=== PATIENT | male | born 1950 | race Caucasian/White ===

== ENCOUNTER → 2016-07-09 | Outpatient (CLI) | payer BC ==
[2016-07-09 13:31] LABS: ESTIMATED AVERAGE GLUCOSE 137 mg/dl; HA1C FLAG Normal (Normal)
== END | disposition home or self-care (01) ==
LOC: C.LABMFLN 13:50
PROVIDERS: ATTEND Family Medicine
DX: E11.9 Type 2 diabetes mellitus without complications (principal)

== ENCOUNTER → 2016-12-29 | Outpatient (CLI) | payer OTHER ==
[2016-12-29 13:31] LABS: ESTIMATED AVERAGE GLUCOSE 137 mg/dl; HA1C FLAG Normal (Normal)
== END | disposition home or self-care (01) ==
LOC: C.LABMFLN 10:55
PROVIDERS: ATTEND Family Medicine
DX: E11.9 Type 2 diabetes mellitus without complications (principal)

== ENCOUNTER → 2017-07-06 | Outpatient (CLI) | payer OTHER ==
[2017-07-06 12:39] LABS: BASO % 0.6 %; BASO ABS # 0.04 K/uL (0-0.2); EOS % 1.9 %; EOS ABS # 0.12 K/uL (0-0.5); HEMATOCRIT 44.6 % (42-52); HEMOGLOBIN 15.1 g/dL (14.0-18.0); IG# 0.01 K/uL (0.00-0.02); LYMPH % 19.9 %; LYMPH ABS # 1.27 K/uL (1.2-3.4); MEAN CELL VOLUME 86.6 fL (80-100); MEAN CORPUSCULAR HEMOGLOBIN 29.3 pg (25-34); MEAN CORPUSCULAR HGB CONC 33.9 g/dl (32-36); MEAN PLATELET VOLUME 10.9 fL (7.4-10.4); MONO % 11.6 %; MONO ABS # 0.74 K/uL (0.11-0.59); NEUT % 65.8 %; NEUT ABS # 4.19 K/uL (1.4-6.5); PLATELET COUNT 240 K/uL (130-400); RED CELL DISTRIBUTION WIDTH CV 14.3 % (11.5-14.5); RED CELL DISTRIBUTION WIDTH SD 45.1 fL (36.4-46.3); WHITE BLOOD COUNT 6.37 K/uL (4.8-10.8)
[2017-07-06 13:02] LABS: ALBUMIN 3.8 gm/dl (3.4-5.0); ALT/SGPT 23 U/L (12-78); BLOOD UREA NITROGEN 18 mg/dl (7-18); CALCIUM 8.7 mg/dl (8.5-10.1); CARBON DIOXIDE 20 mmol/L (21-32); CHOLESTEROL 137 mg/dl (0-200); GLUCOSE 119 mg/dl (70-99); SODIUM 138 mmol/L (136-145)
[2017-07-06 13:10] LABS: ALKALINE PHOSPHATASE 62 U/L (45-117); AST/SGOT 16 U/L (15-37); LDL CHOLESTEROL CALCULATED 79 mg/dl; TOTAL PROTEIN 7.1 gm/dl (6.4-8.2)
[2017-07-06 13:25] LABS: HEMOGLOBIN A1C 6.5 % (4.5-5.6)
[2017-07-06 17:20] LABS: CREATININE RANDOM URINE 97.5 mg/dl
== END | disposition home or self-care (01) ==
LOC: C.LABMFLN 10:29
PROVIDERS: ATTEND Family Medicine
DX: E11.9 Type 2 diabetes mellitus without complications (principal); E78.00 Pure hypercholesterolemia, unspecified; I10 Essential (primary) hypertension; Z12.5 Encounter for screening for malignant neoplasm of prostate

== ENCOUNTER → 2017-07-13 | Outpatient (CLI) | payer OTHER | END | disposition home or self-care (01) | LOC: C.LABMFLN 09:12 | PROVIDERS: ATTEND Family Medicine | DX: R80.9 Proteinuria, unspecified (principal) ==

== ENCOUNTER → 2017-11-07 | Outpatient (CLI) | payer OTHER | END | disposition home or self-care (01) | LOC: C.PATHSPEC 17:05 | PROVIDERS: ATTEND Urology | DX: N20.0 Calculus of kidney (principal); R31.9 Hematuria, unspecified ==

== ENCOUNTER → 2017-11-14 | Outpatient (CLI) | payer OTHER ==
[~2017-11-14] MED LIST: ATOR-24 PO; GLC500 PO; LISI40TA PO; MULT-506 PO; OPTIRAY 320 IV PRN; PATIENT'S ALLERGY INFO NEEDS ENTERED SCH
--- NOTE | 2017-11-14 11:55 | DIAGNOSTIC IMAGING REPORT ---
CT UROGRAM CLINICAL HISTORY: Nephrolithiasis. Hematuria. COMPARISON STUDY: No priors. TECHNIQUE: Before and following the IV administration of 119 cc of Optiray 320, CT urogram of the abdomen and pelvis is performed from the lung bases to the proximal femora. Images are reviewed in the axial, sagittal, and coronal planes. IV contrast was administered without complication. A dose lowering technique was utilized adhering to the principles of ALARA. CT DOSE: 1529.00 mGycm FINDINGS: Lung bases: The heart is normal in size and without pericardial effusion. The lung bases are clear. Liver: The contrast-enhanced liver is normal in size, contour, and attenuation. There is no intrahepatic biliary ductal dilatation. The hepatic veins and portal veins are patent. Scattered subcentimeter hepatic hypodensities likely represent cysts but are too small for definitive characterization. There is a 12 mm enhancing focus in the hepatic dome seen on image #19. Gallbladder: Unremarkable. Spleen: Normal in size and attenuation. There is a calcified splenic granuloma. Pancreas: Unremarkable. Adrenal glands: Unremarkable. Kidneys and ureters: There is slightly asymmetric cortical atrophy of the right kidney as compared to the left. There is severe right hydroureteronephrosis, secondary to 2 large obstructing calculi in the distal right ureter. These measure 2.1 cm and 1.1 cm as seen on axial images #306 and #291. The more distal calculus is located approximately 2.5 cm above the vesicoureteral junction. No additional calculi are identified in the right kidney. There are 10 mm and 4 mm nonobstructing calculi in the left lower pole. There is no left-sided hydronephrosis. The kidneys enhance symmetrically. There is delayed excretion from the right kidney, with no opacification of the right ureter. There is no enhancing renal cortical mass lesion identified. There is no evidence of urothelial lesion within the renal pelvis bilaterally or along the course of either ureter. Urothelial thickening is noted in the distal right ureter. The remainder of the right ureter is normal as imaged. Note the right renal collecting system and ureter were not opacified by excreted contrast. Abdominal vasculature: The abdominal aorta is normal in course and caliber noting moderate atherosclerotic calcification. Bowel: There is moderate colonic diverticulosis without CT evidence of acute diverticulitis. No bowel obstruction is seen. The appendix is well-visualized and normal. Peritoneum: There is no intraperitoneal free air or abdominal ascites. Lymphadenopathy: None. Pelvic viscera: There is a 4.5 x 3.2 cm lobulated intraluminal mass lesion identified arising from the posterior right wall of the bladder. This appears to demonstrate postcontrast enhancement and is highly concerning for neoplasm. This is located in the region of the right trigone. There is median lobe hypertrophy of the prostate gland. Mild circumferential bladder wall thickening and trabeculation suggests chronic outlet obstruction. Skeletal structures: Mild lumbosacral spondylosis is observed. There are bilateral pars defects at L5 with minimal anterolisthesis at L5-S1. No lytic or blastic lesions are seen. IMPRESSION: 1. There are 2 large obstructing calculi in the distal right ureter. This causes severe right hydroureteronephrosis. 2. There is a 4.5 cm lobulated intraluminal mass lesion identified arising from the posterior right wall of the bladder. This appears to demonstrate postcontrast enhancement and should be considered urothelial neoplasm until proven otherwise. Follow-up with cystoscopy is recommended. 3. The kidneys enhance symmetrically. There is delayed excretion from the right kidney. 4. Nonobstructing calculi are noted in the left kidney. 5. Nonspecific urothelial thickening is noted in the distal right ureter, likely related to presence of large distal ureteral calculi. Note that the right renal pelvis and right ureter were not well opacified by excreted contrast. 6. No enhancing renal cortical mass is seen. 7. Moderate colonic diverticulosis without CT evidence of acute diverticulitis. 8. There is no evidence of metastatic disease in the abdomen or pelvis. 9. There is a 12 mm hypervascular focus in the hepatic dome. This is incompletely characterized and may represent a flash filling hemangioma. If further assessment is desired an MRI of the liver would be appropriate. 10. Additional findings as above. Electronically signed by: Jah Sebastian M.D. 11/14/2017 11:54 AM Dictated Date/Time: 11/14/2017 11:14 AM
== END | disposition home or self-care (01) ==
LOC: C.CTS 10:13
PROVIDERS: ATTEND Urology
DX: N20.0 Calculus of kidney (principal); R31.9 Hematuria, unspecified; N20.1 Calculus of ureter; R19.09 Other intra-abdominal and pelvic swelling, mass and lump; K76.9 Liver disease, unspecified

== ENCOUNTER → 2017-11-16 | Outpatient (CLI) | payer OTHER ==
[~2017-11-16] MED LIST changes: -OPTIRAY 320 IV PRN; -PATIENT'S ALLERGY INFO NEEDS ENTERED SCH
[2017-11-16 12:59] LABS: BLOOD UREA NITROGEN 20 mg/dl (7-18); CREATININE 1.02 mg/dl (0.60-1.40)
== END | disposition home or self-care (01) ==
LOC: C.LABMFLN 09:48
PROVIDERS: ATTEND Urology
DX: R31.9 Hematuria, unspecified (principal)

== ENCOUNTER → 2017-11-21 | Outpatient (CLI) | payer OTHER ==
[~2017-11-21] MED LIST changes: +OXYC-57 PO; +PHEN-876 PO
== END | disposition home or self-care (01) ==
LOC: C.LABMFLN 11:09
PROVIDERS: ATTEND Internal Medicine Nephrology
DX: R80.9 Proteinuria, unspecified (principal)

== ENCOUNTER → 2017-11-28 | Day surgery (SDC) | payer OTHER ==
[2017-11-21 14:29] VITALS: BMI 26.0
[2017-11-22 08:18] VITALS: BMI 25.0
--- NOTE | 2017-11-22 08:26 | PAT Medication Instructions ---
Service Date Nov 22, 2017. Current Home Medication List Atorvastatin (Lipitor), 40 MG PO QPM Lisinopril (Zestril), 40 MG PO QPM Metformin HCl (Metformin HCl), 1 TAB PO QPM Multivitamin (Multivitamin), 1 TAB PO QPM Medication Instructions For Your Scheduled Surgery - Take the following medications as scheduled the night before surgery: Multivitamin (Multivitamin), 1 TAB PO QPM Metformin HCl (Metformin HCl), 1 TAB PO QPM Atorvastatin (Lipitor), 40 MG PO QPM Lisinopril (Zestril), 40 MG PO QPM If you have any questions please call us at [phone] or [phone] or [phone]
--- NOTE | 2017-11-22 08:57 | DIAGNOSTIC IMAGING REPORT ---
TWO VIEW CHEST CLINICAL HISTORY: Preoperative examination.. FINDINGS: PA and lateral chest radiographs are correlated with abdominal CT dated 11/14/2017. The cardiomediastinal silhouette is unremarkable. There is diffuse subpleural reticulation with interstitial thickening and mild nodularity suggesting chronic interstitial lung disease. No airspace consolidation or pleural effusion is identified. There is no pneumothorax. The skeletal structures are osteopenic. The bony thorax appears intact. IMPRESSION: Findings suggest interstitial lung disease. No airspace consolidation or pleural effusion is identified. Electronically signed by: Jah Sebastian M.D. 11/22/2017 8:55 AM Dictated Date/Time: 11/22/2017 8:51 AM
[2017-11-22 10:17] LABS: CALCIUM 9.2 mg/dl (8.5-10.1); CREATININE 1.14 mg/dl (0.60-1.40); POTASSIUM 3.7 mmol/L (3.5-5.1)
[2017-11-22 12:18] LABS: BASO % 0.5 %; BASO ABS # 0.04 K/uL (0-0.2); EOS % 1.5 %; EOS ABS # 0.13 K/uL (0-0.5); HEMATOCRIT 48.1 % (42-52); HEMOGLOBIN 15.7 g/dL (14.0-18.0); IG# 0.02 K/uL (0.00-0.02); LYMPH % 22.2 %; LYMPH ABS # 1.88 K/uL (1.2-3.4); MEAN CELL VOLUME 89.1 fL (80-100); MEAN CORPUSCULAR HEMOGLOBIN 29.1 pg (25-34); MEAN CORPUSCULAR HGB CONC 32.6 g/dl (32-36); MEAN PLATELET VOLUME 12.1 fL (7.4-10.4); MONO % 10.8 %; MONO ABS # 0.91 K/uL (0.11-0.59); NEUT % 64.8 %; NEUT ABS # 5.48 K/uL (1.4-6.5); PLATELET COUNT 253 K/uL (130-400); RED CELL DISTRIBUTION WIDTH CV 14.4 % (11.5-14.5); RED CELL DISTRIBUTION WIDTH SD 46.4 fL (36.4-46.3); WHITE BLOOD COUNT 8.46 K/uL (4.8-10.8)
[2017-11-22 12:39] LABS: HEMOGLOBIN A1C 6.5 % (4.5-5.6)
[2017-11-28] VITALS (7 sets, daily range): BP systolic 125–149; BP diastolic 70–93; PULSE 87–95; TEMP 36.5–36.8; O2SAT 94–98; Ht 165.1 cm; Wt 70.0 kg
[~2017-11-28] VITALS: Ht 165.1 cm; Wt 70.0 kg
[~2017-11-28] MED LIST changes: +ATROPINE SULFATE 0.1 MG/ML 5ML SYR IV PRN; +CIPROFLOXACIN / D5W 400 MG IV SCH; +Cysto-Conray II 17.2% 250ML BOTTLE ONE; +DEXAMETHASONE SOD INJ 4 MG/ML VIAL ONE; +EpHEDrine SULFATE 50MG/5ML SYR ONE; +EpHEDrine SULFATE INJ 50 MG/ML AMP IV PRN; +FENTANYL CITRATE INJ 50 MCG/1 ML 2 ML VIAL IV PRN; +FENTANYL CITRATE INJ 50 MCG/1 ML 2 ML VIAL ONE; +HYDROmorphone INJ 1 MG/ML SYR IV PRN; +LACTATED RINGER'S 1000ML 1,000 ML IV SCH; +LIDOCAINE HCL 2% 2 ML VIAL (20MG/ML) ONE; +METHYLENE BLUE 0.5% 10 ML VIAL ONE; +MIDAZOLAM HCL 1 MG/ML 2ML VIAL ONE; +NEOSTIGMINE METHYLSULFATE 5 MG/5 ML SYR ONE; +ONDANSETRON INJ 2 MG/ML 2 ML VIAL IV PRN; +ONDANSETRON INJ 2 MG/ML 2 ML VIAL ONE; +OXYCODONE/ACETAMINOPHEN 5-325 TAB PO PRN; +PHENYLEPHRINE HCL INJ 10 MG/ML VIAL ONE; +PROPOFOL IV EMULSION 10 MG/ML 20 ML VIAL ONE; +ROCURONIUM BROMIDE 10 MG/ML 5 ML VIAL ONE
--- NOTE | 2017-11-28 06:58 | History & Physical Bridge Note ---
H&P Re-Evaluation Bridge Note: I have examined the patient, reviewed the History & Physical and in the interval since the performance of the History & Physical I have noted the following changes of clinical significance: No changes noted
--- NOTE | 2017-11-28 10:47 | DIAGNOSTIC IMAGING REPORT ---
RETROGRADE INCLUDES KUB CLINICAL HISTORY: Right-sided ureteral calculi. Right-sided hydronephrosis. COMPARISON STUDY: CT scan dated 11/14/2017 FINDINGS: 57 seconds of fluoroscopic time was utilized. 2 intraoperative fluoroscopic spot images are provided for interpretation. There is moderate right-sided hydronephrosis and hydroureter. Lucencies involving the right renal collecting system may relate to overlying bowel gas. The final image demonstrates placement of a right-sided nephroureteral stent. Only the proximal pigtail is visualized. IMPRESSION: Right-sided hydronephrosis and hydroureter. A right-sided nephroureteral stent was placed. Electronically signed by: Tyler Orellana M.D. 11/28/2017 10:45 AM Dictated Date/Time: 11/28/2017 10:43 AM
--- NOTE | 2017-11-28 10:50 | Discharge Instructions ---
Discharge Instructions Date of Service Nov 28, 2017. Visit Reason for Visit: Bladder Tumor, Right Ureteral Stone Discharge Discharge Diagnosis / Problem: Bladder tumor Discharge Goals Goal(s): Therapeutic intervention Activity Recommendations Activity Limitations: per Instructions/Follow-up section Lifting Limitations: gradually increase as tolerated Exercise/Sports Limitations: until after follow-up appointment May Resume Sexual Activity: after one week Shower/Bathe: no limitations Driving or Machine Use: resume 1 day after discharge Anesthesia . Post Anesthesia Instructions: If you have had General Anesthesia or IV Sedation: * Do not drive today. * Resume driving when surgeon permits. * Do not make important decisions or sign legal documents today. * Call surgeon for: 1. Temperature elevations greater than 101 degrees F. 2. Uncontrollable pain. 3. Excessive bleeding. 4. Persistent nausea and vomiting. 5. Medication intolerance (nausea, vomiting or rash). * For nausea and vomiting use only clear liquids such as: tea, soda, bouillon until nausea subsides, then gradually increase diet as tolerated. * If you have any concerns or questions, call your surgeon's office. If physician is unavailable and it is an emergency, call 911 or go to the nearest emergency room. . Diet Recommendations Recommended Home Diet: resume previous diet Procedures Procedures Performed: Cystoscopy, Urethral Dilation, Right Stent Insertion, Transurethral Resection of Bladder Tumor Pending Studies Studies pending at discharge: no Medical Emergencies . Who to Call and When: Medical Emergencies: If at any time you feel your situation is an emergency, please call 911 immediately. . Non-Emergent Contact Non-Emergency issues call your: Urologist Call Non-Emergent contact if: temperature is above 101.5, your pain is not controlled . . "Provider Documentation" section prepared by Tai Toledo. . [place] Drug Monitoring Program Search Results: patient reviewed within database
--- NOTE | 2017-11-28 11:14 | [facility] Operative Report ---
Operative Report Operative Date Nov 28, 2017. Pre-Operative Diagnosis Bladder tumor, Nephrolithiasis Post-Operative Diagnosis Bladder tumor, Nephrolithiasis Procedure(s) Performed Cystoscopy, Urethral Dilation, Right Stent Insertion, Transurethral Resection of Bladder Tumor Surgeon Dr. Toledo Guest Advisor Surgeon(s) none Estimated Blood Loss 2 cc Findings Cystoscopic exam revealed normal anterior urethra there is papillary tumor in the prostatic fossa and at the bladder neck there was an extremely large tumor covering the floor of the bladder on the right side this obliterated the right ureteral orifice. Right retrograde showed 2 large stones in the right ureter with hydroureteronephrosis Specimens Frozen #1 Bladder tumor - any muscle? #2 Bladder tumor Permanent A: bladder tumor Drains 6 [place] by 26 cm right ureteral stent Anesthesia Type General Complication(s) none Disposition yes Recovery Room / PACU Indications Patient's a 66-year-old white male who on evaluation for hematuria was found to have 2 large distal right ureteral stones as well as a very large bladder tumor he is initially being brought in for cystoscopy TURBT possible ureteroscopy laser lithotripsy and stent right side Description of Procedure After the induction of an adequate general anesthetic and appropriate timeout patient's lower abdomen genitalia prepped with Hibiclens draped in a sterile fashion meatus was dilated with Kalani sounds to 28 [place]. Using a 22 [place] cystoscope routine cystoscopic exam was performed the above-noted findings with 30 and 70 lenses the tumor itself was very large. Next using a 24 [place] resection scope and bipolar loop the tumor was resected in its entirety the resection actually took several hours. The tumor did obliterate the right ureteral orifice. There were also tumors in the prostatic fossa and at the bladder neck which were resected after resecting all visible tumor any bleeding points were electrocoagulated. Patient was given methylene blue but no dye ever came from either ureteral orifice. Through probing with a wire I was able to find the right ureteral orifice right retrograde was performed with the above-noted findings I was able to pass a 6 [place] by 26 cm stent over guidewire to position the renal pelvis confirmed by fluoroscopy the guidewire was removed there is a good curl at the bladder level at this point we decided not to attempt ureteroscopy as the tumor had completely obliterated that ureteral orifice will give it time to heal all needle sponge and instrument counts are correct at the end of the case. Patient tolerated the procedure well and was taken recovery room in stable condition I attest to the content of the Intraoperative Record and any orders documented therein. Any exceptions are noted below.
--- NOTE | 2017-11-28 11:17 | Anesthesiology Progress Note ---
Anesthesia Post Op Note Date & Time Nov 28, 2017 at 11:17 Vital Signs Pain Intensity: 0 Vital Signs Past 12 Hours Date Time Temp Pulse Resp B/P (MAP) Pulse Ox O2 Delivery O2 Flow Rate FiO2 11/28/17 11:02 98 24 98 11/28/17 11:02 97 24 11/28/17 11:01 94 22 128/76 98 11/28/17 11:01 96 22 11/28/17 10:57 126/65 11/28/17 10:56 104 23 98 11/28/17 10:56 99 23 11/28/17 10:51 121 25 145/89 97 11/28/17 10:51 117 25 11/28/17 10:48 139/84 11/28/17 10:46 36.1 122 16 139/84 (92) 98 Oxymask 10 11/28/17 05:39 36.8 87 18 149/79 (102) 98 Room Air Notes Mental Status: alert / awake / arousable, participated in evaluation Pt Amnestic to Procedure: Yes Nausea / Vomiting: adequately controlled Pain: adequately controlled Airway Patency, RR, SpO2: stable & adequate BP & HR: stable & adequate Hydration State: stable & adequate Anesthetic Complications: no major complications apparent
== END | disposition home or self-care (01) ==
LOC: C.ACU 05:00
PROVIDERS: ATTEND Urology
DX: C67.9 Malignant neoplasm of bladder, unspecified (principal); N20.0 Calculus of kidney; I10 Essential (primary) hypertension; E11.9 Type 2 diabetes mellitus without complications; N40.0 Benign prostatic hyperplasia without lower urinary tract symptoms; E78.00 Pure hypercholesterolemia, unspecified; E55.9 Vitamin D deficiency, unspecified

== ENCOUNTER 2018-10-26 10:22 | Inpatient (IN) ==
--- NOTE | 2018-10-23 09:09 | Anesthesiology Consultation ---
Date of Service October 23, 2018 Assessment & Plan (1) Encounter for pre-operative examination: - Paroxysmal atrial tachycardia: dx in recovery room after left lung EBUS with biopsies 10/13/18 at [facility]. Cardio consult 10/13/18 at [facility] felt possible 2/2 stress of procedure and high catecholamines. Responded well to beta blockade. Recommended outpatient 24 hour holter/ECHO to further evaluate (done 10/2018). ECHO done 10/17/18 unremarkable. Surgeon is coordinating with cardio to ensure okay to proceed with surgery as scheduled. Cardio preop evaluation done 10/25/18. - Cardio: 10/25/18: "Based on his levels of physical activity without limiting cardiopulmonary symptoms and normal LV systolic function, and despite frequent atrial ectopy and PAT -- patient is an acceptable surgical risk to proceed with surgery as scheduled.. We will expect that the patient will have frequent atrial ectopy and runs of atrial tachycardia perioperatively -- so would recommend IV Lopressor as needed during the perioperative period. The presence of these atrial arrhythmias is not prohibitive of this surgery." Chart Review Chart Review: Acceptable Risk for Surgery and Patient NOT seen in Pre Admission Testing History Surgery Operation Date: 10/26/18 11:50 Proposed Procedures p Robotic Left Robotic Video Assisted Thoracoscopy with Left Lower Lobectomy and Mediastinal Lymphadenectomy - Brock Zhao MD, FACS Height/Weight Height: 5 ft 5 in Weight: 71.214 kg Allergies Allergy/AdvReac Type Severity Reaction Status Date / Time aspirin AdvReac Mild HALLUCINATIONS Verified 10/23/18 08:11 A CHILD Medications Home Medications Medication Instructions Recorded Confirmed Last Taken atorvastatin 40 mg PO HS #0 tab 11/21/17 10/23/18 10/12/18 22:00 lisinopril 40 mg PO HS #0 tab 11/21/17 10/23/18 10/12/18 22:00 metformin 500 mg PO HS #0 11/21/17 10/23/18 10/12/18 22:00 multivitamin 1 tab PO HS #0 tab 11/21/17 10/23/18 10/12/18 22:00 Symbicort 2 puff INHALATION BID PRN 10/10/18 10/23/18 10/12/18 22:00 albuterol sulfate 1 puff INHALATION Q6H PRN 10/10/18 10/23/18 10/12/18 18:00 metoprolol succinate [Toprol XL] 50 mg PO HS 10/23/18 10/23/18 Unknown Past Medical History Medical History PAT (paroxysmal atrial tachycardia) 10/2018 Bladder cancer s/p TURBT Diabetes mellitus, type 2 NIDDM Hyperlipidemia Hypertension Mass of left lung Nephrolithiasis Pneumonia 09/2018; workup for this led to findings of lung mass (reason for upcoming procedure) Past Family History Family History Sister Family history of diabetes mellitus Grandmother Family history of diabetes mellitus Past Surgical History Surgical History H/O transurethral destruction of bladder lesion Hand trauma s/p surgical repair History of cystoscopy + stent History of inguinal hernia repair s/p repair (as child) History of tonsillectomy and adenoidectomy S/P colonoscopy Social History Smoking Status: Never smoker tobacco type: cigarettes Smoking cigarettes per day: 3-4 CIGS DAILY X 3 YEARS Do You Dip or Chew Tobacco: No Hx Alcohol Use: Yes Alcohol type: beer alcohol intake frequency: holidays/special occasions only Hx Substance Use: No substance use type: does not use Testing Laboratory Results 10/23/18 WBC 6.46 H/H 14.1/43.8 PLATELETS 277 SODIUM 141 POTASSIUM 4.3 CHLORIDE 107 CO2 26 BUN 13 CREATININE 0.97 GLUCOSE 106 Electrocardiogram Date: 10/13/18 SR with frequent and consistent PAC's at 104bpm. Chest X-Ray Date: 10/13/18 There are mixed interstitial and alveolar opacities bilaterally. There is no pneumothorax status post biopsy. The heart is borderline enlarged. No evidence of pneumothorax status post biopsy Echocardiogram Date: 10/17/18 EF 55-60%. No visualized RWMA. Mild LAD. Mild AR. Other Testing Chest CT: 09/25/18: Area of masslike consolidation involving the superior segment of the left lower lobe. There is a possible central mass demonstrating mild narrowing of the left lower lobe bronchus proximally as well as mild mass effect on the left main pulmonary artery. Mild mediastinal lymphadenopathy. Interstitial lung disease Holter Report: 10/19/18: Technically limited quality. Rhythm is sinus rhythm. Average HR 77bpm. Min HR 42bpm. Max HR 90bpm. No significant pauses or AVB noted. Wide complex bears seen, consider ventricular origin for some beats but most are probably aberrant. Frequent sustained and nonsustained episodes of a. tachycardia (suspect atrial tachycardia rather than reentrant SVT). A. arrhyth william comprised 48% of recorded bears. No apparent ventricular arrhythmia noted, but some aberrant beats and possibly ventricular. No diary submitted.
[~2018-10-26 10:22] MED LIST changes: -ATOR-24 PO; -ATROPINE SULFATE 0.1 MG/ML 5ML SYR IV PRN; -CIPROFLOXACIN / D5W 400 MG IV SCH; -Cysto-Conray II 17.2% 250ML BOTTLE ONE; -DEXAMETHASONE SOD INJ 4 MG/ML VIAL ONE; -EpHEDrine SULFATE 50MG/5ML SYR ONE; -EpHEDrine SULFATE INJ 50 MG/ML AMP IV PRN; -FENTANYL CITRATE INJ 50 MCG/1 ML 2 ML VIAL IV PRN; -FENTANYL CITRATE INJ 50 MCG/1 ML 2 ML VIAL ONE; -GLC500 PO; -HYDROmorphone INJ 1 MG/ML SYR IV PRN; -LACTATED RINGER'S 1000ML 1,000 ML IV SCH; -LIDOCAINE HCL 2% 2 ML VIAL (20MG/ML) ONE; -LISI40TA PO; +LR 15ML/HR IV SCH; -METHYLENE BLUE 0.5% 10 ML VIAL ONE; -MIDAZOLAM HCL 1 MG/ML 2ML VIAL ONE; -MULT-506 PO; -NEOSTIGMINE METHYLSULFATE 5 MG/5 ML SYR ONE; -ONDANSETRON INJ 2 MG/ML 2 ML VIAL IV PRN; -ONDANSETRON INJ 2 MG/ML 2 ML VIAL ONE; -OXYC-57 PO; -OXYCODONE/ACETAMINOPHEN 5-325 TAB PO PRN; -PHEN-876 PO; -PHENYLEPHRINE HCL INJ 10 MG/ML VIAL ONE; -PROPOFOL IV EMULSION 10 MG/ML 20 ML VIAL ONE; -ROCURONIUM BROMIDE 10 MG/ML 5 ML VIAL ONE
[2018-10-26] MEDS ORDERED: BUPIVACAINE LIPOSOME 1.3% 266 MG/20 ML VIAL ONE (11:53)
[2018-10-26] MEDS ORDERED: SODIUM CHLORIDE 0.9% PF 50 ML VIAL ONE (11:53)
[2018-10-26] MEDS ORDERED: BUPIVACAINE 0.5 % 5 MG/1 ML MPF 30ML VIAL ONE (11:54)
--- NOTE | 2018-10-26 12:04 | History & Physical Bridge Note ---
Date of Service October 26, 2018 History & Physical Bridge Note I have examined the patient, reviewed the History & Physical and in the interval since the performance of the History & Physical I have noted the following changes of clinical significance: no changes noted
[2018-10-26] MEDS ORDERED: fentaNYL citrate 100 MCG/2 ML VIAL ONE (12:06)
[2018-10-26] MEDS ORDERED: ROCURONIUM BROMIDE 10 MG/ML 5 ML VIAL ONE ×4 (12:06→14:56)
[2018-10-26] MEDS ORDERED: MIDAZOLAM HCL 1 MG/ML 2ML VIAL ONE ×2 (12:06→14:12)
--- NOTE | 2018-10-26 12:13 | History & Physical Bridge Note ---
Date of Service October 26, 2018 History & Physical Bridge Note I have examined the patient, reviewed the History & Physical and in the interval since the performance of the History & Physical I have noted the following changes of clinical significance: no changes noted. This patient has a left lower lobe mass and will undergo a left lower lobectomy.
[2018-10-26] MEDS ORDERED: CEFAZOLIN 250 MG/ML 1 GM VIAL ONE ×2 (13:03→14:57)
[2018-10-26] MEDS ORDERED: CEFAZOLIN 2000MG 2,000 MG/15 ML SYR IV ONE (13:15)
[2018-10-26] MEDS ORDERED: ATROPINE SULFATE 0.1 MG/ML 10ML SYR IV PRN (13:20)
[2018-10-26] MEDS ORDERED: ePHEDrine sulfate 50 MG/ML AMP IV PRN (13:20)
[2018-10-26] MEDS ORDERED: ONDANSETRON INJ 2 MG/ML 2 ML VIAL IV PRN (13:21)
[2018-10-26] MEDS ORDERED: HYDROmorphone INJ 2 MG/ML SYR/VIAL IV PRN (13:21)
[2018-10-26] MEDS ORDERED: AMIODARONE HCL INJ 50 MG/ML 3 ML VIAL IV ONE ×2 (13:50→13:59)
--- NOTE | 2018-10-26 14:20 | Post Operative Brief Note ---
Immediate Post Op Note v1 Date of Surgery October 26, 2018 Pre & Post Diagnosis Operation Date: 10/26/18 11:50 Pre-Op Diagnosis: Right left hypermetabolic lower lobe mass Post-Op Diagnosis: Right left hypermetabolic lower lobe mass Apparent V-Tach Procedure Operation Date: 10/26/18 11:50 Actual Procedures p Robotic Left Robotic Video Assisted Thoracoscopy, Aborted (Left) - Brock Zhao MD, FACS Surgeon Brock Zhao MD, FACS Project Asst Carmen GUZMAN Estimated Blood Loss 0 Findings Consistent with Post-Op Diagnosis Drains Chest Tube (24fr) and Gonzalez Catheter (16 occ[place] placed by Keyur GUZMAN without any difficulty, clear yellow urine. Gonzalez to be discontinued at end of surgery)
[2018-10-26] MEDS ORDERED: ALBUTEROL HFA 8 GM INHALER INH PRN (14:25)
[2018-10-26] MEDS ORDERED: BUDESONIDE/FORMOTEROL FUMARATE 160/4.5 60 PUFFS/INHALER INH PRN (14:25)
--- NOTE | 2018-10-26 14:25 | Critical Care Consultation ---
Date of Consultation October 26, 2018 Assessment & Plan (1) Ventricular tachycardia: Reason Critically Ill: Ventricular tachycardia with hemodynamic instability PLAN: Neuro: Analgesia -Oral pain medication ordered Resp: Left lung mass -Unable to complete surgical resection -Wean to extubate CV: Ventricular tachycardia Supraventricular tachycardia -On amiodarone at this time -Trend troponins limited echo -Cardiology consult Fluids/Renal: History of proteinuria -Discontinue Gonzalez when awake ID: Perioperative antibiotics -Discontinue shortly GI/Nutrition: Clears when extubated -Advance diet when tolerated Heme: DVT prophylaxis: Lovenox Endocrine: ICU hyperglycemia protocol [id number] diabetes mellitus -Continue home meds Vascular access: Peripheral IVs, right radial arterial line Code Status: Full code I have personally spent 35 minutes of critical care time in the direct management of this patient. This is a life/limb threatening event. This includes time spent evaluating patient, direct bedside care, chart review, placing orders, interpretation of diagnostic studies, discussion with consultants, patient, and/or family members regarding treatment decisions, as well as other required patient management activities. This time is exclusive of all separately billable procedures, and teaching time and separate from and in addition to any other critical care service time. Present on Admission?: No (2) Proteinuria: Present on Admission?: Yes (3) Bladder cancer: Present on Admission?: Yes (4) Type 2 diabetes mellitus: Present on Admission?: Yes (5) Mass of left lung: Present on Admission?: Yes History of Present Illness Attending Physician: Brock Zhao MD, FACS Patient is a 67-year-old male who was in the operating room for a wedge resection, the patient had been induced by general anesthesia and was undergoing single lung ventilation when he started to have episodes of nonsustained ventricular tachycardia and possible SVT per anesthesia report. Eventually he had a prolonged episode of ventricular tachycardia without a blood pressure which was recorded via A-line. The surgical procedure was stopped patient was returned to the supine position amiodarone was started and he was transferred to the ICU for further evaluation and management. He recently underwent evaluation by cardiology. Allergies Allergy/AdvReac Type Severity Reaction Status Date / Time aspirin AdvReac Mild HALLUCINATIONS Verified 10/26/18 10:48 A CHILD Home Medications Home Medications Medication Instructions Recorded Confirmed Type atorvastatin 40 mg PO HS #0 tab 11/21/17 10/26/18 History lisinopril 40 mg PO HS #0 tab 11/21/17 10/26/18 History metformin 500 mg PO HS #0 11/21/17 10/26/18 History multivitamin 1 tab PO HS #0 tab 11/21/17 10/26/18 History Symbicort 2 puff INHALATION BID PRN 10/10/18 10/26/18 History albuterol sulfate 1 puff INHALATION Q6H PRN 10/10/18 10/26/18 History metoprolol succinate [Toprol XL] 50 mg PO HS 10/23/18 10/26/18 History Patient History Medical History PAT (paroxysmal atrial tachycardia) 10/2018 Bladder cancer s/p TURBT Diabetes mellitus, type 2 NIDDM Hyperlipidemia Hypertension Mass of left lung Nephrolithiasis Pneumonia 09/2018; workup for this led to findings of lung mass (reason for upcoming pr ocedure) Surgical History H/O transurethral destruction of bladder lesion Hand trauma s/p surgical repair History of cystoscopy + stent History of inguinal hernia repair s/p repair (as child) History of tonsillectomy and adenoidectomy S/P colonoscopy Family History Sister Family history of diabetes mellitus Grandmother Family history of diabetes mellitus Social History Preferred Language: [place] Communication Ability: Effective Visual Impairment: No Limitations Lens Blocker Required: No Beliefs That Will Affect Care: None Current Living Situation: Spouse Other Information That Helps Us Care for You: No Feels Safe at Home: Yes Safety Concerns: Feels Safe At This Time Smoking Status: Never smoker Tobacco Type: cigarettes Cigarettes Per Day: 3-4 CIGS DAILY X 3 YEARS Do You Dip or Chew Tobacco: No Second Hand Exposure: No Tobacco Cessation Education Requested by Patient: No Hx Alcohol Use: Yes Alcohol type: beer Hx Substance Use: No Review of Systems Review of Systems: Unobtainable due to endotracheal tube Physical Exam Physical Exam: General: Well-nourished male who appears stated age I have reviewed the recorded vital signs Neurological: Seen in the operating room 3 TP, moving all 4 extremities prior to repeat dose of rocuronium Psychological: Unable to obtain secondary to sedation and endotracheal tube Eyes: Pupils are equal, round and reactive to light, anicteric sclera. Symmetrical lids. HENT: Oropharynx obscured by endotracheal tube, mucous membranes are moist. Neck: Supple. Symmetric. trachea midline. No thyromegaly. Cardiovascular: Normal peripheral perfusion. Distal pulses and capillary refill intact. No JVD. Bedside monitor demonstrates normal sinus rhythm Respiratory: Chest tubes present in left chest Gastrointestinal: Soft. Non-distended. Lymphatic: No cervical lymphadenopathy. Musculoskeletal: No deformity. No clubbing nor cyanosis. Right radial arterial line Results & Data Vital Signs (Past 12 Hours) Vital Signs Temp Pulse Resp BP Pulse Ox 10/26/18 10:54 36.5 C 67 18 145/88 H 96 Laboratory Results 10/26/18 10/26/18 Range/Units 12:20 11:12 POC Glucose 100 H (70-99) Blood Type A Positive Antibody Screen NEGATIVE Crossmatch See Detail PG Care Time/CCT Total # of Minutes Spent Total Time Spent with Patient: Total time spent is greater than 50% in coordination of care (as documented) at patient's floor/unit and/or counseling patient: Critical Care Time: Yes Total Critical Care Time: 35
[2018-10-26] MEDS ORDERED: AMIODARONE / D5W 360 MG/200 ML BAG IV SCH ×2 (14:30→20:32)
[2018-10-26] MEDS ORDERED: AMIODARONE IV BOLUS / DRIP IV STA (14:30)
[2018-10-26] MEDS ORDERED: fentaNYL citrate 100 MCG/2 ML VIAL IV PRN (14:38)
[2018-10-26] MEDS ORDERED: ACETAMINOPHEN 325 MG TAB PO PRN (14:38)
[2018-10-26] MEDS ORDERED: ACETAMINOPHEN 1,000 MG/100 ML VIAL IV PRN (14:38)
[2018-10-26] MEDS ORDERED: MIDAZOLAM HCL 1 MG/ML 2ML VIAL IV PRN (14:38)
[2018-10-26 14:43] LABS: Basophils # (auto) 0.04 K/uL (0-0.2); Basophils % (auto) 0.6 %; Eosinophils # (auto) 0.17 K/uL (0-0.5); Eosinophils % (auto) 2.4 %; Hematocrit (blood only) 40.1 % (42-52); Hemoglobin 13.1 g/dL (14.0-18.0); Immature Granulocytes # (auto) 0.02 K/uL (0.00-0.02); Immature Granulocytes % (auto) 0.3 %; Lymphocytes # (auto) 1.71 K/uL (1.2-3.4); Lymphocytes % (auto) 24.2 %; Mean Corpuscular Volume 83.7 fL (80-100); Mean Platelet Volume 10.7 fL (7.4-10.4); Monocytes # (auto) 0.52 K/uL (0.11-0.59); Monocytes % (auto) 7.3 %; Neutrophils # (auto) 4.62 K/uL (1.4-6.5); Neutrophils % (auto) 65.2 %; Platelet Count 238 K/uL (130-400); Red Blood Count 4.79 M/uL (4.7-6.1); White Blood Count 7.08 K/uL (4.8-10.8)
--- NOTE | 2018-10-26 14:48 | XRay Report ---
XR chest 1V portable CLINICAL HISTORY: 67 years-old Male presenting with LVATS. TECHNIQUE: Portable upright AP view of the chest was obtained. COMPARISON: 10/13/2018. FINDINGS: Endotracheal tube terminates in the lower thoracic trachea approximately 2 cm from the bladimir. Large bore left pleural drain position at the left upper lung. Atherosclerosis of the aortic arch. Cardiac silhouette top normal in size. Interval decrease in bilateral perihilar and left basilar opacity as w ell as decreased diffuse bilateral reticulation. No large effusion or pneumothorax. Degenerative mendez ges of the thoracic spine. Upper abdomen normal. IMPRESSION: 1. Appropriately positioned endotracheal tube. 2. Left pleural drain in place. No pneumothorax. 3. Decreased perihilar and left basilar infiltrates. Electronically signed by: Kali Arce M.D. 10/26/2018 2:47 PM
[2018-10-26 14:49] LABS: iSTAT Arterial Blood Gas HCO3 21 meg/L (19-24); iSTAT Arterial Blood Gas pCO2 33 mmHg (35-46); iSTAT Arterial Blood Gas pH 7.41 (7.35-7.45); iSTAT Carbon Dioxide 22 mEq/l (24-31); iSTAT Site Art Line
[2018-10-26 14:51] LABS: Mean Corpuscular Hgb Conc 32.7 g/dL (32-36)
[2018-10-26] MEDS ORDERED: PROPOFOL IV EMULSION 10 MG/ML 20 ML VIAL IV ONE (14:56)
[2018-10-26] MEDS ORDERED: PHENYLEPHRINE HCL 10 MG/ML VIAL ONE (14:57)
--- NOTE | 2018-10-26 14:58 | Anesthesiology Progress Note ---
Date of Service October 26, 2018 The patient was brought into the o.r. and the monitors placed. A left radial arterial catheter was inserted in ASU II without difficulty. He was pre- oxygenated and induced with propofol 200 mg, rocuronium 50 MG and 40mg of lidocaine. He was a difficult intubation with a double lumen ETT but we were successful with a number 37 tube. From the time we were in the pre-op area through the induction period we noticed intermittent episodes of short runs of SVT which spontaneously resolved after a few seconds. We were told to expect t hat more or less by the cardiology note which felt we were OK to proceed with surgery, that he was an acceptable risk. The immediate perioperative period went smoothly except for those brief episodes which did not drop the blood pressure. I left the room to do a nerve block and afterward I came back to see how it was going. When I entered the room I was told it was not going well. I looked up at the monitor and saw a short run of V-Tac. In a short time he had several others leading up to a long run that lasted the length of the monitor screen. I saw his systolic blood pressure drop to 41, my nephrology social worker felt that it dropped out. We informed the surgeon that we had to stop and we gave the patient amiodarone 150 mg slow iv push, then started a drip at 0.5 mg a minute. The V-Tac stopped before we had a chance to give the amiodarone. Please also refer to Doris Alaniz's note. We were prepared to start CPR but his pressure returned by the time he was undocked which was very speedy. He was without pressure for less than a minute. Dr. Logan arrived and wqs given report. He advised we increase the rate of amiodarone to 1 mg per minute.which we did. We extubated the double lumen tube and placed a #7.5 single lumen tube with the glide scope and then transported him to the ICU. His ectopy calmed down after a short while and there was no more V-Tac or atrial tachycardia while I was there. Anesthesia Post Procedure Vital Signs Vital Signs: Temp Pulse Resp BP Pulse Ox 10/26/18 10:54 36.5 C 67 18 145/88 H 96
[2018-10-26 15:17] LABS: Creatinine Clr Calc Pharmacy 73.5 ml/min
[2018-10-26 15:29] LABS: BUN Creatinine Ratio 16.8 (10-20); Calcium 8.3 mg/dl (8.5-10.1); Est GFR (African American) 104.7; Est GFR (Non-African American) 90.4; Magnesium 2.2 mg/dl (1.8-2.4); Phosphorus 4.1 mg/dl (2.5-4.9)
[2018-10-26 15:38] LABS: Partial Thromboplastin Time 26.4 Seconds (21.0-31.0); Prothrombin Time 10.7 Seconds (9.0-12.0)
[2018-10-26] MEDS ORDERED: PERFLUTREN LIPID MICROSPHERE (DEFINITY) IV ONE (15:42)
[2018-10-26] MEDS: NORMOSOL-R 1,000 ML IV SCH (16:44)
[2018-10-26] MEDS ORDERED: dilTIAZem HCl 125 MG in DEXTROSE 5% 100 ML IV SCH (18:00)
[2018-10-26] MEDS ORDERED: dilTIAZem HCl 5 MG/ML 5 ML VIAL IV STA (18:03)
--- NOTE | 2018-10-26 18:04 | Cardiology Consultation ---
Date of Consultation October 26, 2018 Assessment & Plan (1) Wide-complex tachycardia: She had a wide-complex tachycardia during surgery, I do not have strips to review and it is possible it was ventricular tachycardia but he really does not have a reason to have ventricular tachycardia. We have not however done an ischemic evaluation. So far his echo shows no wall motion abnormalities and his troponin is negative so I think his stress test is the most reasonable option and I will arrange that for tomorrow morning. We might be able to do a treadmill but I am going to schedule it as a dobutamine echo stress test. I think the most likely thing is that this was SVT with aberrancy, he has demonstrated that on telemetry and on his Holter monitor. (2) PAT (paroxysmal atrial tachycardia): He has a lot of atrial arrhythmias, these were seen on his Holter monitor were reviewed 48% atrial premature beats and here in the hospital. They seem to be quite resistant to medical therapy, on amiodarone he is still having them although they might be a little bit less symptoms. Some of these are very fast. I am going to try to control them with IV amiodarone and IV diltiazem tonight, if we can get them under control on this regimen we may be able to use that through surgery. If not I am going to try beta-blockade. This may be a form of MAT which is notoriously resistant to medical therapy. History of Present Illness Reason for Consultation: T Attending Physician: Brock Zhao MD, FACS History of Present Illness This is a 67-year-old gentleman with a history of diabetes and recently diagnosed lung cancer. He does not have a history of heart disease including palpitations, however on electrocardiography preoperatively on October 13, 2018 was noted to have PAT. Postoperatively in the recovery room he continued to have frequent episodes, during surgery he was having frequent episodes and received intravenous metoprolol. At the time of my evaluation the recovery room he was awake and alert and denies having any palpitations either currently or recently. He denies exertional difficulty, he does not have lightheadedness or dizziness and has never had syncope by his recollection although his tells me that he did pass out several months ago although she relates that to the diagnosis of pneumonia at the time. Other than having some pulmonary difficulty this year he has not had difficulty with exertion and denies exertional chest discomfort. We did perform echocardiography October 17, 2018 where he had normal left ventricular size and function and no significant valvular abnormality. He also had a 24-hour Holter monitor performed on October 19, 2018 where he had sinus rhythm with frequent premature atrial beats, couplets and nonsustained runs of atrial tachycardia. His atrial arrhythmia comprised 48% of his heartbeats. He had no symptoms. Some of his premature atrial beats were aberrantly conducted. During surgery he had atrial arrhythmias and then had a run of wide-complex tachycardia with no pressure, unfortunately do not have strips, I believe the episodes were relatively brief but long enough to drop his pressure with an A- line. He was started intravenous amiodarone, the procedure was aborted soon after its start and he was transferred to the ICU. At the time of my evaluation in the intensive care unit after his aborted surgical procedure today he was feeling well, he had no complaints, he was continued to have atrial ectopy which was asymptomatic. So far repeat echocardiogram is unremarkable and his first troponin is negative. Allergies Allergy/AdvReac Type Severity Reaction Status Date / Time aspirin AdvReac Mild HALLUCINATIONS Verified 10/26/18 10:48 A CHILD Home Medications Home Medications Medication Instructions Recorded Confirmed Type atorvastatin 40 mg PO HS #0 tab 11/21/17 10/26/18 History lisinopril 40 mg PO HS #0 tab 11/21/17 10/26/18 History metformin 500 mg PO HS #0 11/21/17 10/26/18 History multivitamin 1 tab PO HS #0 tab 11/21/17 10/26/18 History Symbicort 2 puff INHALATION BID PRN 10/10/18 10/26/18 History albuterol sulfate 1 puff INHALATION Q6H PRN 10/10/18 10/26/18 History metoprolol succinate [Toprol XL] 50 mg PO HS 10/23/18 10/26/18 History Patient History Medical History PAT (paroxysmal atrial tachycardia) 10/2018 Bladder cancer s/p TURBT Diabetes mellitus, type 2 NIDDM Hyperlipidemia Hypertension Mass of left lung Nephrolithiasis Pneumonia 09/2018; workup for this led to findings of lung mass (reason for upcoming procedure) Surgical History H/O transurethral destruction of bladder lesion Hand trauma s/p surgical repair History of cystoscopy + stent History of inguinal hernia repair s/p repair (as child) History of tonsillectomy and adenoidectomy S/P colonoscopy Family History Sister Family history of diabetes mellitus Grandmother Family history of diabetes mellitus Social History Preferred Language: Senegalese Communication Ability: Effective Visual Impairment: No Limitations Mechanical Lead Required: No Beliefs That Will Affect Care: None Current Living Situation: Spouse Other Information That Helps Us Care for You: No Feels Safe at Home: Yes Safety Concerns: Feels Safe At This Time Smoking Status: Former smoker Tobacco Type: cigarettes Cigarettes Per Day: 3-4 CIGS DAILY X 3 YEARS Do You Dip or Chew Tobacco: No Smoking End Date: 1974 Second Hand Exposure: No Tobacco Cessation Education Requested by Patient: No Hx Alcohol Use: Yes Alcohol type: beer and hard liquor Hx Substance Use: Yes substance use type: marijuana Last Used Substance Other:: 1 month again Review of Systems Review of Systems: All systems reviewed & are unremarkable except as noted in HPI & below Physical Exam Physical Exam: Constitutional: Alert, cooperative and in no distress. HEENT: Unremarkable Neck: No jugular venous distention, carotid pulses are normal and equal bilaterally without bruits. Pulmonary: Clear to auscultation bilaterally. Cardiac: Regular rhythm with frequent premature beats no murmur, gallop or rub. Abdomen: Soft, nontender with normal bowel sounds. Extremities: No edema. Distal pulses intact. Neurologic: No focal findings. Gait is steady. Skin: No rash, ecchymoses or petechiae. Results & Data Vital Signs (Past 12 Hours) Vital Signs Temp Pulse Pulse Resp BP BP Pulse Ox 10/26/18 17:20 60 18 100 10/26/18 17:16 93 H 23 130/70 97 10/26/18 17:10 115 H 20 99 10/26/18 17:00 63 17 134/69 100 10/26/18 16:50 79 22 100 10/26/18 16:46 73 21 135/58 L 100 10/26/18 16:40 60 19 96 07/18/19 16:31 61 20 138/76 07/18/19 16:30 62 18 97 07/18/19 16:20 63 23 100 07/18/19 16:16 63 27 H 113/69 100 07/18/19 16:10 63 30 H 100 07/18/19 16:02 68 31 H 99 07/18/19 16:01 64 30 H 134/66 100 07/18/19 16:00 65 28 H 100 07/18/19 15:50 106 H 33 H 95 07/18/19 15:46 70 36 H 148/86 H 100 07/18/19 15:40 70 31 H 100 07/18/19 15:31 101 H 26 H 124/71 99 07/18/19 15:30 102 H 18 95 07/18/19 15:25 68 23 123/73 98 07/18/19 15:21 68 20 96 07/18/19 15:20 63 23 115/70 98 07/18/19 15:15 62 20 102/72 97 07/18/19 15:11 62 20 98 07/18/19 15:10 62 19 102/67 98 07/18/19 15:05 63 20 102/68 99 07/18/19 15:01 62 21 98 07/18/19 15:00 62 21 111/73 99 07/18/19 14:58 35.4 C L 63 20 111/73 100 07/18/19 14:55 62 19 108/70 98 07/18/19 14:50 63 20 109/71 98 07/18/19 14:48 36.5 C 65 20 109/71 100 07/18/19 14:45 63 20 110/65 98 07/18/19 14:40 64 20 114/77 96 07/18/19 14:38 36.5 C 86 20 110/65 99 07/18/19 14:35 61 16 122/76 95 07/18/19 14:28 36.5 C 78 20 122/76 100 07/18/19 14:18 35.3 C L 77 20 95/61 L 100 07/18/19 10:54 36.5 C 67 18 145/88 H 96
[2018-10-26] MEDS ORDERED: METOPROLOL SUCC 50MG EXT REL TAB PO SCH (21:00)
[2018-10-26] MEDS: OXYCODONE HCL IR 5 MG TAB (IMMEDIATE RELEASE) PO PRN (21:09)
[2018-10-26] MEDS: ATORVASTATIN 40 MG TAB PO SCH (21:11)
[2018-10-26] MEDS: LISINOPRIL 40 MG TAB PO SCH (21:11)
[2018-10-27] MEDS: NORMOSOL-R 1,000 ML IV SCH (00:25)
--- NOTE | 2018-10-27 00:26 | Operative Report ---
DATE OF OPERATION: 10/26/2018 PREOPERATIVE DIAGNOSIS: Hypermetabolic mass, left lower lobe. POSTOPERATIVE DIAGNOSES: 1. Apparent ventricular tachycardia. 2. Hypermetabolic mass, left lower lobe. PROCEDURE: Insertion of a robotic port into the left pleural cavity. COMPICATION: (Ventricular tachycardia). ANESTHESIA: General anesthesia with a double lumen tube. SPECIFICS OF PROCEDURE AND FINDINGS: This is a 67-year-old male who has a hypermetabolic mass in the left lower lobe. We performed a bronchoscopy and biopsies, did not get an answer. I felt this could be malignant; however, it is also possible that we were dealing with a chronic infection. At any rate, I took the patient to the operating room on 10/26/2018 and placed his ports in place. We then started dissecting things down and took down the inferior pulmonary ligament, but we had only been doing this for about 10 minutes when the patient suffered what appeared to be ventricular tachycardia. We had an A-line in place and he had no pressure. For this reason, we will quickly undocked and put a chest tube in, so that he could have a 2-lung ventilation. He settled down after. He was placed in a supine position. PROCEDURE: The patient was brought to the operating room and laid in supine position. General anesthesia induced and endotracheal intubation was performed with a double lumen tube. The patient was placed in the right lateral decubitus position and his left chest was prepped and draped in usual sterile fashion. I placed a camera port which was a 12 mm port first in the 8th interspace just anterior to mid axillary line. Upon going in, we could see well and placed another port just inside the costal margin up in interspace or so. We then placed an 8 mm port between the camera port and the anterior port. It should be noted, we changed the camera port out from an 8 mm to a 12 mm ports where we could put our camera in. We then placed an assistance port anteriorly just above the diaphragm. We had excellent visualization. Upon coming down, I immediately started taking down the inferior pulmonary ligament. Really very little in the way of any lymph nodes here. I started dissecting up posterior to the vein. The patient essentially arrested. He went into rapid tachycardia with no blood pressure. We immediately undocked, taking all the instruments out. A 24-Greek chest tube was placed quickly and we sutured this in place using heavy silk suture to close throughout the incisions. He was then turned on his back but at this time he had converted back to a sinus rhythm. He stabilized after this. His ectopy had been suppressed. Blood pressure was much better. He had been sedated now, so we took him over to the ICU and on a ventilator. In the next hours, when he wakes up, we will be able to extubate him. His airway pressures are not high. I attest to the content of the Intraoperative Record and any orders documented therein. Any exceptions are noted below. RASHIDA
[2018-10-27] MEDS: OXYCODONE HCL IR 5 MG TAB (IMMEDIATE RELEASE) PO PRN ×4 (03:22→21:44)
--- NOTE | 2018-10-27 08:06 | XRay Report ---
SINGLE VIEW CHEST CLINICAL HISTORY: Status post VATS. FINDINGS: An AP, portable, upright chest radiograph is compared to study dated 10/26/2018 and correlat ed with chest CT dated 09/25/2018. The examination is degraded by portable technique and patient rotat ion. The endotracheal tube has been removed. A left upper lobe chest tube is unchanged in position. T he heart is mildly enlarged and there is atherosclerotic calcification of the thoracic aorta. Changes of chronic interstitial lung disease are similar to previous. Volume loss in the left lung is consis tent with previous surgery. There is trace pleural fluid and atelectasis at the left lung base. A tra ce left apical pneumothorax is noted. The skeletal structures are osteopenic. The bony thorax is nilson sly intact. IMPRESSION: 1. Postoperative change is noted in the left hemithorax. 2. A left upper lobe chest tube is unchanged in position. There is trace residual pneumothorax. 3. The endotracheal tube has been removed. 4. Mild cardiac enlargement and changes of chronic interstitial lung disease are again noted. Electronically signed by: Jah Sebastian M.D. 10/27/2018 8:05 AM
--- NOTE | 2018-10-27 08:16 | Cardiology Progress Note ---
Date of Service October 27, 2018 Assessment & Plan (1) Wide-complex tachycardia: He had a wide-complex tachycardia during surgery, I do not have very many strips to review and it is possible it was ventricular tachycardia but he really does not have a reason to have ventricular tachycardia. We have not however done an ischemic evaluation. So far his echo shows no wall motion abnormalities and his troponin is negative so I think a stress test is the most reasonable option and I will do a dobutamine stress echo this morning. We might be able to do a treadmill but I am going to schedule it as a dobutamine echo stress test after his procedure yesterday. I think the most likely thing is that this was SVT with aberrancy, he has demonstrated that on telemetry and on his Holter monitor. (2) PAT (paroxysmal atrial tachycardia): He has a lot of atrial arrhythmias, these were seen on his Holter monitor where 48% of his beats were atrial premature beats and runs of SVT, he had very frequent episodes here in the hospital. They seem to be quite resistant to medical therapy, on amiodarone he was still having them although they might have been a little bit less sustained. Some of these are very fast. After addition of diltiazem IV (only at 5 mg/h) there was a dramatic improvement in his ectopy. He was on and off of the medication due to hypotension but even so he had very little ectopy overnight. At this point I am not sure exactly what combination of medications worked, he was on a beta-messi as an outpatient, he was on amiodarone throughout the night, and he had intermittent diltiazem. It might of been a combination or perhaps the diltiazem is much more effective than the other drugs. I am going to discontinue amiodarone and start him on oral diltiazem. We will follow him up in the office with a Holter monitor on diltiaz em to see if that is effective, if not I will try a combination of beta-messi and diltiazem and we can always start intravenous amiodarone prior to his surgery. It looks like we will be able to control his arrhythmia with some combination of medications. Subjective He is feeling well today, he has no complaints. He has no chest discomfort, he does not of palpitations (but not has not in the past either). His amiodarone continued through the night, his diltiazem was on and off during the night because of low blood pressure but still seemedto be very effective. Currently it is off. Physical Exam Physical Exam: Constitutional: Alert, cooperative and in no distress. Pulmonary: Clear to auscultation bilaterally. Cardiac: Regular rhythm with no murmur, gallop or rub. Abdomen: Soft, nontender with normal bowel sounds. Extremities: No edema. Skin: No rash, ecchymoses or petechiae. Results & Data Vital Signs (Past 12 Hours) Vital Signs Pulse Resp BP Pulse Ox 10/27/18 06:00 66 15 107/63 94 10/27/18 05:30 63 13 100/56 L 94 10/27/18 05:00 69 15 105/59 L 94 10/27/18 04:30 69 10 L 114/64 92 10/27/18 04:00 75 27 H 119/71 91 10/27/18 03:30 73 28 H 127/71 93 10/27/18 03:00 66 26 H 123/74 93 10/27/18 02:30 70 22 121/62 95 10/27/18 02:22 66 24 101/64 93 10/27/18 02:00 70 23 105/62 95 10/27/18 01:30 71 28 H 116/64 92 10/27/18 01:00 78 21 143/74 H 93 10/27/18 00:30 84 24 128/68 93 10/27/18 00:00 75 25 H 129/72 93 10/26/18 23:30 81 27 H 136/86 93 10/26/18 23:00 75 26 H 139/74 93 10/26/18 22:30 74 27 H 132/72 94 10/26/18 22:00 69 23 136/66 93 10/26/18 21:30 85 20 142/78 H 94 10/26/18 21:00 66 25 H 124/67 93 10/26/18 20:30 66 30 H 140/76 96 Diagnostic Findings Telemetry: Following admission and while on intravenous amiodarone (including a loading dose and a higher infusion rate for the first 6 hours) he had very little improvement in his atrial ectopy. With addition of diltiazem he had a marked improvement, with near elimination of the arrhythmia despite the diltiazem being started and stopped throughout the night due to hypotension.
[2018-10-27] MEDS ORDERED: METOPROLOL TARTRATE 1 MG/ML VIAL IV ONE (08:29)
[2018-10-27] MEDS ORDERED: ATROPINE SULFATE 0.1 MG/ML 10ML SYR IV ONE (08:29)
[2018-10-27] MEDS ORDERED: DOBUTamine HCL 12.5 MG/ML 20 ML VIAL IV ONE (08:29)
--- NOTE | 2018-10-27 08:36 | Critical Care Progress Note ---
Date of Service October 27, 2018 Assessment & Plan (1) Ventricular tachycardia: Reason Critically Ill: Ventricular tachycardia with hemodynamic instability PLAN: Neuro: Analgesia -Oral pain medication ordered Resp: Left lung mass -Unable to complete surgical resection -Extubated yesterday -Thoracic surgery to discontinue chest tubes today CV: Wide-complex tachycardia Hx of Supraventricular tachycardia -Amiodarone and diltiazem discontinued by cardiology -Started on oral diltiazem -Completed stress test today awaiting formal report Fluids/Renal: History of proteinuria -Discontinue Gonzalez when awake ID: Perioperative antibiotics -Discontinue shortly GI/Nutrition: Type II diabetic diet -Advance diet when tolerated Heme: DVT prophylaxis: Lovenox Endocrine: ICU hyperglycemia protocol [id number] diabetes mellitus -Hold metformin as patient may require contrast -Blood sugars within adequate range at this time Vascular access: Peripheral IVs, discontinue arterial line Code Status: Full code If patient is not going to undergo cardiac catheterization he would be stable for downgrade out of ICU. (2) Proteinuria: (3) Bladder cancer: (4) Type 2 diabetes mellitus: (5) Mass of left lung: Supervising Physician Co-Signing Physician Notes Dr. Nair was resident physician during care of patient. I separately evaluated patient for hudson portions of the history and the exam. I was present during the critical portion of medical decision making, and I discussed the case with the resident. I generally agree with the findings and plan. Patient was discussed in multidisciplinary rounds. Subjective Mr. Ruiz stated he was doing well this AM. Had no dizziness or subjective palps, but states his alarm went off all night. Currently denies HERRING, chest pain, SOB, abd pain. Review of Systems Review of Systems: All systems reviewed & are unremarkable except as noted in HPI & below Physical Exam Physical Exam: General: Alert, oriented. HEENT: NC/AT Chest: Nontender to palpation, tube on left side. CV: RRR, Normal s1, s2. Resp: Breath sounds coarse bilaterally, no increased effort of breathing. Abdomen: Soft, nontender. No guarding. Extremities: No edema, SCDs on. Results & Data Vital Signs (Past 12 Hours) Vital Signs Pulse Resp BP Pulse Ox 10/27/18 06:00 66 15 107/63 94 10/27/18 05:30 63 13 100/56 L 94 10/27/18 05:00 69 15 105/59 L 94 10/27/18 04:30 69 10 L 114/64 92 10/27/18 04:00 75 27 H 119/71 91 10/27/18 03:30 73 28 H 127/71 93 10/27/18 03:00 66 26 H 123/74 93 10/27/18 02:30 70 22 121/62 95 10/27/18 02:22 66 24 101/64 93 10/27/18 02:00 70 23 105/62 95 10/27/18 01:30 71 28 H 116/64 92 10/27/18 01:00 78 21 143/74 H 93 10/27/18 00:30 84 24 128/68 93 10/27/18 00:00 75 25 H 129/72 93 10/26/18 23:30 81 27 H 136/86 93 10/26/18 23:00 75 26 H 139/74 93 10/26/18 22:30 74 27 H 132/72 94 10/26/18 22:00 69 23 136/66 93 10/26/18 21:30 85 20 142/78 H 94 10/26/18 21:00 66 25 H 124/67 93 Laboratory Results Laboratory Results - last 24 hr 10/26/18 10/26/18 10/26/18 12:20 14:30 14:34 WBC 7.08 RBC 4.79 Hgb 13.1 L Hct 40.1 L MCV 83.7 MCH 27.3 MCHC 32.7 RDW Std Deviation 46.0 RDW Coeff of Sonia 15.0 H Plt Count 238 MPV 10.7 H Immature Gran % (Auto) 0.3 Neut % (Auto) 65.2 Lymph % (Auto) 24.2 [place] % (Auto) 7.3 Eos % (Auto) 2.4 Baso % (Auto) 0.6 Immature Gran # (Auto) 0.02 Neut # (Auto) 4.62 Lymph # (Auto) 1.71 [place] # (Auto) 0.52 Eos # (Auto) 0.17 Baso # (Auto) 0.04 PT INR APTT PTT Ratio Sample Site POC pH POC pCO2 POC pO2 POC HCO3 POC Total CO2 POC Base Excess POC ABG O2 Sat Denys Test O2 Delivery Device POC O2 Rate Minute Ventilation Tidal Volume PEEP Sodium Potassium Chloride Carbon Dioxide Anion Gap BUN Creatinine Est Cr Clr Drug Dosing Est GFR ( Amer) Est GFR (Non-Af Amer) BUN/Creatinine Ratio Glucose POC Glucose Calcium Phosphorus Magnesium Troponin I TSH Nasal Screen MRSA (PCR) Negative Blood Type A Positive Antibody Screen NEGATIVE Crossmatch See Detail 10/26/18 10/26/18 10/26/18 14:34 14:34 14:34 WBC RBC Hgb Hct MCV MCH MCHC RDW Std Deviation RDW Coeff of Sonia Plt Count MPV Immature Gran % (Auto) Neut % (Auto) Lymph % (Auto) [place] % (Auto) Eos % (Auto) Baso % (Auto) Immature Gran # (Auto) Neut # (Auto) Lymph # (Auto) [place] # (Auto) Eos # (Auto) Baso # (Auto) PT INR APTT PTT Ratio Sample Site POC pH POC pCO2 POC pO2 POC HCO3 POC Total CO2 POC Base Excess POC ABG O2 Sat Denys Test O2 Delivery Device POC O2 Rate Minute Ventilation Tidal Volume PEEP Sodium 139 Potassium 4.0 Chloride 112 H Carbon Dioxide 20 L Anion Gap 7.0 BUN 14 Creatinine 0.86 Est Cr Clr Drug Dosing 73.5 Est GFR ( Amer) 104.7 Est GFR (Non-Af Amer) 90.4 BUN/Creatinine Ratio 16.8 Glucose 110 H POC Glucose Calcium 8.3 L Phosphorus 4.1 Magnesium 2.2 Troponin I < 0.015 TSH 2.840 Nasal Screen MRSA (PCR) Blood Type Antibody Screen Crossmatch 10/26/18 10/26/18 10/26/18 14:36 14:54 15:16 WBC RBC Hgb Hct MCV MCH MCHC RDW Std Deviation RDW Coeff of Sonia Plt Count MPV Immature Gran % (Auto) Neut % (Auto) Lymph % (Auto) [place] % (Auto) Eos % (Auto) Baso % (Auto) Immature Gran # (Auto) Neut # (Auto) Lymph # (Auto) [place] # (Auto) Eos # (Auto) Baso # (Auto) PT 10.7 INR 1.0 APTT 26.4 PTT Ratio 1.0 Sample Site Art Line POC pH 7.41 POC pCO2 33 L POC pO2 248 H POC HCO3 21 POC Total CO2 22 L POC Base Excess -4.0 POC ABG O2 Sat 100.0 H Denys Test NA O2 Delivery Device Ventilator POC O2 Rate 20 Minute Ventilation 7.8 Tidal Volume 55 PEEP 5 Sodium Potassium Chloride Carbon Dioxide Anion Gap BUN Creatinine Est Cr Clr Drug Dosing Est GFR ( Amer) Est GFR (Non-Af Amer) BUN/Creatinine Ratio Glucose POC Glucose 101 H Calcium Phosphorus Magnesium Troponin I TSH Nasal Screen MRSA (PCR) Blood Type Antibody Screen Crossmatch 10/26/18 10/26/18 10/27/18 17:37 20:22 02:30 WBC RBC Hgb Hct MCV MCH MCHC RDW Std Deviation RDW Coeff of Sonia Plt Count MPV Immature Gran % (Auto) Neut % (Auto) Lymph % (Auto) [place] % (Auto) Eos % (Auto) Baso % (Auto) Immature Gran # (Auto) Neut # (Auto) Lymph # (Auto) [place] # (Auto) Eos # (Auto) Baso # (Auto) PT INR APTT PTT Ratio Sample Site POC pH POC pCO2 POC pO2 POC HCO3 POC Total CO2 POC Base Excess POC ABG O2 Sat Denys Test O2 Delivery Device POC O2 Rate Minute Ventilation Tidal Volume PEEP Sodium Potassium Chloride Carbon Dioxide Anion Gap BUN Creatinine Est Cr Clr Drug Dosing Est GFR ( Amer) Est GFR (Non-Af Amer) BUN/Creatinine Ratio Glucose POC Glucose 102 H Calcium Phosphorus Magnesium Troponin I < 0.015 < 0.015 TSH Nasal Screen MRSA (PCR) Blood Type Antibody Screen Crossmatch Medications Administered Home Medications atorvastatin 40 mg PO HS #0 tab 11/21/17 [History Confirmed 10/26/18] lisinopril 40 mg PO HS #0 tab 11/21/17 [History Confirmed 10/26/18] metformin 500 mg PO HS #0 11/21/17 [History Confirmed 10/26/18] multivitamin 1 tab PO HS #0 tab 11/21/17 [History Confirmed 10/26/18] Symbicort 2 puff INHALATION BID PRN 10/10/18 [History Confirmed 10/26/18] albuterol sulfate 1 puff INHALATION Q6H PRN 10/10/18 [History Confirmed 10/26/18] metoprolol succinate [Toprol XL] 50 mg PO HS 10/23/18 [History Confirmed 10/26/18] Active Medications Acetaminophen (Tylenol) 650 mg PO Q4H PRN PRN Reason: Fever/Mild Pain (Pain 1,2,3) Stop: 11/25/18 14:37 Albuterol (Ventolin Hfa) 1 puffs INH Q6H PRN PRN Reason: Wheezing Stop: 11/25/18 14:24 Atorvastatin Calcium (Lipitor) 40 mg PO HS [facility] Stop: 11/25/18 20:59 Last Admin: 10/26/18 21:11 Dose: 40 mg Documented by: Budesonide/Formoterol Fumarate (Symbicort 160mcg/4.5mcg) 2 puffs INH BID PRN; Protocol PRN Reason: sob Stop: 11/25/18 14:24 Diltiazem HCl (Cardizem Cd) 180 mg PO QAM [facility] Stop: 11/26/18 08:59 Last Admin: 10/27/18 09:56 Dose: 180 mg Documented by: Enoxaparin Sodium (Lovenox) 40 mg SQ QAM [facility] Stop: 11/26/18 08:59 Last Admin: 10/27/18 09:56 Dose: 40 mg Documented by: Insulin Aspart (Novolog Flexpen) 0 units SC [facility] Stop: 11/26/18 11:29 Lisinopril (Zestril) 40 mg PO HS [facility] Stop: 11/25/18 20:59 Last Admin: 10/26/18 21:11 Dose: 40 mg Documented by: Oxycodone HCl (Roxicodone Immediate Rel) 5 mg PO Q6H PRN PRN Reason: Moderate Pain (4,5,6) Stop: 11/09/18 14:37 Oxycodone HCl (Roxicodone Immediate Rel) 10 mg PO Q6H PRN PRN Reason: Severe Pain (7,8,9,10) Stop: 11/09/18 14:37 Last Admin: 10/27/18 09:55 Dose: 10 mg Documented by:
--- NOTE | 2018-10-27 09:02 | Anesthesiology Progress Note ---
Date of Service October 27, 2018 Anesthesia Post Procedure Vital Signs Vital Signs: Temp Pulse Pulse Resp BP BP Pulse Ox 10/27/18 06:00 66 15 107/63 94 10/27/18 05:30 63 13 100/56 L 94 10/27/18 05:00 69 15 105/59 L 94 10/27/18 04:30 69 10 L 114/64 92 10/27/18 04:00 75 27 H 119/71 91 10/27/18 03:30 73 28 H 127/71 93 10/27/18 03:00 66 26 H 123/74 93 10/27/18 02:30 70 22 121/62 95 10/27/18 02:22 66 24 101/64 93 10/27/18 02:00 70 23 105/62 95 10/27/18 01:30 71 28 H 116/64 92 10/27/18 01:00 78 21 143/74 H 93 10/27/18 00:30 84 24 128/68 93 10/27/18 00:00 75 25 H 129/72 93 10/26/18 23:30 81 27 H 136/86 93 10/26/18 23:00 75 26 H 139/74 93 10/26/18 22:30 74 27 H 132/72 94 10/26/18 22:00 69 23 136/66 93 10/26/18 21:30 85 20 142/78 H 94 10/26/18 21:00 66 25 H 124/67 93 10/26/18 20:30 66 30 H 140/76 96 10/26/18 20:00 78 30 H 118/65 97 10/26/18 19:30 65 20 128/65 96 10/26/18 19:12 65 10/26/18 19:00 66 26 H 110/61 97 10/26/18 17:20 60 18 100 10/26/18 17:16 93 H 23 130/70 97 10/26/18 17:10 115 H 20 99 10/26/18 17:00 63 17 134/69 100 10/26/18 16:50 79 22 100 10/26/18 16:46 73 21 135/58 L 100 10/26/18 16:40 60 19 96 10/26/18 16:31 61 20 138/76 10/26/18 16:30 62 18 97 10/26/18 16:20 63 23 100 10/26/ 16:16 63 27 H 113/69 100 10/26/ 16:10 63 30 H 100 10/26/ 16:02 68 31 H 99 10/26/18 16:01 64 30 H 134/66 100 18/ 16:00 65 28 H 100 10/26/ 15:50 106 H 33 H 95 10/26/ 15:46 70 36 H 148/86 H 100 18 15:40 70 31 H 100 10/26/ 15:31 101 H 26 H 124/71 99 18/ 15:30 102 H 18 95 18/ 15:25 68 23 123/73 98 10/26/18 15:21 68 20 96 10/26/18 15:20 63 23 115/70 98 10/26/18 15:15 62 20 102/72 97 10/26/18 15:11 62 20 98 10/26/18 15:10 62 19 102/67 98 10/26/18 15:05 63 20 102/68 99 10/26/18 15:01 62 21 98 10/26/ 15:00 62 21 111/73 99 10/26/ 14:58 35.4 C L 63 20 111/73 100 10/26/18 14:55 62 19 108/70 98 10/26/18 14:50 63 20 109/71 98 10/26/18 14:48 36.5 C 65 20 109/71 100 10/26/18 14:45 63 20 110/65 98 10/26/18 14:40 64 20 114/77 96 10/26/18 14:38 36.5 C 86 20 110/65 99 10/26/19 14:35 61 16 122/76 95 10/26/ 14:28 36.5 C 78 20 122/76 100 10/26/18 14:18 35.3 C L 77 20 95/61 L 100 10/26/18 10:54 36.5 C 67 18 145/88 H 96 Notes Mental Status: alert / awake / arousable and participated in evaluation Nausea / Vomiting: adequately controlled Pain: adequately controlled Airway Patency, RR, SpO2: stable & adequate BP & HR: stable & adequate Hydration State: stable & adequate
[2018-10-27] MEDS: ENOXAPARIN INJ 40 MG/0.4 ML SYR SQ SCH (09:56)
[2018-10-27] MEDS: dilTIAZem HCL 180 MG CAPCR PO SCH (09:56)
--- NOTE | 2018-10-27 10:40 | Progress Note ---
DATE: 10/27/2018 Mr. Ruiz looks great. He has a stress echocardiogram done today and I do not have the results of that, but he had no chest pain. His echo from yesterday showed no regional wall abnormalities. Dr. Ruiz and Dr. Fernandez both evaluate this patient from a cardiology standpoint. At this point, we are going to allow him to recover and let him go home. We pulled all of his tubes and lines out today and I will discuss this personally with cardiology to see about 1 week and send him home. I will move him to telemetry for monitoring and probably discharge him in the morning.
--- NOTE | 2018-10-27 11:10 | XRay Report ---
XR chest 1V portable CLINICAL HISTORY: tube removal COMPARISON STUDY: Chest CT September 25, 2018. PET/CT October 11, 2018. Chest radiograph performed earlier to day. FINDINGS: The left chest tube has been removed. A small left apical pneumothorax has slightly increas ed in size. Skin nasra within the left chest wall are noted. Interstitial thickening persists with left basilar opacity. There is no right pneumothorax. Cardiomediastinal silhouette is stable. IMPRESSION: Slight increase in size of a small left apical pneumothorax following chest tube removal . Electronically signed by: Bob Santiago M.D. 10/27/2018 11:09 AM
[2018-10-27] MEDS: INSULIN ASPART 100 UNITS/ML 3 ML PEN SC SCH ×3 (11:58→21:00)
[2018-10-27] MEDS: ACETAMINOPHEN 325 MG TAB PO SCH ×2 (16:23→21:45)
[2018-10-27] MEDS: LISINOPRIL 40 MG TAB PO SCH (21:46)
[2018-10-27] MEDS: ATORVASTATIN 40 MG TAB PO SCH (21:46)
[2018-10-28] MEDS: ACETAMINOPHEN 325 MG TAB PO SCH ×2 (03:26→09:19)
[2018-10-28] MEDS: OXYCODONE HCL IR 5 MG TAB (IMMEDIATE RELEASE) PO PRN (03:27)
[2018-10-28] MEDS: INSULIN ASPART 100 UNITS/ML 3 ML PEN SC SCH ×2 (08:13→12:04)
[2018-10-28] MEDS: dilTIAZem HCL 180 MG CAPCR PO SCH (09:19)
[2018-10-28] MEDS: ENOXAPARIN INJ 40 MG/0.4 ML SYR SQ SCH (09:19)
--- NOTE | 2018-10-28 11:20 | Cardiology Progress Note ---
Date of Service October 28, 2018 Assessment & Plan (1) PAT (paroxysmal atrial tachycardia): 2. Wide-complex tachycardia 3. Lung mass 4. Hypertension 5. Type 2 diabetes on metformin Dobutamine stress echocardiogram negative for ischemia. Resting LV function normal. Frequent atrial ectopy on telemetry but remains asymptomatic. No evidence of recurrent wide-complex tachycardia. Going forward: From a cardiac standpoint feel okay for discharge today. Continue recently started diltiazem Would continue home Toprol-XL 50 mg nightly Reduce lisinopril to 20 mg daily Follow-up with EP next week. Subjective Patient denies this morning. No palpitations. No chest pain. Telemetry reviewedfrequent atrial ectopy, heart rates intermittently up to [id number] this morning. Occasional PVCs. No runs of wide-complex tachycardia Review of Systems Review of Systems: All systems reviewed & are unremarkable except as noted in HPI & below Physical Exam Physical Exam: General: Comfortable, no acute distress HEENT: Sclerae anicteric, mucous membranes moist Lungs: Clear to auscultation bilaterally, no rhonchi or wheezes Cardiac: Irregularly irregular, no murmurs Abdomen: Soft, nontender, nondistended, positive bowel sounds. Extremities: Warm, well perfused, no edema. Right radial pulse 2+ post A-line Skin: No rashes or lesions. Neuro: Nonfocal Psych: Alert orient x3, normal affect and mood Results & Data Vital Signs (Past 12 Hours) Vital Signs Temp Pulse Pulse Resp BP Pulse Ox 10/28/18 07:50 36.8 C 89 18 109/65 96 10/28/18 07:00 77 10/28/18 03:28 36.4 C L 75 17 111/64 94
--- NOTE | 2018-10-29 23:59 | Discharge Summary ---
DISCHARGE DIAGNOSES: 1. Hospital wide complex tachycardia. 2. Multifocal atrial tachycardia. 3. Hypotension intraoperatively. 4. Left lower lobe mass. 5. History of diabetes. 6. History of bladder cancer. 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 He has undergone bronchoscopies with biopsies and we do not have a diagnosis. The case has been discussed at our multidisciplinary conference and we elected to proceed with a wedge resection with frozen section and probable left lower lobectomy. On 10/26/2018, the patient was admitted electively and I took the patient to the operating room and general anesthesia was induced and the patient was placed in a right lateral decubitus position. I inserted my ports and started to take down the inferior pulmonary ligament to do a biopsy when he developed a tachycardia which was felt at that time to be ventricular tachycardia as we had no pulse on the arterial line. We quickly closed after placing a chest tube through one of the port sites and clipped with his incisions closed with skin clips. Upon turning him on his back, he converted to a regular sinus rhythm. I had performed an endobronchial ultrasound a few weeks before and he had had multifocal atrial tachycardia that was not symptomatic and was seen by Dr. Ruiz at that time. It was felt that they were benign. We took the patient back to the intensive care unit and he was evaluated by Cardiology. Echocardiogram showed no evidence of any regional wall abnormalities. His troponin levels were normal. He awakened without difficulty. We did keep him in the ICU overnight for monitoring. The following morning he looked quite good. We removed all of his lines including the chest tube and moved him to a regular room. This was a monitored bed in the progressive care unit and he was very stable overnight. Cardizem was added to his regimen of Lopressor and he seemed to respond quite nicely to this. He was seen again by Cardiology and it was felt that this was a benign rhythm. I had multiple discussions with the patient and his . He was discharged home on 10/28/2018. I will see him back in the office in the next few days and we will coordinate our repeat surgery in the future. It should be pointed out that the patient underwent a stress echocardiogram which looked quite good. RASHIDA
== END 2018-10-28 12:35 | disposition home or self-care (01) | DRG 204 ==
LOC: ASU 10:22 → 1E 13:50 → 2S 10-27 14:06

== ENCOUNTER 2018-11-22 08:15 | Inpatient (IN) ==
--- NOTE | 2018-11-08 14:37 | Anesthesiology Consultation ---
Date of Service November 08, 2018 Assessment & Plan (1) Encounter for pre-operative examination: Cardiology 11/09 (Dr. Ruiz) = "He has a lot of atrial arrhythmias, these were seen on his Holter monitor in October 2018 were 48% of his beats were atrial premature beats, this was seen consistently in the hospital as well. They seem to be quite resistant to medical therapy, on IV amiodarone he is still having them. Addition of intravenous diltiazem controlled them quite well how ever. On exam today he is having very frequent atrial ectopy but he is on a relatively low-dose of oral diltiazem. This may be a form of MAT which is notoriously resistant to medical therapy. I would however like to continue to adjust his treatment and I am going to increase his diltiazem to 360 mg daily. I am going to get a Holter monitor on this dose. If he continues to have significant amounts of atrial ectopy we may want to empirically start intravenous amiodarone prior to surgery and continue it through surgery and the immediate postop period." Per verbal from Dr. Ruiz, review of Holter monitor shows significant atrial ectopy, but surgery should not be delayed. With prior admission, arrhythmia was controlled with both amiodarone and diltiazem. Advised cardiology eval and amiodarone drip AM DOS to be continued intraoperatively. Cardiology consult with Dr. Ruiz ordered for AM DOS, Leticia aware, Dr. Ruiz aware. CHECK BSG AM DOS Chart Review Chart Review: Acceptable Risk for Surgery and Patient NOT seen in Pre Admission Testing History Surgery Operation Date: 11/22/18 10:40 Proposed Procedures p Robotic Left Video Assited Thoracoscopy with Left Lower Lobe Wedge Resection, Possible Left Lower Lobectomy with Mediastinal Lymphadenectomy - Brock Zhao MD, FACS Height/Weight Height: 5 ft 5 in Weight: 71.214 kg Allergies Allergy/AdvReac Type Severity Reaction Status Date / Time aspirin AdvReac Mild HALLUCINATIONS Verified 11/09/18 10:27 A CHILD Medications Home Medications Medication Instructions Recorded Confirmed Last Taken atorvastatin 40 mg PO HS #0 tab 11/21/17 11/09/18 10/12/18 22:00 metformin 500 mg PO HS #0 11/21/17 11/09/18 10/12/18 22:00 multivitamin 1 tab PO HS #0 tab 11/21/17 11/09/18 10/12/18 22:00 Symbicort 2 puff INHALATION BID PRN 10/10/18 11/06/18 10/12/18 22:00 lisinopril 20 mg tablet 20 mg PO HS #90 tab 11/09/18 11/09/18 Unknown diltiazem CD 180 mg 180 mg PO DAILY cap 11/10/18 Unknown capsule,extended release 24 hr levalbuterol HFA 45 mcg/actuation 2 puffs INH Q4H PRN gm 11/10/18 11/10/18 Unknown aerosol inhaler metoprolol succinate ER 50 mg 50 mg PO DAILY 11/10/18 11/10/18 Unknown tablet,extended release 24 hr Past Medical History Medical History Controlled type 2 diabetes mellitus with diabetic nephropathy Hypercholesterolemia Lung cancer Ventricular tachycardia Proteinuria Mass of left lung Wide-complex tachycardia Atrial arrhythmia Pt recently completed Holter, per Dr. Ruiz suspect MAT. Bladder cancer s/p TURBT Hypertension Nephrolithiasis Pneumonia 09/2018; workup for this led to findings of lung mass (reason for upcoming procedure) Past Family History Family History Sister Family history of diabetes mellitus Grandmother Family history of diabetes mellitus Past Surgical History Surgical History H/O transurethral destruction of bladder lesion Hand trauma s/p surgical repair History of cystoscopy + stent History of inguinal hernia repair s/p repair (as child) History of tonsillectomy and adenoidectomy S/P colonoscopy Status post robot-assisted surgical procedure Thoracoscopy/VATS 10/26/18, aborted due to wide-complex tachycardia and hypotension. Past Anesthesia History ATRIAL TACHYCARDIAS NOTED DURING BRONCH/EBUS 10/13/18. HAD CARDIO WORKUP WITH HOLTER, PROCEEDED TO VATS/THORACOSCOPY ON 10/26. CASE ABORTED DUE TO HYPOTENSION AND WIDE COMPLEX ATRIAL TACHYCARDIA -- SEE ANESTHESIA RECORDS, SUBSEQUENT CARDIO CONSULT AND CARDIO OFFICE NOTES ([facility]). Social History Smoking Status: Current every day smoker tobacco type: cigarettes Smoking cigarettes per day: 3-4 CIGS DAILY X 3 YEARS Do You Dip or Chew Tobacco: No Hx Alcohol Use: Yes Alcohol type: beer and hard liquor alcohol intake frequency: holidays/special occasions only Hx Substance Use: Yes substance use type: marijuana Testing Laboratory Results 10/26/18 WBC: 7.08 H/H: 13.1/40.1 PLATELETS: 238 SODIUM: 139 POTASSIUM: 4.0 CHLORIDE: 112 CO2: 20 BUN: 14 CREATININE: 0.86 GLUCOSE: 110 PT: 10.7 PTT: 26.4 INR: 1.0 TSH: 2.840 Electrocardiogram Date: 10/26/18 Findings: + NSR @ (62) Compared with EKG of 10/13/2018, PACs are no longer present. Ventricular rate is decreased by 42 bpm. Inverted T waves have replaced nonspecific T wave abnormality in inferior leads (mildly inverted in lead III only). Chest X-Ray Date: 10/31/18 FINDINGS: No significant postprocedural residual. The left apical pneumothorax has completely resolved. Lungs show slight improvement in aeration left base. Chronic interstitial change throughout both hemithoraces persist. IMPRESSION: Improved exam. No significant postprocedural pneumothorax. Echocardiogram Date: 10/26/18 (Limited views) EF: 55-60% Mild concentric LVH. Left ventricular systolic function is normal. Aortic valve sclerosis mild, without significant aortic valvular stenosis. Stress Test Date: 10/27/18 Resting EF: 55-60% Normal dobutamine echocardiogram without evidence of inducible ischemia. Atrial ectopy and runs of atrial tachycardia with dobutamine infusion, resolving in recovery. Other Testing Chest CT: 09/25/18: Area of masslike consolidation involving the superior segment of the left lower lobe. There is a possible central mass demonstrating mild narrowing of the left lower lobe bronchus proximally as well as mild mass effect on the left main pulmonary artery. Mild mediastinal lymphadenopathy. Interstitial lung disease Holter Report: 10/19/18: Technically limited quality. Rhythm is sinus rhythm. Average HR 77bpm. Min HR 42bpm. Max HR 90bpm. No significant pauses or AVB noted. Wide complex bears seen, consider ventricular origin for some beats but most are probably aberrant. Frequent sustained and nonsustained episodes of a. tachycardia (suspect atrial tachycardia rather than reentrant SVT). A. arrhythmia comprised 48% of recorded bears. No apparent ventricular arrhythmia noted, but some aberrant beats and possibly ventricular. No diary submitted.
[2018-11-22] MEDS ORDERED: AMIODARONE / D5W 150 MG/100 ML BAG IV STA (09:14)
[2018-11-22] MEDS ORDERED: AMIODARONE IV BOLUS / DRIP IV STA (09:14)
--- NOTE | 2018-11-22 09:14 | Cardiology Consultation ---
Date of Consultation November 22, 2018 Assessment & Plan (1) PAT (paroxysmal atrial tachycardia): He has had well-documented asymptomatic paroxysmal atrial tachycardia which comprises about half of his rhythm. It does not seem to affect his exercise ability but is sometimes quite fast and I believe aberrantly conducted at times. Although I think it would be safe to proceed to surgery with this rhythm, I think it might be prudent to try to control it. During his last hospitalization a combination of intravenous amiodarone and diltiazem was very effective in controlling the arrhythmia, it seems that intravenous amiodarone alone and oral diltiazem alone in combination of beta-blockade is not very effective. I am therefore going to start amiodarone. If his blood pressure allows addition of intravenous diltiazem would be acceptable although not necessary unless he is hemodynamically compromised. (2) Wide-complex tachycardia: He has had wide-complex tachycardia both clinically in the OR and on his Holter monitor. I cannot tell definitively whether this is ventricular in origin or atrial with aberrancy. In either case the treatment is not different, with normal left ventricular function it is not an ominous sign. The amiodarone may help control it. On the other hand amiodarone can make aberrancy more likely, therefore the rate is not fast I would not worry much about it. It may be prudent to have defibrillator patches on during the procedure but I would be reluctant to use them, only if absolutely necessary, since it will not change his underlying rhythm. History of Present Illness Reason for Consultation: Arrhythmia Attending Physician: Brock Zhao MD, FACS History of Present Illness This is a 67-year-old gentleman with a history of diabetes and recently diagnosed possible lung cancer. He does not have a history of heart disease inc luding palpitations, however on electrocardiography preoperatively on October 13, 2018 was noted to have PAT. Postoperatively in the recovery room he continued to have frequent episodes, during surgery he was having frequent episodes and received intravenous metoprolol. At the time of my evaluation the recovery room he was awake and alert and denied having any palpitations either currently or recently. He denied exertional difficulty, he does not have lightheadedness or dizziness and has never had syncope by his recollection although his tells me that he did pass out several months prior although she relates that to the diagnosis of pneumonia at the time. Other than having some pulmonary difficulty this year he has not had difficulty with exertion and denies exertional chest discomfort. We did perform echocardiography October 17, 2018 where he had normal left ventricular size and function and no significant valvular abnormality. He also had a 24-hour Holter monitor performed on October 19, 2018 where he had sinus rhythm with frequent premature atrial beats, couplets and nonsustained runs of atrial tachycardia. His atrial arrhythmia comprised 48% of his heartbeats. He had no symptoms. Some of his premature atrial beats were aberrantly conducted. He may have had some ventricular ectopy as well. During surgery for his lung mass on October 26, 2018 he had atrial arrhythmias and then had a run of wide-complex tachycardia with no pressure, unfortunately I do not have rhythm strips, I believe the episodes were relatively brief but long enough to drop his pressure with an A-line. He was started on intravenous amiodarone, the procedure was aborted soon after its start and he was transferred to the ICU. At the time of my evaluation in the intensive care unit after his aborted surgical procedure he was feeling well, he had no complaints, he was continued to have atrial ectopy which was asymptomatic. A repeat echocardiogram was unremarkable and his troponin was negative. A stress echo done on October 26, 2018 was negative for ischemia, this was a dobutamine stress echo and he did have an increase in his atrial ectopy with dobutamine infusion. We tried increasing the beta-messi, which even in combination with amiodarone was not successful in eliminating his atrial arrhythmia. Addition of intravenous diltiazem however was very successful in limiting his atrial arrhy thmias. He was therefore sent home on oral diltiazem and metoprolol. He has felt well since going home and is been unaware of his arrhythmia. We did do a follow-up Holter monitor and he had very frequent atrial ectopy, 47% of his beats, as well as periods of wide-complex tachycardia. The wide-complex tachycardia is probably aberrancy and possibly ventricular in origin. He was asymptomatic throughout. He returns now for his surgery. He has not had any palpitations, he has no lightheadedness or dizziness, he has been outside working mowing his lawn, etc. and not having difficulty with that. Since his discharge from the hospital on October 28, 2018 he has felt quite well. He has been monitoring his heart rate and blood pressure and although his heart rate has been irregular the rate has been good for the most part and his blood pressure has been good. He has not had palpitations. He is anxious to complete his lung surgery. He is tolerating his medications well without side effects. Allergies Allergy/AdvReac Type Severity Reaction Status Date / Time aspirin AdvReac Mild HALLUCINATIONS Verified 11/22/18 08:46 A CHILD Home Medications Home Medications Medication Instructions Recorded Confirmed Type atorvastatin 40 mg PO HS #0 tab 11/21/17 11/22/18 History metformin 500 mg PO HS #0 11/21/17 11/22/18 History multivitamin 1 tab PO HS #0 tab 11/21/17 11/22/18 History Symbicort 2 puff INHALATION BID PRN 10/10/18 11/22/18 History lisinopril 20 mg tablet 20 mg PO HS #90 tab 11/09/18 11/22/18 Rx diltiazem CD 180 mg 180 mg PO DAILY cap 11/10/18 11/22/18 History capsule,extended release 24 hr levalbuterol HFA 45 mcg/actuation 2 puffs INH Q4H PRN gm 11/10/18 11/22/18 History aerosol inhaler metoprolol succinate ER 50 mg 50 mg PO DAILY 11/10/18 11/22/18 History tablet,extended release 24 hr Patient History Medical History Controlled type 2 diabetes mellitus with diabetic nephropathy Hypercholesterolemia Lung cancer Ventricular tachycardia Proteinuria Mass of left lung Wide-complex tachycardia Atrial arrhythmia Pt recently completed Holter, per Dr. Ruiz suspect MAT. Bladder cancer s/p TURBT Hypertension Nephrolithiasis Pneumonia 09/2018; workup for this led to findings of lung mass (reason for upcoming procedure) Surgical History H/O transurethral destruction of bladder lesion Hand trauma s/p surgical repair History of cystoscopy + stent History of inguinal hernia repair s/p repair (as child) History of tonsillectomy and adenoidectomy S/P colonoscopy Status post robot-assisted surgical procedure Thoracoscopy/VATS 10/26/18, aborted due to wide-complex tachycardia and hypotension. Family History Sister Family history of diabetes mellitus Grandmother Family history of diabetes mellitus Social History Preferred Language: Romanian Communication Ability: Effective Visual Impairment: No Limitations Cold Meat Chef Required: No Beliefs That Will Affect Care: None Current Living Situation: Spouse Other Information That Helps Us Care for You: No Feels Safe at Home: Yes Safety Concerns: Feels Safe At This Time Smoking Status: Never smoker Tobacco Type: cigarettes ; Cigarettes Per Day: 3-4 CIGS DAILY X 3 YEARS ; Do You Dip or Chew Tobacco: No ; Second Hand Exposure: No ; Tobacco Cessation Education Requested by Patient: No Hx Alcohol Use: Yes Alcohol type: beer and hard liquor Hx Substance Use: Yes substance use type: marijuana Review of Systems Review of Systems: All systems reviewed & are unremarkable except as noted in HPI & below Physical Exam Physical Exam: Constitutional: Alert, cooperative and in no distress. HEENT: Unremarkable Neck: No jugular venous distention, carotid pulses are irregular but otherwise normal and equal bilaterally without bruits. Pulmonary: Clear to auscultation bilaterally. Cardiac: Irregular rhythm with no murmur, gallop or rub. Abdomen: Soft, nontender with normal bowel sounds. Extremities: No edema. Distal pulses intact. Neurologic: No focal findings. Gait is steady. Skin: No rash, ecchymoses or petechiae. Results & Data Vital Signs (Past 12 Hours) Vital Signs Temp Pulse Resp BP Pulse Ox 11/22/18 08:55 36.8 C 90 20 121/73 96 PG Care Time/CCT Total # of Minutes Spent Total Time Spent with Patient: Total time spent is greater than 50% in coordination of care (as documented) at patient's floor/unit and/or counseling patient:
[2018-11-22] MEDS ORDERED: AMIODARONE / D5W 360 MG/200 ML BAG IV SCH (09:15)
[2018-11-22] MEDS ORDERED: LIDOCAINE HCL 2% 2 ML VIAL/AMP(20MG/ML) INFIL ONE ×2 (09:16→10:01)
[2018-11-22] MEDS ORDERED: fentaNYL citrate 100 MCG/2 ML VIAL IV PRN (09:28)
[2018-11-22] MEDS ORDERED: ePHEDrine sulfate 50 MG/ML AMP IV PRN (09:28)
[2018-11-22] MEDS ORDERED: ATROPINE SULFATE 0.1 MG/ML 10ML SYR IV PRN (09:28)
[2018-11-22] MEDS ORDERED: ONDANSETRON INJ 2 MG/ML 2 ML VIAL IV PRN (09:28)
[2018-11-22] MEDS ORDERED: NEOSTIGMINE METHYLSULFATE 5 MG/5 ML SYR ONE (10:01)
[2018-11-22] MEDS ORDERED: DEXAMETHASONE SOD INJ 4 MG/ML VIAL ONE (10:01)
[2018-11-22] MEDS ORDERED: ONDANSETRON INJ 2 MG/ML 2 ML VIAL ONE (10:01)
[2018-11-22] MEDS ORDERED: PROPOFOL IV EMULSION 10 MG/ML 20 ML VIAL IV ONE (10:01)
[2018-11-22] MEDS ORDERED: MIDAZOLAM HCL 1 MG/ML 2ML VIAL ONE (10:01)
[2018-11-22] MEDS ORDERED: GLYCOPYRROLATE 0.2 MG/ML VIAL ONE (10:01)
[2018-11-22] MEDS ORDERED: fentaNYL citrate 100 MCG/2 ML VIAL ONE ×5 (10:01→18:34)
--- NOTE | 2018-11-22 11:10 | History & Physical Bridge Note ---
Date of Service November 22, 2018 History & Physical Bridge Note I have examined the patient, reviewed the History & Physical and in the interval since the performance of the History & Physical I have noted the following changes of clinical significance: no changes noted
[2018-11-22] MEDS ORDERED: BUPIVACAINE 0.5 % 5 MG/1 ML MPF 30ML VIAL ONE (11:17)
[2018-11-22] MEDS ORDERED: SODIUM CHLORIDE 0.9% PF 50 ML VIAL ONE (11:17)
[2018-11-22] MEDS ORDERED: BUPIVACAINE LIPOSOME 1.3% 266 MG/20 ML VIAL ONE (11:17)
[2018-11-22] MEDS ORDERED: PHENYLEPHRINE 100MCG/ML 5ML SYR ONE (15:30)
[2018-11-22] MEDS ORDERED: PHENYLEPHRINE HCL 10 MG/ML VIAL ONE (15:31)
[2018-11-22] MEDS ORDERED: VASOPRESSIN 20 UNIT/ML VIAL ONE (15:31)
[2018-11-22] MEDS ORDERED: CLINDAMYCIN PHOS 300 MG/2 ML VIAL ONE (15:31)
[2018-11-22 17:18] LABS: Basophils # (auto) 0.03 K/uL (0-0.2); Basophils % (auto) 0.2 %; Eosinophils # (auto) 0.04 K/uL (0-0.5); Eosinophils % (auto) 0.3 %; Hematocrit (blood only) 35.7 % (42-52); Hemoglobin 11.5 g/dL (14.0-18.0); Immature Granulocytes # (auto) 0.07 K/uL (0.00-0.02); Immature Granulocytes % (auto) 0.5 %; Lymphocytes % (auto) 7.1 %; Mean Corpuscular Hemoglobin 27.6 pg (25-34); Mean Corpuscular Volume 85.8 fL (80-100); Mean Platelet Volume 10.7 fL (7.4-10.4); Monocytes # (auto) 1.24 K/uL (0.11-0.59); Neutrophils # (auto) 13.07 K/uL (1.4-6.5); Neutrophils % (auto) 83.9 %; Platelet Count 175 K/uL (130-400); RDW Coefficient of Variation 15.7 % (11.5-14.5); RDW Standard Deviation 49.5 fL (36.4-46.3); Red Blood Count 4.16 M/uL (4.7-6.1); White Blood Count 15.55 K/uL (4.8-10.8)
[2018-11-22 17:20] LABS: Mean Corpuscular Hgb Conc 32.2 g/dL (32-36)
[2018-11-22] MEDS ORDERED: CALCIUM CHLORIDE 10% 10 ML SYR IV ONE (17:36)
[2018-11-22] MEDS ORDERED: TISSEEL FIBRIN SEALANT 10ML TOP ONE (18:20)
--- NOTE | 2018-11-22 18:25 | Post Operative Brief Note ---
PG Immediate Post Op with CF Date of Surgery November 22, 2018 Pre & Post Diagnosis Operation Date: 11/22/18 10:40 Pre-Op Diagnosis: Left Lung Mass Post-Op Diagnosis: Left Lung Mass Procedure Operation Date: 11/22/18 10:40 Actual Procedures Robotic left intrapericardial pneumonectomy Mediastinal lymphadenectomy Surgeon Brock Zhao MD, FACS Pearl Maker Carmen GUZMAN Estimated Blood Loss 2,000 Findings Consistent with Post-Op Diagnosis Specimens Specimen Description: A. L9 lymph node B. L11 lymph node x2 C. L8 lymph node x2 D. level 5 lymph node E. Level 7 lymph node x3 F. L10 lymph node X2 G.L12 lymph node X7 H. l lymph node X1 Frozen section #1 L8 lymph node frozen section# left lower lobe for diagnosis frozen #2 superior segment left lower lobe Frozen #3 Left lung - need diagnosis Culture#1 L8 lymph node for aerobic, anaerobic, gram stain, fungal and AFB Culture#2 left lower lobe wedge for aerobic, anaerobic, gram stain, fungal and AFB Culture #3 superior segment left lower lobe Drains Chest Tube and Gonzalez Catheter
[2018-11-22] MEDS ORDERED: ALBUMIN HUMAN 5% 12.5 GM/250 ML VIAL IV ONE (18:49)
[2018-11-22] MEDS ORDERED: SUGAMMADEX SODIUM 200 MG/2 ML VIAL IV ONE (18:58)
[2018-11-22 20:01] LABS: BUN Creatinine Ratio 19.4 (10-20); Calcium 8.1 mg/dl (8.5-10.1); Est GFR (African American) 107.9; Est GFR (Non-African American) 93.1; Potassium 4.6 mmol/L (3.5-5.1)
--- NOTE | 2018-11-22 20:01 | XRay Report ---
SINGLE VIEW CHEST CLINICAL HISTORY: Status post pneumonectomy. FINDINGS: An AP, portable, upright chest radiograph is compared to study dated 10/31/2018 and correlat ed with chest CT dated 09/25/2018. The examination is degraded by portable technique and patient rotat ion. The left lung is surgically absent. There is rightward deviation of the trachea and mild rightwa rd deviation of the mediastinum. The heart is top normal for projection. The pulmonary vasculature is noncongested. Diffuse interstitial thickening and groundglass changes seen throughout the right lung . There is atelectasis at the right lung base. No large pleural effusion is identified. No right-side d pneumothorax is seen. The skeletal structures are osteopenic. The bony thorax is grossly intact. [place] bcutaneous emphysema is noted along the left chest wall. IMPRESSION: 1. The left lung is surgically absent and gas fills the left thoracic cavity. 2. There is rightward deviation of the trachea and rightward shift of the mediastinum. A tension phen omenon is not excluded. Clinical correlation will be Central. 3. Changes of chronic lung disease are again seen throughout the right lung. Electronically signed by: Jah Sebastian M.D. 11/22/2018 7:59 PM
--- NOTE | 2018-11-22 20:07 | Anesthesiology Progress Note ---
Date of Service November 22, 2018 Anesthesia Post Procedure Vital Signs Vital Signs: Temp Pulse Pulse Resp BP BP Pulse Ox 11/22/18 20:00 36.2 C L 81 20 82/49 L 94/57 L 97 11/22/18 19:50 36.2 C L 82 16 88/49 L 91/64 L 95 11/22/18 19:40 81 16 92/53 L 85/64 L 99 11/22/18 19:30 81 16 91/52 L 97/74 L 99 11/22/18 19:20 81 21 104/57 L 98/68 L 97 11/22/18 19:14 35.9 C L 80 22 106/71 99 11/22/18 08:55 36.8 C 90 20 121/73 96 Pain Intensity Left Chest: Pain Intensity: 0 Transfer of Care Handoff Completed per policy Notes Mental Status: alert / awake / arousable and participated in evaluation Patient Amnestic to Procedure: Yes Nausea / Vomiting: adequately controlled Pain: adequately controlled Airway Patency, RR, SpO2: stable & adequate BP & HR: stable & adequate Hydration State: stable & adequate Anesthetic Complications: no major complications apparent and Pt Satisfied with anesthetic care
[2018-11-22] MEDS ORDERED: BUDESONIDE/FORMOTEROL FUMARATE 160/4.5 60 PUFFS/INHALER INH PRN (20:27)
[2018-11-22] MEDS ORDERED: D5W AND 1/2NSS 1,000 ML IV SCH (20:27)
[2018-11-22] MEDS ORDERED: LEVALBUTEROL TARTRATE 15 GM HFA.AER.AD INH PRN (20:27)
--- NOTE | 2018-11-22 20:45 | Critical Care Consultation ---
Date of Consultation November 22, 2018 Assessment & Plan (1) Admitted to intensive care unit: Reason Critically Ill: 67-year-old male status post VATS for LEFT-sided lung CA requiring aggressive PRBC resuscitation intraoperatively for approximately 2000 mL loss in blood intraoperatively. Requiring close hemodynamic monitoring throughout the night. NEURO - * CAM ICU: NEGATIVE * Pain: Morphine, Oxycodone CARDIAC/VASCULAR - * History of paroxysmal atrial tachycardia and ventricular tachyarrhythmia: * Appears to have been preemptively placed on amiodarone prior to procedure. * We will continue drip in the meantime and defer further to cardiology for continued p.o. medications. * Monitor closely on telemetry for any dysrhythmias status post thoracic intervention. * Monitor on telemetry. RESPIRATORY - * Status post LEFT-sided lobectomy in the setting of lung CA. * Complicated by blood loss. * Monitor closely for further bleeding. * Aggressive pulmonary toilet postoperatively. * Monitor closely for changes in oxygen saturation and need for emergent reintubation. GI/NUTRITION - * Progress diet as tolerated in the morning. * Prophylaxis: Famotidine RENAL/LYTES - * No significant electrolyte derangements * IVF: Normosol at 75 mL/hr - * Gonzalez in place - Strict I&Os. ENDO - * DMII * BSGs per unit protocol. ISS --> gtt per unit policy. HEME - * Intraoperative bleeding: * Received 3 units PRBCs in response to approximately 2000 mL EBL. * Repeat H&H postoperatively. * Transfuse as needed. ID - * No concerns for infectious contribution at this time. LINES/IV ACCESS - * PIVs x2 * RIGHT radial A-line DVT PROPHYLAXIS - * Defer to surgery status post VATS. * SCDs I have personally spent 35 minutes of critical care time in the direct management of this patient. This is a life/limb threatening event. This includes time spent evaluating patient, direct bedside care, chart review, placing orders, interpretation of diagnostic studies, discussion with consultants, patient, and family members, as well as other required patient management activities. This time is exclusive of all separately billable procedures, and teaching time and separate from and in addition to any other critical care service time. Thank you for allowing us to participate in the care of this patient. Please refer to my attending physician's documentation for any further recommendations. (2) S/P pneumonectomy: (3) PAT (paroxysmal atrial tachycardia): (4) Controlled type 2 diabetes mellitus with diabetic nephropathy: (5) Hypercholesterolemia: (6) Wide-complex tachycardia: (7) Mass of left lung: (8) Lung cancer: (9) Proteinuria: (10) Ventricular tachycardia: Supervising Physician Co-Signing Physician Notes I have personally evaluated and examined this patient. I agree with assessment and plan of Daija Newell PA-C. History of Present Illness Attending Physician: Brock Zhao MD, FACS History of Present Illness Patient is a 67-year-old male with a significant past medical history of paroxysmal atrial tachycardia, hypercholesterolemia, type 2 diabetes, and recent diagnosis of LEFT lung mass who is postop day 0 status post VATS procedure for lobectomy. Patient lost approximately 2 L of blood intraoperatively requiring transfusion of 3 units PRBCs. He was extubated status post intervention and has been maintaining well since. Upon arrival in the ICU, the patient is awake, alert, and oriented. He complains of some mild discomfort to the LEFT-sided chest, but otherwise reports feeling well. He denies any headaches, dizziness, lightheadedness, palpitations, nausea, vomiting, abdominal pain, or extremity pain. Allergies Allergy/AdvReac Type Severity Reaction Status Date / Time aspirin AdvReac Mild HALLUCINATIONS Verified 11/22/18 08:46 A CHILD Home Medications Home Medications Medication Instructions Recorded Confirmed Type atorvastatin 40 mg PO HS #0 tab 11/21/17 11/22/18 History metformin 500 mg PO HS #0 11/21/17 11/22/18 History multivitamin 1 tab PO HS #0 tab 11/21/17 11/22/18 History Symbicort 2 puff INHALATION BID PRN 10/10/18 11/22/18 History lisinopril 20 mg tablet 20 mg PO HS #90 tab 11/09/18 11/22/18 Rx diltiazem CD 180 mg 180 mg PO DAILY cap 11/10/18 11/22/18 History capsule,extended release 24 hr levalbuterol HFA 45 mcg/actuation 2 puffs INH Q4H PRN gm 11/10/18 11/22/18 History aerosol inhaler metoprolol succinate ER 50 mg 50 mg PO DAILY 11/10/18 11/22/18 History tablet,extended release 24 hr Patient History Medical History Controlled type 2 diabetes mellitus with diabetic nephropathy Hypercholesterolemia Lung cancer Ventricular tachycardia Proteinuria Mass of left lung Wide-complex tachycardia Atrial arrhythmia Pt recently completed Holter, per Dr. Ruiz suspect MAT. Bladder cancer s/p TURBT Hypertension Nephrolithiasis Pneumonia 09/2018; workup for this led to findings of lung mass (reason for upcoming procedure) Surgical History S/P pneumonectomy (11/22/18) PROCEDURES: 1. Robot-assisted left thoracoscopy with wedge resection. 2. Robot-assisted thoracoscopic control of hemorrhage, continuation of pulmonary artery to left lower lobe. 3. Robot-assisted thoracoscopic left intrapericardial pneumonectomy. 4. Robot-assisted thoracoscopic left mediastinal lymphadenectomy. Dr. Zhao 11-22-18 H/O transurethral destruction of bladder lesion Hand trauma s/p surgical repair History of cystoscopy + stent History of inguinal hernia repair s/p repair (as child) History of tonsillectomy and adenoidectomy S/P colonoscopy Status post robot-assisted surgical procedure Thoracoscopy/VATS 10/26/18, aborted due to wide-complex tachycardia and hypotension. Family History Sister Family history of diabetes mellitus Grandmother Family history of diabetes mellitus Social History Preferred Language: Yoruba Communication Ability: Effective Visual Impairment: No Limitations Weaver Hand Required: No Beliefs That Will Affect Care: None marital status: Current Living Situation: Spouse Other Information That Helps Us Care for You: No Feels Safe at Home: Yes Safety Concerns: Feels Safe At This Time Smoking Status: Never smoker Tobacco Type: cigarettes ; Cigarettes Per Day: 3-4 CIGS DAILY X 3 YEARS ; Do You Dip or Chew Tobacco: No ; Second Hand Exposure: No ; Tobacco Cessation Education Requested by Patient: No Hx Alcohol Use: Yes Alcohol type: beer Hx Substance Use: No Physical Exam Physical Exam: VITAL SIGNS - Vital signs and nursing notes were reviewed. GENERAL - 67-year-old male appearing his stated age who is in no acute distress. Communicates well with provider and answers questions appropriately. HEAD - NC/AT. EYES - PERRL with EOMI bilaterally. Sclera anicteric. EARS - No deformities of external structures noted on gross examination bilaterally. NOSE - Midline and without cyanosis. MOUTH/OROPHARYNX - Without perioral cyanosis. NECK - Neck with FROM. LUNGS - Chest wall symmetric without accessory muscle use, intercostals retractions, or central cyanosis. Decreased breath sounds to the LEFT sided lung roper. CARDIAC - RRR with S1/S2. No murmur, rubs, or gallops appreciated. Mild reproducible tenderness to palpation appreciated over the LEFT sided chest wall. ABDOMEN - Abdominal contour flat without pulsations or visible masses. BS normoactive all four quadrants. No tenderness, palpable masses, hepatosplenomegaly, or ascites noted. EXTREMITIES - No clubbing or peripheral cyanosis. No pretibial edema present. +3/5 radial and dorsalis pedis pulses palpated throughout. +5/5 strength noted in UE/LE bilaterally. NEUROLOGIC - Cranial nerves II through XII grossly intact. Sensory intact to light touch throughout. PSYCH - A&Ox3 and cooperates fully with examiner. Pt is very pleasant and interacts well with examiner. Results & Data Vital Signs (Past 12 Hours) Vital Signs Temp Pulse Pulse Resp BP BP Pulse Ox 11/22/18 20:00 36.2 C L 81 20 82/49 L 94/57 L 97 11/22/18 19:50 36.2 C L 82 16 88/49 L 91/64 L 95 11/22/18 19:40 81 16 92/53 L 85/64 L 99 11/22/18 19:30 81 16 91/52 L 97/74 L 99 11/22/18 19:20 81 21 104/57 L 98/68 L 97 11/22/18 19:14 35.9 C L 80 22 106/71 99 11/22/18 08:55 36.8 C 90 20 121/73 96 PG Care Time/CCT Total # of Minutes Spent Total Time Spent with Patient: Total time spent is greater than 50% in coordination of care (as documented) at patient's floor/unit and/or counseling patient: Critical Care Time: Yes Total Critical Care Time: 35
[2018-11-22] MEDS: AMIODARONE / D5W 360 MG/200 ML BAG IV SCH ×2 (20:51→23:01)
[2018-11-22] MEDS ORDERED: ICU PROTOCOL FOR HYPERGLYCEMIA PRN (20:59)
[2018-11-22] MEDS ORDERED: NORMOSOL-R 1,000 ML IV SCH (21:00)
[2018-11-22] MEDS: METOCLOPRAMIDE HCL INJ 5 MG/ML 2 ML VIAL IV SCH (21:36)
[2018-11-22] MEDS: FAMOTIDINE 20 MG in SYRINGE 3 ML IV SCH (21:36)
[2018-11-22] MEDS: MoRPHine SULFATE 2 MG/ML CARP IV PRN ×2 (21:37→23:05)
[2018-11-22] MEDS: DOCUSATE SODIUM 100 MG CAP PO SCH (21:37)
[2018-11-22] MEDS: ATORVASTATIN 40 MG TAB PO SCH (21:51)
[2018-11-22 22:44] LABS: Hematocrit (blood only) 35.2 % (42-52)
--- NOTE | 2018-11-23 00:40 | Operative Report ---
DATE OF OPERATION: 11/22/2018 PREOPERATIVE DIAGNOSIS: Hypermetabolic mass, left lower lobe. POSTOPERATIVE DIAGNOSIS: Squamous cell carcinoma, left hilum. PROCEDURES: 1. Robot-assisted left thoracoscopy with wedge resection. 2. Robot-assisted thoracoscopic control of hemorrhage, continuation of pulmonary artery to left lower lobe. 3. Robot-assisted thoracoscopic left intrapericardial pneumonectomy. 4. Robot-assisted thoracoscopic left mediastinal lymphadenectomy. SURGEON: Brock Zhao MD. SOLAR DEVELOPMENT ENGINEER: Gui Singletary PA-C. ANESTHESIA: General anesthesia, endotracheal inhalation with double lumen tube. INDICATION FOR PROCEDURE AND FINDINGS: Mr. Ruiz is a 67-year-old male with an asymptomatic mass in his left lower lobe. We performed an endobronchial ultrasound and navigational bronchoscopy and we did not get an answer to this. He did not have hypermetabolic lymph nodes. The lymph nodes were negative on endobronchial ultrasound. I had a long talk with patient and his , we elected to proceed with a thoracoscopic wedge resection with possible left lower lobectomy. Three weeks ago, the patient presented to the operating room and I had started a robotic procedure. However, he developed what was thought at that time to be ventricular tachycardia and the case was aborted quite quickly. We did very little on the case. It turns out he had a multifocal atrial tachycardia. He was seen by cardiology and cleared for the surgery and we started him on amiodarone. He was seen by Dr. Flavio Ruiz again today. On 11/22/2018, took the patient to the operating room and performed a thoracoscopy. He had some adhesions, but I was able to peel off the back of the hilum and I wedged out a portion of the superior segment on the left. I also sent off some very enlarged lymph nodes. These nodes and the wedge did not show evidence of cancer; however, while there was some necrosis, I saw no evidence of organisms. The patient had no symptoms of an infection. I was concerned about this and decided to proceed with a left lobectomy anyway as this mass was hypermetabolic and I was concerned that this was a malignancy. I discussed this in detail with the patient's family. I then started dissecting out the hilum and immediately ran into difficulties. The inferior pulmonary vein on the left was quite adherent. There was a mass in the mainstem bronchus and especially along the vein, but it very difficult to dissect this out. I was able to dissect out the anterior bronchus and I completed the fissure anteriorly. At any rate, I decided to proceed with a lobectomy. It appeared we had good that we would be able to do this and I went to take the continuation of pulmonary vein. We got around this with a vessel loop and I went around it with a vascular stapler load. However, it was adherent to the very hard lymph nodes in the mass itself is here I was concerned about that. This tore. We lost a great deal of blood, I was able to get control and I put several large Hemoclips and we were able to control the bleeding without opening the chest. The patient had some momentary drops in pressure, but was managed expertly by Dr. Robert. We attempting to dissect out the bronchus and be seen that this was not going to be able to be accomplished with a lobectomy. Even though we did not have a diagnosis, I proceeded with a pneumonectomy. I opened the pericardium and got the pulmonary vein without difficulty. I then cut the main pulmonary artery without difficulty. We then divided the bronchus. Bronchial margins were negative, although the tumor was quite close. Frozen section showed this to be a squamous cell carcinoma with a quite a bit of reaction around it. The patient tolerated it fairly well considering and was extubated in the room, although he is still a bit shaky. He received 3 units of blood in the operating room. DESCRIPTION OF PROCEDURE: The patient was brought to the operating room and laid in supine position. General anesthesia induced and endotracheal intubation was performed with a double lumen tube. Arterial line was placed as well as Gonzalez catheter. The patient was placed in right lateral decubitus position. I went through the same incisions. He had no adhesions from these incisions, and we were able to quickly put our ports in. I did an Exparel block using 266 mg of Exparel and 20 mL solution mixed with 30 mL of 0.5% bupivacaine with 250 mL of normal saline. Each of the 5 incisions was injected before we reopened them and then I did a block from the 2nd to the 11th rib using the liposomal bupivacaine solution. We then docked the robot. Upon going in, I was able to take down the inferior pulmonary ligament which I taken down before and took a level 9 node. I then dissected out along the vein and got a level 8 node. However, the vein was quite adherent to the bronchus and I dissected out anteriorly and got between the veins and dissected out at the anterior aspect of the fissure. I then freed up the mass from the aorta without difficulty and then also freed up the fissures. The fissure had some inflammation, but I was able to separate this pretty well and then completed. I then had freed up enough of the superior segment of the upper lobe that I sent off a wedge resection; however, I wedged out an area but this was above the mass and it squeezed out from the nasra. For this reason, I went through a hard mass and I was able to fire a black load stapler and sent this off. There are also some large nodes in the level 8 area as well as the level 10 area that I sent off for frozen. While waiting for this, I then completed the anterior fissure by firing the stapler across this. I then freed up the artery and the fissure. There were large lymph nodes which I dissected out. We actually had excellent exposure of this and I put a vessel loop at the pulmonary artery leading to the lower lobe just beyond the takeoff of the lingual branch. We then gently placed a stapler; however, the artery tore. It was stuck to some hard white tissue and lymph nodes, still we had dissected this out, but I could see that the vein and the arteries themselves were sending out here. This was a bit concerning to me not only for oncologic reasons, but because of the fragileness of the vessels. After this tore, we lost a good deal of blood. We were able to get control. I considered opening, but after we got control and suctioned the blood out, I then was able to get clips around this; however, I had sacrificed the lingual branches in doing such. I had to make a decision about whether to proceed with a lobectomy; however, this mass along the hilum was very large. I was then had trouble getting the vein as it was. Despite the fact the frozen section came back is not showing malignancy, I was convinced we were dealing with a malignant condition. For this reason, I opened up the pericardium and I took the pulmonary vein. The inferior and superior pulmonary vein came together all the way appeared that we were a bit distal to the left atrium itself. I fired a stapler and this nicely. I was then able to get around the main pulmonary artery and we were able to fire a stapler across this without difficulty. There were multiple lymph nodes and I dissected out a huge number. I dissected out level 5, 6, 7, 8, 9, 10, 11 and 12. The AP window nodes were quite large. After dissecting these out, I was then able to clean off the bronchus and I fired Endo-ALEK stapler across this. We were then able to remove the entire lung with an Endobag by opening the switchboard operator assistant's incision a bit. This actually went nicely. He had some bleeding and we suctioned it out and we were aggressive in controlling bleeding with the Aquamantys. It should be noted that we had undocked the robot by the time we took the mass out with the Endobag. Closely inspected for bleeding and controlled all bleeding and irrigated out the chest. We did not see leaking from the bronchus. The bronchus pulled back nicely under the aorta. We did spray Tisseel into the hilar area where we dissected this out. We had to enlarge the switchboard operator assistant's incision using a knife and then a Bovie electrocautery to get the mass out. I used 0 Vicryl to close the muscle layers and then 4-0 Monocryl was used in running subcuticular fashion to approximate the wound edges. We did not leave the chest tube. Each of the incisions were closed with 4-0 Monocryl in a running subcuticular fashion. The rest of the incisions were small. The patient tolerated it well relatively speaking given the amount of blood loss. I was quite pleased that he was extubated prior to moving to the PACU. I attest to the content of the Intraoperative Record and any orders documented therein. Any exception s are noted below.
[2018-11-23] MEDS: MoRPHine SULFATE 2 MG/ML CARP IV PRN ×4 (01:32→14:38)
[2018-11-23 04:55] LABS: Allen Test POS (Pos); Base Excess ABG -3.3 mEq/L (-9-1.8); HCO3 ABG 19 mmol/L (19-24); Oxygen Saturation ABG 99.4 % (90-95); PCO2 ABG 28 mmHg (35-46); PO2 ABG 168 mm/Hg (80-95); pH ABG 7.46 (7.35-7.45)
[2018-11-23 05:24] LABS: Basophils # (auto) 0.01 K/uL (0-0.2); Basophils % (auto) 0.1 %; Hematocrit (blood only) 34.8 % (42-52); Hemoglobin 11.8 g/dL (14.0-18.0); Immature Granulocytes # (auto) 0.03 K/uL (0.00-0.02); Immature Granulocytes % (auto) 0.2 %; Lymphocytes # (auto) 1.06 K/uL (1.2-3.4); Lymphocytes % (auto) 8.1 %; Mean Corpuscular Hemoglobin 28.2 pg (25-34); Mean Corpuscular Hgb Conc 33.9 g/dL (32-36); Mean Corpuscular Volume 83.3 fL (80-100); Mean Platelet Volume 10.6 fL (7.4-10.4); Monocytes # (auto) 1.31 K/uL (0.11-0.59); Neutrophils % (auto) 81.6 %; Platelet Count 157 K/uL (130-400); RDW Coefficient of Variation 15.4 % (11.5-14.5); RDW Standard Deviation 46.9 fL (36.4-46.3); Red Blood Count 4.18 M/uL (4.7-6.1); White Blood Count 13.11 K/uL (4.8-10.8)
[2018-11-23 05:39] LABS: BUN Creatinine Ratio 15.4 (10-20); Calcium 7.6 mg/dl (8.5-10.1); Creatinine Clr Calc Pharmacy 66.5 ml/min; Est GFR (African American) 96.3; Est GFR (Non-African American) 83.1; Magnesium 1.6 mg/dl (1.8-2.4); Phosphorus 4.3 mg/dl (2.5-4.9); Potassium 4.4 mmol/L (3.5-5.1)
[2018-11-23] MEDS: METOCLOPRAMIDE HCL INJ 5 MG/ML 2 ML VIAL IV SCH ×2 (05:44→12:04)
[2018-11-23] MEDS ORDERED: CLINDAMYCIN 600 MG/54 ML BAG IV SCH (06:00)
--- NOTE | 2018-11-23 07:13 | XRay Report ---
XR chest 1V portable CLINICAL HISTORY: 67 years-old Male presenting with f/u, history of pneumonectomy. TECHNIQUE: Portable upright AP view of the chest was obtained. COMPARISON: 11/22/2018. FINDINGS: Atherosclerosis of the aortic arch. Cardiac silhouette enlarged. Elevation of the left hemidiaphragm. Redemonstration of the large left pneumothorax, which is slightly decreased with resolution of prior tension morphology. No mediastinal shift is evident on the current exam. Significant associated soft tissue emphysema along the left chest wall and base of the neck. Improved aeration of the right lung . Coarsened lung markings in the right lung with possible interlobular septal thickening and pulmonar y vascular prominence. Degenerative changes of the thoracic spine. Upper abdomen normal. IMPRESSION: 1. Improved aeration of the right lung though mild congestive changes suggested. 2. Resolution of mediastinal shift. 3. Decreased size of the large left pneumothorax. Electronically signed by: Kali Arce M.D. 11/23/2018 7:12 AM
--- NOTE | 2018-11-23 07:38 | Critical Care Progress Note ---
Date of Service November 23, 2018 Assessment & Plan (1) Admitted to intensive care unit: Reason Critically Ill: 67-year-old male status post VATS for LEFT-sided lung CA requiring aggressive PRBC resuscitation intraoperatively for approximately 2000 mL loss in blood intraoperatively. Requiring close hemodynamic monitoring. NEURO - * CAM ICU: NEGATIVE * Pain: Morphine, Oxycodone CARDIAC/VASCULAR - * History of paroxysmal atrial tachycardia and ventricular tachyarrhythmia: * preemptively placed on amiodarone prior to procedure, now discontinued and oral diltiazem and metoprolol therapy started per cardiology * Monitor closely on telemetry for any dysrhythmias status post thoracic intervention. RESPIRATORY - * Status post LEFT-sided lobectomy in the setting of lung CA. * Complicated by blood loss. * Monitor closely for further bleeding. * Aggressive pulmonary toilet postoperatively. * Monitor closely for changes in oxygen saturation and need for emergent reintubation. * Continue Xopenex GI/NUTRITION - * Heart healthy carb consistent diet * Prophylaxis: Famotidine RENAL/LYTES - * IVF discontinued * Monitor routine BMPs and replete electrolytes as necessary - * Gonzalez discontinued, strict I&Os. ENDO - * DMII * BSGs per unit protocol. ISS --> gtt per unit policy. * Continue sliding scale insulin HEME - * Intraoperative bleeding: * Received 3 units PRBCs in response to approximately 2000 mL EBL. * H&H currently stable * Will transfuse if indicated. ID - * No concerns for infectious contribution at this time. LINES/IV ACCESS - * PIVs x2 * RIGHT radial A-line DVT PROPHYLAXIS - * Subcu heparin * SCDs Thank you for allowing us to participate in the care of this patient. Please refer to my attending physician's documentation for any further recommendations. (2) S/P pneumonectomy: (3) PAT (paroxysmal atrial tachycardia): (4) Controlled type 2 diabetes mellitus with diabetic nephropathy: (5) Hypercholesterolemia: (6) Wide-complex tachycardia: (7) Mass of left lung: (8) Lung cancer: (9) Proteinuria: (10) Ventricular tachycardia: Subjective No acute events overnight. The patient looks well and is sitting upright in chair eating breakfast on interview. He has already walked laps throughout the unit. He remains on amiodarone drip. We will likely discontinue tomorrow morning. He denies shortness of breath but states that he has some pain with deep inspiration. He denies headache dizziness or syncope, generalized weakness, palpitations or chest pain, increased work of breathing, nausea or vomiting, abdominal pain, or diarrhea. Will hold patient in ICU for now, likely can be downgraded tomorrow morning. Review of Systems Review of Systems: All systems reviewed & are unremarkable except as noted in HPI & below Physical Exam Eyes: PERRL, conjunctivae normal, anicteric sclerae ENMT: external ear and nose normal, oropharynx normal Neck: trachea midline, no thyromegaly Respiratory: normal respiratory effort; no respiratory distress and no labored breathing Lungs clear to auscultation bilaterally with diminished lung sounds in left lower base Cardiovascular: RRR, no murmur, no edema Heart Sounds: normal S1 and normal S2; no murmur Gastrointestinal (Abdomen): normal bowel sounds, soft, nontender, no hepatosplenomegaly Neurologic: PERRL, EOMI, accommodation nl, no face palsy, no dysarthria Psychiatric: A+Ox3, euthymic affect Results & Data Vital Signs (Past 12 Hours) Vital Signs Temp Pulse Pulse Resp BP BP BP 11/23/18 07:13 83 21 116/67 11/23/18 07:00 81 28 H 11/23/18 06:01 90 18 11/23/18 06:00 90 31 H 134/82 11/23/18 05:01 92 H 25 H 11/23/18 05:00 90 19 106/67 11/23/18 04:01 96 H 10 L 11/23/18 04:00 99 H 23 107/68 11/23/18 03:01 93 H 19 11/23/18 03:00 93 H 18 96/60 L 11/23/18 02:01 97 H 20 11/23/18 02:00 92 H 10 L 100/61 11/23/18 01:01 97 H 24 11/23/18 01:00 100 H 31 H 98/64 L 11/23/18 00:01 94 H 19 11/23/18 00:00 95 H 21 94/67 L 11/22/18 23:50 93 H 19 11/22/18 23:40 90 18 11/22/18 23:30 91 H 18 11/22/18 23:20 91 H 21 11/22/18 23:10 94 H 30 H 11/22/18 23:00 90 27 H 111/67 11/22/18 22:30 89 20 11/22/18 22:20 91 H 14 11/22/18 22:10 91 H 30 H 11/22/18 22:00 87 14 107/69 11/22/18 21:45 89 22 11/22/18 21:30 91 H 25 H 11/22/18 21:15 84 18 11/22/18 21:00 86 21 95/69 L 11/22/18 20:45 86 21 11/22/18 20:30 87 15 11/22/18 20:29 87 11/22/18 20:27 36 C L 85 20 86/64 L 11/22/18 20:15 82 14 81/59 L 11/22/18 20:00 36.2 C L 81 20 82/49 L 94/57 L 11/22/18 19:50 36.2 C L 82 16 88/49 L 91/64 L 11/22/18 19:40 81 16 92/53 L 85/64 L Pulse Ox 11/23/18 07:13 98 11/23/18 07:00 96 11/23/18 06:01 97 11/23/18 06:00 96 11/23/18 05:01 99 11/23/18 05:00 98 11/23/18 04:01 98 11/23/18 04:00 98 11/23/18 03:01 98 11/23/18 03:00 98 11/23/18 02:01 98 11/23/18 02:00 96 11/23/18 01:01 97 11/23/18 01:00 98 11/23/18 00:01 98 11/23/18 00:00 98 11/22/18 23:50 98 11/22/18 23:40 98 11/22/18 23:30 98 11/22/18 23:20 98 11/22/18 23:10 97 11/22/18 23:00 98 11/22/18 22:30 98 11/22/18 22:20 99 11/22/18 22:10 100 11/22/18 22:00 97 11/22/18 21:45 100 11/22/18 21:30 100 11/22/18 21:15 100 11/22/18 21:00 99 11/22/18 20:45 100 11/22/18 20:30 98 11/22/18 20:29 11/22/18 20:27 100 11/22/18 20:15 11/22/18 20:00 97 11/22/18 19:50 95 11/22/18 19:40 99 Laboratory Results Laboratory Results - last 24 hr 11/22/18 11/22/18 11/22/18 08:45 17:10 19:38 WBC 15.55 H RBC 4.16 L Hgb 11.5 L 12.4 L Hct 35.7 L MCV 85.8 MCH 27.6 MCHC 32.2 RDW Std Deviation 49.5 H RDW Coeff of Sonia 15.7 H Plt Count 175 MPV 10.7 H Immature Gran % (Auto) 0.5 Neut % (Auto) 83.9 Lymph % (Auto) 7.1 Shannon % (Auto) 8.0 Eos % (Auto) 0.3 Baso % (Auto) 0.2 Immature Gran # (Auto) 0.07 H Neut # (Auto) 13.07 H Lymph # (Auto) 1.10 L [place] # (Auto) 1.24 H Eos # (Auto) 0.04 Baso # (Auto) 0.03 ABG pH ABG pCO2 ABG pO2 ABG HCO3 ABG O2 Saturation ABG Base Excess Denys Test Barometric Pressure Oxygen Given Sodium Potassium Chloride Carbon Dioxide Anion Gap BUN Creatinine Est Cr Clr Drug Dosing Est GFR ( Amer) Est GFR (Non-Af Amer) BUN/Creatinine Ratio Glucose POC Glucose Calcium Phosphorus Magnesium Nasal Screen MRSA (PCR) Blood Type A Positive Antibody Screen NEGATIVE Crossmatch See Detail 11/22/18 11/22/18 11/22/18 19:38 19:38 20:26 WBC RBC Hgb Hct MCV MCH MCHC RDW Std Deviation RDW Coeff of Sonia Plt Count MPV Immature Gran % (Auto) Neut % (Auto) Lymph % (Auto) Shannon % (Auto) Eos % (Auto) Baso % (Auto) Immature Gran # (Auto) Neut # (Auto) Lymph # (Auto) [place] # (Auto) Eos # (Auto) Baso # (Auto) ABG pH ABG pCO2 ABG pO2 ABG HCO3 ABG O2 Saturation ABG Base Excess Denys Test Barometric Pressure Oxygen Given Sodium 140 Potassium 4.6 Chloride 112 H Carbon Dioxide 20 L Anion Gap 7.0 BUN 16 Creatinine 0.80 Est Cr Clr Drug Dosing 79.0 Est GFR ( Amer) 107.9 Est GFR (Non-Af Amer) 93.1 BUN/Creatinine Ratio 19.4 Glucose 224 H POC Glucose 176 H 191 H Calcium 8.1 L Phosphorus Magnesium Nasal Screen MRSA (PCR) Blood Type Antibody Screen Crossmatch 11/22/18 11/22/18 11/23/18 21:00 22:38 04:28 WBC RBC Hgb 12.0 L Hct 35.2 L MCV MCH MCHC RDW Std Deviation RDW Coeff of Sonia Plt Count MPV Immature Gran % (Auto) Neut % (Auto) Lymph % (Auto) [place] % (Auto) Eos % (Auto) Baso % (Auto) Immature Gran # (Auto) Neut # (Auto) Lymph # (Auto) [place] # (Auto) Eos # (Auto) Baso # (Auto) ABG pH 7.46 H ABG pCO2 28 L ABG pO2 168 H ABG HCO3 19 ABG O2 Saturation 99.4 H ABG Base Excess -3.3 Denys Test POS Barometric Pressure 731.2 Oxygen Given 2L Sodium Potassium Chloride Carbon Dioxide Anion Gap BUN Creatinine Est Cr Clr Drug Dosing Est GFR ( Amer) Est GFR (Non-Af Amer) BUN/Creatinine Ratio Glucose POC Glucose Calcium Phosphorus Magnesium Nasal Screen MRSA (PCR) Negative Blood Type Antibody Screen Crossmatch 11/23/18 11/23/18 11/23/18 04:45 04:45 08:46 WBC 13.11 H RBC 4.18 L Hgb 11.8 L Hct 34.8 L MCV 83.3 MCH 28.2 MCHC 33.9 RDW Std Deviation 46.9 H RDW Coeff of Sonia 15.4 H Plt Count 157 MPV 10.6 H Immature Gran % (Auto) 0.2 Neut % (Auto) 81.6 Lymph % (Auto) 8.1 Shannon % (Auto) 10.0 Eos % (Auto) 0.0 Baso % (Auto) 0.1 Immature Gran # (Auto) 0.03 H Neut # (Auto) 10.70 H Lymph # (Auto) 1.06 L [place] # (Auto) 1.31 H Eos # (Auto) 0.00 Baso # (Auto) 0.01 ABG pH ABG pCO2 ABG pO2 ABG HCO3 ABG O2 Saturation ABG Base Excess Denys Test Barometric Pressure Oxygen Given Sodium 140 Potassium 4.4 Chloride 109 H Carbon Dioxide 23 Anion Gap 8.0 BUN 15 Creatinine 0.95 Est Cr Clr Drug Dosing 66.5 Est GFR ( Amer) 96.3 Est GFR (Non-Af Amer) 83.1 BUN/Creatinine Ratio 15.4 Glucose 161 H POC Glucose 166 H Calcium 7.6 L Phosphorus 4.3 Magnesium 1.6 L Nasal Screen MRSA (PCR) Blood Type Antibody Screen Crossmatch 11/23/18 11:27 WBC RBC Hgb Hct MCV MCH MCHC RDW Std Deviation RDW Coeff of Sonia Plt Count MPV Immature Gran % (Auto) Neut % (Auto) Lymph % (Auto) Shannon % (Auto) Eos % (Auto) Baso % (Auto) Immature Gran # (Auto) Neut # (Auto) Lymph # (Auto) Shannon # (Auto) Eos # (Auto) Baso # (Auto) ABG pH ABG pCO2 ABG pO2 ABG HCO3 ABG O2 Saturation ABG Base Excess Denys Test Barometric Pressure Oxygen Given Sodium Potassium Chloride Carbon Dioxide Anion Gap BUN Creatinine Est Cr Clr Drug Dosing Est GFR ( Amer) Est GFR (Non-Af Amer) BUN/Creatinine Ratio Glucose POC Glucose 216 H Calcium Phosphorus Magnesium Nasal Screen MRSA (PCR) Blood Type Antibody Screen Crossmatch Medications Administered Home Medications atorvastatin 40 mg PO HS #0 tab 11/21/17 [History Confirmed 11/22/18] metformin 500 mg PO HS #0 11/21/17 [History Confirmed 11/22/18] multivitamin 1 tab PO HS #0 tab 11/21/17 [History Confirmed 11/22/18] Symbicort 2 puff INHALATION BID PRN 10/10/18 [History Confirmed 11/22/18] lisinopril 20 mg tablet 20 mg PO HS #90 tab 11/09/18 [Rx Confirmed 11/22/18] diltiazem CD 180 mg capsule,extended release 24 hr 180 mg PO DAILY cap 11/10/18 [History Confirmed 11/22/18] levalbuterol HFA 45 mcg/actuation aerosol inhaler 2 puffs INH Q4H PRN gm 11/10/18 [History Confirmed 11/22/18] metoprolol succinate ER 50 mg tablet,extended release 24 hr 50 mg PO DAILY 11/10/18 [History Confirmed 11/22/18] Active Medications Atorvastatin Calcium (Lipitor) 40 mg PO HS [facility] Stop: 12/22/18 20:59 Last Admin: 11/22/18 21:51 Dose: 40 mg Documented by: Budesonide/Formoterol Fumarate (Symbicort 160mcg/4.5mcg) 2 puffs INH BID CARLO Stop: 12/23/18 20:59 Diltiazem HCl (Cardizem Cd) 180 mg PO BID [facility] Stop: 12/23/18 08:59 Last Admin: 11/23/18 08:24 Dose: 180 mg Documented by: Docusate Sodium (Colace) 100 mg PO BID [facility] Stop: 12/22/18 20:59 Last Admin: 11/23/18 08:27 Dose: 100 mg Documented by: Famotidine (Pepcid) 20 mg PO BID [facility] Stop: 12/23/18 20:59 Heparin Sodium (Porcine) (Heparin Sodium (Porcine)) 5,000 units SQ Q8 [facility] Stop: 12/23/18 13:59 Insulin Aspart (Novolog Flexpen) 0 units SC ACHS [facility] Stop: 12/23/18 11:29 Last Admin: 11/23/18 12:02 Dose: 5 units Documented by: Levalbuterol HCl (Xopenex Hfa) 2 puffs INH Q4H PRN PRN Reason: Shortness Of Breath Stop: 12/22/18 20:26 Metoclopramide HCl (Reglan) 10 mg IV Q8H [facility]LO Stop: 11/23/18 20:29 Last Admin: 11/23/18 12:04 Dose: 10 mg Documented by: Metoprolol Succinate (Toprol Xl) 50 mg PO DAILY [facility] Stop: 12/23/18 08:59 Last Admin: 11/23/18 08:24 Dose: 50 mg Documented by: Miscellaneous (Icu Protocol For Hyperglycemia) 1 ea N/A PRN PRN; Protocol PRN Reason: Hyperglycemia Protocol Stop: 11/24/18 20:58 Morphine Sulfate (Morphine Sulfate) 1 - 2 mg IV Q1H PRN PRN Reason: Pain Stop: 12/06/18 20:26 Last Admin: 11/23/18 05:43 Dose: 2 mg Documented by: Oxycodone/Acetaminophen (Percocet 5mg/325mg) 1 - 2 tab PO Q3H PRN PRN Reason: Pain Stop: 12/06/18 20:26 Last Admin: 11/23/18 12:24 Dose: 2 tab Documented by: PG Care Time/CCT Total # of Minutes Spent Total Time Spent with Patient: Total time spent is greater than 50% in coordination of care (as documented) at patient's floor/unit and/or counseling patient:
--- NOTE | 2018-11-23 08:11 | Cardiology Progress Note ---
Date of Service November 23, 2018 Assessment & Plan (1) PAT (paroxysmal atrial tachycardia): He has had well-documented asymptomatic paroxysmal atrial tachycardia which comprised about half of his rhythm on an outpatient Holter monitor. It does not seem to affect his exercise ability but is sometimes quite fast and I believe aberrantly conducted at times. Preoperatively (before amiodarone was started) with sedation I believe the rhythm was quite stable suggesting that this is a catecholamine dependent rhythm, at least in part. Although since he is asymptomatic we could probably accept this arrhythmia in the long run, I think it might be prudent to try to control it. Amiodarone is effective but I hate to continue that over the long run as an outpatient due to its toxicity and lack of necessity. During his last hospitalization a combination of intravenous amiodarone and diltiazem was very effective in controlling the arrhythmia, it seems that intravenous amiodarone alone and oral diltiazem alone in combination of beta-blockade was not very effective. As an outpatient low-dose beta- blockade and reasonable doses of diltiazem did not control the arrhythmia. Perhaps we did not have a high enough dose of beta-blockade. I am going to put him back on his outpatient diltiazem but in divided doses starting today, I am going to restart his metoprolol at a slightly higher dose, also in divided doses. (2) Wide-complex tachycardia: He has had wide-complex tachycardia both clinically in the OR during his initial surgery and on his Holter monitor as an outpatient. I cannot tell definitively whether this is ventricular in origin or atrial with aberrancy. In either case the treatment is not different, with normal left ventricular function it is not an ominous sign. The amiodarone may be helping to control it but I would prefer not to continue this as noted above. Subjective I believe he went through surgery well with regard to his arrhythmias, I believe he had suppression of his arrhythmias with anesthesia but we continue to amiodarone throughout the procedure and overnight. He is feeling well today, he is alert and awake and sitting at his bedside. He does have some left-sided chest discomfort but not severe. No palpitations. Physical Exam Physical Exam: Constitutional: Alert, cooperative and in no distress. HEENT: Unremarkable Neck: No jugular venous distention, carotid pulses are normal and equal bilaterally without bruits. Pulmonary: Crackles on auscultation bilaterally, decreased breath sounds on the left. Cardiac: Regular rhythm with a grade 3/6 holosystolic murmur at the apex, no gallop or rub. Abdomen: Soft, nontender with normal bowel sounds. Extremities: No edema. Distal pulses intact. Neurologic: No focal findings. Gait is steady. Skin: No rash, ecchymoses or petechiae. Results & Data Vital Signs (Past 12 Hours) Vital Signs Temp Pulse Pulse Resp BP BP Pulse Ox 11/23/18 07:13 83 21 116/67 98 11/23/18 07:00 81 28 H 96 11/23/18 06:01 90 18 97 11/23/18 06:00 90 31 H 134/82 96 11/23/18 05:01 92 H 25 H 99 11/23/18 05:00 90 19 106/67 98 11/23/18 04:01 96 H 10 L 98 11/23/18 04:00 99 H 23 107/68 98 11/23/18 03:01 93 H 19 98 11/23/18 03:00 93 H 18 96/60 L 98 11/23/18 02:01 97 H 20 98 11/23/18 02:00 92 H 10 L 100/61 96 11/23/18 01:01 97 H 24 97 11/23/18 01:00 100 H 31 H 98/64 L 98 11/23/18 00:01 94 H 19 98 11/23/18 00:00 95 H 21 94/67 L 98 11/22/18 23:50 93 H 19 98 11/22/18 23:40 90 18 98 11/22/18 23:30 91 H 18 98 11/22/18 23:20 91 H 21 98 11/22/18 23:10 94 H 30 H 97 11/22/18 23:00 90 27 H 111/67 98 11/22/18 22:30 89 20 98 11/22/18 22:20 91 H 14 99 11/22/18 22:10 91 H 30 H 100 11/22/18 22:00 87 14 107/69 97 11/22/18 21:45 89 22 100 11/22/18 21:30 91 H 25 H 100 11/22/18 21:15 84 18 100 11/22/18 21:00 86 21 95/69 L 99 11/22/18 20:45 86 21 100 11/22/18 20:30 87 15 98 11/22/18 20:29 87 11/22/18 20:27 36 C L 85 20 86/64 L 100 11/22/18 20:15 82 14 81/59 L Laboratory Results Abnormal lab results 11/22/18 11/22/18 11/22/18 Range/Units 08:42 08:45 17:10 WBC 15.55 H (4.8-10.8) K/uL RBC 4.16 L (4.7-6.1) M/uL Hgb 11.5 L (14.0-18.0) g/dL Hct 35.7 L (42-52) % RDW Std Deviation 49.5 H (36.4-46.3) fL RDW Coeff of Sonia 15.7 H (11.5-14.5) % MPV 10.7 H (7.4-10.4) fL Immature Gran # (Auto) 0.07 H (0.00-0.02) K/uL Neut # (Auto) 13.07 H (1.4-6.5) K/uL Lymph # (Auto) 1.10 L (1.2-3.4) K/uL [place] # (Auto) 1.24 H (0.11-0.59) K/uL ABG pH (7.35-7.45) ABG pCO2 (35-46) mmHg ABG pO2 (80-95) mm/Hg ABG O2 Saturation (90-95) % Chloride (98-107) mmol/L Carbon Dioxide (21-32) mmol/L Glucose (70-99) mg/dl POC Glucose 120 H (70-99) Calcium (8.5-10.1) mg/dl Magnesium (1.8-2.4) mg/dl Crossmatch See Detail 11/22/18 11/22/18 11/22/18 Range/Units 19:38 19:38 19:38 WBC (4.8-10.8) K/uL RBC (4.7-6.1) M/uL Hgb 12.4 L (14.0-18.0) g/dL Hct (42-52) % RDW Std Deviation (36.4-46.3) fL RDW Coeff of Sonia (11.5-14.5) % MPV (7.4-10.4) fL Immature Gran # (Auto) (0.00-0.02) K/uL Neut # (Auto) (1.4-6.5) K/uL Lymph # (Auto) (1.2-3.4) K/uL [place] # (Auto) (0.11-0.59) K/uL ABG pH (7.35-7.45) ABG pCO2 (35-46) mmHg ABG pO2 (80-95) mm/Hg ABG O2 Saturation (90-95) % Chloride 112 H (98-107) mmol/L Carbon Dioxide 20 L (21-32) mmol/L Glucose 224 H (70-99) mg/dl POC Glucose 176 H (70-99) Calcium 8.1 L (8.5-10.1) mg/dl Magnesium (1.8-2.4) mg/dl Crossmatch 11/22/18 11/22/18 11/23/18 Range/Units 20:26 22:38 04:28 WBC (4.8-10.8) K/uL RBC (4.7-6.1) M/uL Hgb 12.0 L (14.0-18.0) g/dL Hct 35.2 L (42-52) % RDW Std Deviation (36.4-46.3) fL RDW Coeff of Sonia (11.5-14.5) % MPV (7.4-10.4) fL Immature Gran # (Auto) (0.00-0.02) K/uL Neut # (Auto) (1.4-6.5) K/uL Lymph # (Auto) (1.2-3.4) K/uL [place] # (Auto) (0.11-0.59) K/uL ABG pH 7.46 H (7.35-7.45) ABG pCO2 28 L (35-46) mmHg ABG pO2 168 H (80-95) mm/Hg ABG O2 Saturation 99.4 H (90-95) % Chloride (98-107) mmol/L Carbon Dioxide (21-32) mmol/L Glucose (70-99) mg/dl POC Glucose 191 H (70-99) Calcium (8.5-10.1) mg/dl Magnesium (1.8-2.4) mg/dl Crossmatch 11/23/18 11/23/18 Range/Units 04:45 04:45 WBC 13.11 H (4.8-10.8) K/uL RBC 4.18 L (4.7-6.1) M/uL Hgb 11.8 L (14.0-18.0) g/dL Hct 34.8 L (42-52) % RDW Std Deviation 46.9 H (36.4-46.3) fL RDW Coeff of Sonia 15.4 H (11.5-14.5) % MPV 10.6 H (7.4-10.4) fL Immature Gran # (Auto) 0.03 H (0.00-0.02) K/uL Neut # (Auto) 10.70 H (1.4-6.5) K/uL Lymph # (Auto) 1.06 L (1.2-3.4) K/uL [place] # (Auto) 1.31 H (0.11-0.59) K/uL ABG pH (7.35-7.45) ABG pCO2 (35-46) mmHg ABG pO2 (80-95) mm/Hg ABG O2 Saturation (90-95) % Chloride 109 H (98-107) mmol/L Carbon Dioxide (21-32) mmol/L Glucose 161 H (70-99) mg/dl POC Glucose (70-99) Calcium 7.6 L (8.5-10.1) mg/dl Magnesium 1.6 L (1.8-2.4) mg/dl Crossmatch Diagnostic Findings Telemetry: Sinus rhythm, essentially no ectopy overnight PG Care Time/CCT Total # of Minutes Spent Total Time Spent with Patient: Total time spent is greater than 50% in coordination of care (as documented) at patient's floor/unit and/or counseling patient:
[2018-11-23] MEDS: dilTIAZem HCL 180 MG CAPCR PO SCH ×2 (08:24→21:10)
[2018-11-23] MEDS: METOPROLOL SUCC 50MG EXT REL TAB PO SCH (08:24)
[2018-11-23] MEDS: DOCUSATE SODIUM 100 MG CAP PO SCH ×2 (08:27→21:11)
[2018-11-23] MEDS: OXYCODONE/ACETAMINOPHEN 5mg/325mg TAB PO PRN ×4 (08:28→21:16)
[2018-11-23] MEDS: FAMOTIDINE 20 MG in SYRINGE 3 ML IV SCH (08:30)
[2018-11-23] MEDS: MAGNESIUM SULFATE / D5W 1 GM/100 ML BAG IV SCH ×4 (08:43→12:03)
[2018-11-23] MEDS: INSULIN ASPART 100 UNITS/ML 3 ML PEN SC SCH ×3 (12:02→21:11)
[2018-11-23] MEDS ORDERED: ROCURONIUM BROMIDE 10 MG/ML 5 ML VIAL ONE (12:08)
[2018-11-23] MEDS: HEPARIN SOD 5,000 UNIT/0.5 ML VIAL SQ SCH ×2 (14:03→21:14)
[2018-11-23] MEDS ORDERED: INSULIN GLARGINE SOLOSTAR 100 UNITS/ML 3 ML PEN SC ONE (14:30)
[2018-11-23] MEDS ORDERED: PHARMACY GLYCEMIC MGMT CONSULT PRN (14:30)
--- NOTE | 2018-11-23 14:44 | Pharmacy Report ---
Pharmacy Glycemic Short Note 2 - Date of Service November 23, 2018 - Glycemic Short BSG Results (Last 24 hours): 11/22/18 11/22/18 11/22/18 19:38 19:38 20:26 Glucose 224 H POC Glucose 176 H 191 H 11/23/18 11/23/18 11/23/18 04:45 08:46 11:27 Glucose 161 H POC Glucose 166 H 216 H OUTPATIENT ANTIDIABETIC REGIMEN: * Metformin 500mg PO HS * A1c = 6.7% 07/24/18 ASSESSMENT: * Type 2 diabetic admitted to ICU following VATS procedure complicated by acute blood loss and hypotension * BSGs trending high enough to trigger automatic pharm consult for glycemic control (2 or more consecutive BSGs above 140) * Will initiate basal/bolus SQ regimen based upon weight, using mild-moderate stress level for basal dosing and moderate-severe stress level for bolus dosing PLAN FOR INPATIENT GLYCEMIC CONTROL: * Hold outpatient oral diabetes medications (metformin) * Basal insulin * Lantus 12 units x 1 now, then SQ BID per the following scale: * 0 units if less than 120 * 7 units if 120-180 * 12 units if greater than 180 * Bolus insulin * NovoLog per scale ACHS or Q6hrs while NPO * Goal Range: Low 110 mg/dL - High 140 mg/dL * Correction Factor: 25 mg/dL/unit * Nutritional / Prandial insulin per carb ratio of 1 unit per 10 grams CHO consumed PLAN FOR DISCHARGE: * may resume home metformin regimen if no contraindications present at time of discharge.
[2018-11-23] MEDS: TAMSULOSIN HCL 0.4 MG CAP PO SCH (18:47)
--- NOTE | 2018-11-23 20:40 | Progress Note ---
DATE: 11/23/2018 Mr. 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 The patient looks remarkably good today. He is on room air. He has ambulated in the hallway. He is eating well. His chest x-ray looks very good. It does not appear that he is filling his left pleural cavity too quickly. His blood pressure is stable. He is making good urine. His hemoglobin is stable at 11.8. His pH reveals a pCO2 of 28 with a pO2 of 168 on 2 liters. His BUN and creatinine are 15 and 0.95. His carbon dioxide is 23. All in all, I am quite pleased with him. His magnesium was low and we supplemented this. He sounds good on auscultation on the right. He has an irregular rhythm on amiodarone drip which has been changed to amiodarone p.o. He is being followed by Dr. Flavio Ruiz. ASSESSMENT AND PLAN: Postoperative day #1, quite pleased with him. We are going to keep him in the ICU; however. His Gonzalez catheter is out and there has been some issues with his voiding and we are going to start Flomax on him. He looks really good considering the extent of his surgery yesterday.
[2018-11-23] MEDS: INSULIN GLARGINE SOLOSTAR 100 UNITS/ML 3 ML PEN SC SCH (21:10)
[2018-11-23] MEDS: ATORVASTATIN 40 MG TAB PO SCH (21:11)
[2018-11-23] MEDS: BUDESONIDE/FORMOTEROL FUMARATE 160/4.5 60 PUFFS/INHALER INH SCH (21:12)
[2018-11-23] MEDS: FAMOTIDINE 20 MG TAB PO SCH (21:12)
[2018-11-24] MEDS: OXYCODONE/ACETAMINOPHEN 5mg/325mg TAB PO PRN ×5 (00:06→23:23)
[2018-11-24] MEDS ORDERED: INSULIN ASPART 100 UNITS/ML 3 ML PEN SC ONE (02:00)
[2018-11-24 04:49] LABS: Basophils # (auto) 0.03 K/uL (0-0.2); Basophils % (auto) 0.2 %; Eosinophils # (auto) 0.33 K/uL (0-0.5); Eosinophils % (auto) 2.5 %; Hematocrit (blood only) 32.4 % (42-52); Hemoglobin 10.9 g/dL (14.0-18.0); Immature Granulocytes # (auto) 0.03 K/uL (0.00-0.02); Immature Granulocytes % (auto) 0.2 %; Lymphocytes # (auto) 1.79 K/uL (1.2-3.4); Lymphocytes % (auto) 13.6 %; Mean Corpuscular Hemoglobin 28.4 pg (25-34); Mean Corpuscular Hgb Conc 33.6 g/dL (32-36); Mean Corpuscular Volume 84.4 fL (80-100); Mean Platelet Volume 11.1 fL (7.4-10.4); Monocytes # (auto) 1.23 K/uL (0.11-0.59); Monocytes % (auto) 9.4 %; Neutrophils # (auto) 9.74 K/uL (1.4-6.5); Neutrophils % (auto) 74.1 %; Platelet Count 142 K/uL (130-400); RDW Coefficient of Variation 15.5 % (11.5-14.5); RDW Standard Deviation 47.8 fL (36.4-46.3); Red Blood Count 3.84 M/uL (4.7-6.1); White Blood Count 13.15 K/uL (4.8-10.8)
[2018-11-24 05:09] LABS: BUN Creatinine Ratio 14.4 (10-20); Calcium 7.8 mg/dl (8.5-10.1); Creatinine Clr Calc Pharmacy 59.1 ml/min; Est GFR (African American) 83.4; Potassium 4.2 mmol/L (3.5-5.1)
[2018-11-24] MEDS: HEPARIN SOD 5,000 UNIT/0.5 ML VIAL SQ SCH ×3 (06:28→21:04)
[2018-11-24] MEDS ORDERED: FUROSEMIDE 40 MG/4 ML VIAL IV STA (07:33)
[2018-11-24] MEDS: dilTIAZem HCL 180 MG CAPCR PO SCH ×2 (07:45→20:59)
[2018-11-24] MEDS: DOCUSATE SODIUM 100 MG CAP PO SCH ×2 (07:46→21:00)
[2018-11-24] MEDS: INSULIN GLARGINE SOLOSTAR 100 UNITS/ML 3 ML PEN SC SCH ×2 (07:46→21:00)
[2018-11-24] MEDS: FAMOTIDINE 20 MG TAB PO SCH (07:47)
[2018-11-24] MEDS: METOPROLOL SUCC 50MG EXT REL TAB PO SCH (07:47)
[2018-11-24] MEDS: BUDESONIDE/FORMOTEROL FUMARATE 160/4.5 60 PUFFS/INHALER INH SCH ×2 (07:47→21:04)
[2018-11-24] MEDS: INSULIN ASPART 100 UNITS/ML 3 ML PEN SC SCH ×4 (07:48→21:02)
--- NOTE | 2018-11-24 07:49 | XRay Report ---
XR chest 1V portable CLINICAL HISTORY: 67 years-old Male presenting with pneumonectomy. TECHNIQUE: Portable upright AP view of the chest was obtained. COMPARISON: 11/23/2018. FINDINGS: Extensive soft tissue emphysema along the left lateral chest wall extending into the left base of the neck. This is overall similar to prior. Postsurgical changes of left pneumonectomy with slight leftw terrance mediastinal shift and elevation of the left hemidiaphragm. Atherosclerosis of the aortic arch. Th e cardiac silhouette is mildly enlarged. Slight interval decrease in left pneumothorax and increase i n trace left pleural effusion. Pulmonary vascular prominence and suspected interlobular septal thicke andre in the right lung is partially on a chronic basis the vascular prominence is new from before hannah alonso. Degenerative changes of the thoracic spine. Upper abdomen normal. IMPRESSION: 1. Continued decrease in left pneumothorax and increasing trace left pleural effusion status post pn eumonectomy. 2. Mild cardiomegaly with volume overload and congestive change in the right lung. No dyan pulmonar y edema. Electronically signed by: Kali Arce M.D. 11/24/2018 7:48 AM
[2018-11-24] MEDS ORDERED: POLYETHYLENE (MIRALAX) 17 GM PACK PO PRN (07:57)
[2018-11-24] MEDS ORDERED: SENNA 8.6 MG TAB PO SCH (09:00)
--- NOTE | 2018-11-24 09:57 | Pharmacy Report ---
Pharmacy Glycemic Short Note 2 - Date of Service November 24, 2018 - Glycemic Short BSG Results (Last 24 hours): 11/23/18 11/23/18 11/23/18 11:27 16:15 21:08 Glucose POC Glucose 216 H 146 H 105 H 11/24/18 11/24/18 11/24/18 02:02 04:13 06:36 Glucose 115 H POC Glucose 131 H 115 H OUTPATIENT ANTIDIABETIC REGIMEN: * Metformin 500mg PO HS * A1c = 6.7% 07/24/18 ASSESSMENT: 11/24 * Glycemic control adequate over last 24 hrs with the exception of pre-lunch hyperglycemia yesterday (however there was no prandial insulin given with breakfast) * Fasting BSG 115 this AM w/ 12 units basal on board - will continue current basal dosing scale for time being * Novolog CF/CR did perform well when used yesterday - no change 11/23 * Type 2 diabetic admitted to ICU following VATS procedure complicated by acute blood loss and hypotension * BSGs trending high enough to trigger automatic pharm consult for glycemic control (2 or more consecutive BSGs above 140) * Will initiate basal/bolus SQ regimen based upon weight, using mild-moderate stress level for basal dosing and moderate-severe stress level for bolus dosing PLAN FOR INPATIENT GLYCEMIC CONTROL: * Hold outpatient oral diabetes medications (metformin) * Basal insulin (no change) * Lantus SQ BID per the following scale: * 0 units if less than 120 * 7 units if 120-180 * 12 units if greater than 180 * Bolus insulin (no change) * NovoLog per scale ACHS or Q6hrs while NPO * Goal Range: Low 110 mg/dL - High 140 mg/dL * Correction Factor: 25 mg/dL/unit * Nutritional / Prandial insulin per carb ratio of 1 unit per 10 grams CHO consumed PLAN FOR DISCHARGE: * may resume home metformin regimen if no contraindications present at time of discharge.
--- NOTE | 2018-11-24 12:02 | Progress Note ---
DATE: 11/24/2018 The patient continues to look great. He is now postop day 2 status post an intrapericardial pneumonectomy. The patient is on room air. He is ambulating in the hallway. He sounds very good on exam. His sodium was down to 135 and I was a bit concerned about his fluid status, so I gave him Lasix today. He has no IVs going, but he is tolerating diet quite nicely. He ate a house diet while I was evaluating to him today. He has responded to the Lasix quite quickly. His white count is 13,150 with hemoglobin of 10.9. His right lung field sounds quite good. His sodium was down to 135, potassium 4.2, chloride 102. His bicarb is at 30. BUN was 15, creatinine 1.07. Glucose is better controlled. I reviewed his x-ray from today and it appeared to me that he does have a little congestive changes in his right lung, which I think will respond to the Lasix. I will give her daily dose for a few days. He looks very good. Needless to say, we do not have the pathology out yet. EDDD
[2018-11-24] MEDS: TAMSULOSIN HCL 0.4 MG CAP PO SCH (17:44)
--- NOTE | 2018-11-24 19:10 | Consultation ---
Date of Consultation November 24, 2018 Assessment & Plan (1) Squamous cell lung cancer: POD #2 s/p robotically-assisted left-sided pneumonectomy. Management per Dr Zhao. Stable O2 sats in RA. Question of mild pulmonary edema in the right lung. Lasix IV given today followed by PO lasix tomorrow. (2) Controlled type 2 diabetes mellitus with diabetic nephropathy: pharmacy is managing; appreciate their assistance. (3) PAT (paroxysmal atrial tachycardia): Followed by Dr Ruiz. In October Dr Zhao had to abort an attempted left-sided pneumonectomy due to wide-complex tachycardia. Dr Ruiz performed outpatient Holter Monitoring which revealed probable MAT. At times he has wide complex tachycardia which may be an atrial arrhythmia with aberrancy (vs NSVT). Dr Ruiz has seen Mr Ruiz this admission and has recommended ongoing use of diltiazem BID and metoprolol succinate. Continue telemetry. (4) Wheezing: Right lung. Patient takes chronic symbicort - does he have underlying COPD? On exam today he has rales with mild wheezes. Uncertain if this is due to underlying chronic lung disease vs pulmonary edema. Schedule xopenex q6h. Add mucinex 1200mg BID. Speech eval due to mild dysphagia. Cont symbicort. Cont lasix. (5) Dysphagia: Speech eval requested. (6) Hypercholesterolemia: Cont statin (7) Unable to pass flatus: He is now 2 days post-op and he reports no flatus since then. His bowel sounds are diminished on exam. He could have an ileus although he is not having nausea/emesis & is eating ok. Increase senna to 2 tabs daily. Schedule miralax. If no improvement in the next 24 hours consider x-rays. Encouraged him to ambulate as much as possible. (8) DVT prophylaxis: heparin SC I appreciate this consult. Hospitalist team will continue to follow. Recommend checking BMP and Mag in am given lasix use. History of Present Illness Requesting Physician: Dr Brock Zhao Reason for Consultation: post-op medical management Attending Physician: Brock Zhao MD, FACS History of Present Illness Very pleasant 67yo male with left-sided squamous cell lung cancer who is POD #2 from robotically-assisted left thoracoscopy with wedge resection, left intrapericardial pneumonectomy, and left mediastinal lymphadenectomy. The surgery was complicated by intra-op blood loss requiring 3 units of PRBCs. Post-op he did well in the ICU and was transferred to the telemetry unit today. During my visit he reported ongoing cough and difficulty clearing his throat of secretions. Since the surgery he has noted some mild dysphagia for liquids. With drinking fluids he has noted cough and a girgling sensation in his throat but not every time. He denies any prior h/o dysphagia. He takes inhalers at home (symbicort and xopenex) but has not used any xopenex today. Since surgery he cannot recall having passed flatus. He has not had any stool. Despite such he denies nausea or emesis. Allergies Allergy/AdvReac Type Severity Reaction Status Date / Time aspirin AdvReac Mild HALLUCINATIONS Verified 11/22/18 08:46 A CHILD Home Medications Home Medications Medication Instructions Recorded Confirmed Type atorvastatin 40 mg PO HS #0 tab 11/21/17 11/22/18 History metformin 500 mg PO HS #0 11/21/17 11/22/18 History multivitamin 1 tab PO HS #0 tab 11/21/17 11/22/18 History Symbicort 2 puff INHALATION BID PRN 10/10/18 11/22/18 History lisinopril 20 mg tablet 20 mg PO HS #90 tab 11/09/18 11/22/18 Rx diltiazem CD 180 mg 180 mg PO DAILY cap 11/10/18 11/22/18 History capsule,extended release 24 hr levalbuterol HFA 45 mcg/actuation 2 puffs INH Q4H PRN gm 11/10/18 11/22/18 History aerosol inhaler metoprolol succinate ER 50 mg 50 mg PO DAILY 11/10/18 11/22/18 History tablet,extended release 24 hr Patient History Medical History Controlled type 2 diabetes mellitus with diabetic nephropathy Hypercholesterolemia Lung cancer Ventricular tachycardia Proteinuria Mass of left lung Wide-complex tachycardia Squamous cell lung cancer left hilum, s/p robotically assisted pneumonectomy - 11/2018. Atrial arrhythmia Pt recently completed Holter, per Dr. Ruiz suspect MAT. Bladder cancer s/p TURBT Hypertension Nephrolithiasis Pneumonia 09/2018; workup for this led to findings of lung mass (reason for upcoming procedure) Surgical History S/P pneumonectomy (11/22/18) PROCEDURES: 1. Robot-assisted left thoracoscopy with wedge resection. 2. Robot-assisted thoracoscopic control of hemorrhage, continuation of pulmonary artery to left lower lobe. 3. Robot-assisted thoracoscopic left intrapericardial pneumonectomy. 4. Robot-assisted thoracoscopic left mediastinal lymphadenectomy. Dr. Zhao 11-22-18 H/O transurethral destruction of bladder lesion Hand trauma s/p surgical repair History of cystoscopy + stent History of inguinal hernia repair s/p repair (as child) History of tonsillectomy and adenoidectomy S/P colonoscopy Status post robot-assisted surgical procedure Thoracoscopy/VATS 10/26/18, aborted due to wide-complex tachycardia and hypotension. 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 Feels Safe at Home: Yes Safety Concerns: Feels Safe At This Time Smoking Status: Never smoker Tobacco Type: cigarettes ; Cigarettes Per Day: 3-4 CIGS DAILY X 3 YEARS ; Do You Dip or Chew Tobacco: No ; Second Hand Exposure: No ; Tobacco Cessation Education Requested by Patient: No Hx Alcohol Use: Yes Alcohol type: beer Hx Substance Use: No Review of Systems Constitutional: + fatigue; no fever and no chills Ear, Nose, Mouth, Throat: + sore throat and + dysphagia Respiratory: + cough, + sputum production and + wheezing; no dyspnea, no dyspnea on exertion and no pain on inspiration Cardiovascular: no chest pain, no orthopnea, no paroxysmal nocturnal dyspnea and no edema Gastrointestinal: + constipation; no abdominal pain, no bloating, no nausea, no vomiting, no excessive flatulence and no diarrhea/loose stools Genitourinary: no dysuria and no difficulty urinating Musculoskeletal: no joint pain Integumentary: no rash Neurologic: no localized weakness and no paresthesia Psychiatric: no depression Endocrine: + fatigue Physical Exam Constitutional: well developed, well nourished and average body habitus; no acute distress and no altered mental status Eyes: PERRL ENMT: external ear and nose normal, oropharynx normal Neck: trachea midline, no thyromegaly Respiratory: no respiratory distress Auscultation: + breath sounds absent (left), + crackles (right base) and + wheezes (right hemithorax) Cardiovascular: Rate/Rhythm: regular rate and regular rhythm Heart Sounds: normal S1 and normal S2; no murmur Vessels: posterior tibial pulses present and dorsalis pedis pulses present; no JVD Extremities: no edema Gastrointestinal (Abdomen): Inspection/Auscultation: + abnormal bowel sounds (decreased bowel sounds) Percussion/Palpation: abdomen soft; abdomen nontender and no hepatosplenomegaly Musculoskeletal: no cyanosis or clubbing, extremities motor strength 5/5 Skin: no rashes, warm and dry Neurologic: deep tendon reflexes 2+ bilaterally; no focal motor deficits Psychiatric: A+Ox3, euthymic affect Lymphatic: no cervical lymphadenopathy Results & Data Vital Signs (Past 12 Hours) Vital Signs Temp Pulse Pulse Pulse Resp BP BP 11/24/18 16:22 71 11/24/18 15:00 36.9 C 78 18 93/57 L 11/24/18 12:00 36.8 C 77 18 99/64 L 11/24/18 10:50 80 11/24/18 10:05 36.8 C 82 16 11/24/18 08:01 87 30 H 11/24/18 08:00 36.4 C L 85 25 H 126/82 BP Pulse Ox 11/24/18 16:22 11/24/18 15:00 93 11/24/18 12:00 94 11/24/18 10:50 11/24/18 10:05 109/71 96 11/24/18 08:01 95 11/24/18 08:00 96 Laboratory Results Laboratory Results - last 24 hr 11/22/18 11/23/18 11/24/18 08:45 21:08 02:02 WBC RBC Hgb Hct MCV MCH MCHC RDW Std Deviation RDW Coeff of Sonia Plt Count MPV Immature Gran % (Auto) Neut % (Auto) Lymph % (Auto) Sebastian % (Auto) Eos % (Auto) Baso % (Auto) Immature Gran # (Auto) Neut # (Auto) Lymph # (Auto) Sebastian # (Auto) Eos # (Auto) Baso # (Auto) Sodium Potassium Chloride Carbon Dioxide Anion Gap BUN Creatinine Est Cr Clr Drug Dosing Est GFR ( Amer) Est GFR (Non-Af Amer) BUN/Creatinine Ratio Glucose POC Glucose 105 H 131 H Calcium Crossmatch See Detail 11/24/18 11/24/18 11/24/18 04:13 04:13 06:36 WBC 13.15 H RBC 3.84 L Hgb 10.9 L Hct 32.4 L MCV 84.4 MCH 28.4 MCHC 33.6 RDW Std Deviation 47.8 H RDW Coeff of Sonia 15.5 H Plt Count 142 MPV 11.1 H Immature Gran % (Auto) 0.2 Neut % (Auto) 74.1 Lymph % (Auto) 13.6 Sebastian % (Auto) 9.4 Eos % (Auto) 2.5 Baso % (Auto) 0.2 Immature Gran # (Auto) 0.03 H Neut # (Auto) 9.74 H Lymph # (Auto) 1.79 Sebastian # (Auto) 1.23 H Eos # (Auto) 0.33 Baso # (Auto) 0.03 Sodium 135 L Potassium 4.2 Chloride 102 Carbon Dioxide 30 Anion Gap 3.0 BUN 15 Creatinine 1.07 Est Cr Clr Drug Dosing 59.1 Est GFR ( Amer) 83.4 Est GFR (Non-Af Amer) 72.0 BUN/Creatinine Ratio 14.4 Glucose 115 H POC Glucose 115 H Calcium 7.8 L Crossmatch 11/24/18 11/24/18 12:03 16:25 WBC RBC Hgb Hct MCV MCH MCHC RDW Std Deviation RDW Coeff of Sonia Plt Count MPV Immature Gran % (Auto) Neut % (Auto) Lymph % (Auto) Sebastian % (Auto) Eos % (Auto) Baso % (Auto) Immature Gran # (Auto) Neut # (Auto) Lymph # (Auto) Sebastian # (Auto) Eos # (Auto) Baso # (Auto) Sodium Potassium Chloride Carbon Dioxide Anion Gap BUN Creatinine Est Cr Clr Drug Dosing Est GFR ( Amer) Est GFR (Non-Af Amer) BUN/Creatinine Ratio Glucose POC Glucose 128 H 138 H Calcium Crossmatch PG Care Time/CCT Total # of Minutes Spent Total Time Spent with Patient: Total time spent is greater than 50% in coordination of care (as documented) at patient's floor/unit and/or counseling patient: (1) Controlled type 2 diabetes mellitus with diabetic nephropathy Diabetes mellitus mcfp insulin use: without terminal superintendent use Qualified Code(s): E11.21 - Type 2 diabetes mellitus with diabetic nephropathy (2) Squamous cell lung cancer Laterality: left Qualified Code(s): C34.92 - Malignant neoplasm of unspecified part of left bronchus or lung (3) Dysphagia Dysphagia type: unspecified Qualified Code(s): R13.10 - Dysphagia, unspecified
[2018-11-24] MEDS: MoRPHine SULFATE 2 MG/ML CARP IV PRN (19:44)
[2018-11-24] MEDS: guaiFENesin 600 MG TABCR PO SCH (21:01)
[2018-11-24] MEDS: ATORVASTATIN 40 MG TAB PO SCH (21:01)
[2018-11-24] MEDS: POLYETHYLENE (MIRALAX) 17 GM PACK PO SCH (21:02)
[2018-11-24] MEDS: LEVALBUTEROL TARTRATE 15 GM HFA.AER.AD INH SCH (21:04)
[2018-11-25] MEDS: OXYCODONE/ACETAMINOPHEN 5mg/325mg TAB PO PRN ×3 (03:34→13:02)
[2018-11-25] MEDS: HEPARIN SOD 5,000 UNIT/0.5 ML VIAL SQ SCH ×3 (06:13→21:34)
[2018-11-25 06:40] LABS: Basophils # (auto) 0.02 K/uL (0-0.2); Basophils % (auto) 0.2 %; Eosinophils % (auto) 3.2 %; Hematocrit (blood only) 28.5 % (42-52); Hemoglobin 9.7 g/dL (14.0-18.0); Immature Granulocytes # (auto) 0.04 K/uL (0.00-0.02); Immature Granulocytes % (auto) 0.4 %; Lymphocytes # (auto) 1.29 K/uL (1.2-3.4); Lymphocytes % (auto) 13.7 %; Mean Corpuscular Hemoglobin 28.5 pg (25-34); Mean Corpuscular Volume 83.8 fL (80-100); Monocytes # (auto) 0.81 K/uL (0.11-0.59); Monocytes % (auto) 8.6 %; Neutrophils # (auto) 6.98 K/uL (1.4-6.5); Neutrophils % (auto) 73.9 %; Platelet Count 144 K/uL (130-400); RDW Coefficient of Variation 15.4 % (11.5-14.5); RDW Standard Deviation 47.3 fL (36.4-46.3); White Blood Count 9.44 K/uL (4.8-10.8)
[2018-11-25 07:14] LABS: BUN Creatinine Ratio 16.2 (10-20); Calcium 7.7 mg/dl (8.5-10.1); Creatinine Clr Calc Pharmacy 73.5 ml/min; Est GFR (African American) 104.7; Est GFR (Non-African American) 90.4; Potassium 3.5 mmol/L (3.5-5.1)
[2018-11-25] MEDS: POLYETHYLENE (MIRALAX) 17 GM PACK PO SCH ×2 (08:02→21:33)
[2018-11-25] MEDS: FUROSEMIDE 20 MG TAB PO SCH (08:03)
[2018-11-25] MEDS: DOCUSATE SODIUM 100 MG CAP PO SCH ×2 (08:03→21:36)
[2018-11-25] MEDS: dilTIAZem HCL 180 MG CAPCR PO SCH ×2 (08:03→21:30)
[2018-11-25] MEDS: METOPROLOL SUCC 50MG EXT REL TAB PO SCH (08:04)
[2018-11-25] MEDS: guaiFENesin 600 MG TABCR PO SCH ×2 (08:05→21:33)
[2018-11-25] MEDS: SENNA 8.6 MG TAB PO SCH (08:05)
[2018-11-25] MEDS: LEVALBUTEROL TARTRATE 15 GM HFA.AER.AD INH SCH ×3 (08:06→15:09)
[2018-11-25] MEDS: BUDESONIDE/FORMOTEROL FUMARATE 160/4.5 60 PUFFS/INHALER INH SCH ×2 (08:07→21:34)
[2018-11-25] MEDS: INSULIN GLARGINE SOLOSTAR 100 UNITS/ML 3 ML PEN SC SCH (08:07)
[2018-11-25] MEDS: INSULIN ASPART 100 UNITS/ML 3 ML PEN SC SCH ×4 (08:09→21:34)
--- NOTE | 2018-11-25 10:02 | Surgery Progress Note ---
Date of Service November 25, 2018 Assessment & Plan (1) S/P pneumonectomy: clinically doing quite well cxr about the same as 11/23 perhaps slightly improved. no surgical concerns at this point. Subjective pt seen. doing well. off oxygen. no new symptoms to report. Physical Exam Physical Exam: alert/oriented. no respiratory distress Results & Data Vital Signs (Past 12 Hours) Vital Signs Temp Pulse Pulse Resp BP Pulse Ox 11/25/18 07:52 36.6 C 71 18 102/65 93 11/25/18 07:20 80 11/25/18 04:00 36.8 C 76 18 109/69 91 11/25/18 00:53 80 11/24/18 23:59 36.9 C 78 19 115/69 93 PG Care Time/CCT Total # of Minutes Spent Total Time Spent with Patient: Total time spent is greater than 50% in coordination of care (as documented) at patient's floor/unit and/or counseling patient:
[2018-11-25] MEDS ORDERED: PIPERACILL/TAZOBAC CONSULT ACTIVE PRN (14:04)
--- NOTE | 2018-11-25 14:04 | Family Medicine Consultation ---
Date of Consultation November 25, 2018 Assessment & Plan (1) S/P pneumonectomy: Deferring to surgical team for primary management of post-op care. Present on Admission?: No (2) PAT (paroxysmal atrial tachycardia): Continue Metoprolol succinate 50 PO daily and Diltiazem 180 PO BID as per cardiology recommendations Present on Admission?: Yes (3) Constipation: likely secondary to frequent morphine dosing for pain control. Was able to pass flatus this morning. Pt has sennosides, docusate, and miralax ordered for assistance with bowel movement. Has been encouraged to increased walking and activity as tolerated to help move bowels. Counselled that if he has to strain, experiences pain or doesn't have a BM for a prolonged period, to let nurses and team know. Consider Miralax TID, lactulose or milk of magnesia if constipation persists. Present on Admission?: No (4) Pulmonary infection: Culture from left lung on day of surgery grew Corynebacterium species--rare. This is likely normal lung laura as he has no signs or symptoms of pneumonia at this point. He did have a leukocytosis in the preceding days, but this has self corrected without antibiotic coverage so feel that this is less likely patient service representative of an infectious etiology and more likely reactive leukocytosis following surgery. Trend WBC and temperature to watch for signs/symptoms of infection. If white count goes back up or develops other signs/symptoms of pneumonia, consider antibiotic coverage for corynebacterium. (5) Hypercholesterolemia: Continue atorvastatin 40 mg daily Present on Admission?: Yes (6) Controlled type 2 diabetes mellitus with diabetic nephropathy: Currently being managed on SSI. Will resume 500 mg Metformin daily upon discharge. Present on Admission?: Yes (7) Wheezing: No hx of lung disease prior to mass formation; can take symbicort and levalbuterol inhalers for relief of wheezing Present on Admission?: Yes Supervising Physician Co-Signing Physician Notes Patient seen and examined with PGY-1 Dr. Feliciano. Agree with history, exam findings, assessment and plan of care as outlined with the following updates. In brief, Mr. Ruiz is a very pleasant 67 year old male with history significant for MAT, DM2, and squamous cell lung cancer who is admitted under Dr. Zhao's service following robotically assisted left sided pneumonectomy. POD#3. We have been asked to assist with medical management. He is doing well. Pain controlled with current pain medication regimen. Doing incentive spirometry and ambulating on his own. Does not require supplemental oxygen. Does have some crackles in the right base likely secondary to mild fluid overload as well as atelectasis following surgery. Will continue po lasix. DM is well controlled. Appreciate glycemic management by pharmacy. PAT/MAT. Continue dilt and metoprolol per cardiology. Wheezing seems to be secondary to his mass. This is what lead to the discovery of the mass. He does not have a dx of COPD. Continue symbicort and rescue beta agonist. Passing flatus today, but feeling constipated. Likely secondary to recent surgery and opioid medications. Continue senna 2 tabs daily and scheduled miralax. Start MOM today. If unable to have BM, can use suppository. Continue to ambulate as much as possible, Diet as tolerated. Dispo: per thoracic surgery service. Would suggest bowel regimen to go home since he will likely be continuing his pain medications after hospital discharge for a short period of time. History of Present Illness Reason for Consultation: Medical management Attending Physician: Bianca Simons DO History of Present Illness Pt is a 67 yo M POD3 s/p L lung pneumonectomy for lung mass. Doing well today. Using spirometer frequently and able to inhale up to 500 mL. Still adjusting to new method of breathing, but denies pain with breathing. Taking pain medication as scheduled. Has not had a bowel movement since day of surgery, but has passed gas earlier this morning. Has been able to ambulate around the halls on his own while taking deep breaths. Denies chest pain, pedal edema, headaches. Regarding script for symbicort and levalbuterol - pt was prescribed these at onset of symptoms which led to discovery of the mass. No hx lung disease; medications are purely for symptomatic relief. Allergies Allergy/AdvReac Type Severity Reaction Status Date / Time aspirin AdvReac Mild HALLUCINATIONS Verified 11/22/18 08:46 A CHILD Home Medications Home Medications Medication Instructions Recorded Confirmed Type atorvastatin 40 mg PO HS #0 tab 11/21/17 11/22/18 History metformin 500 mg PO HS #0 11/21/17 11/22/18 History multivitamin 1 tab PO HS #0 tab 11/21/17 11/22/18 History Symbicort 2 puff INHALATION BID PRN 10/10/18 11/22/18 History lisinopril 20 mg tablet 20 mg PO HS #90 tab 11/09/18 11/22/18 Rx diltiazem CD 180 mg 180 mg PO DAILY cap 11/10/18 11/22/18 History capsule,extended release 24 hr levalbuterol HFA 45 mcg/actuation 2 puffs INH Q4H PRN gm 11/10/18 11/22/18 History aerosol inhaler metoprolol succinate ER 50 mg 50 mg PO DAILY 11/10/18 11/22/18 History tablet,extended release 24 hr Patient History Medical History Controlled type 2 diabetes mellitus with diabetic nephropathy Hypercholesterolemia Lung cancer Ventricular tachycardia Proteinuria Mass of left lung Wide-complex tachycardia Squamous cell lung cancer left hilum, s/p robotically assisted pneumonectomy - 11/2018. Atrial arrhythmia Pt recently completed Holter, per Dr. Ruiz suspect MAT. Bladder cancer s/p TURBT Hypertension Nephrolithiasis Pneumonia 09/2018; workup for this led to findings of lung mass (reason for upcoming procedure) Surgical History S/P pneumonectomy (11/22/18) PROCEDURES: 1. Robot-assisted left thoracoscopy with wedge resection. 2. Robot-assisted thoracoscopic control of hemorrhage, continuation of pulmonary artery to left lower lobe. 3. Robot-assisted thoracoscopic left intrapericardial pneumonectomy. 4. Robot-assisted thoracoscopic left mediastinal lymphadenectomy. Dr. Zhao 11-22-18 H/O transurethral destruction of bladder lesion Hand trauma s/p surgical repair History of cystoscopy + stent History of inguinal hernia repair s/p repair (as child) History of tonsillectomy and adenoidectomy S/P colonoscopy Status post robot-assisted surgical procedure Thoracoscopy/VATS 10/26/18, aborted due to wide-complex tachycardia and hypo tension. 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 Feels Safe at Home: Yes Safety Concerns: Feels Safe At This Time Smoking Status: Never smoker Tobacco Type: cigarettes ; Cigarettes Per Day: 3-4 CIGS DAILY X 3 YEARS ; Do You Dip or Chew Tobacco: No ; Second Hand Exposure: No ; Tobacco Cessation Education Requested by Patient: No Hx Alcohol Use: Yes Alcohol type: beer Hx Substance Use: No Review of Systems Constitutional: no fever, no chills, no body aches, no fatigue and no weakness Respiratory: no cough, no dyspnea and no pain on inspiration No pain when controlled with ordered pain medication Cardiovascular: no chest pain, no dyspnea on exertion and no edema Gastrointestinal: + constipation; no abdominal pain, no vomiting, no cramping and no diarrhea/loose stools Physical Exam Constitutional: cooperative; no acute distress and not ill appearing Neck: normal visual inspection Respiratory: normal respiratory effort and able to speak in complete sentences; no respiratory distress, no labored breathing, no retractions, no cough and no audible wheezes Auscultation: + breath sounds absent (on L side s/p pneumonectomy) and + crackles (present @ base of R lung); no rales, no rhon chi and no wheezes Cardiovascular: Rate/Rhythm: regular rate and regular rhythm Heart Sounds: normal S1 and normal S2; no gallop, no murmur and no cardiac rub Vessels: posterior tibial pulses present Extremities: no pedal edema and no edema Gastrointestinal (Abdomen): Inspection/Auscultation: abdomen normal to inspection and normal bowel sounds; abdomen not distended Percussion/Palpation: abdomen soft; abdomen nontender, no guarding, abdomen not rigid and no abdominal mass Results & Data Vital Signs (Past 12 Hours) Vital Signs Temp Pulse Pulse Resp BP Pulse Ox 11/25/18 07:52 36.6 C 71 18 102/65 93 11/25/18 07:20 80 11/25/18 04:00 36.8 C 76 18 109/69 91 Laboratory Results WBC 9.44 K/uL (4.8-10.8) 11/25/18 06:18 RBC 3.40 M/uL (4.7-6.1) L 11/25/18 06:18 Hgb 9.7 g/dL (14.0-18.0) L 11/25/18 06:18 Hct 28.5 % (42-52) L 11/25/18 06:18 MCV 83.8 fL (80-100) 11/25/18 06:18 MCH 28.5 pg (25-34) 11/25/18 06:18 MCHC 34.0 g/dL (32-36) 11/25/18 06:18 RDW Std Deviation 47.3 fL (36.4-46.3) H 11/25/18 06:18 RDW Coeff of Sonia 15.4 % (11.5-14.5) H 11/25/18 06:18 Plt Count 144 K/uL (130-400) 11/25/18 06:18 MPV 11.0 fL (7.4-10.4) H 11/25/18 06:18 Immature Gran % (Auto) 0.4 % 11/25/18 06:18 Neut % (Auto) 73.9 % 11/25/18 06:18 Lymph % (Auto) 13.7 % 11/25/18 06:18 Archer % (Auto) 8.6 % 11/25/18 06:18 Eos % (Auto) 3.2 % 11/25/18 06:18 Baso % (Auto) 0.2 % 11/25/18 06:18 Immature Gran # (Auto) 0.04 K/uL (0.00-0.02) H 11/25/18 06:18 Neut # (Auto) 6.98 K/uL (1.4-6.5) H 11/25/18 06:18 Lymph # (Auto) 1.29 K/uL (1.2-3.4) 11/25/18 06:18 Archer # (Auto) 0.81 K/uL (0.11-0.59) H 11/25/18 06:18 Eos # (Auto) 0.30 K/uL (0-0.5) 11/25/18 06:18 Baso # (Auto) 0.02 K/uL (0-0.2) 11/25/18 06:18 ABG pH 7.46 (7.35-7.45) H 11/23/18 04:28 ABG pCO2 28 mmHg (35-46) L 11/23/18 04:28 ABG pO2 168 mm/Hg (80-95) H 11/23/18 04:28 ABG HCO3 19 mmol/L (19-24) 11/23/18 04:28 ABG O2 Saturation 99.4 % (90-95) H 11/23/18 04:28 ABG Base Excess -3.3 mEq/L (-9-1.8) 11/23/18 04:28 Denys Test POS (Pos) 11/23/18 04:28 Barometric Pressure 731.2 mm/Hg 11/23/18 04:28 Oxygen Given 2L 11/23/18 04:28 Sodium 137 mmol/L (136-145) 11/25/18 06:18 Potassium 3.5 mmol/L (3.5-5.1) D 11/25/18 06:18 Chloride 106 mmol/L (98-107) 11/25/18 06:18 Carbon Dioxide 27 mmol/L (21-32) 11/25/18 06:18 Anion Gap 5.0 (3-11) 11/25/18 06:18 BUN 14 mg/dl (7-18) 11/25/18 06:18 Creatinine 0.86 mg/dl (0.6-1.4) 11/25/18 06:18 Est Cr Clr Drug Dosing 73.5 ml/min 11/25/18 06:18 Est GFR ( Amer) 104.7 11/25/18 06:18 Est GFR (Non-Af Amer) 90.4 11/25/18 06:18 BUN/Creatinine Ratio 16.2 (10-20) 11/25/18 06:18 Glucose 120 mg/dl (70-99) H 11/25/18 06:18 POC Glucose 108 (70-99) H 11/25/18 11:53 Calcium 7.7 mg/dl (8.5-10.1) L 11/25/18 06:18 Phosphorus 4.3 mg/dl (2.5-4.9) 11/23/18 04:45 Magnesium 2.0 mg/dl (1.8-2.4) 11/25/18 06:18 Nasal Screen MRSA (PCR) Negative (Negative) 08/14/19 21:00 Blood Type A Positive 11/22/18 08:45 Antibody Screen NEGATIVE 11/22/18 08:45 Crossmatch See Detail 11/22/18 08:45 PG Care Time/CCT Total # of Minutes Spent Total Time Spent with Patient: Total time spent is greater than 50% in recruiter coordinator rdination of care (as documented) at patient's floor/unit and/or counseling patient: Resident Activity Tracking Resident Involvement: Resident Care Provided Care Provided: Adult Hospital Medicine (1) Controlled type 2 diabetes mellitus with diabetic nephropathy Diabetes mellitus equipment operator intermodal yard insulin use: without equipment operator intermodal yard use Qualified Code(s): E11.21 - Type 2 diabetes mellitus with diabetic nephropathy
[2018-11-25] MEDS ORDERED: PIPERACILLIN/TAZOBACTAM 3.375 GM in DEXTROSE 5% 100 ML IV ONE (14:30)
[2018-11-25] MEDS ORDERED: GLYCERIN ADULT 12 SUPP/BOX SUPP PR STA (14:38)
[2018-11-25] MEDS: MAGNESIUM HYDROXIDE SUSP 30 ML UDC PO PRN ×2 (15:08→22:14)
[2018-11-25] MEDS: TAMSULOSIN HCL 0.4 MG CAP PO SCH (17:51)
[2018-11-25] MEDS ORDERED: PIPERACILLIN/TAZOBACTAM 3.375 GM in DEXTROSE 5% 100 ML IV SCH (20:00)
[2018-11-25] MEDS: ATORVASTATIN 40 MG TAB PO SCH (21:33)
[2018-11-26] MEDS: LEVALBUTEROL TARTRATE 15 GM HFA.AER.AD INH SCH ×5 (02:15→21:27)
[2018-11-26] MEDS: OXYCODONE/ACETAMINOPHEN 5mg/325mg TAB PO PRN ×3 (02:48→18:42)
[2018-11-26] MEDS: HEPARIN SOD 5,000 UNIT/0.5 ML VIAL SQ SCH ×3 (05:40→21:32)
[2018-11-26 07:50] LABS: Hematocrit (blood only) 28.8 % (42-52); Hemoglobin 9.6 g/dL (14.0-18.0); Mean Corpuscular Hemoglobin 27.7 pg (25-34); Mean Corpuscular Hgb Conc 33.3 g/dL (32-36); Mean Platelet Volume 10.4 fL (7.4-10.4); Platelet Count 187 K/uL (130-400); RDW Coefficient of Variation 15.3 % (11.5-14.5); RDW Standard Deviation 46.8 fL (36.4-46.3); Red Blood Count 3.47 M/uL (4.7-6.1); White Blood Count 11.56 K/uL (4.8-10.8)
[2018-11-26 08:16] LABS: BUN Creatinine Ratio 15.3 (10-20); Est GFR (African American) 107.3; Est GFR (Non-African American) 92.6; Potassium 3.7 mmol/L (3.5-5.1)
[2018-11-26] MEDS: INSULIN ASPART 100 UNITS/ML 3 ML PEN SC SCH ×4 (08:24→21:33)
[2018-11-26] MEDS: FUROSEMIDE 20 MG TAB PO SCH (08:42)
[2018-11-26] MEDS: dilTIAZem HCL 180 MG CAPCR PO SCH ×2 (08:42→21:30)
[2018-11-26] MEDS: DOCUSATE SODIUM 100 MG CAP PO SCH ×2 (08:42→21:31)
[2018-11-26] MEDS: SENNA 8.6 MG TAB PO SCH (08:43)
[2018-11-26] MEDS: POLYETHYLENE (MIRALAX) 17 GM PACK PO SCH ×2 (08:43→21:31)
[2018-11-26] MEDS: guaiFENesin 600 MG TABCR PO SCH ×2 (08:43→21:31)
[2018-11-26] MEDS: METOPROLOL SUCC 50MG EXT REL TAB PO SCH (08:43)
[2018-11-26] MEDS: BUDESONIDE/FORMOTEROL FUMARATE 160/4.5 60 PUFFS/INHALER INH SCH ×2 (08:44→21:30)
[2018-11-26] MEDS: INSULIN GLARGINE SOLOSTAR 100 UNITS/ML 3 ML PEN SC SCH (08:45)
--- NOTE | 2018-11-26 10:27 | Surgery Progress Note ---
Date of Service November 26, 2018 Assessment & Plan (1) S/P pneumonectomy: clinically continuing to do ok slight bump in WBC--recheck tomorrow will recheck CXR tomorrow as well. d/c planning pending cxr and cbc results. Subjective pt seen. getting some greenish colored sputum to come up. no new complaints. denies worsening SOB. Physical Exam Physical Exam: alert/oriented. nad no respiratory distress Results & Data Vital Signs (Past 12 Hours) Vital Signs Temp Pulse Pulse Resp BP BP Pulse Ox 11/26/18 09:39 67 11/26/18 06:38 36.5 C 68 20 108/66 90 11/26/18 03:39 37.0 C 75 20 110/69 95 11/26/18 00:15 36.7 C 76 19 111/70 90 11/26/18 00:00 75 PG Care Time/CCT Total # of Minutes Spent Total Time Spent with Patient: Total time spent is greater than 50% in coordination of care (as documented) at patient's floor/unit and/or counseling patient:
--- NOTE | 2018-11-26 11:59 | Pharmacy Report ---
Pharmacy Glycemic Short Note 2 - Date of Service November 26, 2018 - Glycemic Short BSG Results (Last 24 hours): 11/25/18 11/25/18 11/25/18 11:53 16:08 20:23 Glucose POC Glucose 108 H 144 H 114 H 11/26/18 11/26/18 07:18 07:33 Glucose 126 H POC Glucose 119 H OUTPATIENT ANTIDIABETIC REGIMEN: * Metformin 500mg PO HS * A1c = 6.7% 07/24/18 ASSESSMENT: * 67yo T2DM male with adequate outpatient control per A1c * Pt is maintained on oral antidiabetic agents as an outpatient * Oral agents are not recommended for inpatient use d/t drug interactions, changing PO intake, and difficulty titrating for acute hyper/hypoglycemia. ADA recommends re-initiating outpatient oral agents 1-2 days prior to discharge if/when appropriate if they were held on admission. * Metformin held on admission and patient has been receiving weight based SQ basal bolus insulin regimen * Pt has been receiving 12-23 units of insulin per day depending on PO status * 12 units of basal * 5-6 units of prandial * All BSGs are in goal range * No changes needed at this time PLAN FOR INPATIENT GLYCEMIC CONTROL: * Hold outpatient oral diabetes medications (metformin) * Basal insulin (no change) * Lantus 12 units SQ daily in AM * Bolus insulin (no change) * NovoLog per scale ACHS or Q6hrs while NPO * Goal Range: Low 110 mg/dL - High 140 mg/dL * Correction Factor: 25 mg/dL/unit * Nutritional / Prandial insulin per carb ratio of 1 unit per 10 grams CHO consumed PLAN FOR DISCHARGE: * may resume home metformin regimen if no contraindications present at time of discharge.
--- NOTE | 2018-11-26 14:51 | Family Medicine Consultation ---
Date of Consultation November 26, 2018 Assessment & Plan (1) S/P pneumonectomy: Deferring to surgical team for primary management of post-op care. (2) PAT (paroxysmal atrial tachycardia): Continue Metoprolol succinate 50 PO daily and Diltiazem 180 PO BID as per cardiology recommendations (3) Constipation: Received milk of magnesia yesterday which appears to have helped release constipation. Pt has sennosides, docusate, and miralax ordered for assistance with bowel movement. (4) Pulmonary infection: Culture from left lung taken on day of surgery grew rare Corynebacterium species on 11/25. Given lack of pneumonia symptoms at the time and Corynebacterium being normal laura, held off on antibiotic treatment. At this time patient has had a bump in WBC, new oxygen requirement, new SOB at rest and production of greenish sputum. Covering for G+ infection with 3g Unasyn Q6. Trend WBC and temperature to ensure pt does not become septic. (5) Hypercholesterolemia: Continue atorvastatin 40 mg daily (6) Controlled type 2 diabetes mellitus with diabetic nephropathy: Currently being managed on basal insulin + SSI via Glucose monitoring service. Will resume 500 mg Metformin daily upon discharge. (7) Wheezing: No hx of lung disease prior to mass formation; can take symbicort and levalbuterol inhalers for relief of wheezing Supervising Physician Co-Signing Physician Notes Patient seen and examined with PGY-1 Dr. Feliciano. Agree with history, exam findings, assessment and plan of care as outlined with the following updates. In brief, Mr. Ruiz is a very pleasant 67 year old male with history significant for MAT, DM2, and squamous cell lung cancer who is admitted under Dr. Zhao's service following robotically assisted left sided pneumonectomy. POD#4. We have been asked to assist with medical management. He was seen this morning after walking around the unit. He reports that he feels quite short of breath and coughed up some green sputum earlier today. Later spiked a fever in the afternoon. Immediately following ambulation, his O2 sat was 82%. Recovered to 96% on 2L of nasal cannula O2. Up to this point, he has not required supplemental oxygen. Titrate O2 to 92%. New leukocytosis (9.44 to 11.56 today). CXR today shows a new infiltrate of the right mid-upper lobe. BPs are holding up. Continue tele monitoring. Previous culture of the lung that was sent on the day of surgery grew out rare Corynebacterium species. New sputum culture ordered. DM sugars well controlled on basal + bolus insulin regimen. Resume metformin at hospital discharge. PAT stable. Continue dilt and metoprolol per cardiology. Surgical pain is well controlled at this point. Can consider switching to all oral medications. Continue bowel regimen. Watch carefully for decompensation. May require upgrade to ICU care if BPs dropping or become tachy despite fluid boluses. History of Present Illness Reason for Consultation: Medical Management Attending Physician: Bianca Simons, History of Present Illness Doing well today. New complaint of shortness of breath at rest, as well as while walking the halls. Measured SpO2 just after patient was done walking and was breathing heavily -- measured to be 82%. After sitting, O2 sat came up to 92% and finally came up to 96% after receiving 2L NC oxygen. New bump in WBC this morning as well. Denies chest pain at rest or while walking, denies headaches, swelling, pain with deep breaths. Endorses feeling like he can't get enough oxygen while walking. Allergies Allergy/AdvReac Type Severity Reaction Status Date / Time aspirin AdvReac Mild HALLUCINATIONS Verified 11/22/18 08:46 A CHILD Home Medications Home Medications Medication Instructions Recorded Confirmed Type atorvastatin 40 mg PO HS #0 tab 11/21/17 11/22/18 History metformin 500 mg PO HS #0 11/21/17 11/22/18 History multivitamin 1 tab PO HS #0 tab 11/21/17 11/22/18 History Symbicort 2 puff INHALATION BID PRN 10/10/18 11/22/18 History lisinopril 20 mg tablet 20 mg PO HS #90 tab 11/09/18 11/22/18 Rx diltiazem CD 180 mg 180 mg PO DAILY cap 11/10/18 11/22/18 History capsule,extended release 24 hr levalbuterol HFA 45 mcg/actuation 2 puffs INH Q4H PRN gm 11/10/18 11/22/18 History aerosol inhaler metoprolol succinate ER 50 mg 50 mg PO DAILY 11/10/18 11/22/18 History tablet,extended release 24 hr Patient History Medical History Controlled type 2 diabetes mellitus with diabetic nephropathy Hypercholesterolemia Lung cancer Ventricular tachycardia Proteinuria Mass of left lung Wide-complex tachycardia Squamous cell lung cancer left hilum, s/p robotically assisted pneumonectomy - 11/2018. Atrial arrhythmia Pt recently completed Holter, per Dr. Ruiz suspect MAT. Bladder cancer s/p TURBT Hypertension Nephrolithiasis Pneumonia 09/2018; workup for this led to findings of lung mass (reason for upcoming procedure) Surgical History S/P pneumonectomy (11/22/18) PROCEDURES: 1. Robot-assisted left thoracoscopy with wedge resection. 2. Robot-assisted thoracoscopic control of hemorrhage, continuation of pulmonary artery to left lower lobe. 3. Robot-assisted thoracoscopic left intrapericardial pneumonectomy. 4. Robot-assisted thoracoscopic left mediastinal lymphadenectomy. Dr. Zhao 11-22-18 H/O transurethral destruction of bladder lesion Hand trauma s/p surgical repair History of cystoscopy + stent History of inguinal hernia repair s/p repair (as child) History of tonsillectomy and adenoidectomy S/P colonoscopy Status post robot-assisted surgical procedure Thoracoscopy/VATS 10/26/18, aborted due to wide-complex tachycardia and hypotension. 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 Feels Safe at Home: Yes Safety Concerns: Feels Safe At This Time Smoking Status: Never smoker Tobacco Type: cigarettes ; Cigarettes Per Day: 3-4 CIGS DAILY X 3 YEARS ; Do You Dip or Chew Tobacco: No ; Second Hand Exposure: No ; Tobacco Cessation Education Requested by Patient: No Hx Alcohol Use: Yes Alcohol type: beer Hx Substance Use: No Review of Systems Constitutional: no fever, no chills, no body aches and no fatigue Respiratory: no cough and no dyspnea Cardiovascular: no chest pain, no dyspnea and no edema Gastrointestinal: no abdominal pain, no nausea, no vomiting, no constipation and no diarrhea/loose stools was finally able to have multiple bowel movements yesterday and today Physical Exam Constitutional: cooperative; no acute distress and not ill appearing Neck: normal visual inspection Respiratory: + labored breathing and able to speak in complete sentences; no retractions, no cough and no audible wheezes Auscultation: + diminished lung sounds (on L 2/2 pneumonectomy) and + crackles (R lower lung improved from yesterday); no rales, no rhonchi and no wheezes Cardiovascular: Rate/Rhythm: regular rate and regular rhythm Heart Sounds: normal S1 and normal S2; no gallop, no murmur and no cardiac rub Extremities: no edema Gastrointestinal (Abdomen): Inspection/Auscultation: abdomen normal to inspection and normal bowel sounds; abdomen not distended Percussion/Palpation: abdomen soft; abdomen nontender, no guarding, abdomen not rigid and no abdominal mass Results & Data Vital Signs (Past 12 Hours) Vital Signs Temp Pulse Pulse Resp BP BP Pulse Ox 11/26/18 11:34 37.0 C 79 20 137/78 91 11/26/18 09:39 67 11/26/18 06:38 36.5 C 68 20 108/66 90 11/26/18 03:39 37.0 C 75 20 110/69 95 Resident Activity Tracking Resident Involvement: Resident Care Provided Care Provided: Adult Hospital Medicine (1) Controlled type 2 diabetes mellitus with diabetic nephropathy Diabetes mellitus tank 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
--- NOTE | 2018-11-26 15:18 | XRay Report ---
XR chest 2V routine CLINICAL HISTORY: new fever, sputum production, post-op COMPARISON STUDY: 11/24/2018 FINDINGS: Moderate increase in volume of a left effusion post left pneumonectomy. Interval developing parenchymal infiltrate right midlung. Right base remains clear. IMPRESSION: 1. Moderate interval increase in volume of a left-sided pleural effusion postpneumonectomy. 2. Interval parenchymal infiltrate right midlung. The above report was generated using voice recognition software. It may contain grammatical, syntax or spelling errors. Electronically signed by: Yogesh Gill M.D. 11/26/2018 3:16 PM
[2018-11-26] MEDS: AMPICILLIN/SULBACTAM SOD 3,000 MG in 0.9 % SODIUM CHLORIDE 100 ML IV SCH ×2 (16:00→21:27)
--- NOTE | 2018-11-26 16:41 | Pulmonary Consultation ---
Date of Consultation November 26, 2018 Assessment & Plan (1) Postoperative pneumonia: The patient has a new infiltrate in the right mid to upper lung field likely representing pneumonia. This presumably represents hospital-acquired. He was already ordered Unasyn. Would also add vancomycin. The patient is already on Xopenex HFA and he is on Symbicort. He should continue with incentive spirometry. Blood cultures have been ordered. Sputum culture is ordered. He should have chest x-ray tomorrow. Would also check CMP with LFTs. The patient is obviously at risk for progressing to respiratory failure. If he would have progression of symptoms or marked worsening hypoxia would have a low threshold to transfer him back to ICU. At present he seems stable. The case was discussed with the patient's family. It was also discussed with Dr. Krishnamurthy and Dr. Simons. (2) Squamous cell lung cancer: Laterality: left Qualified Code(s): C34.92 - Malignant neoplasm of unspecified part of left bronchus or lung (3) Interstitial lung disease: History of Present Illness Attending Physician: Bianca Simons DO History of Present Illness Subsequently he was moved out of the intensive care unit. Pulmonary consultation was requested by Dr. Zhao. He is a 67-year-old male who is currently 4 days status post left pneumonectomy. His history is that in the late spring early summer he developed mild shortness of breath. He had tried his 's inhalers that she has for asthma and it seemed to help. He had been cleaning out an attic and thought maybe he had exposure to something that bothered his breathing. Subsequently he had a chest x-ray done that showed an increased density in the left lower lung field. Following that he had a CAT scan of the chest on that was abnormal and suspicious for a mass in the left lower lobe. He underwent an Sommer on 10/13/2018. A definitive diagnosis could not be made. A PET scan had been done and was markedly abnormal with increased SUV suggestive for bronchogenic carcinoma. A VATS procedure was then planned for 10/26/2018. Shortly after insertion of a robotic port into the left pleural cavity the patient developed significant tachyarrhythmia with wide-complex. His blood pressure diminished significantly. The procedure had to be terminated. He was evaluated by cardiology. A number of diagnostic and therapeutic undertakings were done. The patient subsequently underwent surgery on 11/22/2018. This was a robot assisted left thoracoscopy with wedge resection, robot-assisted thoracoscopic control of hemorrhage, continuation of pulmonary artery to left lower lobe. Then he had a robot- assisted thoracoscopic left intrapericardial pneumonectomy and left mediastinal lymphadenectomy. The procedure was complicated by significant bleeding. He received 3 units of packed RBCs in the OR and I believe he received more blood afterward as well. He looked amazingly good following the procedure. He was cared for in the intensive care unit and was doing well. Subsequently he was transferred out of the ICU and yesterday he was ambulating in the hallway without difficulty on room air. Earlier today the patient noticed that he was quite short of breath walking in the hallway. A pulse oximetry was checked and it was only 82% on room air. His oxygen levels came up nicely with 2 L of oxygen. He is feeling much better. Today he is expectorating green sputum. A day or 2 ago he had noticed a very small amount of blood in the sputum none today. He had some chills this morning and this afternoon has a temperature elevation at 38.8. He is not had any sweats. At the present time he is feeling comfortable. The patient's and daughter are with him as I was doing this consultation. He is not having any chest pain except at times of coughing. The patient denies having any nausea or vomiting at any time. The patient has a remote history of a positive PPD. There was no known exposure history but the skin test was abnormal when he was very young. He is not aware of any other lung problems. The patient had been a smoker only in his early 20s and for a short period of time. His CAT scan of the chest did suggest some degree of interstitial lung disease which he has not been aware of. He did have preoperative pulmonary function testing on 10/04/2018. Spirometry was normal. However the residual volume was low and TLC was low which did not correlate well with spirometry. Diffusion was reduced to 57%. 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 There is no family history of lung cancer. The patient's mother did have pancreatic cancer which she survived from. She also had chronic bronchitis and age 84. Father age 90 as complications of a fall. He had a history of coronary artery disease and melanoma. Allergies Allergy/AdvReac Type Severity Reaction Status Date / Time aspirin AdvReac Mild HALLUCINATIONS Verified 11/22/18 08:46 A CHILD Home Medications Home Medications Medication Instructions Recorded Confirmed Type atorvastatin 40 mg PO HS #0 tab 11/21/17 11/22/18 History metformin 500 mg PO HS #0 11/21/17 11/22/18 History multivitamin 1 tab PO HS #0 tab 11/21/17 11/22/18 History Symbicort 2 puff INHALATION BID PRN 10/10/18 11/22/18 History lisinopril 20 mg tablet 20 mg PO HS #90 tab 11/09/18 11/22/18 Rx diltiazem CD 180 mg 180 mg PO DAILY cap 11/10/18 11/22/18 History capsule,extended release 24 hr levalbuterol HFA 45 mcg/actuation 2 puffs INH Q4H PRN gm 11/10/18 11/22/18 History aerosol inhaler metoprolol succinate ER 50 mg 50 mg PO DAILY 11/10/18 11/22/18 History tablet,extended release 24 hr Patient History Medical History Controlled type 2 diabetes mellitus with diabetic nephropathy Hypercholesterolemia Lung cancer Ventricular tachycardia Proteinuria Mass of left lung Wide-complex tachycardia Squamous cell lung cancer left hilum, s/p robotically assisted pneumonectomy - 11/2018. Atrial arrhythmia Pt recently completed Holter, per Dr. Ruiz suspect MAT. Bladder cancer s/p TURBT Hypertension Nephrolithiasis Pneumonia 09/2018; workup for this led to findings of lung mass (reason for upcoming procedure) Surgical History S/P pneumonectomy (11/22/18) PROCEDURES: 1. Robot-assisted left thoracoscopy with wedge resection. 2. Robot-assisted thoracoscopic control of hemorrhage, continuation of pulmonary artery to left lower lobe. 3. Robot-assisted thoracoscopic left intrapericardial pneumonectomy. 4. Robot-assisted thoracoscopic left mediastinal lymphadenectomy. Dr. Zhao 11-22-18 H/O transurethral destruction of bladder lesion Hand trauma s/p surgical repair History of cystoscopy + stent History of inguinal hernia repair s/p repair (as child) History of tonsillectomy and adenoidectomy S/P colonoscopy Status post robot-assisted surgical procedure Thoracoscopy/VATS 10/26/18, aborted due to wide-complex tachycardia and hypotension. 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 He does have chills and fevers today as noted. Neurologic: No syncope or near syncope Ophthalmic: No visual complaints ENT: No complaints Cardiac: The patient has not had palpitations even though he has had significant arrhythmias. He has chest pain only with coughing. Pulmonary: As noted in history of present illness GI: Denies nausea vomiting diarrhea constipation or abdominal pain. : Denies complaints Musculoskeletal: Denies complaints Dermatologic: Denies rashes Endocrine: No lymphadenopathy Physical Exam Physical Exam: The patient is a pleasant 67-year-old male who was cooperative alert and oriented. He was in no distress at rest. He was wearing nasal cannula oxygen. Most recent temperature 38.8 degrees. Weight 72.6 kg. Pupils were reactive to light and equal in size. Nares clear. Mouth exam unremarkable. Palpation of the neck reveals no lymph nodes or masses. One can palpate a small amount of subcutaneous emphysema in the left neck and in the left upper anterior and lateral chest. Cardiac rate currently 84/min. Rhythm regular. Blood pressure 122/70. Pulmonary: Absent breath sounds in the left chest secondary to recent pneumonectomy. Scars noted from surgery. Dressings are in place. There are mild rales heard in the right lung posteriorly and to a lesser degree anteriorly. Faint wheezing heard on expiration. Respiratory rate 20. Saturation was 94% on 2 L nasal cannula. There was no accessory muscle use. Abdomen is soft. Bowel sounds present. No tenderness to palpation masses organomegaly. Extremities showed no cyanosis clubbing or edema. The patient is noted to have somewhat short fingers. Results & Data Vital Signs (Past 12 Hours) Vital Signs Temp Pulse Pulse Resp BP Pulse Ox 11/26/18 14:40 38.8 C H 84 20 122/70 97 11/26/18 11:34 37.0 C 79 20 137/78 91 11/26/18 09:39 67 11/26/18 06:38 36.5 C 68 20 108/66 90 Laboratory Results White blood cell count today 11.56. Yesterday was 9.44. Hemoglobin today 9.6. Yesterday hemoglobin was 9.7. Platelets today 187,000. There was no differential count with today's lab. The only arterial blood gas done during this hospital stay was the morning after the surgery with pH 7.46 PCO2 28 and PO2 168 on 2 L of oxygen. Electrolytes show sodium 137 potassium 3.7 chloride 103 bicarb 27. BUN 12 with creatinine 0.81. Blood sugar as high as 140 today. Calcium 8.0. It should be noted that TB Gold was negative despite his reported history of positive PPD. Pathology report from the recent surgery shows a pulmonary infarction from the left lower lobe superior segment wedge excision. The lung itself showed evidence of invasive squamous cell carcinoma which was keratinizing. Diagnostic Findings The patient has had serial chest x-rays done since surgery. Today's chest x-ray shows a change. There is an infiltrate noted in the right upper lung field. This was not seen on his prior x-ray 11/24/2018. The left chest now has approximately 40% filled with fluid which would be expected post surgery. This will likely continue to fill out. There is some subcutaneous emphysema noted. PG Care Time/CCT Total # of Minutes Spent Total Time Spent with Patient: Total time spent is greater than 50% in coordination of care (as documented) at patient's floor/unit and/or counseling patient:
[2018-11-26] MEDS ORDERED: VANCOMYCIN CONSULT ACTIVE PRN ×2 (16:42→16:44)
[2018-11-26] MEDS: TAMSULOSIN HCL 0.4 MG CAP PO SCH (17:23)
[2018-11-26] MEDS ORDERED: VANCOMYCIN HCL 1,500 MG in SODIUM CHLORIDE 0.9% 500 ML IV ONE (17:30)
--- NOTE | 2018-11-26 19:34 | Pharmacy Report ---
Pharmacy Abx Initial Consult - Date of Service November 26, 2018 - Pharmacy Dosing Scope Date of Consult: 11/26/18 Consultation requested by: Dr. Simons Pharmacy is consulted to initiate Vancomycin IV dosing therapy, order appropriate labs and adjust drug dose/frequency. - Subjective The patient is a 67 year old M admitted on 11/22/18 19:25 now with positive lung culture for Corynebacterium and likely HCAP - Objective Height: 5 ft 5 in Weight: 72.6 kg Vital Signs (Past 12hrs): Vital Signs Temp Pulse Pulse Resp BP Pulse Ox 11/26/18 16:00 90 11/26/18 14:40 38.8 C H 84 20 122/70 97 11/26/18 11:34 37.0 C 79 20 137/78 91 11/26/18 09:39 67 Lab Results (24hrs): Laboratory Tests (24 Hours) 11/26/18 11/26/18 07:18 07:18 WBC 11.56 H Creatinine 0.81 Est Cr Clr Drug Dosing 78.0 Micro Results: 11/26/18 17:15 Gram Stain - Pending Sputum, Expectorated Sputum Culture - Pending 11/26/18 16:03 Aerobic Blood Culture - Pending Blood Anaerobic Blood Culture - Pending 11/26/18 16:11 Aerobic Blood Culture - Pending Blood Anaerobic Blood Culture - Pending 11/22/18 13:56 Gram Stain - Final Lung,Left 11/22/18 13:45 Gram Stain - Final Lung,Left Lower Lobe 11/22/18 13:08 Gram Stain - Final Lymph Node 11/22/18 13:45 Fungal Smear - Final Lung,Left Lower Lobe 11/22/18 13:08 Fungal Smear - Final Lymph Node 11/22/18 13:56 Acid Fast Bacilli Smear - Final Lung,Left Lower Lobe 11/22/18 13:45 Acid Fast Bacilli Smear - Final Lung,Left Lower Lobe 11/22/18 13:08 Acid Fast Bacilli Smear - Final Lymph Node - Risk Factors for Resistance * Current hospitalization > 5 days - Assessment & Plan Assessment 67 year old M, s/p VATS (aborted), with likely HCAP after reported positive lung cx for Corynebacterium. Patient with hx Bladder CA and now in midst of new workup for lung CA. Patient is also receiving IV Ampicillin/sulbactam (Unasyn) 3 gm IV q 6 hours Plan Vancomycin for treatment of HCAP Vancomycin IV * Estimated PK Parameters: Vd 0.7 L/kg, [place] 0.074 hr-1, t1/2 9.37 hr * Loading dose: 1500 mg (20 mg/kg) * Maintenance dose: 1250 mg IV (17 mg/kg) every 12 hours * Goal trough level for HCAP: 15 to 20 mcg/mL * Trough level ordered for Tuesday11/28/18 before the 6 AM dose Pharmacy will continue to follow and will adjust dose/frequency as necessary. Thank you.
[2018-11-26] MEDS: ATORVASTATIN 40 MG TAB PO SCH (21:31)
[2018-11-27] MEDS: LEVALBUTEROL TARTRATE 15 GM HFA.AER.AD INH SCH ×4 (02:44→21:55)
[2018-11-27] MEDS: OXYCODONE/ACETAMINOPHEN 5mg/325mg TAB PO PRN ×4 (02:45→12:30)
[2018-11-27] MEDS: AMPICILLIN/SULBACTAM SOD 3,000 MG in 0.9 % SODIUM CHLORIDE 100 ML IV SCH ×3 (02:45→14:23)
[2018-11-27] MEDS: HEPARIN SOD 5,000 UNIT/0.5 ML VIAL SQ SCH ×3 (05:48→22:08)
[2018-11-27] MEDS ORDERED: VANCOMYCIN HCL 1,250 MG in SODIUM CHLORIDE 0.9% 250 ML IV SCH (06:00)
[2018-11-27 07:02] LABS: Basophils # (auto) 0.02 K/uL (0-0.2); Basophils % (auto) 0.2 %; Eosinophils # (auto) 0.09 K/uL (0-0.5); Eosinophils % (auto) 0.7 %; Hematocrit (blood only) 29.2 % (42-52); Hemoglobin 9.6 g/dL (14.0-18.0); Immature Granulocytes # (auto) 0.06 K/uL (0.00-0.02); Immature Granulocytes % (auto) 0.5 %; Lymphocytes # (auto) 1.15 K/uL (1.2-3.4); Lymphocytes % (auto) 8.7 %; Mean Corpuscular Hemoglobin 27.7 pg (25-34); Mean Corpuscular Hgb Conc 32.9 g/dL (32-36); Mean Corpuscular Volume 84.4 fL (80-100); Monocytes # (auto) 1.21 K/uL (0.11-0.59); Monocytes % (auto) 9.1 %; Neutrophils % (auto) 80.8 %; Platelet Count 210 K/uL (130-400); RDW Coefficient of Variation 15.4 % (11.5-14.5); RDW Standard Deviation 47.9 fL (36.4-46.3); Red Blood Count 3.46 M/uL (4.7-6.1); White Blood Count 13.23 K/uL (4.8-10.8)
[2018-11-27 07:32] LABS: Albumin Level 2.4 gm/dl (3.4-5.0); BUN Creatinine Ratio 13.9 (10-20); Calcium 8.2 mg/dl (8.5-10.1); Est GFR (African American) 107.3; Est GFR (Non-African American) 92.6; Potassium 3.3 mmol/L (3.5-5.1)
[2018-11-27 07:34] LABS: Albumin Globulin Ratio 0.6 (0.9-2); Bilirubin,Total 0.7 mg/dl (0.2-1); Globulin 3.7 gm/dl (2.5-4.0); Total Protein 6.1 gm/dl (6.4-8.2)
--- NOTE | 2018-11-27 08:01 | XRay Report ---
XR chest 2V routine CLINICAL HISTORY: s/p pneumonectomy COMPARISON STUDY: 11/26/2018 FINDINGS: Postpneumonectomy changes are again evident on the left. There is a persistent fluid level within the left hemithorax. There is persistent subcutaneous emphysema on the left. Right lung airspa ce opacities remain stable.[ IMPRESSION: 1. No change in the persistent fluid level within the left hemithorax status post pneumonectomy 2. Right lung airspace opacity similar to the prior study 3. Persistent left-sided subcutaneous emphysema Electronically signed by: Tyler Orellana M.D. 11/27/2018 8:00 AM
[2018-11-27] MEDS: DOCUSATE SODIUM 100 MG CAP PO SCH ×2 (08:23→22:01)
[2018-11-27] MEDS: guaiFENesin 600 MG TABCR PO SCH ×2 (08:23→21:54)
[2018-11-27] MEDS: SENNA 8.6 MG TAB PO SCH (08:23)
[2018-11-27] MEDS: dilTIAZem HCL 180 MG CAPCR PO SCH ×2 (08:24→21:53)
[2018-11-27] MEDS: FUROSEMIDE 20 MG TAB PO SCH (08:24)
[2018-11-27] MEDS: METOPROLOL SUCC 50MG EXT REL TAB PO SCH (08:24)
[2018-11-27] MEDS: INSULIN GLARGINE SOLOSTAR 100 UNITS/ML 3 ML PEN SC SCH (08:25)
[2018-11-27] MEDS: BUDESONIDE/FORMOTEROL FUMARATE 160/4.5 60 PUFFS/INHALER INH SCH ×2 (08:25→21:59)
[2018-11-27] MEDS: INSULIN ASPART 100 UNITS/ML 3 ML PEN SC SCH ×4 (08:26→22:09)
[2018-11-27] MEDS: POLYETHYLENE (MIRALAX) 17 GM PACK PO SCH ×2 (08:28→21:59)
--- NOTE | 2018-11-27 09:52 | Surgery Progress Note ---
Date of Service November 27, 2018 Assessment & Plan (1) Postoperative pneumonia: -fever noted yesterday which has resolved -CXR on 11/26/18 showed right lung infiltrate; CXR today shows persistent infiltrative pattern -leukocytosis noted on labs today -blood cultures drawn 11/26/18 and are pending -sputum culture from 11/26/18 is pending -pt. has been started on broad spectrum antibiotics: -unasyn (day #2) and vancomycin (day #2) -inhalers in the form of symbicort and xopenex are in place -mucinex is being utilized -encourage coughing, deep breathing, and use of IA -repeat CBC in am -monitor for worsening S/S -pulmonary following (2) Squamous cell lung cancer: -pt. is s/p Robotic Left Pneumonectomy on 11/22/18 -mobilize as able -treatment of post-op pneumonia as outlined elsewhere in this note -sub-q heparin is in place for DVT prevention Subjective The patient notes he feels better than yesterday. He notes a febrile episode, with YU and fatigue yesterday which seems to have improved. He denies lightheadedness or dizziness. No CP or palpitations. He is tolerating diet without N/V or abdominal pain. He notes he has had a BM since surgery and is voiding without difficulty. He feels a though his energy level is improved today with less SOB. No pleurisy noted. Review of Systems Constitutional: + fever (notes yesterday wich has resolved without recurrence ) and + fatigue (improved since yesterday ); no chills Respiratory: + dyspnea (improved since yesterday ) Cardiovascular: no chest pain, no palpitations and no lightheadedness Gastrointestinal: no abdominal pain, no nausea and no vomiting Genitourinary: no dysuria and no difficulty urinating Physical Exam Constitutional: well developed and well nourished; no acute distress Neck: trachea midline Respiratory: normal respiratory effort; no respiratory distress, no labored breathing and does not use accessory muscles Absent BS on left; right side is otherwise clear without wheezing or rhonchi Cardiovascular: Rate/Rhythm: regular rate and regular rhythm Gastrointestinal (Abdomen): Inspection/Auscultation: abdomen not distended Percussion/Palpation: abdomen soft; abdomen nontender Musculoskeletal: no calf tenderness Neurologic: moves all extremities Psychiatric: Orientation: alert and oriented x 3 Results & Data Vital Signs (Past 12 Hours) Vital Signs Temp Pulse Pulse Resp BP BP Pulse Ox 11/27/18 07:06 73 11/27/18 06:41 36.3 C L 67 19 104/67 96 11/27/18 04:52 79 98/58 L 11/27/18 04:36 36.6 C 75 20 94/57 L 95 11/26/18 23:00 80 11/26/18 22:42 36.8 C 73 20 120/69 92 (1) Squamous cell lung cancer Laterality: left Qualified Code(s): C34.92 - Malignant neoplasm of unspecified part of left bronchus or lung
--- NOTE | 2018-11-27 13:39 | Family Medicine Consultation ---
Date of Consultation November 27, 2018 Assessment & Plan (1) Pulmonary infection: 67y/o M s/p L pneumonectomy on 11/22 for squamous cell carcinoma; returned to hospital following Pulmonary Infection: -likely 2/2 hospital admission and L pneumonectomy -Culture from L lung grew Corynebacterium species on 11/25 -Nasal MRSA swab negative -started on Augmentin 875mg BID for continued coverage -Trend WBC and temperature to ensure pt does not become septic. S/P pneumonectomy: -Deferring to surgical team for primary management of post-op care. Wheeze: -no hx of lung disease prior to mass formation -symbicort and levalbuterol inhalers available Paroxysmal Atrial Tachycardia: -Continue Metoprolol succinate 50 PO daily and Diltiazem 180 PO BID Constipation: -Received milk of magnesia 11/25 which appears to have helped release constipation. -PRN sennosides, docusate, and miralax available Hypercholesterolemia: -Continue atorvastatin 40 mg daily T2DM: -controlled on SSI. -Hold home Metformin (2) S/P pneumonectomy: (3) PAT (paroxysmal atrial tachycardia): (4) Constipation: (5) Hypercholesterolemia: (6) Controlled type 2 diabetes mellitus with diabetic nephropathy: (7) Wheezing: Supervising Physician Co-Signing Physician Notes I personally examined the patient and verified all hudson points of history and exam, discussed case, and agree with decision making with Dr Pizarro. Feeling good. No new complaints. Extensive discussion with family, all questions answered to the best of my ability and to their satisfaction. Vitals noted, in general he is awake and alert pleasant no distress. HEENT normocephalic atraumatic mucous membranes moist. Breathing unlabored no accessory muscle use good effort. Skin shows no rashes no pallor or icterus. Corynebacterium pneumonia versus healthcare associated pneumoniaimproving. MRSA nares negative on multiple occasions, DC vancomycin. On Unasyn and improving, okay to transition to Augmentin for similar spectrum of coverage. Medically appears like he would likely be stable to go home in the next day or 2. Hypoxialikely multifactorial being status post pneumonectomy as well as having a pneumonia in his remaining lung. Discussed with patient and family fairly high likelihood of needing to go home on oxygen, walked them through the basics of that. Continue to follow. DVT prophylaxisheparin subcu Diabetescontinue current insulin management sugars showing reasonable control Otherwise as above History of Present Illness Attending Physician: Marlon Dillard DO History of Present Illness Patient is feeling much better today, has not felt short of breath overnight; no episodes of fever, chills, or night sweats overnight. Has been able to walk around room without over exerting himself today; no episodes of desating below 90% overnight Allergies Allergy/AdvReac Type Severity Reaction Status Date / Time aspirin AdvReac Mild HALLUCINATIONS Verified 11/22/18 08:46 A CHILD Home Medications Home Medications Medication Instructions Recorded Confirmed Type atorvastatin 40 mg PO HS #0 tab 11/21/17 11/22/18 History metformin 500 mg PO HS #0 11/21/17 11/22/18 History multivitamin 1 tab PO HS #0 tab 11/21/17 11/22/18 History Symbicort 2 puff INHALATION BID PRN 10/10/18 11/22/18 History lisinopril 20 mg tablet 20 mg PO HS #90 tab 11/09/18 11/22/18 Rx diltiazem CD 180 mg 180 mg PO DAILY cap 11/10/18 11/22/18 History capsule,extended release 24 hr levalbuterol HFA 45 mcg/actuation 2 puffs INH Q4H PRN gm 11/10/18 11/22/18 History aerosol inhaler metoprolol succinate ER 50 mg 50 mg PO DAILY 11/10/18 11/22/18 History tablet,extended release 24 hr Patient History Medical History Controlled type 2 diabetes mellitus with diabetic nephropathy Hypercholesterolemia Lung cancer Ventricular tachycardia Proteinuria Mass of left lung Wide-complex tachycardia Squamous cell lung cancer left hilum, s/p robotically assisted pneumonectomy - 11/2018. Atrial arrhythmia Pt recently completed Holter, per Dr. Ruiz suspect MAT. Bladder cancer s/p TURBT Hypertension Nephrolithiasis Pneumonia 09/2018; workup for this led to findings of lung mass (reason for upcoming procedure) Surgical History S/P pneumonectomy (11/22/18) PROCEDURES: 1. Robot-assisted left thoracoscopy with wedge resection. 2. Robot-assisted thoracoscopic control of hemorrhage, continuation of pulmonary artery to left lower lobe. 3. Robot-assisted thoracoscopic left intrapericardial pneumonectomy. 4. Robot-assisted thoracoscopic left mediastinal lymphadenectomy. Dr. Zhao 11-22-18 H/O transurethral destruction of bladder lesion Hand trauma s/p surgical repair History of cystoscopy + stent History of inguinal hernia repair s/p repair (as child) History of tonsillectomy and adenoidectomy S/P colonoscopy Status post robot-assisted surgical procedure Thoracoscopy/VATS 10/26/18, aborted due to wide-complex tachycardia and hypotension. 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 Feels Safe at Home: Yes Safety Concerns: Feels Safe At This Time Smoking Status: Never smoker Tobacco Type: cigarettes ; Cigarettes Per Day: 3-4 CIGS DAILY X 3 YEARS ; Do You Dip or Chew Tobacco: No ; Second Hand Exposure: No ; Tobacco Cessation Education Requested by Patient: No Hx Alcohol Use: Yes Alcohol type: beer Hx Substance Use: No Review of Systems Constitutional: no fever, no chills and no sweats Respiratory: + wheezing; no cough, no dyspnea and no pain on inspiration Cardiovascular: no chest pain, no palpitations and no edema Hematologic / Lymphatic: no lymphadenopathy and no night sweats Physical Exam Constitutional: well developed and cooperative Respiratory: normal respiratory effort and able to speak in complete sentences; no respiratory distress and no cough Auscultation: + breath sounds absent (s/p L pneumonectomy) and + diminished lung sounds (centrally on R); no crackles and no wheezes Cardiovascular: Rate/Rhythm: regular rate and regular rhythm Heart Sounds: normal S1 and normal S2; no gallop, no murmur and no cardiac rub Extremities: no pedal edema Gastrointestinal (Abdomen): Percussion/Palpation: abdomen soft; abdomen nontender and no hepatosplenomegaly Lymphatic: no lymphadenopathy Results & Data Vital Signs (Past 12 Hours) Vital Signs Temp Pulse Pulse Resp BP BP Pulse Ox 11/27/18 11:00 36.6 C 75 20 122/68 94 11/27/18 07:06 73 11/27/18 06:41 36.3 C L 67 19 104/67 96 11/27/18 04:52 79 98/58 L 11/27/18 04:36 36.6 C 75 20 94/57 L 95 Laboratory Results 11/27/18 11/27/18 11/27/18 Range/Units 16:42 11:24 07:29 WBC (4.8-10.8) K/uL RBC (4.7-6.1) M/uL Hgb (14.0-18.0) g/dL Hct (42-52) % MCV (80-100) fL MCH (25-34) pg MCHC (32-36) g/dL RDW Std Deviation (36.4-46.3) fL RDW Coeff of Sonia (11.5-14.5) % Plt Count (130-400) K/uL MPV (7.4-10.4) fL Immature Gran % (Auto) % Neut % (Auto) % Lymph % (Auto) % Gladwin % (Auto) % Eos % (Auto) % Baso % (Auto) % Immature Gran # (Auto) (0.00-0.02) K/uL Neut # (Auto) (1.4-6.5) K/uL Lymph # (Auto) (1.2-3.4) K/uL Gladwin # (Auto) (0.11-0.59) K/uL Eos # (Auto) (0-0.5) K/uL Baso # (Auto) (0-0.2) K/uL Sodium (136-145) mmol/L Potassium (3.5-5.1) mmol/L Chloride (98-107) mmol/L Carbon Dioxide (21-32) mmol/L Anion Gap (3-11) BUN (7-18) mg/dl Creatinine (0.6-1.4) mg/dl Est Cr Clr Drug Dosing ml/min Est GFR ( Amer) Est GFR (Non-Af Amer) BUN/Creatinine Ratio (10-20) Glucose (70-99) mg/dl POC Glucose 128 H 130 H 137 H (70-99) Calcium (8.5-10.1) mg/dl Total Bilirubin (0.2-1) mg/dl AST (15-37) U/L ALT (12-78) U/L Alkaline Phosphatase (45-117) U/L Total Protein (6.4-8.2) gm/dl Albumin (3.4-5.0) gm/dl Globulin (2.5-4.0) gm/dl Albumin/Globulin Ratio (0.9-2) Nasal Screen MRSA (PCR) (Negative) 11/27/18 11/27/18 11/26/18 Range/Units 06:47 06:47 19:59 WBC 13.23 H (4.8-10.8) K/uL RBC 3.46 L (4.7-6.1) M/uL Hgb 9.6 L (14.0-18.0) g/dL Hct 29.2 L (42-52) % MCV 84.4 (80-100) fL MCH 27.7 (25-34) pg MCHC 32.9 (32-36) g/dL RDW Std Deviation 47.9 H (36.4-46.3) fL RDW Coeff of Sonia 15.4 H (11.5-14.5) % Plt Count 210 (130-400) K/uL MPV 10.0 (7.4-10.4) fL Immature Gran % (Auto) 0.5 % Neut % (Auto) 80.8 % Lymph % (Auto) 8.7 % Gladwin % (Auto) 9.1 % Eos % (Auto) 0.7 % Baso % (Auto) 0.2 % Immature Gran # (Auto) 0.06 H (0.00-0.02) K/uL Neut # (Auto) 10.70 H (1.4-6.5) K/uL Lymph # (Auto) 1.15 L (1.2-3.4) K/uL Gladwin # (Auto) 1.21 H (0.11-0.59) K/uL Eos # (Auto) 0.09 (0-0.5) K/uL Baso # (Auto) 0.02 (0-0.2) K/uL Sodium 135 L (136-145) mmol/L Potassium 3.3 L (3.5-5.1) mmol/L Chloride 101 (98-107) mmol/L Carbon Dioxide 26 (21-32) mmol/L Anion Gap 8.0 (3-11) BUN 11 (7-18) mg/dl Creatinine 0.81 (0.6-1.4) mg/dl Est Cr Clr Drug Dosing 78.0 ml/min Est GFR ( Amer) 107.3 Est GFR (Non-Af Amer) 92.6 BUN/Creatinine Ratio 13.9 (10-20) Glucose 127 H (70-99) mg/dl POC Glucose 103 H (70-99) Calcium 8.2 L (8.5-10.1) mg/dl Total Bilirubin 0.7 (0.2-1) mg/dl AST 17 (15-37) U/L ALT 18 (12-78) U/L Alkaline Phosphatase 60 (45-117) U/L Total Protein 6.1 L (6.4-8.2) gm/dl Albumin 2.4 L (3.4-5.0) gm/dl Globulin 3.7 (2.5-4.0) gm/dl Albumin/Globulin Ratio 0.6 L (0.9-2) Nasal Screen MRSA (PCR) (Negative) 11/26/18 Range/Units 19:30 WBC (4.8-10.8) K/uL RBC (4.7-6.1) M/uL Hgb (14.0-18.0) g/dL Hct (42-52) % MCV (80-100) fL MCH (25-34) pg MCHC (32-36) g/dL RDW Std Deviation (36.4-46.3) fL RDW Coeff of Sonia (11.5-14.5) % Plt Count (130-400) K/uL MPV (7.4-10.4) fL Immature Gran % (Auto) % Neut % (Auto) % Lymph % (Auto) % Gladwin % (Auto) % Eos % (Auto) % Baso % (Auto) % Immature Gran # (Auto) (0.00-0.02) K/uL Neut # (Auto) (1.4-6.5) K/uL Lymph # (Auto) (1.2-3.4) K/uL Gladwin # (Auto) (0.11-0.59) K/uL Eos # (Auto) (0-0.5) K/uL Baso # (Auto) (0-0.2) K/uL Sodium (136-145) mmol/L Potassium (3.5-5.1) mmol/L Chloride (98-107) mmol/L Carbon Dioxide (21-32) mmol/L Anion Gap (3-11) BUN (7-18) mg/dl Creatinine (0.6-1.4) mg/dl Est Cr Clr Drug Dosing ml/min Est GFR ( Amer) Est GFR (Non-Af Amer) BUN/Creatinine Ratio (10-20) Glucose (70-99) mg/dl POC Glucose (70-99) Calcium (8.5-10.1) mg/dl Total Bilirubin (0.2-1) mg/dl AST (15-37) U/L ALT (12-78) U/L Alkaline Phosphatase (45-117) U/L Total Protein (6.4-8.2) gm/dl Albumin (3.4-5.0) gm/dl Globulin (2.5-4.0) gm/dl Albumin/Globulin Ratio (0.9-2) Nasal Screen MRSA (PCR) Negative (Negative) Medications Administered Current Inpatient Medications Amoxicillin/Clavulanate Potassium (Augmentin 875mg) 1 tab PO BIDM [facility]; Protocol Stop: 12/04/18 16:59 Atorvastatin Calcium (Lipitor) 40 mg PO HS [facility] Stop: 12/22/18 20:59 Last Admin: 11/26/18 21:31 Dose: 40 mg Documented by: Budesonide/Formoterol Fumarate (Symbicort 160mcg/4.5mcg) 2 puffs INH BID [facility] Stop: 12/23/18 20:59 Last Admin: 11/27/18 08:25 Dose: 2 puffs Documented by: Diltiazem HCl (Cardizem Cd) 180 mg PO BID [facility] Stop: 12/23/18 08:59 Last Admin: 11/27/18 08:24 Dose: 180 mg Documented by: Docusate Sodium (Colace) 100 mg PO BID [facility] Stop: 12/22/18 20:59 Last Admin: 11/27/18 08:23 Dose: Not Given Documented by: Furosemide (Lasix) 20 mg PO [facility] Stop: 12/25/18 08:59 Last Admin: 11/27/18 08:24 Dose: 20 mg Documented by: Guaifenesin (Mucinex) 1,200 mg PO Q12 [facility]LO Stop: 12/24/18 20:59 Last Admin: 11/27/18 08:23 Dose: 1,200 mg Documented by: Heparin Sodium (Porcine) (Heparin Sodium (Porcine)) 5,000 units SQ Q8 CARLO Stop: 12/23/18 13:59 Last Admin: 11/27/18 14:23 Dose: 5,000 units Documented by: Insulin Aspart (Novolog Flexpen) 0 units SC ACHS [facility] Stop: 12/23/18 11:29 Last Admin: 11/27/18 13:13 Dose: 1 units Documented by: Insulin Glargine (Lantus Solostar Pen) 12 units SC DAILY [facility] Stop: 12/26/18 08:59 Last Admin: 11/27/18 08:25 Dose: 12 units Documented by: Levalbuterol HCl (Xopenex Hfa) 2 puffs INH Q6H [facility] Stop: 12/24/18 20:14 Last Admin: 11/27/18 13:14 Dose: 2 puffs Documented by: Magnesium Hydroxide (Milk Of Magnesia) 30 ml PO Q6H PRN PRN Reason: Constipation Stop: 12/25/18 14:34 Last Admin: 11/25/18 22:14 Dose: 30 ml Documented by: Metoprolol Succinate (Toprol Xl) 50 mg PO DAILY [facility] Stop: 12/23/18 08:59 Last Admin: 11/27/18 08:24 Dose: 50 mg Documented by: Miscellaneous Information (Consult Glycemic Management Pharmacy) 1 ea N/A UD PRN PRN Reason: Consult Stop: 12/23/18 14:29 Morphine Sulfate (Morphine Sulfate) 1 - 2 mg IV Q1H PRN PRN Reason: Pain Stop: 12/06/18 20:26 Last Admin: 11/24/18 19:44 Dose: 2 mg Documented by: Oxycodone/Acetaminophen (Percocet 5mg/325mg) 1 - 2 tab PO Q3H PRN PRN Reason: Pain Stop: 12/06/18 20:26 Last Admin: 11/27/18 12:30 Dose: 2 tab Documented by: Polyethylene Glycol (Miralax Powder Packet) 17 gm PO BID [facility] Stop: 12/24/18 20:59 Last Admin: 11/27/18 08:28 Dose: 17 gm Documented by: Sennosides (Senokot) 17.2 mg PO QAM [facility] Stop: 12/25/18 08:59 Last Admin: 11/27/18 08:23 Dose: Not Given Documented by: Tamsulosin HCl (Flomax) 0.4 mg PO DAILY@1700 [facility] Stop: 12/23/18 17:59 Last Admin: 11/26/18 17:23 Dose: 0.4 mg Documented by: PG Care Time/CCT Total # of Minutes Spent Total Time Spent with Patient: Total time spent is greater than 50% in coordination of care (as documented) at patient's floor/unit and/or counseling patient: Resident Activity Tracking Resident Involvement: Resident Care Provided Care Provided: Adult Hospital Medicine (1) Controlled type 2 diabetes mellitus with diabetic nephropathy Diabetes mellitus retirement insulin use: without intermediate manager use Qualified Code(s): E11.21 - Type 2 diabetes mellitus with diabetic nephropathy
--- NOTE | 2018-11-27 14:18 | Pulmonology Progress Note ---
Date of Service November 27, 2018 Subjective I visited the patient today. His is present in the room. Patient was ambulating around the hallways and appeared to be comfortable. He did have a 2 L nasal cannula on at the time. and patient both note that he feels substantially improved in his shortness of breath and cough as opposed to yesterday. He did not have any documented fevers overnight. He does note some increased swelling in his legs and hands. The sputum has decreased substantially since starting antibiotics, although he does still have some mildly productive orange sputum at times. Results & Data Vital Signs (Past 12 Hours) Vital Signs Temp Pulse Pulse Resp BP BP Pulse Ox 11/27/18 11:00 97.9 F 75 20 122/68 94 11/27/18 07:06 73 11/27/18 06:41 97.3 F L 67 19 104/67 96 11/27/18 04:52 79 98/58 L 11/27/18 04:36 97.9 F 75 20 94/57 L 95 PG Care Time/CCT Total # of Minutes Spent Total Time Spent with Patient: Total time spent is greater than 50% in coordination of care (as documented) at patient's floor/unit and/or counseling patient:
--- NOTE | 2018-11-27 14:19 | Pulmonology Progress Note ---
Date of Service November 27, 2018 Assessment & Plan (1) Postoperative pneumonia: We are treating a presumptive postoperative pneumonia. Patient did not have any fevers overnight. His sputum has improved. He was started on vancomycin and Unasyn. There is a Haemophilus species growing in the sputum culture. If no fever by tomorrow morning, I would discontinue vancomycin. We will also obtain MRSA screen. Would continue antibiotics for 7 days. If he does continue to spike fevers, I would recommend evaluating the left pleural space with the ultrasound to see if there is fluid that can be tapped. If he is continuing to develop fevers, this may potentially represent a post-pneumonecto my empyema. At this time he appears to be responding to antibiotics and I would hold any procedures in his pleural space. Present on Admission?: No (2) Acute respiratory failure with hypoxia: Patient apparently developed some hypoxia during the day while ambulating. According to nurse he desaturated down to 86% on RA. He is currently on 2 L liters nasal cannula. His hypoxemia is likely multifactorial from atelectasis, postoperative pneumonia and mildly fluid overload state. We will give a small dose of IV Lasix. I informed the nurse as well. She will monitor I's and O's during her shift. Continue antibiotics for his postoperative pneumonia. Present on Admission?: No (3) Edema of all four extremities: We will give a small dose of Lasix as above. Monitor I's and O's. Monitor his blood pressure. Present on Admission?: No Subjective I visited the patient today. His is present in the room. Patient was ambulating around the hallways and appeared to be comfortable. He did have a 2 L nasal cannula on at the time. and patient both note that he feels substantially improved and her shortness of breath and cough as opposed to yesterday. He did not have any documented fevers overnight. He does note some increased swelling in his legs and hand. The sputum has decreased substantially since starting antibiotics, although he does still have some mildly productive orange sputum at times. Review of Systems Constitutional: no fever and no body aches Respiratory: + cough and + dyspnea on exertion Cardiovascular: + dyspnea, + orthopnea and + edema; no chest pain Gastrointestinal: no nausea Musculoskeletal: + swelling Physical Exam Constitutional: + frail appearing Eyes: EOM intact bilaterally Respiratory: + cough; no respiratory distress Auscultation: no diminished lung sounds (on the left. Clear on the right ) Cardiovascular: RRR, no murmur, no edema Extremities: + edema Neurologic: CN's II-XI intact bilaterally and moves all extremities Results & Data Vital Signs (Past 12 Hours) Vital Signs Temp Pulse Pulse Resp BP BP Pulse Ox 11/27/18 11:00 97.9 F 75 20 122/68 94 11/27/18 07:06 73 11/27/18 06:41 97.3 F L 67 19 104/67 96 11/27/18 04:52 79 98/58 L 11/27/18 04:36 97.9 F 75 20 94/57 L 95 Laboratory Results Vital Signs Temp Pulse Pulse Resp BP BP Pulse Ox 11/27/18 11:00 97.9 F 75 20 122/68 94 11/27/18 07:06 73 11/27/18 06:41 97.3 F L 67 19 104/67 96 11/27/18 04:52 79 98/58 L 11/27/18 04:36 97.9 F 75 20 94/57 L 95 11/26/18 23:00 80 11/26/18 22:42 98.2 F 73 20 120/69 92 11/26/18 19:41 99.1 F 72 16 97/59 L 96 11/26/18 16:00 90 11/26/18 14:40 101.8 F H 84 20 122/70 97 Intake and Output 11/26/18 11/27/18 11/27/18 22:59 06:59 14:59 Intake Total 886 / 1434 308 / 1434 883 / 883 Output Total 325 / 326 Balance 886 / 1108 -17 / 1108 883 / 883 Intake: IV 746 / 854 108 / 854 383 / 383 Unasyn 3,000 mg In Sodium 216 / 324 108 / 324 108 / 108 Chloride 100 ml @ 200 mls/hr IV Q6H CARLO Rx#:[id number] Vancomycin HCl 1,250 mg In Nss 275 / 275 250 ml @ 125 mls/hr IV Q12H CARLO Rx#:[id number] Vancomycin HCl 1,500 mg In Nss 530 / 530 500 ml @ 200 mls/hr IV 1730 ONE Rx#:[id number] Oral 140 / 580 200 / 580 500 / 500 Output: Urine 325 / 325 Other: Weight 72.2 kg 72.2 kg Patient Weight 11/28/18 06:59 Weight 72.2 kg PG Care Time/CCT Total # of Minutes Spent Total Time Spent with Patient: Total time spent is greater than 50% in coordination of care (as documented) at patient's floor/unit and/or counseling patient:
[2018-11-27] MEDS ORDERED: FUROSEMIDE 20 MG in SYRINGE 0 ML IV ONE (15:15)
[2018-11-27] MEDS ORDERED: AMOXICILLIN/CLAVULANATE 875 MG TAB PO SCH (17:00)
[2018-11-27] MEDS: TAMSULOSIN HCL 0.4 MG CAP PO SCH (17:54)
--- NOTE | 2018-11-27 21:00 | XRay Report ---
SINGLE VIEW CHEST CLINICAL HISTORY: Dyspnea. FINDINGS: An AP, portable, upright chest radiograph is compared to study performed earlier the same d ay 11/27/2018 and correlated with chest CT dated 09/25/2018. The examination is degraded by portable te chnique and patient rotation. The left lung is surgically absent. The cardiac silhouette is largely o bscured. The pulmonary vasculature is noncongested. Diffuse interstitial thickening and groundglass c hange is seen throughout the right lung. Gas largely fills the left pleural space. Left-sided pleural fluid is again noted. There is no large right-sided pleural effusion or pneumothorax. The skeletal s tructures are osteopenic. The bony thorax is grossly intact. Subcutaneous emphysema is noted along th e left chest wall. IMPRESSION: 1. No significant change from today's earlier examination. 2. Postpneumonectomy change is again seen on the left with left-sided pleural fluid. 3. Airspace opacities are again noted throughout the right lung. Electronically signed by: Jah Sebastian M.D. 11/27/2018 8:59 PM
[2018-11-27] MEDS ORDERED: FUROSEMIDE 40 MG/4 ML VIAL IV STA ×2 (21:13→21:19)
[2018-11-27] MEDS ORDERED: CEFEPIME 2,000 MG in SYRINGE 7.5 ML IV STA (21:13)
[2018-11-27] MEDS ORDERED: FUROSEMIDE 40 MG in SYRINGE 0 ML IV ONE (21:15)
[2018-11-27 21:34] LABS: iSTAT Allen Test Pass; iSTAT Arterial Blood Gas HCO3 22 meg/L (19-24); iSTAT Arterial Blood Gas pCO2 29 mmHg (35-46); iSTAT Arterial Blood Gas pH 7.48 (7.35-7.45); iSTAT Arterial Blood Gas pO2 67 mmHg (80-95); iSTAT Carbon Dioxide 23 mEq/l (24-31); iSTAT Site R Radial
--- NOTE | 2018-11-27 21:39 | Critical Care Progress Note ---
Date of Service November 27, 2018 Assessment & Plan (1) Postoperative pneumonia: Switch abx from unasyn to cefepime given acute decompensation. Continue vanc. Obtain lactic acid stat. (2) Acute respiratory failure with hypoxia: Lasix 40 mg x1 and re-eval later in the evening. BiPAP if work of breathing increases. (3) Edema of all four extremities: Lasix as above. Subjective I examined the patient earlier today and he was ambulating about the hallways and appeared to be doing well. He did complain of some edema in his lower extremities. CXR was obtained earlier that demonstrated a continued infiltrate on the right. He was afebrile all day until later tonight around 9:15 when his temp spiked to 100.3 and he became progressively more tachypneic. ABG was obtai marcie and demonstrated a mild respiratory alkalosis combined with hypoxemia. Physical Exam Constitutional: + frail appearing Eyes: EOM intact bilaterally Respiratory: + respiratory distress, + cough and + tachypneic Auscultation: + breath sounds absent (on left ) and + crackles (on the right ) Cardiovascular: Rate/Rhythm: + tachycardic Extremities: + edema Neurologic: CN's II-XI intact bilaterally and moves all extremities Results & Data Vital Signs (Past 12 Hours) Vital Signs Temp Pulse Pulse Resp BP Pulse Ox 11/27/18 21:07 100.2 F H 84 24 131/69 94 11/27/18 19:33 98.2 F 72 24 143/59 H 11/27/18 16:00 62 11/27/18 15:38 97.9 F 66 20 100/62 94 11/27/18 11:00 97.9 F 75 20 122/68 94 PG Care Time/CCT Total # of Minutes Spent Total Time Spent with Patient: Total time spent is greater than 50% in coordination of care (as documented) at patient's floor/unit and/or counseling patient: Critical Care Time: Yes Total Critical Care Time: 50
[2018-11-27] MEDS ORDERED: GLUCOSE 10 TABS/TUBE PO PRN (21:45)
[2018-11-27] MEDS ORDERED: CARBOHYDRATES FOR HYPOGLYCEMIA PO PRN (21:45)
[2018-11-27] MEDS ORDERED: GLUCOSE 40% GEL 15 GM TUBE PO PRN (21:45)
[2018-11-27] MEDS ORDERED: GLUCAGON FOR INJ 1 MG VIAL SQ PRN (21:45)
[2018-11-27] MEDS ORDERED: DEXTROSE 50% 50 ML SYRINGE IV PRN (21:45)
[2018-11-27] MEDS: ATORVASTATIN 40 MG TAB PO SCH (21:54)
[2018-11-27 21:55] LABS: Basophils # (auto) 0.02 K/uL (0-0.2); Basophils % (auto) 0.1 %; Eosinophils % (auto) 0.6 %; Hematocrit (blood only) 32.2 % (42-52); Hemoglobin 11.2 g/dL (14.0-18.0); Immature Granulocytes # (auto) 0.14 K/uL (0.00-0.02); Immature Granulocytes % (auto) 0.8 %; Lymphocytes # (auto) 0.92 K/uL (1.2-3.4); Lymphocytes % (auto) 5.1 %; Mean Corpuscular Hemoglobin 28.9 pg (25-34); Mean Corpuscular Volume 83.2 fL (80-100); Mean Platelet Volume 9.8 fL (7.4-10.4); Monocytes % (auto) 8.3 %; Neutrophils # (auto) 15.36 K/uL (1.4-6.5); Neutrophils % (auto) 85.1 %; Platelet Count 257 K/uL (130-400); RDW Coefficient of Variation 15.4 % (11.5-14.5); RDW Standard Deviation 46.9 fL (36.4-46.3); Red Blood Count 3.87 M/uL (4.7-6.1); White Blood Count 18.04 K/uL (4.8-10.8)
[2018-11-27 22:02] LABS: Mean Corpuscular Hgb Conc 34.8 g/dL (32-36)
[2018-11-27 22:10] LABS: BUN Creatinine Ratio 14.3 (10-20); Calcium 8.7 mg/dl (8.5-10.1); Creatinine Clr Calc Pharmacy 63.8 ml/min; Est GFR (African American) 91.6; Potassium 3.1 mmol/L (3.5-5.1)
[2018-11-27] MEDS: POTASSIUM CHLORIDE / WTR 10 MEQ/100 ML PLCT IV SCH ×2 (22:50→23:56)
[2018-11-28] MEDS: LEVALBUTEROL TARTRATE 15 GM HFA.AER.AD INH SCH ×4 (02:16→20:29)
[2018-11-28 04:37] LABS: Basophils # (auto) 0.02 K/uL (0-0.2); Basophils % (auto) 0.1 %; Eosinophils # (auto) 0.08 K/uL (0-0.5); Eosinophils % (auto) 0.5 %; Hematocrit (blood only) 29.6 % (42-52); Hemoglobin 9.9 g/dL (14.0-18.0); Immature Granulocytes # (auto) 0.08 K/uL (0.00-0.02); Immature Granulocytes % (auto) 0.5 %; Lymphocytes # (auto) 1.43 K/uL (1.2-3.4); Lymphocytes % (auto) 9.7 %; Mean Corpuscular Hemoglobin 27.9 pg (25-34); Mean Corpuscular Volume 83.4 fL (80-100); Mean Platelet Volume 9.9 fL (7.4-10.4); Monocytes # (auto) 1.24 K/uL (0.11-0.59); Monocytes % (auto) 8.4 %; Neutrophils # (auto) 11.84 K/uL (1.4-6.5); Neutrophils % (auto) 80.8 %; Platelet Count 234 K/uL (130-400); RDW Coefficient of Variation 15.2 % (11.5-14.5); RDW Standard Deviation 47.1 fL (36.4-46.3); Red Blood Count 3.55 M/uL (4.7-6.1); White Blood Count 14.69 K/uL (4.8-10.8)
[2018-11-28 04:43] LABS: Mean Corpuscular Hgb Conc 33.4 g/dL (32-36)
[2018-11-28 04:57] LABS: BUN Creatinine Ratio 15.3 (10-20); Calcium 7.9 mg/dl (8.5-10.1); Creatinine Clr Calc Pharmacy 73.5 ml/min; Est GFR (African American) 104.7; Est GFR (Non-African American) 90.4; Potassium 3.1 mmol/L (3.5-5.1)
[2018-11-28] MEDS ORDERED: VANCOMYCIN TROUGH ONE (05:30)
[2018-11-28] MEDS ORDERED: POTASSIUM CHLORIDE 10 MEQ TABCR PO ONE (05:35)
[2018-11-28] MEDS: HEPARIN SOD 5,000 UNIT/0.5 ML VIAL SQ SCH ×3 (06:12→21:41)
--- NOTE | 2018-11-28 06:46 | Critical Care Progress Note ---
Date of Service November 28, 2018 Assessment & Plan (1) Admitted to intensive care unit: Reason Critically Ill: 67-year-old male readmitted to the ICU following increased shortness of breath and hypoxic respiratory failure on the floor following Neuro - [facility]: [] Cardiac - Proximal atrial tachycardiacontinue MTP and diltiazem, currently sinus rhythm HTNcontinue MTP HLDcontinue simvastatin Respiratory - Hypoxic respiratory failurepulmonary edema versus pneumonia versus reperfusion syndrome -Reperfusion injury less likely at this stage postop -Chest x-ray appears worse this a.m. and may likely represent developing ARDS -Culture from the left long grew Corynebacterium, sputum culture grew H. influenzae 11/27 -Continue cefepime and Vanc -Continue diuresis 40 mg twice daily -CPAP PEEP 5 -Continue nebs GI - Heart healthy carb consistent diet Continue bowel regimen RENAL/LYTES - Creatinine stable, monitor Replete electrolytes as necessary - Foleystrict I's and O's ENDO - Type 2 diabetescontinue sliding scale insulin -ICU hyperglycemic protocol HEME - H&H stable, trend WBCs with routine CBCs ID - Continue Vanco and cefepime for possible pulmonary source LINES/IV ACCESS - Peripheral IVs DVT PROPHYLAXIS - SCD, heparin Thank you for allowing us to participate in the care of this patient. Please refer to my attending physician's documentation for any further recommendations. (2) Postoperative pneumonia: (3) Acute respiratory failure with hypoxia: (4) Edema of all four extremities: (5) DVT prophylaxis: (6) S/P pneumonectomy: Supervising Physician Co-Signing Physician Notes Patient seen and examined. EMR reviewed. Imaging studies and laboratory studies and apparently reviewed. Discussed with thoracic surgery service and ÁNGEL. 67-year-old male status post left pneumonectomy for lung cancer now with progressive right-sided pulmonary infiltrates. Differential is broad to include pulmonary hyperperfusion injury, hydrostatic pulmonary edema, potential transfusion related lung disease, pneumonia, or diastolic heart failure. For now we will proceed with antibiotics for potential pneumonia. Check procalcitonin and consider tapering antibiotics if procalcitonin is negative. Will check BNP and initiate empiric diuresis. May benefit from echocardiogram if diagnostic uncertainty remains. Would like to avoid positive airway pressure given recent pneumonectomy in an effort to avoid damage to the stump. Would also like to avoid steroids due to the possibility of stump dehiscence. Bronchoscopy would likely require intubation mechanical ventilation which would like to avoid at this point time. We may be able to use a low level CPAP or BiPAP to bridge the patient in the short-term. Plan was discussed with thoracic surgery as well as with the patient, his , and ICU nurse at bedside. Questions were answered to the best my ability. They expressed understanding and are in agreement with the plan as outlined. Subjective This morning the patient is still complaining of shortness of breath but improved with CPAP support and has been responsive to diuresis. Chest x-ray appears worsened from previous days. Patient does remain hemodynamically stable without need for pressors but requires CPAP with PEEP of 5. Will continue respiratory support with aggressive diuresis. Patient to remain in ICU at this time. Patient reports dyspnea and generalized edema. Patient denies headache, dizziness, nausea or vomiting, palpitations, chest pain, abdominal pain. Review of Systems Review of Systems: All systems reviewed & are unremarkable except as noted in HPI & below Physical Exam Eyes: PERRL, conjunctivae normal, anicteric sclerae ENMT: external ear and nose normal, oropharynx normal Neck: trachea midline, no thyromegaly Respiratory: normal respiratory effort, + cough and + tachypneic Crackles auscultated in right upper middle and lower lobes, breath sounds clear to auscultation of her left lobe and diminished over lower left lobe Cardiovascular: Rate/Rhythm: regular rate and regular rhythm Heart Sounds: normal S1 and normal S2 Vessels: + JVD Extremities: + edema Gastrointestinal (Abdomen): normal bowel sounds, soft, nontender, no hepatosplenomegaly Skin: no rashes, warm and dry Neurologic: PERRL, EOMI, accommodation nl, no face palsy, no dysarthria Psychiatric: A+Ox3, euthymic affect Results & Data Vital Signs (Past 12 Hours) Vital Signs Temp Pulse Pulse Resp BP Pulse Ox 11/28/18 06:00 80 17 112/58 L 92 11/28/18 04:00 36.8 C 82 30 H 120/59 L 93 11/28/18 02:00 86 20 110/57 L 92 11/28/18 00:00 37.4 C 92 H 30 H 118/63 93 11/27/18 23:00 89 30 H 118/60 95 11/27/18 22:00 92 H 26 H 126/68 93 11/27/18 21:30 38 C H 87 30 H 113/89 93 11/27/18 21:07 37.9 C H 84 24 131/69 94 11/27/18 19:33 36.8 C 72 24 143/59 H PG Care Time/CCT Total # of Minutes Spent Total Time Spent with Patient: Total time spent is greater than 50% in coordination of care (as documented) at patient's floor/unit and/or counseling patient:
--- NOTE | 2018-11-28 06:52 | XRay Report ---
XR chest 1V portable CLINICAL HISTORY: respiratory distress dyspnea COMPARISON STUDY: 11/27/2018 FINDINGS: Postoperative changes left hemithorax unchanged. Slightly progressive the right hemithoracic parenchymal infiltrate. Hemidiaphragm is smooth. IMPRESSION: 1. Stable post pneumonectomy changes left hemithorax. 2. Somewhat progressive right parenchymal infiltrate. The above report was generated using voice recognition software. It may contain grammatical, syntax or spelling errors. Electronically signed by: Yogesh Gill M.D. 11/28/2018 6:51 AM
[2018-11-28] MEDS ORDERED: POTASSIUM CHLORIDE 20 MEQ TABCR PO STA ×2 (07:01→09:50)
--- NOTE | 2018-11-28 07:13 | Family Medicine Consultation ---
Date of Consultation November 28, 2018 Assessment & Plan (1) Pulmonary infection: 67y/o M s/p L pneumonectomy on 11/22 for squamous cell carcinoma; subsequent development of pneumonia, L lung grew Corynebacterium species, with subsequent sputum culture demonstrating H. influenza. Pulmonary Infection: -likely 2/2 hospital admission and L pneumonectomy -Culture from L lung grew Corynebacterium species on 11/25 -sputum cx positive for H. influenza on 11/27; sensitivities pending -Nasal MRSA swab negative -started on cefepime, vancomycin for broad spectrum coverage -Trend WBC and temperature to ensure pt does not become septic. Hypoxic Event: (11/27) -?pulmonary edema vs secondary infection vs ARDS -started on broad spectrum coverage for hospital acquired bacteria -received IV lasix for diuresis -monitored in ICU S/P pneumonectomy: -Deferring to surgical team for primary management of post-op care. Wheeze: -no hx of lung disease prior to mass formation -symbicort and levalbuterol inhalers available Paroxysmal Atrial Tachycardia: -Continue Metoprolol succinate 50 PO daily and Diltiazem 180 PO BID Constipation: -Received milk of magnesia 11/25 which appears to have helped release constipation. -PRN sennosides, docusate, and miralax available Hypercholesterolemia: -Continue atorvastatin 40 mg daily T2DM: -controlled on SSI. -Hold home Metformin Code: Full DVT ppx: SCDs Dispo: continued observation in ICU (2) S/P pneumonectomy: (3) PAT (paroxysmal atrial tachycardia): (4) Constipation: (5) Hypercholesterolemia: (6) Controlled type 2 diabetes mellitus with diabetic nephropathy: (7) Wheezing: Supervising Physician Co-Signing Physician Notes I personally examined the patient and verified all hudson points of history and exam, discussed case, and agree with decision making with Dr Pizarro. worse through the night, but seems to be stabilizing. case d/w thoracic and ICU. breathing better now than earlier. Vitals noted, in general he is awake and alert appearing fatigued on bipap but no significant distress. HEENT normocephalic atraumatic mucous membranes moist. Breathing unlabored no accessory muscle use good effort mildly coarse. Somewhat difficult exam due to positioning and BiPAP. Skin shows no rashes no pallor or icterus. Healthcare associated pneumoniacefepime and Vanco. Supportive care. Acute pulmonary edema (HFp EF)Lasix, follow, supportive care. Concern on whether he is developing noncardiogenic pulmonary edema, but his situation seems to have stabilized. Hypoxialikely multifactorial being status post pneumonectomy as well as having a pneumonia in his remaining lung, now also with pulmonary edema. DVT prophylaxisheparin subcu Diabetescontinue current insulin management, sugars adequate control Otherwise as above History of Present Illness Attending Physician: Marlon Dillard DO History of Present Illness Overnight, started to feel increasingly short of breath, and became tachypneic up to the 30s, ABG was conducted at that time demonstrating a mild respiratory alkalosis and hypoxemia. Was transferred to the ICU, repeat chest xr at time of onset did not demonstrate any acute changes with follow-up this morning demonstrating a progressing parenchymal infiltrate. Some improvement in shortness of breath following IV lasix, broaded spectrum of antibiotic coverage. Allergies Allergy/AdvReac Type Severity Reaction Status Date / Time aspirin AdvReac Mild HALLUCINATIONS Verified 11/22/18 08:46 A CHILD Home Medications Home Medications Medication Instructions Recorded Confirmed Type atorvastatin 40 mg PO HS #0 tab 11/21/17 11/22/18 History metformin 500 mg PO HS #0 11/21/17 11/22/18 History multivitamin 1 tab PO HS #0 tab 11/21/17 11/22/18 History Symbicort 2 puff INHALATION BID PRN 10/10/18 11/22/18 History lisinopril 20 mg tablet 20 mg PO HS #90 tab 11/09/18 11/22/18 Rx diltiazem CD 180 mg 180 mg PO DAILY cap 11/10/18 11/22/18 History capsule,extended release 24 hr levalbuterol HFA 45 mcg/actuation 2 puffs INH Q4H PRN gm 11/10/18 11/22/18 History aerosol inhaler metoprolol succinate ER 50 mg 50 mg PO DAILY 11/10/18 11/22/18 History tablet,extended release 24 hr Patient History Medical History Controlled type 2 diabetes mellitus with diabetic nephropathy Hypercholesterolemia Lung cancer Ventricular tachycardia Proteinuria Mass of left lung Wide-complex tachycardia Squamous cell lung cancer left hilum, s/p robotically assisted pneumonectomy - 11/2018. Atrial arrhythmia Pt recently completed Holter, per Dr. Ruiz suspect MAT. Bladder cancer s/p TURBT Hypertension Nephrolithiasis Pneumonia 09/2018; workup for this led to findings of lung mass (reason for upcoming procedure) Surgical History S/P pneumonectomy (11/22/18) PROCEDURES: 1. Robot-assisted left thoracoscopy with wedge resection. 2. Robot-assisted thoracoscopic control of hemorrhage, continuation of pulmonary artery to left lower lobe. 3. Robot-assisted thoracoscopic left intrapericardial pneumonectomy. 4. Robot-assisted thoracoscopic left mediastinal lymphadenectomy. Dr. Zhao 11-22-18 H/O transurethral destruction of bladder lesion Hand trauma s/p surgical repair History of cystoscopy + stent History of inguinal hernia repair s/p repair (as child) History of tonsillectomy and adenoidectomy S/P colonoscopy Status post robot-assisted surgical procedure Thoracoscopy/VATS 10/26/18, aborted due to wide-complex tachycardia and hypotension. 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 Feels Safe at Home: Yes Safety Concerns: Feels Safe At This Time Smoking Status: Never smoker Tobacco Type: cigarettes ; Cigarettes Per Day: 3-4 CIGS DAILY X 3 YEARS ; Do You Dip or Chew Tobacco: No ; Second Hand Exposure: No ; Tobacco Cessation Education Requested by Patient: No Hx Alcohol Use: Yes Alcohol type: beer Hx Substance Use: No Review of Systems Constitutional: + chills and + sweats; no fever Respiratory: + dyspnea and + sputum production Cardiovascular: no chest pain, no palpitations and no edema Gastrointestinal: no nausea and no vomiting Physical Exam Constitutional: + lethargic Respiratory: + labored breathing and + tachypneic; + not able to speak in complete sentence Auscultation: + diminished lung sounds (centrally on R); no crackles and no wheezes Cardiovascular: Rate/Rhythm: regular rate and regular rhythm Heart Sounds: normal S1 and normal S2; no gallop, no murmur and no cardiac rub Extremities: no pedal edema Gastrointestinal (Abdomen): Percussion/Palpation: abdomen soft; abdomen nontender, no guarding and no hepatosplenomegaly Lymphatic: no lymphadenopathy Results & Data Vital Signs (Past 12 Hours) Vital Signs Temp Pulse Pulse Resp BP Pulse Ox 11/28/18 06:00 80 17 112/58 L 92 11/28/18 04:00 36.8 C 82 30 H 120/59 L 93 11/28/18 02:00 86 20 110/57 L 92 11/28/18 00:00 37.4 C 92 H 30 H 118/63 93 11/27/18 23:00 89 30 H 118/60 95 11/27/18 22:00 92 H 26 H 126/68 93 11/27/18 21:30 38 C H 87 30 H 113/89 93 11/27/18 21:07 37.9 C H 84 24 131/69 94 11/27/18 19:33 36.8 C 72 24 143/59 H Laboratory Results 11/28/18 11/28/18 11/27/18 Range/Units 04:17 04:17 22:06 WBC 14.69 H (4.8-10.8) K/uL RBC 3.55 L (4.7-6.1) M/uL Hgb 9.9 L (14.0-18.0) g/dL Hct 29.6 L (42-52) % MCV 83.4 (80-100) fL MCH 27.9 (25-34) pg MCHC 33.4 (32-36) g/dL RDW Std Deviation 47.1 H (36.4-46.3) fL RDW Coeff of Sonia 15.2 H (11.5-14.5) % Plt Count 234 (130-400) K/uL MPV 9.9 (7.4-10.4) fL Immature Gran % (Auto) 0.5 % Neut % (Auto) 80.8 % Lymph % (Auto) 9.7 % Austin % (Auto) 8.4 % Eos % (Auto) 0.5 % Baso % (Auto) 0.1 % Immature Gran # (Auto) 0.08 H (0.00-0.02) K/uL Neut # (Auto) 11.84 H (1.4-6.5) K/uL Lymph # (Auto) 1.43 (1.2-3.4) K/uL Austin # (Auto) 1.24 H (0.11-0.59) K/uL Eos # (Auto) 0.08 (0-0.5) K/uL Baso # (Auto) 0.02 (0-0.2) K/uL Sample Site POC pH (7.35-7.45) POC pCO2 (35-46) mmHg POC pO2 (80-95) mmHg POC HCO3 (19-24) jake/L POC Total CO2 (24-31) mEq/l POC Base Excess (-9-1.8) jake/L POC ABG O2 Sat (90-95) % Denys Test O2 Delivery Device Sodium 136 (136-145) mmol/L Potassium 3.1 L (3.5-5.1) mmol/L Chloride 100 (98-107) mmol/L Carbon Dioxide 29 (21-32) mmol/L Anion Gap 7.0 (3-11) BUN 13 (7-18) mg/dl Creatinine 0.86 (0.6-1.4) mg/dl Est Cr Clr Drug Dosing 73.5 ml/min Est GFR ( Amer) 104.7 Est GFR (Non-Af Amer) 90.4 BUN/Creatinine Ratio 15.3 (10-20) Glucose 124 H (70-99) mg/dl POC Glucose 152 H (70-99) Lactate (0.4-2.0) mmol/L Calcium 7.9 L (8.5-10.1) mg/dl Total Bilirubin (0.2-1) mg/dl AST (15-37) U/L ALT (12-78) U/L Alkaline Phosphatase (45-117) U/L Total Protein (6.4-8.2) gm/dl Albumin (3.4-5.0) gm/dl Globulin (2.5-4.0) gm/dl Albumin/Globulin Ratio (0.9-2) Nasal Screen MRSA (PCR) (Negative) 11/27/18 11/27/18 11/27/18 Range/Units 21:46 21:46 21:46 WBC 18.04 H (4.8-10.8) K/uL RBC 3.87 L (4.7-6.1) M/uL Hgb 11.2 L (14.0-18.0) g/dL Hct 32.2 L (42-52) % MCV 83.2 (80-100) fL MCH 28.9 (25-34) pg MCHC 34.8 (32-36) g/dL RDW Std Deviation 46.9 H (36.4-46.3) fL RDW Coeff of Sonia 15.4 H (11.5-14.5) % Plt Count 257 (130-400) K/uL MPV 9.8 (7.4-10.4) fL Immature Gran % (Auto) 0.8 % Neut % (Auto) 85.1 % Lymph % (Auto) 5.1 % Austin % (Auto) 8.3 % Eos % (Auto) 0.6 % Baso % (Auto) 0.1 % Immature Gran # (Auto) 0.14 H (0.00-0.02) K/uL Neut # (Auto) 15.36 H (1.4-6.5) K/uL Lymph # (Auto) 0.92 L (1.2-3.4) K/uL Austin # (Auto) 1.50 H (0.11-0.59) K/uL Eos # (Auto) 0.10 (0-0.5) K/uL Baso # (Auto) 0.02 (0-0.2) K/uL Sample Site POC pH (7.35-7.45) POC pCO2 (35-46) mmHg POC pO2 (80-95) mmHg POC HCO3 (19-24) jake/L POC Total CO2 (24-31) mEq/l POC Base Excess (-9-1.8) jake/L POC ABG O2 Sat (90-95) % Denys Test O2 Delivery Device Sodium 134 L (136-145) mmol/L Potassium 3.1 L (3.5-5.1) mmol/L Chloride 98 (98-107) mmol/L Carbon Dioxide 26 (21-32) mmol/L Anion Gap 10.0 (3-11) BUN 14 (7-18) mg/dl Creatinine 0.99 (0.6-1.4) mg/dl Est Cr Clr Drug Dosing 63.8 ml/min Est GFR ( Amer) 91.6 Est GFR (Non-Af Amer) 79.0 BUN/Creatinine Ratio 14.3 (10-20) Glucose 150 H (70-99) mg/dl POC Glucose (70-99) Lactate 1.4 (0.4-2.0) mmol/L Calcium 8.7 (8.5-10.1) mg/dl Total Bilirubin (0.2-1) mg/dl AST (15-37) U/L ALT (12-78) U/L Alkaline Phosphatase (45-117) U/L Total Protein (6.4-8.2) gm/dl Albumin (3.4-5.0) gm/dl Globulin (2.5-4.0) gm/dl Albumin/Globulin Ratio (0.9-2) Nasal Screen MRSA (PCR) (Negative) 11/27/18 11/27/18 11/27/18 Range/Units 21:35 21:22 20:21 WBC (4.8-10.8) K/uL RBC (4.7-6.1) M/uL Hgb (14.0-18.0) g/dL Hct (42-52) % MCV (80-100) fL MCH (25-34) pg MCHC (32-36) g/dL RDW Std Deviation (36.4-46.3) fL RDW Coeff of Sonia (11.5-14.5) % Plt Count (130-400) K/uL MPV (7.4-10.4) fL Immature Gran % (Auto) % Neut % (Auto) % Lymph % (Auto) % Austin % (Auto) % Eos % (Auto) % Baso % (Auto) % Immature Gran # (Auto) (0.00-0.02) K/uL Neut # (Auto) (1.4-6.5) K/uL Lymph # (Auto) (1.2-3.4) K/uL Austin # (Auto) (0.11-0.59) K/uL Eos # (Auto) (0-0.5) K/uL Baso # (Auto) (0-0.2) K/uL Sample Site R Radial POC pH 7.48 H (7.35-7.45) POC pCO2 29 L (35-46) mmHg POC pO2 67 L (80-95) mmHg POC HCO3 22 (19-24) jake/L POC Total CO2 23 L (24-31) mEq/l POC Base Excess -2.0 (-9-1.8) jake/L POC ABG O2 Sat 95.0 (90-95) % Denys Test Pass O2 Delivery Device Other Sodium (136-145) mmol/L Potassium (3.5-5.1) mmol/L Chloride (98-107) mmol/L Carbon Dioxide (21-32) mmol/L Anion Gap (3-11) BUN (7-18) mg/dl Creatinine (0.6-1.4) mg/dl Est Cr Clr Drug Dosing ml/min Est GFR ( Amer) Est GFR (Non-Af Amer) BUN/Creatinine Ratio (10-20) Glucose (70-99) mg/dl POC Glucose 145 H (70-99) Lactate (0.4-2.0) mmol/L Calcium (8.5-10.1) mg/dl Total Bilirubin (0.2-1) mg/dl AST (15-37) U/L ALT (12-78) U/L Alkaline Phosphatase (45-117) U/L Total Protein (6.4-8.2) gm/dl Albumin (3.4-5.0) gm/dl Globulin (2.5-4.0) gm/dl Albumin/Globulin Ratio (0.9-2) Nasal Screen MRSA (PCR) Negative (Negative) 11/27/18 11/27/18 11/27/18 Range/Units 16:42 11:24 07:29 WBC (4.8-10.8) K/uL RBC (4.7-6.1) M/uL Hgb (14.0-18.0) g/dL Hct (42-52) % MCV (80-100) fL MCH (25-34) pg MCHC (32-36) g/dL RDW Std Deviation (36.4-46.3) fL RDW Coeff of Sonia (11.5-14.5) % Plt Count (130-400) K/uL MPV (7.4-10.4) fL Immature Gran % (Auto) % Neut % (Auto) % Lymph % (Auto) % [place] % (Auto) % Eos % (Auto) % Baso % (Auto) % Immature Gran # (Auto) (0.00-0.02) K/uL Neut # (Auto) (1.4-6.5) K/uL Lymph # (Auto) (1.2-3.4) K/uL [place] # (Auto) (0.11-0.59) K/uL Eos # (Auto) (0-0.5) K/uL Baso # (Auto) (0-0.2) K/uL Sample Site POC pH (7.35-7.45) POC pCO2 (35-46) mmHg POC pO2 (80-95) mmHg POC HCO3 (19-24) jake/L POC Total CO2 (24-31) mEq/l POC Base Excess (-9-1.8) jake/L POC ABG O2 Sat (90-95) % Denys Test O2 Delivery Device Sodium (136-145) mmol/L Potassium (3.5-5.1) mmol/L Chloride (98-107) mmol/L Carbon Dioxide (21-32) mmol/L Anion Gap (3-11) BUN (7-18) mg/dl Creatinine (0.6-1.4) mg/dl Est Cr Clr Drug Dosing ml/min Est GFR ( Amer) Est GFR (Non-Af Amer) BUN/Creatinine Ratio (10-20) Glucose (70-99) mg/dl POC Glucose 128 H 130 H 137 H (70-99) Lactate (0.4-2.0) mmol/L Calcium (8.5-10.1) mg/dl Total Bilirubin (0.2-1) mg/dl AST (15-37) U/L ALT (12-78) U/L Alkaline Phosphatase (45-117) U/L Total Protein (6.4-8.2) gm/dl Albumin (3.4-5.0) gm/dl Globulin (2.5-4.0) gm/dl Albumin/Globulin Ratio (0.9-2) Nasal Screen MRSA (PCR) (Negative) 11/27/18 Range/Units 06:47 WBC (4.8-10.8) K/uL RBC (4.7-6.1) M/uL Hgb (14.0-18.0) g/dL Hct (42-52) % MCV (80-100) fL MCH (25-34) pg MCHC (32-36) g/dL RDW Std Deviation (36.4-46.3) fL RDW Coeff of Sonia (11.5-14.5) % Plt Count (130-400) K/uL MPV (7.4-10.4) fL Immature Gran % (Auto) % Neut % (Auto) % Lymph % (Auto) % Austin % (Auto) % Eos % (Auto) % Baso % (Auto) % Immature Gran # (Auto) (0.00-0.02) K/uL Neut # (Auto) (1.4-6.5) K/uL Lymph # (Auto) (1.2-3.4) K/uL Austin # (Auto) (0.11-0.59) K/uL Eos # (Auto) (0-0.5) K/uL Baso # (Auto) (0-0.2) K/uL Sample Site POC pH (7.35-7.45) POC pCO2 (35-46) mmHg POC pO2 (80-95) mmHg POC HCO3 (19-24) jake/L POC Total CO2 (24-31) mEq/l POC Base Excess (-9-1.8) jake/L POC ABG O2 Sat (90-95) % Denys Test O2 Delivery Device Sodium 135 L (136-145) mmol/L Potassium 3.3 L (3.5-5.1) mmol/L Chloride 101 (98-107) mmol/L Carbon Dioxide 26 (21-32) mmol/L Anion Gap 8.0 (3-11) BUN 11 (7-18) mg/dl Creatinine 0.81 (0.6-1.4) mg/dl Est Cr Clr Drug Dosing 78.0 ml/min Est GFR ( Amer) 107.3 Est GFR (Non-Af Amer) 92.6 BUN/Creatinine Ratio 13.9 (10-20) Glucose 127 H (70-99) mg/dl POC Glucose (70-99) Lactate (0.4-2.0) mmol/L Calcium 8.2 L (8.5-10.1) mg/dl Total Bilirubin 0.7 (0.2-1) mg/dl AST 17 (15-37) U/L ALT 18 (12-78) U/L Alkaline Phosphatase 60 (45-117) U/L Total Protein 6.1 L (6.4-8.2) gm/dl Albumin 2.4 L (3.4-5.0) gm/dl Globulin 3.7 (2.5-4.0) gm/dl Albumin/Globulin Ratio 0.6 L (0.9-2) Nasal Screen MRSA (PCR) (Negative) Diagnostic Findings CXR 11/28 demonstrated - somewhat progressive pulmonary inflitrate on the right, and stable post pneumonectomy changes on the left Medications Administered Current Inpatient Medications Atorvastatin Calcium (Lipitor) 40 mg PO HS CARLO Stop: 12/22/18 20:59 Last Admin: 11/27/18 21:54 Dose: 40 mg Documented by: Budesonide/Formoterol Fumarate (Symbicort 160mcg/4.5mcg) 2 puffs INH BID CARLO Stop: 12/23/18 20:59 Last Admin: 11/27/18 21:59 Dose: 2 puffs Documented by: Dextrose (Dextrose 50%) 25 - 50 ml IV UD PRN; Protocol PRN Reason: Hypoglycemia Protocol Stop: 12/27/18 21:44 Diltiazem HCl (Cardizem Cd) 180 mg PO BID CARLO Stop: 12/23/18 08:59 Last Admin: 11/27/18 21:53 Dose: 180 mg Documented by: Docusate Sodium (Colace) 100 mg PO BID CARLO Stop: 12/22/18 20:59 Last Admin: 11/27/18 22:01 Dose: 100 mg Documented by: Glucagon (Glucagen) 1 mg SQ UD PRN; Protocol PRN Reason: Hypoglycemia Protocol Stop: 12/27/18 21:44 Glucose (Glucose 40%) 15 - 30 gm PO UD PRN; Protocol PRN Reason: Hypoglycemia Protocol Stop: 12/27/18 21:44 Glucose (Dex4 Glucose) 4 - 8 tabs PO UD PRN; Protocol PRN Reason: Hypoglycemia Protocol Stop: 12/27/18 21:44 Guaifenesin (Mucinex) 1,200 mg PO Q12 CARLO Stop: 12/24/18 20:59 Last Admin: 11/27/18 21:54 Dose: 1,200 mg Documented by: Heparin Sodium (Porcine) (Heparin Sodium (Porcine)) 5,000 units SQ Q8 [facility] Stop: 12/23/18 13:59 Last Admin: 11/28/18 06:12 Dose: 5,000 units Documented by: Insulin Aspart (Novolog Flexpen) 0 units SC ACHS [facility] Stop: 12/23/18 11:29 Last Admin: 11/27/18 22:09 Dose: 1 units Documented by: Insulin Glargine (Lantus Solostar Pen) 12 units SC DAILY [facility] Stop: 12/26/18 08:59 Last Admin: 11/27/18 08:25 Dose: 12 units Documented by: Levalbuterol HCl (Xopenex Hfa) 2 puffs INH Q6H [facility] Stop: 12/24/18 20:14 Last Admin: 11/28/18 02:16 Dose: Not Given Documented by: Magnesium Hydroxide (Milk Of Magnesia) 30 ml PO Q6H PRN PRN Reason: Constipation Stop: 12/25/18 14:34 Last Admin: 11/25/18 22:14 Dose: 30 ml Documented by: Metoprolol Succinate (Toprol Xl) 50 mg PO DAILY [facility] Stop: 12/23/18 08:59 Last Admin: 11/27/18 08:24 Dose: 50 mg Documented by: Miscellaneous (Carbohydrates For Hypoglycemia) 15 - 30 gm PO UD PRN PRN Reason: Hypoglycemia Treatment Stop: 12/27/18 21:44 Miscellaneous Information (Consult Glycemic Management Pharmacy) 1 ea N/A UD PRN PRN Reason: Consult Stop: 12/23/18 14:29 Morphine Sulfate (Morphine Sulfate) 1 - 2 mg IV Q1H PRN PRN Reason: Pain Stop: 12/06/18 20:26 Last Admin: 11/24/18 19:44 Dose: 2 mg Documented by: Oxycodone/Acetaminophen (Percocet 5mg/325mg) 1 - 2 tab PO Q3H PRN PRN Reason: Pain Stop: 12/06/18 20:26 Last Admin: 11/27/18 12:30 Dose: 2 tab Documented by: Polyethylene Glycol (Miralax Powder Packet) 17 gm PO BID [facility] Stop: 12/24/18 20:59 Last Admin: 11/27/18 21:59 Dose: 17 gm Documented by: Sennosides (Senokot) 17.2 mg PO QAM [facility] Stop: 12/25/18 08:59 Last Admin: 11/27/18 08:23 Dose: Not Given Documented by: Tamsulosin HCl (Flomax) 0.4 mg PO DAILY@1700 [facility] Stop: 12/23/18 17:59 Last Admin: 11/27/18 17:54 Dose: 0.4 mg Documented by: PG Care Time/CCT Total # of Minutes Spent Total Time Spent with Patient: Total time spent is greater than 50% in coordination of care (as documented) at patient's floor/unit and/or counseling patient: Resident Activity Tracking Resident Involvement: Resident Care Provided Care Provided: Adult Hospital Medicine (1) Controlled type 2 diabetes mellitus with diabetic nephropathy Diabetes mellitus m[facility] insulin use: without intermediate project manager use Qualified Code(s): E11.21 - Type 2 diabetes mellitus with diabetic nephropathy
[2018-11-28] MEDS ORDERED: VANCOMYCIN CONSULT ACTIVE PRN (07:50)
[2018-11-28] MEDS ORDERED: FUROSEMIDE 40 MG/4 ML VIAL IV STA (07:52)
[2018-11-28] MEDS ORDERED: CALCIUM GLUCONATE 10% 2,000 MG in 0.9 % SODIUM CHLORIDE 100 ML IV ONE (08:30)
--- NOTE | 2018-11-28 08:38 | Surgery Progress Note ---
Date of Service November 28, 2018 Assessment & Plan (1) Postoperative pneumonia: -fever noted and again the evening of 11/27/18 -CXR on 11/26/18 showed right lung infiltrate; serial CXR (including today's) shows worsening infiltrative pattern in right lung roper -leukocytosis noted -blood cultures drawn 11/26/18 and are (-) to date -sputum culture from 11/26/18 shows H. influenza -pt. has been started on broad spectrum antibiotics: -cefepime (day #2) and vancomycin (day #3) -inhalers in the form of symbicort and xopenex are in place -mucinex is being utilized -encourage coughing, deep breathing, and use of IA -repeat CBC in am -monitor for worsening S/S -pulmonary following as above. pt seen. clinically worsened yesterday afternoon. cxr looks a little worse today agree with current management. aggressive pulmonary toilet. ? consider steroids- not ideal in post op period. may need intubated in near future if condition worsens. (2) Squamous cell lung cancer: -pt. is s/p Robotic Left Pneumonectomy on 11/22/18 -treatment of post-op pneumonia and respiratory issues as outlined elsewhere in this note -sub-q heparin is in place for DVT prevention (3) Acute respiratory failure with hypoxia: -the evening of 11/27/18 pt. became more tachypneic -CXR showed persistent infiltrative pattern in right lung field -ABG showed respiratory alkalosis with hypoxemia -CBC showed worsening leukocytosis -lactate noted to be normal -pt. was transferred to ICU due to concern for respiratory failure -pt. maintained on vancomycin, but unasyn stopped and cefepime initiated -40 mg IV lasix given -pt. continues to have labored breathing and desaturation with activity -discussed with mobile home installer: -will continue diuresis with lasix 40 mg IV q12 -maintain on antibiotics as noted above -place on high flow oxygen -continue supportive care -if pt. continues to decompensate will need to consider BiPap or intubation Subjective Pt. notes his breathing feels labored with any activity. No CP. No N/V or abdominal pain. Discussed with RN--pt. has desaturation in the low 80s with minimal activity. His saturations improved with increasing his supplemental oxygen. Review of Systems Constitutional: + fever and + fatigue; no chills Respiratory: + dyspnea; no cough and no pain on inspiration Cardiovascular: no chest pain and no palpitations Gastrointestinal: no nausea and no vomiting Physical Exam Constitutional: + ill appearing Neck: trachea midline Respiratory: + labored breathing coarse BS noted on right; absent BS noted on left Cardiovascular: Rate/Rhythm: regular rate and regular rhythm Gastrointestinal (Abdomen): Inspection/Auscultation: abdomen not distended Percussion/Palpation: abdomen nontender Musculoskeletal: radial and pedal pulses are palpable; + LE edema noted; no calf tenderness Neurologic: pt. is alert to time place and person and answers questions appropriately; he follow commands and moves all extremities without noted focal deficits Results & Data Vital Signs (Past 12 Hours) Vital Signs Temp Pulse Pulse Resp BP Pulse Ox 11/28/18 06:00 80 17 112/58 L 92 11/28/18 04:00 36.8 C 82 30 H 120/59 L 93 11/28/18 02:00 86 20 110/57 L 92 11/28/18 00:00 37.4 C 92 H 30 H 118/63 93 11/27/18 23:00 89 30 H 118/60 95 11/27/18 22:00 92 H 26 H 126/68 93 11/27/18 21:30 38 C H 87 30 H 113/89 93 11/27/18 21:07 37.9 C H 84 24 131/69 94 (1) Squamous cell lung cancer Laterality: left Qualified Code(s): C34.92 - Malignant neoplasm of unspecified part of left bronchus or lung
[2018-11-28] MEDS: INSULIN ASPART 100 UNITS/ML 3 ML PEN SC SCH ×4 (08:41→21:43)
[2018-11-28 08:50] LABS: BUN Creatinine Ratio 16.3 (10-20); Calcium 8.1 mg/dl (8.5-10.1); Creatinine Clr Calc Pharmacy 84.8 ml/min; Est GFR (African American) 106.8; Est GFR (Non-African American) 92.1; Potassium 3.5 mmol/L (3.5-5.1)
[2018-11-28] MEDS ORDERED: VANCOMYCIN HCL 1,500 MG in SODIUM CHLORIDE 0.9% 500 ML IV STA (08:50)
[2018-11-28] MEDS: INSULIN GLARGINE SOLOSTAR 100 UNITS/ML 3 ML PEN SC SCH (09:02)
[2018-11-28] MEDS: dilTIAZem HCL 180 MG CAPCR PO SCH ×2 (09:42→20:29)
[2018-11-28] MEDS: METOPROLOL SUCC 50MG EXT REL TAB PO SCH (09:43)
--- NOTE | 2018-11-28 09:51 | Pharmacy Report ---
Pharmacy Glycemic Short Note 2 - Date of Service November 28, 2018 - Glycemic Short BSG Results (Last 24 hours): 11/27/18 11/27/18 11/27/18 11:24 16:42 20:21 Glucose POC Glucose 130 H 128 H 145 H 11/27/18 11/27/18 11/28/18 21:46 22:06 04:17 Glucose 150 H 124 H POC Glucose 152 H 11/28/18 08:06 Glucose 143 H POC Glucose OUTPATIENT ANTIDIABETIC REGIMEN: * Metformin 500 mg PO HS * A1c = 6.7% 07/24/18 ASSESSMENT: * 67 yo M with adequate outpatient control of T2DM per HbA1c on low dose metformin alone * Pt is maintained on oral antidiabetic agents as an outpatient * Oral agents are not recommended for inpatient use d/t drug interactions, changing PO intake, and difficulty titrating for acute hyper/hypoglycemia. ADA recommends re-initiating outpatient oral agents 1-2 days prior to discharge if/when appropriate if they were held on admission. 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 Patient has significant SOB, decompensates with any movement, accessory muscle use noted, and patient is reportedly "tiring out". Will therefore slightly decrease Lantus and adjust ongoing dose to depend on BSG trend PLAN FOR INPATIENT GLYCEMIC CONTROL: * Continue to hold outpatient oral diabetes medications (metformin) * Basal insulin: Lantus SQ qAM based on BSG * BSG less than 100 mg/dL: hold Lantus * BSG 100-140 mg/dL: 10 units * BSG greater than 140 mg/dL: 15 units * Bolus insulin (no change) * NovoLog per scale ACHS or Q6hrs while NPO * Goal Range: Low 110 mg/dL - High 140 mg/dL * Correction Factor: 25 mg/dL/unit * Nutritional / Prandial insulin per carb ratio of 1 unit per 10 grams CHO consumed PLAN FOR DISCHARGE: * May resume home metformin regimen if no contraindications present at time of discharge
[2018-11-28] MEDS: MoRPHine SULFATE 2 MG/ML CARP IV PRN ×4 (09:57→20:38)
[2018-11-28] MEDS ORDERED: CEFEPIME 2,000 MG in SYRINGE 7.5 ML IV SCH (10:00)
[2018-11-28] MEDS: SENNA 8.6 MG TAB PO SCH (10:01)
[2018-11-28] MEDS: BUDESONIDE/FORMOTEROL FUMARATE 160/4.5 60 PUFFS/INHALER INH SCH ×2 (10:01→20:28)
[2018-11-28] MEDS: guaiFENesin 600 MG TABCR PO SCH ×2 (10:01→20:30)
[2018-11-28] MEDS: POLYETHYLENE (MIRALAX) 17 GM PACK PO SCH ×2 (10:01→20:35)
[2018-11-28] MEDS: DOCUSATE SODIUM 100 MG CAP PO SCH ×2 (10:02→20:35)
--- NOTE | 2018-11-28 10:56 | Pharmacy Report ---
Pharmacy Abx Dose Short Note - Date of Service November 28, 2018 - Assessment & Plan Assessment * 67 year old M with lung cancer s/p L pneumonectomy on 11/22 initially started on Unasyn and vancomycin on 11/26 for post-operative PNA. Vancomycin was discontinued 11/27 afternoon by primary team (last dose was 11/27 AM). However, on 11/27 PM, patient abruptly worsened, spiked a fever to 38 C and was transferred to ICU. Unasyn was stopped and broadened to cefepime at that time. Patient remains in ICU at this time and per RN, has significant accessory muscle use, decompensates with minimal movement, and is reportedly "tiring out". Vancomycin was resumed 11/28 AM and therefore the patient is currently receiving cefepime and vancomycin * 11/26 sputum culture with probable Haemophilus. Unasyn would likely have covered this except for rare cases, and therefore it is unclear if this is the cause of the patient's worsening status noted 11/27 PM * Nasal MRSA swabs negative on 11/22, 11/26, and 11/27 but patients with significant lung obstruction (such as lung masses) are at increased risk for false negative nasal MRSA swabs therefore vancomycin is still appropriate at this time Vancomycin * Vancomycin started on 11/26 PM with 20 mg/kg loading dose and continued at 17 mg/kg IV q12h with first (and last) dose administered 11/27 AM. Therefore the patient essentially "missed" a 17 mg/kg dose on 11/27 PM. Will give a small re-loading dose at this time of 20 mg/kg, resume the previous regimen of 17 mg/kg IV q12h and obtain an early trough as a level has not yet been obtained at this time and the patient will have had 4 days of vancomycin therapy, albeit interrupted therapy Plan * Vancomycin 1500 mg IV x1 now, then 1250 mg IV q12h * Trough 11/29 @ 0830 Pharmacy will continue to follow and will adjust dose/frequency as necessary. Thank you.
--- NOTE | 2018-11-28 15:53 | Cardiology Progress Note ---
Date of Service November 28, 2018 Assessment & Plan (1) PAT (paroxysmal atrial tachycardia): He has had well-documented asymptomatic paroxysmal atrial tachycardia which comprised about half of his rhythm on an outpatient Holter monitor. It does not seem to affect his exercise ability but is sometimes quite fast and I believe aberrantly conducted at times. Preoperatively (before amiodarone was started) with sedation I believe the rhythm was quite stable suggesting that this is a catecholamine dependent rhythm, at least in part. Although since he is asymptomatic we could probably accept this arrhythmia in the long run, I think it might be prudent to try to control it. Amiodarone is effective but I hate to continue that over the long run as an outpatient due to its toxicity and lack of necessity. During his last hospitalization a combination of intravenous amiodarone and diltiazem was very effective in controlling the arrhythmia, it seems that intravenous amiodarone alone and oral diltiazem alone in combination of beta-blockade was not very effective. As an outpatient low-dose beta- blockade and reasonable doses of diltiazem did not control the arrhythmia. Preoperatively this admission he was having a lot of atrial arrhythmias, however interestingly postoperatively he has had very little although he is not on high doses of medications. I would continue his current regimen. (2) Wide-complex tachycardia: He has had wide-complex tachycardia both clinically in the OR during his initial surgery and on his Holter monitor as an outpatient. I cannot tell definitively whether this is ventricular in origin or atrial with aberrancy. In either case the treatment is not different, with normal left ventricular function it is not an ominous sign. He has not had this postoperatively so I would continue his current medical regimen. Subjective He appears tired and anxious but has no specific cardiac complaints. No palpitations. Physical Exam Physical Exam: Constitutional: Alert, cooperative and in no distress. Sleepy but arousable. Pulmonary: Crackles to auscultation bilaterally, decreased breath sounds on the left. He is on a BiPAP mask. Cardiac: Regular rhythm with no murmur, gallop or rub. Abdomen: Soft, nontender with normal bowel sounds. Extremities: No edema. Skin: No rash, ecchymoses or petechiae. Results & Data Vital Signs (Past 12 Hours) Vital Signs Temp Pulse Pulse Resp BP BP Pulse Ox 11/28/18 15:00 77 25 H 94 11/28/18 14:33 86 30 H 92 11/28/18 14:01 83 28 H 125/64 89 L 11/28/18 14:00 83 25 H 93 11/28/18 13:01 80 30 H 103/63 92 11/28/18 13:00 80 35 H 90 11/28/18 12:01 37.0 C 83 25 H 122/65 94 11/28/18 12:00 37.0 C 86 87 24 122/65 94 11/28/18 11:01 88 28 H 120/65 96 11/28/18 11:00 87 30 H 93 11/28/18 10:01 92 H 25 H 125/71 94 11/28/18 09:01 92 H 31 H 103/61 89 L 11/28/18 09:00 86 24 92 11/28/18 08:30 89 28 H 91 11/28/18 08:01 36.8 C 84 19 114/66 89 L 11/28/18 07:01 79 28 H 117/51 L 92 11/28/18 06:00 80 17 112/58 L 92 11/28/18 04:00 36.8 C 82 30 H 120/59 L 93 Laboratory Results Abnormal lab results 11/27/18 11/27/18 11/27/18 Range/Units 16:42 20:21 21:22 WBC (4.8-10.8) K/uL RBC (4.7-6.1) M/uL Hgb (14.0-18.0) g/dL Hct (42-52) % RDW Std Deviation (36.4-46.3) fL RDW Coeff of Sonia (11.5-14.5) % Immature Gran # (Auto) (0.00-0.02) K/uL Neut # (Auto) (1.4-6.5) K/uL Lymph # (Auto) (1.2-3.4) K/uL [place] # (Auto) (0.11-0.59) K/uL POC pH 7.48 H (7.35-7.45) POC pCO2 29 L (35-46) mmHg POC pO2 67 L (80-95) mmHg POC Total CO2 23 L (24-31) mEq/l Sodium (136-145) mmol/L Potassium (3.5-5.1) mmol/L Glucose (70-99) mg/dl POC Glucose 128 H 145 H (70-99) Calcium (8.5-10.1) mg/dl NT-Pro-B Natriuret Pep (0-900) pg/ml 11/27/18 11/27/18 11/27/18 Range/Units 21:46 21:46 22:06 WBC 18.04 H (4.8-10.8) K/uL RBC 3.87 L (4.7-6.1) M/uL Hgb 11.2 L (14.0-18.0) g/dL Hct 32.2 L (42-52) % RDW Std Deviation 46.9 H (36.4-46.3) fL RDW Coeff of Sonia 15.4 H (11.5-14.5) % Immature Gran # (Auto) 0.14 H (0.00-0.02) K/uL Neut # (Auto) 15.36 H (1.4-6.5) K/uL Lymph # (Auto) 0.92 L (1.2-3.4) K/uL [place] # (Auto) 1.50 H (0.11-0.59) K/uL POC pH (7.35-7.45) POC pCO2 (35-46) mmHg POC pO2 (80-95) mmHg POC Total CO2 (24-31) mEq/l Sodium 134 L (136-145) mmol/L Potassium 3.1 L (3.5-5.1) mmol/L Glucose 150 H (70-99) mg/dl POC Glucose 152 H (70-99) Calcium (8.5-10.1) mg/dl NT-Pro-B Natriuret Pep (0-900) pg/ml 11/28/18 11/28/18 11/28/18 Range/Units 04:17 04:17 08:06 WBC 14.69 H (4.8-10.8) K/uL RBC 3.55 L (4.7-6.1) M/uL Hgb 9.9 L (14.0-18.0) g/dL Hct 29.6 L (42-52) % RDW Std Deviation 47.1 H (36.4-46.3) fL RDW Coeff of Sonia 15.2 H (11.5-14.5) % Immature Gran # (Auto) 0.08 H (0.00-0.02) K/uL Neut # (Auto) 11.84 H (1.4-6.5) K/uL Lymph # (Auto) (1.2-3.4) K/uL [place] # (Auto) 1.24 H (0.11-0.59) K/uL POC pH (7.35-7.45) POC pCO2 (35-46) mmHg POC pO2 (80-95) mmHg POC Total CO2 (24-31) mEq/l Sodium (136-145) mmol/L Potassium 3.1 L (3.5-5.1) mmol/L Glucose 124 H 143 H (70-99) mg/dl POC Glucose (70-99) Calcium 7.9 L 8.1 L (8.5-10.1) mg/dl NT-Pro-B Natriuret Pep 1546 H (0-900) pg/ml 11/28/18 Range/Units 11:48 WBC (4.8-10.8) K/uL RBC (4.7-6.1) M/uL Hgb (14.0-18.0) g/dL Hct (42-52) % RDW Std Deviation (36.4-46.3) fL RDW Coeff of Sonia (11.5-14.5) % Immature Gran # (Auto) (0.00-0.02) K/uL Neut # (Auto) (1.4-6.5) K/uL Lymph # (Auto) (1.2-3.4) K/uL [place] # (Auto) (0.11-0.59) K/uL POC pH (7.35-7.45) POC pCO2 (35-46) mmHg POC pO2 (80-95) mmHg POC Total CO2 (24-31) mEq/l Sodium (136-145) mmol/L Potassium (3.5-5.1) mmol/L Glucose (70-99) mg/dl POC Glucose 138 H (70-99) Calcium (8.5-10.1) mg/dl NT-Pro-B Natriuret Pep (0-900) pg/ml Diagnostic Findings Telemetry: Sinus rhythm, very little ectopy PG Care Time/CCT Total # of Minutes Spent Total Time Spent with Patient: Total time spent is greater than 50% in coordination of care (as documented) at patient's floor/unit and/or counseling patient:
[2018-11-28 16:06] LABS: BUN Creatinine Ratio 15.6 (10-20); Calcium 8.4 mg/dl (8.5-10.1); Creatinine Clr Calc Pharmacy 85.8 ml/min; Est GFR (African American) 107.3; Est GFR (Non-African American) 92.6; Magnesium 2.2 mg/dl (1.8-2.4); Phosphorus 3.2 mg/dl (2.5-4.9); Potassium 3.9 mmol/L (3.5-5.1)
[2018-11-28] MEDS: TAMSULOSIN HCL 0.4 MG CAP PO SCH (17:27)
[2018-11-28] MEDS: CEFEPIME 2,000 MG in SYRINGE 7.5 ML IV SCH (17:27)
--- NOTE | 2018-11-28 17:31 | XRay Report ---
XR chest 1V portable CLINICAL HISTORY: dyspnea/ pulm edema COMPARISON STUDY: 11/28/2018 FINDINGS: The heart is enlarged. There are postsurgical changes of a left pneumonectomy. Gas and flui d fills the left pneumonectomy space. There are extensive right lung airspace opacities, likely repre senting pulmonary edema although a diffuse pneumonitis could appear similar. There is left-sided subc utaneous emphysema[ IMPRESSION: 1. Persistent right lung pulmonary edema pattern 2. Postpneumonectomy changes on the left with air and fluid occupying the left pneumonectomy space Electronically signed by: Tyler Orellana M.D. 11/28/2018 5:29 PM
[2018-11-28] MEDS: ATORVASTATIN 40 MG TAB PO SCH (20:30)
[2018-11-28] MEDS: FUROSEMIDE 40 MG in SYRINGE 0 ML IV SCH (20:35)
[2018-11-28] MEDS ORDERED: VANCOMYCIN HCL 1,250 MG in SODIUM CHLORIDE 0.9% 250 ML IV SCH (21:00)
[2018-11-29] MEDS: MoRPHine SULFATE 2 MG/ML CARP IV PRN ×3 (00:01→06:36)
[2018-11-29] MEDS: CEFEPIME 2,000 MG in SYRINGE 7.5 ML IV SCH ×3 (02:03→18:07)
[2018-11-29] MEDS: LEVALBUTEROL TARTRATE 15 GM HFA.AER.AD INH SCH ×2 (02:04→09:45)
[2018-11-29 05:16] LABS: Basophils # (auto) 0.03 K/uL (0-0.2); Basophils % (auto) 0.2 %; Eosinophils # (auto) 0.07 K/uL (0-0.5); Eosinophils % (auto) 0.4 %; Hematocrit (blood only) 31.1 % (42-52); Hemoglobin 10.5 g/dL (14.0-18.0); Immature Granulocytes # (auto) 0.19 K/uL (0.00-0.02); Immature Granulocytes % (auto) 1.2 %; Lymphocytes # (auto) 1.11 K/uL (1.2-3.4); Lymphocytes % (auto) 6.9 %; Mean Corpuscular Hemoglobin 28.4 pg (25-34); Mean Corpuscular Hgb Conc 33.8 g/dL (32-36); Mean Corpuscular Volume 84.1 fL (80-100); Mean Platelet Volume 10.1 fL (7.4-10.4); Monocytes # (auto) 1.35 K/uL (0.11-0.59); Monocytes % (auto) 8.4 %; Neutrophils # (auto) 13.37 K/uL (1.4-6.5); Neutrophils % (auto) 82.9 %; Platelet Count 310 K/uL (130-400); RDW Coefficient of Variation 15.3 % (11.5-14.5); RDW Standard Deviation 47.3 fL (36.4-46.3); White Blood Count 16.12 K/uL (4.8-10.8)
[2018-11-29 05:41] LABS: Calcium 8.6 mg/dl (8.5-10.1); Creatinine Clr Calc Pharmacy 80.8 ml/min; Est GFR (African American) 104.7; Est GFR (Non-African American) 90.4; Magnesium 2.2 mg/dl (1.8-2.4); Phosphorus 3.4 mg/dl (2.5-4.9); Potassium 3.8 mmol/L (3.5-5.1)
[2018-11-29] MEDS: HEPARIN SOD 5,000 UNIT/0.5 ML VIAL SQ SCH ×3 (06:05→21:50)
--- NOTE | 2018-11-29 07:26 | XRay Report ---
XR chest 1V portable HISTORY: 67 years-old Male pneumonectomy follow-up study in a patient with pneumonectomy. Acute resp iratory distress. COMPARISON: Chest radiograph 11/28/2018 TECHNIQUE: Portable AP view of the chest FINDINGS: Cardiac silhouette is enlarged. Pulmonary vascular congestion with interstitial coarsening throughout the right lung persists and appears unchanged. Postpneumonectomy changes about the left hemithorax w ith air-fluid level occupying the left hemithorax appears unchanged. Degenerative changes of the shou lders and spine. Persistent subcutaneous emphysema about the left lateral chest wall. IMPRESSION: 1. Cardiomegaly with pulmonary vascular congestion and interstitial coarsening throughout the right l keyur redemonstrated suggestive of pulmonary edema. 2. Postpneumonectomy changes of the left hemithorax with unchanged left-sided air-fluid level. 3. Persistent subcutaneous emphysema about the left lateral chest wall. The above report was generated using voice recognition software. It may contain grammatical, syntax o r spelling errors. Electronically signed by: Francois Marsh M.D. 11/29/2018 7:24 AM
--- NOTE | 2018-11-29 07:32 | Critical Care Progress Note ---
Date of Service November 29, 2018 Assessment & Plan (1) Admitted to intensive care unit: Reason Critically Ill: 67-year-old male readmitted to the ICU following increased shortness of breath and hypoxic respiratory failure on the floor following Neuro - [facility] ICU: Negative Cardiac - Proximal atrial tachycardiacontinue MTP and diltiazem, currently sinus rhythm HTNcontinue MTP HLDcontinue simvastatin Respiratory - Hypoxic respiratory failurepulmonary edema versus pneumonia versus reperfusion syndrome -Reperfusion injury less likely at this stage postop -Chest x-ray appears worse this a.m. and may likely represent developing ARDS -Culture from the left lung grew Corynebacterium, sputum culture grew H. influenzae 11/27 -Antibiotics narrowed to cefepime -Continue diuresis 40 mg twice daily -CPAP PEEP 5, as patient's symptoms not improved he remains low threshold for intubation and we have discussed this with him and -Continue nebs GI - N.p.o. at this time Continue bowel regimen RENAL/LYTES - Creatinine stable, monitor Replete electrolytes as necessary - Foleystrict I's and O's ENDO - Type 2 diabetescontinue sliding scale insulin -ICU hyperglycemic protocol HEME - H&H stable, trend WBCs with routine CBCs ID - Continue cefepime for possible pulmonary source LINES/IV ACCESS - Peripheral IVs DVT PROPHYLAXIS - SCD, heparin I have personally spent 40 minutes of critical care time in the direct management of this patient. This is a life/limb threatening event. This includes time spent evaluating patient, direct bedside care, chart review, placing orders, interpretation of diagnostic studies, discussion with consultants, patient, and family members, as well as other required patient management activities. This time is exclusive of all separately billable procedures, and teaching time and separate from and in addition to any other critical care service time. Thank you for allowing us to participate in the care of this patient. Please refer to my attending physician's documentation for any further recommendations. (2) Postoperative pneumonia: (3) Acute respiratory failure with hypoxia: (4) Edema of all four extremities: (5) DVT prophylaxis: (6) S/P pneumonectomy: Supervising Physician Co-Signing Physician Notes Patient seen and examined with Timothy SONG. Patient continues to be hypoxic secondary to ARDS of the right lung. He does have pneumonia and we are currently treating him with cefepime. Sputum cultures are positive for Haemophilus. Sensitivities are pending. His MRSA screen was negative and thus we have discontinued vancomycin. We are continuing diuresis with 40 mg of IV Lasix twice daily. We will give an extra dose of one-time 40 mg Lasix in the afternoon. He is unable to tolerate high flow nasal cannula even at 40 L and 100% oxygen. He is currently on CPAP at 5 cm H2O. I had a lengthy discussion with the patient's and the daughter over the phone. We discussed what the implications of having ARDS are and that he may need mechanical ventilatory support later today. Unfortunately, at this time he is unable to eat or drink while he is on the CPAP and thus he is lacking nutrition to help allow his body to heal from his recent surgery. Thus I think if there is no significant improvement later today and we should go ahead and proceed with intubation and institute lung protective ventilation strategies to help oxygenate him. I do not think at this time that transfer to higher level of care or ECMO is needed given that we are only on CPAP at this present time we have not trialed invasive ventilatory support. Subjective This morning the patient appears tired. We attempted to transition the patient from CPAP mask to high flow nasal cannula, however he became immediately tachypneic, anxious and uncomfortable. He has been on CPAP for over 24 hours and has had nearly no p.o. intake for that period. His imaging and exam show no improvement patient status and he may be developing ARDS. At this time the patient remains a very low threshold for intubation, and if no improvement in the next 12 to 24 hours we have discussed proceeding with intubation with the patient and family member. In the meantime we will continue current therapy and aggressive diuresis in hopes that patient will improve. He reports shortness of breath, along with anxiety when he does not have CPAP on and is unable to tolerate high flow for these reasons. He denies headache, syncope dizziness, nausea or vomiting, abdominal pain, chest pain, palpitations. Review of Systems Review of Systems: All systems reviewed & are unremarkable except as noted in HPI & below Physical Exam Eyes: PERRL, conjunctivae normal, anicteric sclerae ENMT: external ear and nose normal, oropharynx normal Neck: trachea midline, no thyromegaly Respiratory: normal respiratory effort, + cough and + tachypneic; no respiratory distress and no labored breathing Cardiovascular: RRR, no murmur, no edema Rate/Rhythm: regular rate and regular rhythm Heart Sounds: normal S1 and normal S2; no murmur Vessels: + JVD Extremities: + edema Gastrointestinal (Abdomen): normal bowel sounds, soft, nontender, no hepatosplenomegaly Skin: no rashes, warm and dry Neurologic: PERRL, EOMI, accommodation nl, no face palsy, no dysarthria Psychiatric: A+Ox3, euthymic affect Results & Data Vital Signs (Past 12 Hours) Vital Signs Temp Pulse Pulse Resp BP Pulse Ox 11/29/18 06:00 81 28 H 131/65 94 11/29/18 04:00 36.9 C 81 28 H 122/74 94 11/29/18 03:08 84 27 H 90 11/29/18 02:00 80 30 H 120/64 92 11/29/18 00:00 36.8 C 81 30 H 129/66 92 11/28/18 22:00 86 30 H 128/49 L 92 11/28/18 21:41 88 31 H 90 11/28/18 20:00 36.9 C 82 30 H 133/72 96 PG Care Time/CCT Total # of Minutes Spent Total Time Spent with Patient: Total time spent is greater than 50% in coordination of care (as documented) at patient's floor/unit and/or counseling patient: Critical Care Time: Yes Total Critical Care Time: 60
[2018-11-29] MEDS: dilTIAZem HCL 180 MG CAPCR PO SCH ×2 (07:37→21:30)
[2018-11-29] MEDS: METOPROLOL SUCC 50MG EXT REL TAB PO SCH (07:37)
[2018-11-29] MEDS: INSULIN ASPART 100 UNITS/ML 3 ML PEN SC SCH ×5 (07:47→23:58)
[2018-11-29] MEDS: INSULIN GLARGINE SOLOSTAR 100 UNITS/ML 3 ML PEN SC SCH (07:48)
[2018-11-29] MEDS: FUROSEMIDE 40 MG in SYRINGE 0 ML IV SCH ×2 (07:51→21:50)
[2018-11-29] MEDS ORDERED: VANCOMYCIN TROUGH ONE (08:30)
[2018-11-29] MEDS: POLYETHYLENE (MIRALAX) 17 GM PACK PO SCH ×2 (08:49→21:31)
[2018-11-29] MEDS: guaiFENesin 600 MG TABCR PO SCH ×2 (08:49→21:31)
[2018-11-29] MEDS: SENNA 8.6 MG TAB PO SCH (08:53)
[2018-11-29] MEDS: DOCUSATE SODIUM 100 MG CAP PO SCH ×2 (08:56→21:30)
[2018-11-29] MEDS: fentaNYL citrate 100 MCG/2 ML VIAL IV PRN ×5 (10:05→23:57)
[2018-11-29] MEDS ORDERED: FUROSEMIDE 40 MG in SYRINGE 0 ML IV ONE (12:00)
--- NOTE | 2018-11-29 16:13 | Family Medicine Progress Note ---
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 influenza. Pulmonary Infection: -likely 2/2 hospital admission and L pneumonectomy -Culture from L lung grew Corynebacterium species on 11/25 -sputum cx positive for H. influenza on 11/27; sensitivities pending -Nasal MRSA swab negative -started on cefepime, vancomycin for broad spectrum coverage -Trend WBC and temperature to ensure pt does not become septic. Hypoxic Event: (11/27) -?pulmonary edema vs secondary infection vs ARDS -started on broad spectrum coverage for hospital acquired bacteria -received IV lasix for diuresis -being monitored in ICU S/P pneumonectomy: -Deferring to surgical team for primary management of post-op care. Wheeze: -no hx of lung disease prior to mass formation -symbicort and levalbuterol inhalers available Paroxysmal Atrial Tachycardia: -Continue Metoprolol succinate 50 PO daily and Diltiazem 180 PO BID Constipation: -Received milk of magnesia 11/25 which appears to have helped release constipation. -PRN sennosides, docusate, and miralax available Hypercholesterolemia: -Continue atorvastatin 40 mg daily T2DM: -controlled on SSI. -Hold home Metformin Code: Full DVT ppx: SCDs Dispo: continued observation in ICU Supervising Physician Co-Signing Physician Notes I personally examined the patient and verified all hudson points of history and exam, discussed case, and agree with decision making with Dr Pizarro. Feeling about the same, appearing to fatigue some. Has not been able to take and meaningful oral intake. Vitals noted, with long course on the right quiet on the left. On BiPAP. Degree of conversational dyspnea. Acute hypoxic respiratory failure related to healthcare associated pneumonia and ARDS. Continue antibiotics, diuresis, supportive care. Otherwise as above. Subjective Pt is continuing to require high amount of O2 support to prevent desaturations, falls rapidly when off CPAP. No further episodes of fever or chills overnight. Feels like he was able to sleep a little more overnight without fearing that he was going to worsen. Wants to continue to try and breath on his own, before thinking about other options for ease of breathing. Review of Systems Constitutional: + chills and + sweats; no fever Respiratory: + dyspnea and + sputum production Gastrointestinal: was finally able to have multiple bowel movements yesterday and today Physical Exam Constitutional: well developed, cooperative and + lethargic Respiratory: normal respiratory effort, + labored breathing (visibly belly breathing) and + tachypneic; + not able to speak in complete sentence Auscultation: + breath sounds absent (s/p L pneumonectomy) and + diminished lung sounds (centrally on R (improving)); no crackles and no wheezes Cardiovascular: Rate/Rhythm: regular rate and regular rhythm Heart Sounds: normal S1 and normal S2; no gallop, no murmur and no cardiac rub Extremities: no pedal edema Lymphatic: no lymphadenopathy Results & Data Vital Signs (Past 12 Hours) Vital Signs Temp Pulse Pulse Resp BP BP Pulse Ox 11/29/18 15:01 84 36 H 113/67 95 11/29/18 14:01 82 29 H 121/68 95 11/29/18 13:47 82 26 H 95 11/29/18 13:01 94 H 34 H 131/70 94 11/29/18 12:01 36.8 C 88 32 H 124/72 96 11/29/18 11:01 83 33 H 103/59 L 93 11/29/18 10:01 77 29 H 124/64 92 11/29/18 09:01 77 34 H 120/65 93 11/29/18 08:01 36.8 C 75 33 H 120/64 96 11/29/18 07:36 77 27 H 94 11/29/18 07:01 72 28 H 114/64 95 11/29/18 06:00 81 28 H 131/65 94 Laboratory Results 11/29/18 11/29/18 11/29/18 Range/Units 11:55 04:45 04:45 WBC 16.12 H (4.8-10.8) K/uL RBC 3.70 L (4.7-6.1) M/uL Hgb 10.5 L (14.0-18.0) g/dL Hct 31.1 L (42-52) % MCV 84.1 (80-100) fL MCH 28.4 (25-34) pg MCHC 33.8 (32-36) g/dL RDW Std Deviation 47.3 H (36.4-46.3) fL RDW Coeff of Sonia 15.3 H (11.5-14.5) % Plt Count 310 (130-400) K/uL MPV 10.1 (7.4-10.4) fL Immature Gran % (Auto) 1.2 % Neut % (Auto) 82.9 % Lymph % (Auto) 6.9 % Fannin % (Auto) 8.4 % Eos % (Auto) 0.4 % Baso % (Auto) 0.2 % Immature Gran # (Auto) 0.19 H (0.00-0.02) K/uL Neut # (Auto) 13.37 H (1.4-6.5) K/uL Lymph # (Auto) 1.11 L (1.2-3.4) K/uL Fannin # (Auto) 1.35 H (0.11-0.59) K/uL Eos # (Auto) 0.07 (0-0.5) K/uL Baso # (Auto) 0.03 (0-0.2) K/uL Sodium 137 (136-145) mmol/L Potassium 3.8 (3.5-5.1) mmol/L Chloride 101 (98-107) mmol/L Carbon Dioxide 28 (21-32) mmol/L Anion Gap 8.0 (3-11) BUN 17 (7-18) mg/dl Creatinine 0.86 (0.6-1.4) mg/dl Est Cr Clr Drug Dosing 80.8 ml/min Est GFR ( Amer) 104.7 Est GFR (Non-Af Amer) 90.4 BUN/Creatinine Ratio 20.0 (10-20) Glucose 136 H (70-99) mg/dl POC Glucose 140 H (70-99) Calcium 8.6 (8.5-10.1) mg/dl Phosphorus 3.4 (2.5-4.9) mg/dl Magnesium 2.2 (1.8-2.4) mg/dl 11/28/18 11/28/18 Range/Units 21:37 15:37 WBC (4.8-10.8) K/uL RBC (4.7-6.1) M/uL Hgb (14.0-18.0) g/dL Hct (42-52) % MCV (80-100) fL MCH (25-34) pg MCHC (32-36) g/dL RDW Std Deviation (36.4-46.3) fL RDW Coeff of Sonia (11.5-14.5) % Plt Count (130-400) K/uL MPV (7.4-10.4) fL Immature Gran % (Auto) % Neut % (Auto) % Lymph % (Auto) % Fannin % (Auto) % Eos % (Auto) % Baso % (Auto) % Immature Gran # (Auto) (0.00-0.02) K/uL Neut # (Auto) (1.4-6.5) K/uL Lymph # (Auto) (1.2-3.4) K/uL Fannin # (Auto) (0.11-0.59) K/uL Eos # (Auto) (0-0.5) K/uL Baso # (Auto) (0-0.2) K/uL Sodium 137 (136-145) mmol/L Potassium 3.9 (3.5-5.1) mmol/L Chloride 102 (98-107) mmol/L Carbon Dioxide 26 (21-32) mmol/L Anion Gap 9.0 (3-11) BUN 13 (7-18) mg/dl Creatinine 0.81 (0.6-1.4) mg/dl Est Cr Clr Drug Dosing 85.8 ml/min Est GFR ( Amer) 107.3 Est GFR (Non-Af Amer) 92.6 BUN/Creatinine Ratio 15.6 (10-20) Glucose 124 H (70-99) mg/dl POC Glucose 172 H (70-99) Calcium 8.4 L (8.5-10.1) mg/dl Phosphorus 3.2 (2.5-4.9) mg/dl Magnesium 2.2 (1.8-2.4) mg/dl Medications Administered Current Inpatient Medications Albuterol (Duoneb) 3 ml INH Q6H PRN PRN Reason: sob Stop: 12/29/18 08:50 Atorvastatin Calcium (Lipitor) 40 mg PO HS CARLO Stop: 12/22/18 20:59 Last Admin: 11/28/18 20:30 Dose: 40 mg Documented by: Dextrose (Dextrose 50%) 25 - 50 ml IV UD PRN; Protocol PRN Reason: Hypoglycemia Protocol Stop: 12/27/18 21:44 Diltiazem HCl (Cardizem Cd) 180 mg PO BID CARLO Stop: 12/23/18 08:59 Last Admin: 11/29/18 07:37 Dose: 180 mg Documented by: Docusate Sodium (Colace) 100 mg PO BID CARLO Stop: 12/22/18 20:59 Last Admin: 11/29/18 08:56 Dose: 100 mg Documented by: Fentanyl Citrate (Fentanyl Citrate) 25 mcg IV Q2H PRN PRN Reason: Pain Stop: 12/13/18 08:48 Last Admin: 11/29/18 14:41 Dose: 25 mcg Documented by: Glucagon (Glucagen) 1 mg SQ UD PRN; Protocol PRN Reason: Hypoglycemia Protocol Stop: 12/27/18 21:44 Glucose (Glucose 40%) 15 - 30 gm PO UD PRN; Protocol PRN Reason: Hypoglycemia Protocol Stop: 12/27/18 21:44 Glucose (Dex4 Glucose) 4 - 8 tabs PO UD PRN; Protocol PRN Reason: Hypoglycemia Protocol Stop: 12/27/18 21:44 Guaifenesin (Mucinex) 1,200 mg PO Q12 CARLO Stop: 12/24/18 20:59 Last Admin: 11/29/18 08:49 Dose: Not Given Documented by: Heparin Sodium (Porcine) (Heparin Sodium (Porcine)) 5,000 units SQ Q8 CARLO Stop: 12/23/18 13:59 Last Admin: 11/29/18 14:39 Dose: 5,000 units Documented by: Cefepime HCl 2,000 mg/ Syringe 20 mls @ 5.5 mls/min IV Q8H [facility]; Protocol Stop: 12/05/18 17:59 Last Admin: 11/29/18 10:11 Dose: 5.5 mls/min Documented by: Furosemide 40 mg/ Syringe 4 mls @ 4 mls/min IV Q12 CARLO Stop: 12/28/18 20:59 Last Admin: 11/29/18 07:51 Dose: 4 mls/min Documented by: Insulin Aspart (Novolog Flexpen) 0 units SC ACHS [facility] [place] Stop: 12/23/18 11:29 Last Admin: 11/29/18 11:58 Dose: Not Given Documented by: Magnesium Hydroxide (Milk Of Magnesia) 30 ml PO Q6H PRN PRN Reason: Constipation Stop: 12/25/18 14:34 Last Admin: 11/25/18 22:14 Dose: 30 ml Documented by: Metoprolol Succinate (Toprol Xl) 50 mg PO DAILY [facility] [place] Stop: 12/23/18 08:59 Last Admin: 11/29/18 07:37 Dose: 50 mg Documented by: Miscellaneous (Carbohydrates For Hypoglycemia) 15 - 30 gm PO UD PRN PRN Reason: Hypoglycemia Treatment Stop: 12/27/18 21:44 Miscellaneous Information (Consult Glycemic Management Pharmacy) 1 ea N/A UD PRN PRN Reason: Consult Stop: 12/23/18 14:29 Polyethylene Glycol (Miralax Powder Packet) 17 gm PO BID [facility] [place] Stop: 12/24/18 20:59 Last Admin: 11/29/18 08:49 Dose: Not Given Documented by: Sennosides (Senokot) 17.2 mg PO QAM [facility] [place] Stop: 12/25/18 08:59 Last Admin: 11/29/18 08:53 Dose: 17.2 mg Documented by: Tamsulosin HCl (Flomax) 0.4 mg PO DAILY@1700 [facility] [place] Stop: 12/23/18 17:59 Last Admin: 11/28/18 17:27 Dose: Not Given Documented by: PG Care Time/CCT Total # of Minutes Spent Total Time Spent with Patient: Total time spent is greater than 50% in coordination of care (as documented) at patient's floor/unit and/or counseling patient: Resident Activity Tracking Resident Involvement: Resident Care Provided Care Provided: Adult Hospital Medicine
[2018-11-29] MEDS ORDERED: OR MISCELLANEOUS MED ONE (17:06)
[2018-11-29] MEDS: TAMSULOSIN HCL 0.4 MG CAP PO SCH (17:48)
--- NOTE | 2018-11-29 18:31 | Progress Note ---
DATE: 11/29/2018 Mr. Ruiz is seen today. Mr. Ruiz has acute lung injury following a pneumonectomy. There is an extremely high mortality rate. I have explained this quite carefully to his . I discussed this with his son, Keyur and his daughter, Giselle. Needless to say, this is a terrible problem; however, we are supporting him as well as we can. He is not having much in the way of pain. His lung does not sound bad on the right. His chest x-ray show that his left side is filling up appropriately. His right side definitely looks like acute lung injury. We have been diuresing him and giving antibiotics. His procalcitonin level was normal. ASSESSMENT AND PLAN: Postoperative day #7 status post radical left pneumonectomy for squamous cell carcinoma. All lymph nodes and margins are negative for carcinoma. Given his location, this tumor will probably require chemotherapy; however, I am quite concerned about his in-hospital mortality. He looks as if he is tiring and may well require intubation with ventilatory support which would be a terrible sign. I have discussed this case in detail with the patient and his family as well as his consulting physicians. RASHIDA
[2018-11-29] MEDS: ATORVASTATIN 40 MG TAB PO SCH (21:31)
[2018-11-30] MEDS: CEFEPIME 2,000 MG in SYRINGE 7.5 ML IV SCH (03:28)
[2018-11-30] MEDS: INSULIN ASPART 100 UNITS/ML 3 ML PEN SC SCH ×3 (06:04→16:30)
[2018-11-30] MEDS: HEPARIN SOD 5,000 UNIT/0.5 ML VIAL SQ SCH ×3 (06:04→21:11)
[2018-11-30] MEDS: fentaNYL citrate 100 MCG/2 ML VIAL IV PRN ×7 (06:22→22:58)
--- NOTE | 2018-11-30 06:59 | XRay Report ---
XR chest 1V portable CLINICAL HISTORY: follow up diureses ABNORMAL CHEST X-RAY COMPARISON STUDY: 11/29/2018 FINDINGS: Postpneumonectomy changes are again present on the left. There is slight increase in the f luid in the left pneumonectomy space. There is mild left-sided subcutaneous emphysema. Diffuse right lung airspace opacities demonstrate minimal interval improvement.[ IMPRESSION: 1. Left-sided pneumonectomy with minimal interval increase in the left pneumonectomy space fluid 2. Very slight improvement in the diffuse right lung airspace opacities Electronically signed by: Tyler Orellana M.D. 11/30/2018 6:57 AM
--- NOTE | 2018-11-30 07:34 | Progress Note ---
DATE: 11/30/2018 Mr. Ruiz is seen today. Despite the fact that he is markedly short of breath, he I think looks a bit better. His respiration rate is down in the 20s from the 30s. His saturations are improved from the low 90s to the high 90s. I think his x-ray looks about the same. I have had a long talk with the patient and his 2 children. I will discuss this with Dr. Miller today. We may well end up having to support him; however, I believe he looks a bit better today. We will see how he progresses over the day.
--- NOTE | 2018-11-30 07:54 | Critical Care Progress Note ---
Date of Service November 30, 2018 Assessment & Plan (1) Admitted to intensive care unit: Reason Critically Ill: 67-year-old male readmitted to the ICU following increased shortness of breath and hypoxic respiratory failure on the floor following Neuro - [facility] ICU: Negative Cardiac - Proximal atrial tachycardiacontinue MTP and diltiazem, currently sinus rhythm HTNcontinue MTP HLDcontinue simvastatin Respiratory - Hypoxic respiratory failurepulmonary edema versus pneumonia versus reperfusion syndrome -Reperfusion injury less likely at this stage postop -Chest x-ray appears worse this a.m. and may likely represent developing ARDS -Culture from the left lung grew Corynebacterium, sputum culture grew H. influenzae 11/27 -Antibiotics narrowed to cefepime -Continue diuresis 40 mg twice daily -Patient switched from CPAP to high flow nasal cannula this morning, currently tolerating, still remains low threshold for intubation -Continue nebs GI - We will advance to clear liquids at this time Continue bowel regimen RENAL/LYTES - Creatinine stable, monitor Replete electrolytes as necessary - Foleystrict I's and O's ENDO - Type 2 diabetescontinue sliding scale insulin -ICU hyperglycemic protocol HEME - H&H stable, trend WBCs with routine CBCs ID - Continue cefepime for possible pulmonary source LINES/IV ACCESS - Peripheral IVs DVT PROPHYLAXIS - SCD, heparin I have personally spent 40 minutes of critical care time in the direct management of this patient. This is a life/limb threatening event. This includes time spent evaluating patient, direct bedside care, chart review, placing orders, interpretation of diagnostic studies, discussion with consultants, patient, and family members, as well as other required patient management activities. This time is exclusive of all separately billable procedures, and teaching time and separate from and in addition to any other critical care service time. Thank you for allowing us to participate in the care of this patient. Please refer to my attending physician's documentation for any further recommendations. (2) Postoperative pneumonia: Switch abx from unasyn to cefepime given acute decompensation. Continue vanc. Obtain lactic acid stat. (3) Acute respiratory failure with hypoxia: (4) Edema of all four extremities: Lasix as above. (5) DVT prophylaxis: (6) S/P pneumonectomy: Supervising Physician Co-Signing Physician Notes Seen and examined with Timothy SONG. Patient discussed on multidisciplinary rounds. Chest x-ray reviewed and appears markedly better on the right side. He has diuresed and is -2.2 L. He has been afebrile and I have de-escalate his antibiotics from cefepime to ceftriaxone. We will repeat a procalcitonin today. He does have some mild sputum production. He is still continuing to require CPAP at 55% FiO2 and PEEP of 5. This morning we will go ahead and try and see if he is able to tolerate high flow nasal cannula at 40 L and 85%. If he is unable to tolerate this, we will proceed with intubation. I strongly feel that he needs some time to rest on the ventilator and to receive some nutrition via feeding tube while he is on the ventilator as this is a hudson element in his recovery especially post surgery. I do not think there is a clear need for steroids at this time. Subjective This morning Mr. Ruiz was switched from CPAP to high flow nasal cannula. He is currently tolerating and appears comfortable with mild tachypnea. Will remain in ICU for now as patient is still high threshold for needing intubation. Patient does report mild shortness of breath. Denies chest pain or palpita tions. Denies headache, syncope, nausea or vomiting, dizziness, abdominal pain. Review of Systems Review of Systems: All systems reviewed & are unremarkable except as noted in HPI & below Physical Exam Eyes: PERRL, conjunctivae normal, anicteric sclerae ENMT: external ear and nose normal, oropharynx normal Neck: trachea midline, no thyromegaly Respiratory: + labored breathing, + cough and + tachypneic Cardiovascular: RRR, no murmur, no edema Rate/Rhythm: regular rate and regular rhythm Heart Sounds: normal S1 and normal S2; no murmur Vessels: + JVD Extremities: + edema Gastrointestinal (Abdomen): normal bowel sounds, soft, nontender, no hepatosplenomegaly Skin: no rashes, warm and dry Neurologic: PERRL, EOMI, accommodation nl, no face palsy, no dysarthria Psychiatric: A+Ox3, euthymic affect Results & Data Vital Signs (Past 12 Hours) Vital Signs Temp Pulse Pulse Resp BP BP Pulse Ox 11/30/18 07:31 26 H 97 11/30/18 06:00 76 27 H 121/58 L 121/58 L 98 11/30/18 05:00 76 27 H 121/58 L 121/58 L 99 11/30/18 04:00 74 27 H 108/63 108/63 98 11/30/18 03:19 66 28 H 99 11/30/18 03:00 75 28 H 99/60 L 99/60 L 98 11/30/18 02:00 71 28 H 104/56 L 95 11/30/18 01:00 78 26 H 106/63 106/63 98 11/30/18 00:00 36.8 C 82 30 H 107/67 107/67 93 11/29/18 23:59 87 30 H 94 11/29/18 23:00 81 27 H 104/66 104/66 93 11/29/18 22:00 76 24 119/69 119/69 96 11/29/18 21:00 77 30 H 121/63 121/63 98 11/29/18 20:00 36.6 C 74 28 H 112/67 112/67 97 PG Care Time/CCT Total # of Minutes Spent Total Time Spent with Patient: Total time spent is greater than 50% in coordinat ion of care (as documented) at patient's floor/unit and/or counseling patient: Critical Care Time: Yes Total Critical Care Time: 40
[2018-11-30 08:36] LABS: BUN Creatinine Ratio 33.3 (10-20); Calcium 9.1 mg/dl (8.5-10.1); Est GFR (African American) 98.8; Est GFR (Non-African American) 85.2; Magnesium 2.6 mg/dl (1.8-2.4); Potassium 3.3 mmol/L (3.5-5.1)
[2018-11-30] MEDS: cefTRIAXone SODIUM 2,000 MG in DEXTROSE 5% 50 ML IV SCH (09:10)
[2018-11-30] MEDS: FUROSEMIDE 40 MG in SYRINGE 0 ML IV SCH ×2 (09:20→21:15)
--- NOTE | 2018-11-30 09:22 | Family Medicine Progress Note ---
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 influenza. Pulmonary Infection: -likely 2/2 hospital admission and L pneumonectomy -Culture from L lung grew Corynebacterium species on 11/25 -sputum cx positive for H. influenza on 11/27; sensitive to cephalosporins -Nasal MRSA swab negative; stopped vancomycin -continue cefepime for coverage -Trend WBC and temperature to ensure pt does not become septic. Hypoxic Event: (11/27) -secondary infection vs ?ARDS -started on broad spectrum coverage for hospital acquired bacteria -received IV lasix for diuresis; no improvement -continue to monitor pt saturation and work of breathing, as he continues to tolerate weaning -being monitored in ICU S/P pneumonectomy: -Deferring to surgical team for primary management of post-op care. Wheeze: -no hx of lung disease prior to mass formation -symbicort and levalbuterol inhalers available Paroxysmal Atrial Tachycardia: -Continue Metoprolol succinate 50 PO daily and Diltiazem 180 PO BID Constipation: -Received milk of magnesia 11/25 which appears to have helped release constipation. -PRN sennosides, docusate, and miralax available Hypercholesterolemia: -Continue atorvastatin 40 mg daily T2DM: -controlled on SSI. -Hold home Metformin Code: Full DVT ppx: SCDs Dispo: continued observation in ICU Supervising Physician Co-Signing Physician Notes I personally examined the patient and verified all hudson points of history and exam, discussed case, and agree with decision making with Dr Pizarro. Feels like maybe he is breathing a little better and a little easier on. Nursing notes that he has been able to eat applesauce when he is taking his pills. He feels hungry. Vitals noted, lungs coarse on the right, quiet on the left. May be slightly less accessory muscle use than before. Laying very quietly in bed. No pallor or icterus. Acute hypoxic respiratory failure related to healthcare associated pneumonia and ARDS. Continue antibiotics, diuresis, supportive carehe does appear more comfortable on high flow nasal cannula, hopefully he will be able to eat some. Continue to follow closely.. Otherwise as above. Subjective Pt is continuing to require high amount of O2 support to prevent desaturations, falls rapidly when off CPAP. No further episodes of fever or chills overnight. Feels like he was able to sleep a little more overnight without fearing that he was going to worsen. Wants to continue to try and breath on his own; family has talked about concerns with potential intubation and concerns about what this will mean long-term for his health. They understand it may be done in order to give pt a break from having to work so hard to breath. Review of Systems Constitutional: no fever, no chills and no sweats Respiratory: + cough and + dyspnea; no snoring and no wheezing Cardiovascular: no chest pain, no palpitations and no edema Gastrointestinal: no problem reported Hematologic / Lymphatic: no lymphadenopathy and no night sweats Physical Exam Constitutional: well developed, cooperative and + lethargic Respiratory: normal respiratory effort, + labored breathing (visibly belly breathing) and + tachypneic; + not able to speak in complete sentence Auscultation: + breath sounds absent (s/p L pneumonectomy) and + diminished lung sounds (centrally on R (improving)); no crackles and no wheezes Cardiovascular: Rate/Rhythm: regular rate and regular rhythm Heart Sounds: normal S1 and normal S2; no gallop, no murmur and no cardiac rub Extremities: no pedal edema Results & Data Vital Signs (Past 12 Hours) Vital Signs Temp Pulse Pulse Resp BP BP Pulse Ox 11/30/18 08:00 78 11/30/18 07:31 26 H 97 11/30/18 06:00 76 27 H 121/58 L 121/58 L 98 11/30/18 05:00 76 27 H 121/58 L 121/58 L 99 11/30/18 04:00 74 27 H 108/63 108/63 98 11/30/18 03:19 66 28 H 99 11/30/18 03:00 75 28 H 99/60 L 99/60 L 98 11/30/18 02:00 71 28 H 104/56 L 95 11/30/18 01:00 78 26 H 106/63 106/63 98 11/30/18 00:00 36.8 C 82 30 H 107/67 107/67 93 11/29/18 23:59 87 30 H 94 11/29/18 23:00 81 27 H 104/66 104/66 93 11/29/18 22:00 76 24 119/69 119/69 96 Laboratory Results 11/30/18 11/30/18 11/30/18 Range/Units 07:53 07:53 06:00 Sodium 140 (136-145) mmol/L Potassium 3.3 L (3.5-5.1) mmol/L Chloride 100 (98-107) mmol/L Carbon Dioxide 31 (21-32) mmol/L Anion Gap 8.0 (3-11) BUN 31 H D (7-18) mg/dl Creatinine 0.93 (0.6-1.4) mg/dl Est Cr Clr Drug Dosing 68.0 ml/min Est GFR ( Amer) 98.8 Est GFR (Non-Af Amer) 85.2 BUN/Creatinine Ratio 33.3 H (10-20) Glucose 140 H (70-99) mg/dl POC Glucose 140 H (70-99) Calcium 9.1 (8.5-10.1) mg/dl Phosphorus 4.0 (2.5-4.9) mg/dl Magnesium 2.6 H (1.8-2.4) mg/dl Procalcitonin 0.15 (0-0.5) ng/ml 11/29/18 11/29/18 11/29/18 Range/Units 23:43 17:58 11:55 Sodium (136-145) mmol/L Potassium (3.5-5.1) mmol/L Chloride (98-107) mmol/L Carbon Dioxide (21-32) mmol/L Anion Gap (3-11) BUN (7-18) mg/dl Creatinine (0.6-1.4) mg/dl Est Cr Clr Drug Dosing ml/min Est GFR ( Amer) Est GFR (Non-Af Amer) BUN/Creatinine Ratio (10-20) Glucose (70-99) mg/dl POC Glucose 130 H 127 H 140 H (70-99) Calcium (8.5-10.1) mg/dl Phosphorus (2.5-4.9) mg/dl Magnesium (1.8-2.4) mg/dl Procalcitonin (0-0.5) ng/ml Medications Administered Current Inpatient Medications Albuterol (Duoneb) 3 ml INH Q6H PRN PRN Reason: sob Stop: 12/29/18 08:50 Atorvastatin Calcium (Lipitor) 40 mg PO HS CARLO Stop: 12/22/18 20:59 Last Admin: 11/29/18 21:31 Dose: Not Given Documented by: Dextrose (Dextrose 50%) 25 - 50 ml IV UD PRN; Protocol PRN Reason: Hypoglycemia Protocol Stop: 12/27/18 21:44 Diltiazem HCl (Cardizem Cd) 180 mg PO BID CARLO Stop: 12/23/18 08:59 Last Admin: 11/29/18 21:30 Dose: Not Given Documented by: Docusate Sodium (Colace) 100 mg PO BID CARLO Stop: 12/22/18 20:59 Last Admin: 11/29/18 21:30 Dose: Not Given Documented by: Fentanyl Citrate (Fentanyl Citrate) 25 mcg IV Q2H PRN PRN Reason: Pain Stop: 12/13/18 08:48 Last Admin: 11/30/18 06:22 Dose: 25 mcg Documented by: Glucagon (Glucagen) 1 mg SQ UD PRN; Protocol PRN Reason: Hypoglycemia Protocol Stop: 12/27/18 21:44 Glucose (Glucose 40%) 15 - 30 gm PO UD PRN; Protocol PRN Reason: Hypoglycemia Protocol Stop: 12/27/18 21:44 Glucose (Dex4 Glucose) 4 - 8 tabs PO UD PRN; Protocol PRN Reason: Hypoglycemia Protocol Stop: 12/27/18 21:44 Guaifenesin (Mucinex) 1,200 mg PO Q12 CARLO Stop: 12/24/18 20:59 Last Admin: 11/29/18 21:31 Dose: Not Given Documented by: Heparin Sodium (Porcine) (Heparin Sodium (Porcine)) 5,000 units SQ Q8 CARLO Stop: 12/23/18 13:59 Last Admin: 11/30/18 06:04 Dose: 5,000 units Documented by: Furosemide 40 mg/ Syringe 4 mls @ 4 mls/min IV Q12 CARLO Stop: 12/28/18 20:59 Last Admin: 11/29/18 21:50 Dose: 4 mls/min Documented by: Ceftriaxone Sodium 2,000 mg/ (Dextrose) 70 mls @ 100 mls/hr IV Q24H CARLO; Protocol Stop: 12/07/18 08:59 Insulin Aspart (Novolog Flexpen) 0 units SC Q6 CARLO Stop: 12/23/18 11:29 Last Admin: 11/30/18 06:04 Dose: Not Given Documented by: Magnesium Hydroxide (Milk Of Magnesia) 30 ml PO Q6H PRN PRN Reason: Constipation Stop: 12/25/18 14:34 Last Admin: 11/25/18 22:14 Dose: 30 ml Documented by: Metoprolol Succinate (Toprol Xl) 50 mg PO DAILY [facility] Stop: 12/23/18 08:59 Last Admin: 11/29/18 07:37 Dose: 50 mg Documented by: Miscellaneous (Carbohydrates For Hypoglycemia) 15 - 30 gm PO UD PRN PRN Reason: Hypoglycemia Treatment Stop: 12/27/18 21:44 Miscellaneous Information (Consult Glycemic Management Pharmacy) 1 ea N/A UD PRN PRN Reason: Consult Stop: 12/23/18 14:29 Polyethylene Glycol (Miralax Powder Packet) 17 gm PO BID [facility] Stop: 12/24/18 20:59 Last Admin: 11/29/18 21:31 Dose: Not Given Documented by: Sennosides (Senokot) 17.2 mg PO QAM [facility] Stop: 12/25/18 08:59 Last Admin: 11/29/18 08:53 Dose: 17.2 mg Documented by: Tamsulosin HCl (Flomax) 0.4 mg PO DAILY@1700 [facility] Stop: 12/23/18 17:59 Last Admin: 11/29/18 17:48 Dose: Not Given Documented by: PG Care Time/CCT Total # of Minutes Spent Total Time Spent with Patient: Total time spent is greater than 50% in coordination of care (as documented) at patient's floor/unit and/or counseling patient: Resident Activity Tracking Resident Involvement: Resident Care Provided Care Provided: Adult Hospital Medicine
[2018-11-30] MEDS: dilTIAZem HCL 180 MG CAPCR PO SCH ×2 (10:26→21:09)
[2018-11-30] MEDS: METOPROLOL SUCC 50MG EXT REL TAB PO SCH (10:26)
[2018-11-30] MEDS: SENNA 8.6 MG TAB PO SCH (10:26)
[2018-11-30] MEDS: guaiFENesin 600 MG TABCR PO SCH ×2 (10:26→21:10)
[2018-11-30] MEDS: POLYETHYLENE (MIRALAX) 17 GM PACK PO SCH ×2 (10:28→21:10)
[2018-11-30] MEDS: DOCUSATE SODIUM 100 MG CAP PO SCH ×2 (10:29→21:09)
[2018-11-30] MEDS: POTASSIUM CHLORIDE / WTR 10 MEQ/100 ML PLCT IV SCH ×2 (10:33→12:20)
[2018-11-30] MEDS ORDERED: POTASSIUM CHLORIDE 20 MEQ TABCR PO ONE (12:15)
[2018-11-30] MEDS ORDERED: POTASSIUM CHLORIDE 10 MEQ TABCR PO ONE (12:15)
[2018-11-30 16:20] LABS: BUN Creatinine Ratio 36.9 (10-20); Blood Urea Nitrogen 33 mg/dl (7-18); Calcium 9.6 mg/dl (8.5-10.1); Carbon Dioxide 31 mmol/L (21-32); Chloride 99 mmol/L (98-107); Creatinine Clr Calc Pharmacy 70.2 ml/min; Est GFR (African American) 102.8; Est GFR (Non-African American) 88.7; Glucose 121 mg/dl (70-99); Potassium 3.5 mmol/L (3.5-5.1); Sodium 139 mmol/L (136-145)
[2018-11-30 16:24] LABS: Troponin I < 0.015 ng/ml (0-0.045)
[2018-11-30] MEDS: TAMSULOSIN HCL 0.4 MG CAP PO SCH (16:32)
[2018-11-30] MEDS ORDERED: METOPROLOL TARTRATE 50 MG TAB PO STA (16:39)
[2018-11-30] MEDS: ATORVASTATIN 40 MG TAB PO SCH (21:10)
[2018-12-01] MEDS: INSULIN ASPART 100 UNITS/ML 3 ML PEN SC SCH ×6 (00:08→21:24)
[2018-12-01] MEDS: fentaNYL citrate 100 MCG/2 ML VIAL IV PRN ×2 (01:33→04:05)
[2018-12-01 04:53] LABS: Basophils # (auto) 0.07 K/uL (0-0.2); Basophils % (auto) 0.5 %; Eosinophils # (auto) 0.34 K/uL (0-0.5); Eosinophils % (auto) 2.3 %; Hematocrit (blood only) 35.5 % (42-52); Hemoglobin 11.7 g/dL (14.0-18.0); Immature Granulocytes # (auto) 0.34 K/uL (0.00-0.02); Immature Granulocytes % (auto) 2.3 %; Lymphocytes # (auto) 2.16 K/uL (1.2-3.4); Lymphocytes % (auto) 14.4 %; Mean Corpuscular Hemoglobin 27.6 pg (25-34); Mean Corpuscular Volume 83.7 fL (80-100); Mean Platelet Volume 9.9 fL (7.4-10.4); Monocytes # (auto) 1.35 K/uL (0.11-0.59); Neutrophils # (auto) 10.69 K/uL (1.4-6.5); Neutrophils % (auto) 71.5 %; Platelet Count 462 K/uL (130-400); RDW Coefficient of Variation 15.1 % (11.5-14.5); RDW Standard Deviation 46.4 fL (36.4-46.3); Red Blood Count 4.24 M/uL (4.7-6.1); White Blood Count 14.95 K/uL (4.8-10.8)
[2018-12-01 05:10] LABS: BUN Creatinine Ratio 38.1 (10-20); Calcium 8.9 mg/dl (8.5-10.1); Est GFR (African American) 98.8; Est GFR (Non-African American) 85.2; Magnesium 2.5 mg/dl (1.8-2.4); Phosphorus 3.6 mg/dl (2.5-4.9); Potassium 3.2 mmol/L (3.5-5.1)
[2018-12-01] MEDS ORDERED: POTASSIUM CHLORIDE 20 MEQ TABCR PO STA (05:54)
[2018-12-01] MEDS: POTASSIUM CHLORIDE / WTR 10 MEQ/100 ML PLCT IV SCH (06:35)
[2018-12-01] MEDS: HEPARIN SOD 5,000 UNIT/0.5 ML VIAL SQ SCH ×3 (06:40→21:25)
--- NOTE | 2018-12-01 07:14 | Critical Care Progress Note ---
Date of Service December 01, 2018 Assessment & Plan (1) Admitted to intensive care unit: Reason Critically Ill: 67-year-old male readmitted to the ICU following increased shortness of breath and hypoxic respiratory failure on the floor following Neuro - [facility] ICU: Negative Cardiac - Proximal atrial tachycardiahad sustained tachycardia yesterday evening, converted to sinus rhythm with administration of 25 p.o. MTP -continue MTP and diltiazem Maximize electrolyte - currently sinus rhythm -Cardiology following HTNcontinue MTP HLDcontinue simvastatin Respiratory - Hypoxic respiratory failurepulmonary edema versus pneumonia versus reperfusion syndrome -Reperfusion injury less likely at this stage postop -Chest x-ray has significantly improved this a.m. -Culture from the left lung grew Corynebacterium, sputum culture grew H. influenzae 11/27 -Antibiotics narrowed to cefepime -Scaling back diuresis to 40 mg daily -Patient still tolerating high flow nasal cannula -Continue nebs GI - Advance diet as tolerated Continue bowel regimen RENAL/LYTES - Creatinine stable, monitor Replete electrolytes as necessary - Strict I's and O's ENDO - Type 2 diabetescontinue sliding scale insulin -ICU hyperglycemic protocol HEME - H&H stable, trend WBCs with routine CBCs ID - Continue cefepime for pulmonary source LINES/IV ACCESS - Peripheral IVs DVT PROPHYLAXIS - SCD, heparin Thank you for allowing us to participate in the care of this patient. Please refer to my attending physician's documentation for any further recommendations. (2) Postoperative pneumonia: Switch abx from unasyn to cefepime given acute decompensation. Continue vanc. Obtain lactic acid stat. (3) Acute respiratory failure with hypoxia: (4) Edema of all four extremities: Lasix as above. (5) DVT prophylaxis: (6) S/P pneumonectomy: Supervising Physician Co-Signing Physician Notes Patient seen and examined with Timothy LOPEZ. Patient discussed in multidisciplinary rounds. Chest x-ray today appears again marginally improved. Patient saturating in the low 90s on high flow nasal cannula. He has had some issues with atrial tachycardia. He is on metoprolol which seems to be controlling his rate relatively well now. He is also on diltiazem 180 mg p.o. twice daily. Needs close monitoring of his electrolytes given the diuresis. He is 1 L negative in the last 24 hours. We are backing off to 40 mg IV daily. He has Haemophilus growing in his sputum. He is currently on ceftriaxone. He will need to complete 7 days of antibiotics. He is now eating and feeling a bit stronger. I feel that at this point it is safe for him to be transferred down to the PCU in a closely monitored setting telemetry. Subjective This morning the patient looks improved from previous day. His chest x-ray has improved and he is tolerating high flow nasal cannula. He is sitting up in chair and appears comfortable. He did have sustain proximal tachycardia yesterday evening, which broke to sinus rhythm after administering 25 mg p.o. metoprolol tartrate. He has been in sinus rhythm since. He still complains of shortness of breath. Will continue to diuresis but scaling back frequency. He remains stable and at this time can be downgraded from ICU status. He denies headache, nausea or vomiting, syncope, chest pain, palpitations, abdominal pain. Review of Systems Review of Systems: All systems reviewed & are unremarkable except as noted in HPI & below Physical Exam Eyes: PERRL, conjunctivae normal, anicteric sclerae ENMT: external ear and nose normal, oropharynx normal Neck: trachea midline, no thyromegaly Respiratory: + labored breathing, + cough and + tachypneic Lungs coarse and right roper and absent in left lower field Cardiovascular: RRR, no murmur, no edema Rate/Rhythm: regular rate and regular rhythm Heart Sounds: normal S1 and normal S2; no murmur Vessels: + JVD Extremities: + edema Gastrointestinal (Abdomen): normal bowel sounds, soft, nontender, no hepatosplenomegaly Skin: no rashes, warm and dry Neurologic: PERRL, EOMI, accommodation nl, no face palsy, no dysarthria Psychiatric: A+Ox3, euthymic affect Results & Data Vital Signs (Past 12 Hours) Vital Signs Temp Pulse Resp BP BP Pulse Ox 12/01/18 04:00 36.6 C 78 25 H 103/60 103/60 88 L 12/01/18 03:00 75 26 H 91/57 L 91/57 L 92 12/01/18 02:22 73 24 90 12/01/18 02:00 77 28 H 88/58 L 88/58 L 85 L 12/01/18 01:00 76 30 H 90/58 L 90/58 L 92 12/01/18 00:00 75 30 H 85/56 L 85/56 L 89 L 11/30/18 23:00 76 24 98/61 L 98/61 L 92 11/30/18 22:48 82 24 92 11/30/18 22:00 80 27 H 99/61 L 99/61 L 90 11/30/18 21:00 82 28 H 102/62 102/62 87 L 11/30/18 20:00 80 41 H 118/74 118/74 92 11/30/18 19:56 82 24 91 PG Care Time/CCT Total # of Minutes Spent Total Time Spent with Patient: Total time spent is greater than 50% in coordination of care (as documented) at patient's floor/unit and/or counseling patient: Critical Care Time: No
--- NOTE | 2018-12-01 07:21 | XRay Report ---
XR chest 1V portable CLINICAL HISTORY: Post pneumonectomy. Abnormal chest x-ray COMPARISON STUDY: 11/30/2018 FINDINGS: Postpneumonectomy changes are again evident on the left. There is slight further increase i n the fluid within the left pneumonectomy space. There is continued minimal improvement in the diffus e right lung airspace opacities.[ IMPRESSION: 1. Left-sided pneumonectomy with slight interval increase in the left pneumonectomy space fluid 2. Continued very slight interval improvement in the diffuse right lung airspace opacities Electronically signed by: Tyler Orellana M.D. 12/01/2018 7:20 AM
[2018-12-01] MEDS: dilTIAZem HCL 180 MG CAPCR PO SCH ×2 (07:54→20:27)
[2018-12-01] MEDS: METOPROLOL SUCC 50MG EXT REL TAB PO SCH (07:54)
[2018-12-01] MEDS: guaiFENesin 600 MG TABCR PO SCH ×2 (07:54→20:24)
[2018-12-01] MEDS: SENNA 8.6 MG TAB PO SCH (07:55)
[2018-12-01] MEDS: POLYETHYLENE (MIRALAX) 17 GM PACK PO SCH ×2 (07:56→20:23)
[2018-12-01] MEDS: DOCUSATE SODIUM 100 MG CAP PO SCH ×2 (07:56→20:23)
[2018-12-01] MEDS: cefTRIAXone SODIUM 2,000 MG in DEXTROSE 5% 50 ML IV SCH (07:57)
[2018-12-01] MEDS: FUROSEMIDE 40 MG in SYRINGE 0 ML IV SCH (07:57)
--- NOTE | 2018-12-01 09:13 | Surgery Progress Note ---
Date of Service December 01, 2018 Assessment & Plan (1) Acute respiratory failure with hypoxia: -pt. developed acute lung injury post-op -he has received support with combination of high flow oxygen and CPAP -respiratory status has improved over last 12-24 hours -CXR today shows improvement of right sided infiltrative pattern -blood culture from 11/26/18 are (-) -sputum from 11/26/18 grew H. influenza: -was receiving broad spectrum antibiotics in the form of vancomycin and cefepime but has be de-escalated to rocephin as organism is sensitive to this -pt. has tolerated some liquids yesterday -will continue support and monitor closely -sub-q heparin is in place for DVT prevention -discussed with at bedside (2) Squamous cell lung cancer: -pt. is s/p left pneumonectomy -see above for plan Subjective pt. notes his breathing feels less labored this morning and he noted some improvement last evening. no CP. No fevers, shakes, chills. He denies N/V or abdominal pain. Review of Systems Constitutional: + fatigue; no fever and no chills Respiratory: + dyspnea; no cough Cardiovascular: no chest pain Gastrointestinal: no abdominal pain, no nausea and no vomiting Neurologic: no localized weakness Physical Exam Constitutional: no acute distress Neck: trachea midline Respiratory: BS are absent on left, some coarse BS on right but improved from prior exams; breathing appears less labored than what has been noted the past several days Gastrointestinal (Abdomen): Inspection/Auscultation: abdomen not distended Percussion/Palpation: abdomen soft; abdomen nontender Musculoskeletal: no calf tenderness; radial and pedal pulses are palpable Neurologic: pt. alert and oriented x 3; he follows commands and moves all extremities without noted focal deficits Results & Data Vital Signs (Past 12 Hours) Vital Signs Temp Pulse Resp BP BP Pulse Ox 12/01/18 08:00 36.7 C 12/01/18 07:25 76 30 H 91 12/01/18 04:00 36.6 C 78 25 H 103/60 103/60 88 L 12/01/18 03:00 75 26 H 91/57 L 91/57 L 92 12/01/18 02:22 73 24 90 12/01/18 02:00 77 28 H 88/58 L 88/58 L 85 L 08/23/19 01:00 76 30 H 90/58 L 90/58 L 92 12/01/18 00:00 75 30 H 85/56 L 85/56 L 89 L 11/30/18 23:00 76 24 98/61 L 98/61 L 92 11/30/18 22:48 82 24 92 11/30/18 22:00 80 27 H 99/61 L 99/61 L 90 (1) Squamous cell lung cancer Laterality: left Qualified Code(s): C34.92 - Malignant neoplasm of unspecified part of left bronchus or lung
[2018-12-01] MEDS: INSULIN GLARGINE SOLOSTAR 100 UNITS/ML 3 ML PEN SC SCH (09:37)
--- NOTE | 2018-12-01 14:06 | Pharmacy Report ---
Pharmacy Glycemic Short Note 2 - Date of Service December 01, 2018 - Glycemic Short BSG Results (Last 24 hours): 11/30/18 11/30/18 12/01/18 15:52 16:25 04:33 Glucose 121 H 144 H POC Glucose 120 H 12/01/18 12/01/18 07:24 11:33 Glucose POC Glucose 164 H 128 H OUTPATIENT ANTIDIABETIC REGIMEN: * Metformin 500 mg PO HS * A1c = 6.7% 07/24/18 ASSESSMENT: 12/01: * Lantus was held per MD for the past 48hrs due to NPO status. However, as diet resumed today and fasting BSGs beginning to trend up, a conservative dose of lantus was ordered. Will continue with current novolog scale. 11/28 * 67 yo M with adequate outpatient control of T2DM per HbA1c on low dose metformin alone * Pt is maintained on oral antidiabetic agents as an outpatient * Oral agents are not recommended for inpatient use d/t drug interactions, changing PO intake, and difficulty titrating for acute hyper/hypoglycemia. ADA recommends re-initiating outpatient oral agents 1-2 days prior to discharge if/when appropriate if they were held on admission. * Metformin held on admission and patient has been receiving weight based SQ basal bolus insulin regimen * BSG's have been well controlled on current regimen with no changes in last 48 hours and BSG's ranging 128-152 mg/dL yesterday * Patient did not consume much CHO yesterday (40, 12, 8 g at breakfast, lunch, dinner respectively), but per JELLY MAKER, does not anticipate hardly any po intake today. Patient has significant SOB, decompensates with any movement, accessory muscle use noted, and patient is reportedly "tiring out". Will therefore slightly decrease Lantus and adjust ongoing dose to depend on BSG trend PLAN FOR INPATIENT GLYCEMIC CONTROL: * Continue to hold outpatient oral diabetes medications (metformin) * Basal insulin: * 10 units of lantus this morning * Starting tomorrow: Lantus SQ qAM based on BSG * BSG less than 100 mg/dL: hold Lantus * BSG 100-160 mg/dL: 10 units * BSG greater than 160 mg/dL: 15 units * Bolus insulin (no change) * NovoLog per scale ACHS or Q6hrs while NPO * Goal Range: Low 110 mg/dL - High 140 mg/dL * Correction Factor: 25 mg/dL/unit * Nutritional / Prandial insulin per carb ratio of 1 unit per 10 grams CHO consumed PLAN FOR DISCHARGE: * May resume home metformin regimen if no contraindications present at time of discharge
--- NOTE | 2018-12-01 14:12 | Family Medicine Progress Note ---
Date of Service December 01, 2018 Assessment & Plan (1) Pulmonary infection: 67y/o M s/p L pneumonectomy on 11/22 for squamous cell carcinoma; subsequent development of pneumonia, L lung grew Corynebacterium species, with subsequent sputum culture demonstrating H. influenza. Pulmonary Infection: -likely 2/2 hospital admission and L pneumonectomy -Culture from L lung grew Corynebacterium species on 11/25 -sputum cx positive for H. influenza on 11/27; sensitive to cephalosporins -Nasal MRSA swab negative; stopped vancomycin -continue cefepime for coverage -Trend WBC and temperature to ensure pt does not become septic. Hypoxic Event: (11/27) -secondary infection vs ?ARDS -started on broad spectrum coverage for hospital acquired bacteria -received IV lasix for diuresis; no improvement -continue to monitor pt saturation and work of breathing, as he continues to tolerate weaning S/P pneumonectomy: -Deferring to surgical team for primary management of post-op care. Wheeze: -no hx of lung disease prior to mass formation -symbicort and levalbuterol inhalers available Paroxysmal Atrial Tachycardia: -Continue Metoprolol succinate 50 PO daily and Diltiazem 180 PO BID Constipation: -Received milk of magnesia 11/25 which appears to have helped release constipation. -PRN sennosides, docusate, and miralax available Hypercholesterolemia: -Continue atorvastatin 40 mg daily T2DM: -controlled on SSI. -Hold home Metformin Code: Full DVT ppx: SCDs Dispo: observe in PCU Supervising Physician Co-Signing Physician Notes I personally examined the patient and verified all hudson points of history and exam, discussed case, and agree with decision making with Dr Pizarro. Breathing better. More conversational. Out of bed in the chair! Pleased with progress. Able to eat somewhat well Vitals noted, sitting in the chair, able to speak in 3-5 word sentences generally without much dyspnea and mild desaturations to quickly recover. Breathing less labored mild accessory muscles good effort less belly breathing. Skin shows no rashes no pallor or icterus. Neuro shows no focal deficits. Acute hypoxic respiratory failure related to healthcare associated pneumonia and ARDS. Improving, continue current care, encourage oral intake, otherwise as above. Subjective Pt continues to feel slightly better each day, he is sitting up in chair and communicate with family. He still complains of some shortness of breath, but does not think that it changed too much with eating last night. Tolerating the food well. Review of Systems Constitutional: no fever, no chills and no sweats Respiratory: + cough and + dyspnea; no snoring and no wheezing desaturates after prolonged episodes of exertion Cardiovascular: no chest pain, no palpitations and no edema Gastrointestinal: no abdominal pain, no nausea and no vomiting had some bowel movements today, and has tolerated meals well Physical Exam Respiratory: normal respiratory effort, + labored breathing (visibly belly breathing) and + tachypneic; + not able to speak in complete sentence Auscultation: + breath sounds absent (s/p L pneumonectomy) and + diminished lung sounds (centrally on R (improving)); no crackles and no wheezes Cardiovascular: Rate/Rhythm: regular rate and regular rhythm Heart Sounds: normal S1 and normal S2; no gallop, no murmur and no cardiac rub Extremities: no pedal edema Gastrointestinal (Abdomen): Percussion/Palpation: abdomen soft; abdomen nontender, no guarding and no hepatosplenomegaly Lymphatic: no lymphadenopathy Results & Data Vital Signs (Past 12 Hours) Vital Signs Temp Pulse Pulse Pulse Resp BP BP 12/01/18 13:22 78 20 12/01/18 13:00 36.5 C 97 H 18 111/61 12/01/18 11:59 36.6 C 22 105/73 12/01/18 11:10 74 27 H 12/01/18 11:00 73 20 95/56 L 12/01/18 10:00 77 29 H 100/63 12/01/18 09:29 87 24 110/59 L 12/01/18 08:00 36.7 C 80 24 102/65 12/01/18 07:25 76 30 H 12/01/18 07:00 74 34 H 106/71 12/01/18 04:00 36.6 C 78 25 H 103/60 12/01/18 03:00 75 26 H 91/57 L 12/01/18 02:22 73 24 BP Pulse Ox 12/01/18 13:22 88 L 12/01/18 13:00 92 12/01/18 11:59 90 12/01/18 11:10 95 12/01/18 11:00 90 12/01/18 10:00 91 12/01/18 09:29 77 L 12/01/18 08:00 94 12/01/18 07:25 91 12/01/18 07:00 92 12/01/18 04:00 103/60 88 L 12/01/18 03:00 91/57 L 92 12/01/18 02:22 90 Laboratory Results 12/01/18 12/01/18 12/01/18 Range/Units 11:33 07:24 04:33 WBC 14.95 H (4.8-10.8) K/uL RBC 4.24 L (4.7-6.1) M/uL Hgb 11.7 L (14.0-18.0) g/dL Hct 35.5 L (42-52) % MCV 83.7 (80-100) fL MCH 27.6 (25-34) pg MCHC 33.0 (32-36) g/dL RDW Std Deviation 46.4 H (36.4-46.3) fL RDW Coeff of Sonia 15.1 H (11.5-14.5) % Plt Count 462 H (130-400) K/uL MPV 9.9 (7.4-10.4) fL Immature Gran % (Auto) 2.3 % Neut % (Auto) 71.5 % Lymph % (Auto) 14.4 % [place] % (Auto) 9.0 % Eos % (Auto) 2.3 % Baso % (Auto) 0.5 % Immature Gran # (Auto) 0.34 H (0.00-0.02) K/uL Neut # (Auto) 10.69 H (1.4-6.5) K/uL Lymph # (Auto) 2.16 (1.2-3.4) K/uL [place] # (Auto) 1.35 H (0.11-0.59) K/uL Eos # (Auto) 0.34 (0-0.5) K/uL Baso # (Auto) 0.07 (0-0.2) K/uL Sodium (136-145) mmol/L Potassium (3.5-5.1) mmol/L Chloride (98-107) mmol/L Carbon Dioxide (21-32) mmol/L Anion Gap (3-11) BUN (7-18) mg/dl Creatinine (0.6-1.4) mg/dl Est Cr Clr Drug Dosing ml/min Est GFR ( Amer) Est GFR (Non-Af Amer) BUN/Creatinine Ratio (10-20) Glucose (70-99) mg/dl POC Glucose 128 H 164 H (70-99) Calcium (8.5-10.1) mg/dl Phosphorus (2.5-4.9) mg/dl Magnesium (1.8-2.4) mg/dl Troponin I (0-0.045) ng/ml 12/01/18 11/30/18 11/30/18 Range/Units 04:33 16:25 15:52 WBC (4.8-10.8) K/uL RBC (4.7-6.1) M/uL Hgb (14.0-18.0) g/dL Hct (42-52) % MCV (80-100) fL MCH (25-34) pg MCHC (32-36) g/dL RDW Std Deviation (36.4-46.3) fL RDW Coeff of Sonia (11.5-14.5) % Plt Count (130-400) K/uL MPV (7.4-10.4) fL Immature Gran % (Auto) % Neut % (Auto) % Lymph % (Auto) % [place] % (Auto) % Eos % (Auto) % Baso % (Auto) % Immature Gran # (Auto) (0.00-0.02) K/uL Neut # (Auto) (1.4-6.5) K/uL Lymph # (Auto) (1.2-3.4) K/uL [place] # (Auto) (0.11-0.59) K/uL Eos # (Auto) (0-0.5) K/uL Baso # (Auto) (0-0.2) K/uL Sodium 138 139 (136-145) mmol/L Potassium 3.2 L 3.5 (3.5-5.1) mmol/L Chloride 99 99 (98-107) mmol/L Carbon Dioxide 30 31 (21-32) mmol/L Anion Gap 9.0 9.0 (3-11) BUN 35 H 33 H (7-18) mg/dl Creatinine 0.93 0.90 (0.6-1.4) mg/dl Est Cr Clr Drug Dosing 68.0 70.2 ml/min Est GFR ( Amer) 98.8 102.8 Est GFR (Non-Af Amer) 85.2 88.7 BUN/Creatinine Ratio 38.1 H 36.9 H (10-20) Glucose 144 H 121 H (70-99) mg/dl POC Glucose 120 H (70-99) Calcium 8.9 9.6 (8.5-10.1) mg/dl Phosphorus 3.6 (2.5-4.9) mg/dl Magnesium 2.5 H (1.8-2.4) mg/dl Troponin I < 0.015 (0-0.045) ng/ml Medications Administered Current Inpatient Medications Albuterol (Duoneb) 3 ml INH Q6H PRN PRN Reason: sob Stop: 12/29/18 08:50 Atorvastatin Calcium (Lipitor) 40 mg PO HS [facility] Stop: 12/22/18 20:59 Last Admin: 11/30/18 21:10 Dose: 40 mg Documented by: Dextrose (Dextrose 50%) 25 - 50 ml IV UD PRN; Protocol PRN Reason: Hypoglycemia Protocol Stop: 12/27/18 21:44 Diltiazem HCl (Cardizem Cd) 180 mg PO BID [facility] Stop: 12/23/18 08:59 Last Admin: 12/01/18 07:54 Dose: 180 mg Documented by: Docusate Sodium (Colace) 100 mg PO BID [facility] Stop: 12/22/18 20:59 Last Admin: 12/01/18 07:56 Dose: 100 mg Documented by: Glucagon (Glucagen) 1 mg SQ UD PRN; Protocol PRN Reason: Hypoglycemia Protocol Stop: 12/27/18 21:44 Glucose (Glucose 40%) 15 - 30 gm PO UD PRN; Protocol PRN Reason: Hypoglycemia Protocol Stop: 12/27/18 21:44 Glucose (Dex4 Glucose) 4 - 8 tabs PO UD PRN; Protocol PRN Reason: Hypoglycemia Protocol Stop: 12/27/18 21:44 Guaifenesin (Mucinex) 1,200 mg PO Q12 [facility] Stop: 12/24/18 20:59 Last Admin: 12/01/18 07:54 Dose: 1,200 mg Documented by: Heparin Sodium (Porcine) (Heparin Sodium (Porcine)) 5,000 units SQ Q8 [facility] Stop: 12/23/18 13:59 Last Admin: 12/01/18 06:40 Dose: 5,000 units Documented by: Ceftriaxone Sodium 2,000 mg/ (Dextrose) 70 mls @ 100 mls/hr IV Q24H [facility]; Protocol Stop: 12/07/18 08:59 Last Infusion: 12/01/18 09:02 Dose: Infused Documented by: Furosemide 40 mg/ Syringe 4 mls @ 4 mls/min IV DAILY [facility] Stop: 01/01/19 08:59 Insulin Aspart (Novolog Flexpen) 0 units SC ACHS [facility]; Protocol Stop: 12/05/18 21:01 Last Admin: 12/01/18 12:40 Dose: Not Given Documented by: Insulin Glargine (Lantus Solostar Pen) 0 units SC DAILY [facility]; Protocol Stop: 12/31/18 08:59 Last Admin: 12/01/18 09:37 Dose: 10 units Documented by: Magnesium Hydroxide (Milk Of Magnesia) 30 ml PO Q6H PRN PRN Reason: Constipation Stop: 12/25/18 14:34 Last Admin: 11/25/18 22:14 Dose: 30 ml Documented by: Metoprolol Succinate (Toprol Xl) 50 mg PO DAILY [facility] Stop: 12/23/18 08:59 Last Admin: 12/01/18 07:54 Dose: 50 mg Documented by: Miscellaneous (Carbohydrates For Hypoglycemia) 15 - 30 gm PO UD PRN PRN Reason: Hypoglycemia Treatment Stop: 12/27/18 21:44 Miscellaneous Information (Consult Glycemic Management Pharmacy) 1 ea N/A UD PRN PRN Reason: Consult Stop: 12/23/18 14:29 Oxycodone HCl (Roxicodone Immediate Rel) 5 mg PO Q6H PRN PRN Reason: Pain Stop: 12/15/18 08:59 Polyethylene Glycol (Miralax Powder Packet) 17 gm PO BID [facility] Stop: 12/24/18 20:59 Last Admin: 12/01/18 07:56 Dose: 17 gm Documented by: Sennosides (Senokot) 17.2 mg PO QAM [facility] Stop: 12/25/18 08:59 Last Admin: 12/01/18 07:55 Dose: 17.2 mg Documented by: Tamsulosin HCl (Flomax) 0.4 mg PO DAILY@1700 [facility] Stop: 12/23/18 17:59 Last Admin: 11/30/18 16:32 Dose: 0.4 mg Documented by: PG Care Time/CCT Total # of Minutes Spent Total Time Spent with Patient: Total time spent is greater than 50% in coordination of care (as documented) at patient's floor/unit and/or counseling patient: Resident Activity Tracking Resident Involvement: Resident Care Provided Care Provided: Adult Hospital Medicine
[2018-12-01] MEDS: TAMSULOSIN HCL 0.4 MG CAP PO SCH (17:14)
[2018-12-01] MEDS: ATORVASTATIN 40 MG TAB PO SCH (20:24)
[2018-12-01] MEDS: OXYCODONE HCL IR 5 MG TAB (IMMEDIATE RELEASE) PO PRN (21:27)
[2018-12-02] MEDS: OXYCODONE HCL IR 5 MG TAB (IMMEDIATE RELEASE) PO PRN ×3 (03:00→20:27)
[2018-12-02] MEDS: HEPARIN SOD 5,000 UNIT/0.5 ML VIAL SQ SCH ×3 (06:26→21:00)
[2018-12-02 06:39] LABS: Basophils # (auto) 0.08 K/uL (0-0.2); Basophils % (auto) 0.5 %; Eosinophils # (auto) 0.48 K/uL (0-0.5); Hematocrit (blood only) 32.8 % (42-52); Hemoglobin 11.1 g/dL (14.0-18.0); Immature Granulocytes # (auto) 0.36 K/uL (0.00-0.02); Immature Granulocytes % (auto) 2.3 %; Lymphocytes # (auto) 2.24 K/uL (1.2-3.4); Lymphocytes % (auto) 14.2 %; Mean Corpuscular Hemoglobin 28.3 pg (25-34); Mean Corpuscular Volume 83.7 fL (80-100); Mean Platelet Volume 9.3 fL (7.4-10.4); Monocytes # (auto) 1.39 K/uL (0.11-0.59); Monocytes % (auto) 8.8 %; Neutrophils # (auto) 11.28 K/uL (1.4-6.5); Neutrophils % (auto) 71.2 %; Platelet Count 410 K/uL (130-400); RDW Standard Deviation 46.5 fL (36.4-46.3); Red Blood Count 3.92 M/uL (4.7-6.1); White Blood Count 15.83 K/uL (4.8-10.8)
[2018-12-02 06:41] LABS: Mean Corpuscular Hgb Conc 33.8 g/dL (32-36)
[2018-12-02 06:54] LABS: BUN Creatinine Ratio 39.3 (10-20); Calcium 8.6 mg/dl (8.5-10.1); Creatinine Clr Calc Pharmacy 73.5 ml/min; Est GFR (African American) 104.7; Est GFR (Non-African American) 90.4; Potassium 3.4 mmol/L (3.5-5.1)
--- NOTE | 2018-12-02 07:21 | XRay Report ---
XR chest 1V portable CLINICAL HISTORY: Hypoxia. Left pneumonectomy. COMPARISON STUDY: Chest radiograph December 01, 2018. FINDINGS: Gas and fluid within the left pneumonectomy cavity appears unchanged from prior exam. Inter stitial thickening and opacities within the right lung have slightly increased. Cardiomediastinal farhad hou[place] is stable. Subcutaneous gas within the left chest wall is again noted. IMPRESSION: 1. Mild increase in interstitial thickening and opacities within the right lung which may reflect pne umonia or pulmonary edema. 2. No change in appearance of the left pneumonectomy with fluid and gas within the pneumonectomy cavi ty. Electronically signed by: Bob Santiago M.D. 12/02/2018 7:20 AM
--- NOTE | 2018-12-02 07:56 | Surgery Progress Note ---
Date of Service December 02, 2018 Assessment & Plan (1) Acute respiratory failure with hypoxia: -pt. developed acute lung injury post-op -he has received support with combination of high flow oxygen and CPAP -respiratory status has remained stable last 24 hours -CXR today shows right sided infiltrative pattern persisits -blood culture from 11/26/18 are (-) -sputum from 11/26/18 grew H. influenza: -was receiving broad spectrum antibiotics in the form of vancomycin and cefepime but has be de-escalated to rocephin as organism is sensitive to this -pt. has tolerated liquids yesterday -will continue supportive measures and continue to monitor closely -sub-q heparin is in place for DVT prevention -discussed with at bedside as well as RN (2) Squamous cell lung cancer: -pt. is s/p left pneumonectomy -see above for plan Subjective Pt. notes SOB with minimal activity , even talking. No other complaints noted. According to his he has an uneventful night. Discussed with RN--she noted he has desaturation with minimal activity, but otherwise no other concerns are noted. Review of Systems Constitutional: + fatigue; no fever and no chills Respiratory: + dyspnea; no cough Cardiovascular: no chest pain Gastrointestinal: no nausea and no vomiting Physical Exam Physical Exam: all incisions are healing well without signs of infection Constitutional: no acute distress Neck: trachea midline Respiratory: normal respiratory effort and + labored breathing; no respiratory distress and does not use accessory muscles breathing become labored with movement/talking Cardiovascular: Rate/Rhythm: regular rate and regular rhythm Gastrointestinal (Abdomen): Inspection/Auscultation: abdomen not distended Percussion/Palpation: abdomen soft; abdomen nontender Musculoskeletal: no calf tenderness Neurologic: moves all extremities Psychiatric: Orientation: alert and oriented x 3 Results & Data Vital Signs (Past 12 Hours) Vital Signs Temp Pulse Pulse Pulse Resp BP BP 12/02/18 07:26 78 22 12/02/18 07:21 36.8 C 82 29 H 115/65 12/02/18 03:52 69 24 12/02/18 03:18 36.8 C 74 31 H 98/62 L 12/02/18 00:33 36.9 C 79 31 H 104/58 L 12/02/18 00:00 82 12/01/18 23:20 76 24 08/23/19 20:00 36.7 C 84 34 H 104/61 Pulse Ox 12/02/18 07:26 88 L 12/02/18 07:21 88 L 12/02/18 03:52 90 12/02/18 03:18 84 L 12/02/18 00:33 84 L 12/02/18 00:00 12/01/18 23:20 90 12/01/18 20:00 88 L (1) Squamous cell lung cancer Laterality: left Qualified Code(s): C34.92 - Malignant neoplasm of unspecified part of left bronchus or lung
[2018-12-02] MEDS: SENNA 8.6 MG TAB PO SCH (09:15)
[2018-12-02] MEDS: guaiFENesin 600 MG TABCR PO SCH ×2 (09:15→20:58)
[2018-12-02] MEDS: dilTIAZem HCL 180 MG CAPCR PO SCH ×2 (09:15→20:59)
[2018-12-02] MEDS: METOPROLOL SUCC 50MG EXT REL TAB PO SCH (09:15)
[2018-12-02] MEDS: FUROSEMIDE 40 MG in SYRINGE 0 ML IV SCH (09:15)
[2018-12-02] MEDS: INSULIN GLARGINE SOLOSTAR 100 UNITS/ML 3 ML PEN SC SCH (09:16)
[2018-12-02] MEDS: cefTRIAXone SODIUM 2,000 MG in DEXTROSE 5% 50 ML IV SCH (09:17)
[2018-12-02] MEDS: INSULIN ASPART 100 UNITS/ML 3 ML PEN SC SCH ×4 (09:30→20:59)
[2018-12-02] MEDS: POLYETHYLENE (MIRALAX) 17 GM PACK PO SCH ×2 (09:30→20:59)
[2018-12-02] MEDS: DOCUSATE SODIUM 100 MG CAP PO SCH ×2 (09:30→20:58)
--- NOTE | 2018-12-02 10:44 | Family Medicine Progress Note ---
Date of Service December 02, 2018 Assessment & Plan (1) Pulmonary infection: 67y/o M s/p L pneumonectomy on 11/22 for squamous cell carcinoma; subsequent development of pneumonia, L lung grew Corynebacterium species, with subsequent sputum culture demonstrating H. influenza. Had several recurrent runs of HR into the 160s that persisted despite receiving Toprol and Cardizem; heart rate reduced by carotid massage. Pulmonary Infection: -likely 2/2 hospital admission and L pneumonectomy -Culture from L lung grew Corynebacterium species on 11/25 -sputum cx positive for H. influenza on 11/27; sensitive to cephalosporins -Nasal MRSA swab negative; stopped vancomycin & cefepime in favor of ceftriaxone -continue ceftriaxone -gave additional 20mg IV lasix to address continued pulmonary edema -Trend WBC and temperature to ensure pt does not become septic. Hypoxic Event: (11/27) -secondary infection vs ?ARDS -started on broad spectrum coverage for hospital acquired bacteria (able to be stepped down on abx coverage) -continue to monitor pt saturation and work of breathing, as he continues to tolerate weaning S/P pneumonectomy: -Deferring to surgical team for primary management of post-op care. Wheeze: -no hx of lung disease prior to mass formation -symbicort and levalbuterol inhalers available Paroxysmal Atrial Tachycardia: -Continue Metoprolol succinate 50 PO daily and Diltiazem 180 PO BID -Started Amiodarone drip as he had responded to this regimen best from the Constipation: -Received milk of magnesia 11/25 which appears to have helped release constipation. -PRN sennosides, docusate, and miralax available Hypercholesterolemia: -Continue atorvastatin 40 mg daily T2DM: -controlled on SSI. -Hold home Metformin Code: Full DVT ppx: SCDs Dispo: observe in PCU Supervising Physician Co-Signing Physician Notes I personally examined the patient and verified all hudson points of history and exam, discussed case, and agree with decision making with Dr Pizarro. Continues to overall slowly feel better. Breathing better. Eating reasonably well. Vitals noted, sitting in the chair, able to speak in somewhat longer sentences generally without much dyspnea. Breathing less labored mild accessory muscles good effort very little belly breathing right lung with fairly good air entry and no significant rales/rhonchi/wheezes.. Skin shows no rashes no pallor or icterus. Neuro shows no focal deficits. Acute hypoxic respiratory failure related to healthcare associated pneumonia and ARDS. Showing nice improvement. Overall continue current care. Tachyarrhythmiasprobably physiologic stress/hypoxia induced. Appreciate cardiology input. Agree with amiodarone. Continue close monitoring. Subjective Pt continues to feel better and is able to be more conversive this morning without desaturations below 84, family feels like he is getting close to his baseline of communicating with them. Has had some increased heart rates throughout the night and the morning, but is unaware of when these are happening, as he does not feel them occurring. Remains completely conversive throughout these episodes. Review of Systems Respiratory: + cough and + dyspnea; no snoring and no wheezing desaturates after prolonged episodes of exertion Gastrointestinal: had some bowel movements today, and has tolerated meals well Physical Exam Constitutional: well developed and cooperative Respiratory: + labored breathing (belly breathing), able to speak in complete sentences and + tachypneic; + abnormal respiratory effort Auscultation: + breath sounds absent (s/p L pneumonectomy) and + diminished lung sounds (centrally on R (improving)); no crackles and no wheezes Cardiovascular: Rate/Rhythm: regular rate and regular rhythm Heart Sounds: normal S1 and normal S2; no gallop, no murmur and no cardiac rub Extremities: no pedal edema Lymphatic: no lymphadenopathy Results & Data Vital Signs (Past 12 Hours) Vital Signs Temp Pulse Pulse Pulse Resp BP Pulse Ox 12/02/18 07:26 78 22 88 L 12/02/18 07:21 36.8 C 82 29 H 115/65 88 L 12/02/18 03:52 69 24 90 12/02/18 03:18 36.8 C 74 31 H 98/62 L 84 L 12/02/18 00:33 36.9 C 79 31 H 104/58 L 84 L 12/02/18 00:00 82 12/01/18 23:20 76 24 90 Laboratory Results 12/02/18 12/02/18 12/02/18 Range/Units 07:24 06:27 06:27 WBC 15.83 H (4.8-10.8) K/uL RBC 3.92 L (4.7-6.1) M/uL Hgb 11.1 L (14.0-18.0) g/dL Hct 32.8 L (42-52) % MCV 83.7 (80-100) fL MCH 28.3 (25-34) pg MCHC 33.8 (32-36) g/dL RDW Std Deviation 46.5 H (36.4-46.3) fL RDW Coeff of Sonia 15.0 H (11.5-14.5) % Plt Count 410 H (130-400) K/uL MPV 9.3 (7.4-10.4) fL Immature Gran % (Auto) 2.3 % Neut % (Auto) 71.2 % Lymph % (Auto) 14.2 % [place] % (Auto) 8.8 % Eos % (Auto) 3.0 % Baso % (Auto) 0.5 % Immature Gran # (Auto) 0.36 H (0.00-0.02) K/uL Neut # (Auto) 11.28 H (1.4-6.5) K/uL Lymph # (Auto) 2.24 (1.2-3.4) K/uL [place] # (Auto) 1.39 H (0.11-0.59) K/uL Eos # (Auto) 0.48 (0-0.5) K/uL Baso # (Auto) 0.08 (0-0.2) K/uL Sodium 138 (136-145) mmol/L Potassium 3.4 L (3.5-5.1) mmol/L Chloride 99 (98-107) mmol/L Carbon Dioxide 30 (21-32) mmol/L Anion Gap 9.0 (3-11) BUN 34 H (7-18) mg/dl Creatinine 0.86 (0.6-1.4) mg/dl Est Cr Clr Drug Dosing 73.5 ml/min Est GFR ( Amer) 104.7 Est GFR (Non-Af Amer) 90.4 BUN/Creatinine Ratio 39.3 H (10-20) Glucose 134 H (70-99) mg/dl POC Glucose 143 H (70-99) Calcium 8.6 (8.5-10.1) mg/dl 12/01/18 12/01/18 12/01/18 Range/Units 20:34 16:37 11:33 WBC (4.8-10.8) K/uL RBC (4.7-6.1) M/uL Hgb (14.0-18.0) g/dL Hct (42-52) % MCV (80-100) fL MCH (25-34) pg MCHC (32-36) g/dL RDW Std Deviation (36.4-46.3) fL RDW Coeff of Sonia (11.5-14.5) % Plt Count (130-400) K/uL MPV (7.4-10.4) fL Immature Gran % (Auto) % Neut % (Auto) % Lymph % (Auto) % [place] % (Auto) % Eos % (Auto) % Baso % (Auto) % Immature Gran # (Auto) (0.00-0.02) K/uL Neut # (Auto) (1.4-6.5) K/uL Lymph # (Auto) (1.2-3.4) K/uL [place] # (Auto) (0.11-0.59) K/uL Eos # (Auto) (0-0.5) K/uL Baso # (Auto) (0-0.2) K/uL Sodium (136-145) mmol/L Potassium (3.5-5.1) mmol/L Chloride (98-107) mmol/L Carbon Dioxide (21-32) mmol/L Anion Gap (3-11) BUN (7-18) mg/dl Creatinine (0.6-1.4) mg/dl Est Cr Clr Drug Dosing ml/min Est GFR ( Amer) Est GFR (Non-Af Amer) BUN/Creatinine Ratio (10-20) Glucose (70-99) mg/dl POC Glucose 96 149 H 128 H (70-99) Calcium (8.5-10.1) mg/dl Medications Administered Current Inpatient Medications Albuterol (Duoneb) 3 ml INH Q6H PRN PRN Reason: sob Stop: 12/29/18 08:50 Atorvastatin Calcium (Lipitor) 40 mg PO HS [facility] Stop: 12/22/18 20:59 Last Admin: 12/01/18 20:24 Dose: 40 mg Documented by: Dextrose (Dextrose 50%) 25 - 50 ml IV UD PRN; Protocol PRN Reason: Hypoglycemia Protocol Stop: 12/27/18 21:44 Diltiazem HCl (Cardizem Cd) 180 mg PO BID [facility] Stop: 12/23/18 08:59 Last Admin: 12/02/18 09:15 Dose: 180 mg Documented by: Docusate Sodium (Colace) 100 mg PO BID [facility] Stop: 12/22/18 20:59 Last Admin: 12/02/18 09:30 Dose: 100 mg Documented by: Glucagon (Glucagen) 1 mg SQ UD PRN; Protocol PRN Reason: Hypoglycemia Protocol Stop: 12/27/18 21:44 Glucose (Glucose 40%) 15 - 30 gm PO UD PRN; Protocol PRN Reason: Hypoglycemia Protocol Stop: 12/27/18 21:44 Glucose (Dex4 Glucose) 4 - 8 tabs PO UD PRN; Protocol PRN Reason: Hypoglycemia Protocol Stop: 12/27/18 21:44 Guaifenesin (Mucinex) 1,200 mg PO Q12 [facility] Stop: 12/24/18 20:59 Last Admin: 12/02/18 09:15 Dose: 1,200 mg Documented by: Heparin Sodium (Porcine) (Heparin Sodium (Porcine)) 5,000 units SQ Q8 [facility] Stop: 12/23/18 13:59 Last Admin: 12/02/18 07:25 Dose: 5,000 units Documented by: Ceftriaxone Sodium 2,000 mg/ (Dextrose) 70 mls @ 100 mls/hr IV Q24H [facility]; Protocol Stop: 12/07/18 08:59 Last Infusion: 12/02/18 09:59 Dose: Infused Documented by: Furosemide 40 mg/ Syringe 4 mls @ 4 mls/min IV DAILY [facility] Stop: 01/01/19 08:59 Last Admin: 12/02/18 09:15 Dose: 4 mls/min Documented by: Furosemide 20 mg/ Syringe 2 mls @ 4 mls/min IV 1500 [facility] Stop: 12/02/18 15:01 Insulin Aspart (Novolog Flexpen) 0 units SC ACHS [facility]; Protocol Stop: 12/05/18 21:01 Last Admin: 12/02/18 09:30 Dose: 5 units Documented by: Insulin Glargine (Lantus Solostar Pen) 0 units SC DAILY [facility]; Protocol Stop: 12/31/18 08:59 Last Admin: 12/02/18 09:16 Dose: 10 units Documented by: Magnesium Hydroxide (Milk Of Magnesia) 30 ml PO Q6H PRN PRN Reason: Constipation Stop: 12/25/18 14:34 Last Admin: 11/25/18 22:14 Dose: 30 ml Documented by: Metoprolol Succinate (Toprol Xl) 50 mg PO DAILY [facility] Stop: 12/23/18 08:59 Last Admin: 12/02/18 09:15 Dose: 50 mg Documented by: Miscellaneous (Carbohydrates For Hypoglycemia) 15 - 30 gm PO UD PRN PRN Reason: Hypoglycemia Treatment Stop: 12/27/18 21:44 Miscellaneous Information (Consult Glycemic Management Pharmacy) 1 ea N/A UD PRN PRN Reason: Consult Stop: 12/23/18 14:29 Oxycodone HCl (Roxicodone Immediate Rel) 5 mg PO Q6H PRN PRN Reason: Pain Stop: 12/15/18 08:59 Last Admin: 12/02/18 03:00 Dose: 5 mg Documented by: Polyethylene Glycol (Miralax Powder Packet) 17 gm PO BID [facility] Stop: 12/24/18 20:59 Last Admin: 12/02/18 09:30 Dose: 17 gm Documented by: Sennosides (Senokot) 17.2 mg PO QAM [facility] Stop: 12/25/18 08:59 Last Admin: 12/02/18 09:15 Dose: 17.2 mg Documented by: Tamsulosin HCl (Flomax) 0.4 mg PO DAILY@1700 [facility] Stop: 12/23/18 17:59 Last Admin: 12/01/18 17:14 Dose: 0.4 mg Documented by: PG Care Time/CCT Total # of Minutes Spent Total Time Spent with Patient: Total time spent is greater than 50% in coordination of care (as documented) at patient's floor/unit and/or counseling patient: Resident Activity Tracking Resident Involvement: Resident Care Provided Care Provided: Adult Hospital Medicine
--- NOTE | 2018-12-02 12:18 | Cardiology Progress Note ---
Date of Service December 02, 2018 Assessment & Plan (1) PAT (paroxysmal atrial tachycardia): Reportedly an ongoing issue prior to hospitalization. Was having sustained runs of atrial tachycardia verses SVT this morning, which converted following carotid massage. If he has continued episodes, would consider amiodarone. Could also in the meantime increase metoprolol if blood pressure tolerates. He has had issues with hypotension in the last couple days. Replete potassium. Fortunately, he is completely asymptomatic from his atrial arrhythmia. Dr. Ruiz, his primary academic services coordinator, will continue to follow along when he returns to the hospital. (2) Acute respiratory failure with hypoxia: He appears euvolemic. Likely pulmonary in etiology. Will defer to primary service and surgery. He is status post left pneumonectomy. Disposition: Plan of care discussed with Dr. Pizarro of the primary hospitalist service. Please call with any other questions or concerns. Subjective Was notified by primary service, Dr. Pizarro, that patient was in tachyarrhythmia. When reviewing telemetry, suspected SVT, versus atrial tachycardia but cannot rule out atrial flutter. ECG had not yet been done. Recommended carotid massage. Dr. Pizarro performed carotid massage, which terminated the rhythm to sinus. He had a brief recurrent episode which once again converted with Carotid massage. He is completely asymptomatic in this regard. He denies palpitations, chest pain. His breathing is stable compared to yesterday per patient report. No reported syncope, near-syncope, or edema. His and daughter are present at the bedside. Review of systems: As above. Physical Exam Physical Exam: Gen.: Tachypneic. Alert. HEENT: Anicteric sclera. Neck: No appreciable JVD. Cardiac: Regular with ectopy. Normal S1-S2. No murmurs, rubs, or gallops. Pulmonary: No lung sounds on the left, right lung sounds clear. Abdomen: Soft, nontender, nondistended, with normoactive bowel sounds. No bruits noted. Extremities: No edema or cyanosis. Psychiatric: Affect appears appropriate. Results & Data Vital Signs (Past 12 Hours) Vital Signs Temp Pulse Pulse Resp BP BP Pulse Ox 12/02/18 11:36 37.0 C 95 H 34 H 113/63 92 12/02/18 10:55 157 H 24 89 L 12/02/18 07:26 78 22 88 L 12/02/18 07:21 36.8 C 82 29 H 115/65 88 L 12/02/18 03:52 69 24 90 12/02/18 03:18 36.8 C 74 31 H 98/62 L 84 L 12/02/18 00:33 36.9 C 79 31 H 104/58 L 84 L Laboratory Results Laboratory Results - last 24 hr 12/01/18 12/01/18 12/02/18 16:37 20:34 06:27 WBC 15.83 H RBC 3.92 L Hgb 11.1 L Hct 32.8 L MCV 83.7 MCH 28.3 MCHC 33.8 RDW Std Deviation 46.5 H RDW Coeff of Sonia 15.0 H Plt Count 410 H MPV 9.3 Immature Gran % (Auto) 2.3 Neut % (Auto) 71.2 Lymph % (Auto) 14.2 [place] % (Auto) 8.8 Eos % (Auto) 3.0 Baso % (Auto) 0.5 Immature Gran # (Auto) 0.36 H Neut # (Auto) 11.28 H Lymph # (Auto) 2.24 [place] # (Auto) 1.39 H Eos # (Auto) 0.48 Baso # (Auto) 0.08 Sodium Potassium Chloride Carbon Dioxide Anion Gap BUN Creatinine Est Cr Clr Drug Dosing Est GFR ( Amer) Est GFR (Non-Af Amer) BUN/Creatinine Ratio Glucose POC Glucose 149 H 96 Calcium 12/02/18 12/02/18 12/02/18 06:27 07:24 11:35 WBC RBC Hgb Hct MCV MCH MCHC RDW Std Deviation RDW Coeff of Sonia Plt Count MPV Immature Gran % (Auto) Neut % (Auto) Lymph % (Auto) [place] % (Auto) Eos % (Auto) Baso % (Auto) Immature Gran # (Auto) Neut # (Auto) Lymph # (Auto) [place] # (Auto) Eos # (Auto) Baso # (Auto) Sodium 138 Potassium 3.4 L Chloride 99 Carbon Dioxide 30 Anion Gap 9.0 BUN 34 H Creatinine 0.86 Est Cr Clr Drug Dosing 73.5 Est GFR ( Amer) 104.7 Est GFR (Non-Af Amer) 90.4 BUN/Creatinine Ratio 39.3 H Glucose 134 H POC Glucose 143 H 142 H Calcium 8.6 Diagnostic Findings Telemetry personally reviewed: Possible atrial tachycardia/SVT as Noted above. Otherwise, sinus with ectopy. Medications Administered Current Inpatient Medications Albuterol (Duoneb) 3 ml INH Q6H PRN PRN Reason: sob Stop: 12/29/18 08:50 Atorvastatin Calcium (Lipitor) 40 mg PO HS CARLO Stop: 12/22/18 20:59 Last Admin: 12/01/18 20:24 Dose: 40 mg Documented by: Dextrose (Dextrose 50%) 25 - 50 ml IV UD PRN; Protocol PRN Reason: Hypoglycemia Protocol Stop: 12/27/18 21:44 Diltiazem HCl (Cardizem Cd) 180 mg PO BID CARLO Stop: 12/23/18 08:59 Last Admin: 12/02/18 09:15 Dose: 180 mg Documented by: Docusate Sodium (Colace) 100 mg PO BID CARLO Stop: 12/22/18 20:59 Last Admin: 12/02/18 09:30 Dose: 100 mg Documented by: Glucagon (Glucagen) 1 mg SQ UD PRN; Protocol PRN Reason: Hypoglycemia Protocol Stop: 12/27/18 21:44 Glucose (Glucose 40%) 15 - 30 gm PO UD PRN; Protocol PRN Reason: Hypoglycemia Protocol Stop: 12/27/18 21:44 Glucose (Dex4 Glucose) 4 - 8 tabs PO UD PRN; Protocol PRN Reason: Hypoglycemia Protocol Stop: 12/27/18 21:44 Guaifenesin (Mucinex) 1,200 mg PO Q12 [facility]LO Stop: 12/24/18 20:59 Last Admin: 12/02/18 09:15 Dose: 1,200 mg Documented by: Heparin Sodium (Porcine) (Heparin Sodium (Porcine)) 5,000 units SQ Q8 CARLO Stop: 12/23/18 13:59 Last Admin: 12/02/18 07:25 Dose: 5,000 units Documented by: Ceftriaxone Sodium 2,000 mg/ (Dextrose) 70 mls @ 100 mls/hr IV Q24H CARLO; Protocol Stop: 12/07/18 08:59 Last Infusion: 12/02/18 09:59 Dose: Infused Documented by: Furosemide 40 mg/ Syringe 4 mls @ 4 mls/min IV DAILY CARLO Stop: 01/01/19 08:59 Last Admin: 12/02/18 09:15 Dose: 4 mls/min Documented by: Furosemide 20 mg/ Syringe 2 mls @ 4 mls/min IV 1500 ONE Stop: 12/02/18 15:01 Insulin Aspart (Novolog Flexpen) 0 units SC ACHS [facility]; Protocol Stop: 12/05/18 21:01 Last Admin: 12/02/18 11:56 Dose: 4 units Documented by: Insulin Glargine (Lantus Solostar Pen) 0 units SC DAILY [facility]; Protocol Stop: 12/31/18 08:59 Last Admin: 12/02/18 09:16 Dose: 10 units Documented by: Magnesium Hydroxide (Milk Of Magnesia) 30 ml PO Q6H PRN PRN Reason: Constipation Stop: 12/25/18 14:34 Last Admin: 11/25/18 22:14 Dose: 30 ml Documented by: Metoprolol Succinate (Toprol Xl) 50 mg PO DAILY [facility] Stop: 12/23/18 08:59 Last Admin: 12/02/18 09:15 Dose: 50 mg Documented by: Miscellaneous (Carbohydrates For Hypoglycemia) 15 - 30 gm PO UD PRN PRN Reason: Hypoglycemia Treatment Stop: 12/27/18 21:44 Miscellaneous Information (Consult Glycemic Management Pharmacy) 1 ea N/A UD PRN PRN Reason: Consult Stop: 12/23/18 14:29 Oxycodone HCl (Roxicodone Immediate Rel) 5 mg PO Q6H PRN PRN Reason: Pain Stop: 12/15/18 08:59 Last Admin: 12/02/18 03:00 Dose: 5 mg Documented by: Polyethylene Glycol (Miralax Powder Packet) 17 gm PO BID [facility] Stop: 12/24/18 20:59 Last Admin: 12/02/18 09:30 Dose: 17 gm Documented by: Sennosides (Senokot) 17.2 mg PO QAM [facility] Stop: 12/25/18 08:59 Last Admin: 12/02/18 09:15 Dose: 17.2 mg Documented by: Tamsulosin HCl (Flomax) 0.4 mg PO DAILY@1700 [facility] Stop: 12/23/18 17:59 Last Admin: 12/01/18 17:14 Dose: 0.4 mg Documented by: PG Care Time/CCT Total # of Minutes Spent Total Time Spent with Patient: Total time spent is greater than 50% in coordination of care (as documented) at patient's floor/unit and/or counseling patient:
[2018-12-02] MEDS ORDERED: POTASSIUM CHLORIDE 20 MEQ/15 ML UDC PO ONE (12:30)
[2018-12-02] MEDS ORDERED: AMIODARONE IV BOLUS / DRIP IV STA (12:35)
[2018-12-02] MEDS ORDERED: AMIODARONE / D5W 150 MG/100 ML BAG IV STA (12:35)
[2018-12-02] MEDS ORDERED: AMIODARONE / D5W 360 MG/200 ML BAG IV SCH (12:45)
--- NOTE | 2018-12-02 13:14 | Pulmonology Progress Note ---
Date of Service December 02, 2018 Assessment & Plan (1) Acute respiratory failure with hypoxia: Recommend cautious diuresis especially in the setting of electrolyte abnormalities and tachyarrhythmia. Needs close observation of his potassium and magnesium. He appears to be fairly euvolemic and perhaps we can stop diuresis at this point. Completed course of 7 days of antibiotics total. He had a Haemophilus influenza culture that was positive in the sputum on the . He is apparently started amiodarone by cardiology. He will need outpatient pulmonary function tests as a baseline after starting amiodarone. He will likely have a slow recovery from a hypoxemia and pneumonia standpoint. At this time there are no active pulmonary interventions required and we will see him on a as needed basis. Present on Admission?: No (2) Postoperative pneumonia: Present on Admission?: No (3) S/P pneumonectomy: Present on Admission?: No Subjective Patient doing well out of the ICU. He had some tachyarrhythmias during the morn ing which resolved with carotid massage. Cardiology is following. He continues to require 30 L of high flow nasal cannula at 50% FiO2. He is sitting up in his bed and eating food. He says he feels better. He is able to get up and walk to the commode. His cough is minimal and occasionally productive. He has had no fevers or night sweats. He has had no chest pain. Physical Exam Constitutional: + frail appearing; no acute distress and no altered mental status Eyes: PERRL, conjunctivae normal, anicteric sclerae Neck: trachea midline, no thyromegaly Respiratory: + tachypneic No breath sounds on the left. Crackles on the right. Cardiovascular: RRR, no murmur, no edema Rate/Rhythm: + tachycardic Gastrointestinal (Abdomen): normal bowel sounds, soft, nontender, no hepato splenomegaly Musculoskeletal: no cyanosis or clubbing, extremities motor strength 5/5 Neurologic: CN's II-XI intact bilaterally Results & Data Vital Signs (Past 12 Hours) Vital Signs Temp Pulse Pulse Resp BP BP Pulse Ox 12/02/18 11:36 98.6 F 95 H 34 H 113/63 92 12/02/18 10:55 157 H 24 89 L 12/02/18 07:26 78 22 88 L 12/02/18 07:21 98.2 F 82 29 H 115/65 88 L 12/02/18 03:52 69 24 90 12/02/18 03:18 98.2 F 74 31 H 98/62 L 84 L Laboratory Results 12/02/18 06:27 12/02/18 06:27 Diagnostic Findings Prior chest imaging reviewed with continued infiltrate on the right. PG Care Time/CCT Total # of Minutes Spent Total Time Spent with Patient: Total time spent is greater than 50% in coordination of care (as documented) at patient's floor/unit and/or counseling patient:
[2018-12-02] MEDS ORDERED: FUROSEMIDE 20 MG in SYRINGE 0 ML IV ONE (15:00)
[2018-12-02] MEDS: TAMSULOSIN HCL 0.4 MG CAP PO SCH (16:24)
[2018-12-02] MEDS: AMIODARONE / D5W 360 MG/200 ML BAG IV SCH (18:50)
[2018-12-02] MEDS: ATORVASTATIN 40 MG TAB PO SCH (20:59)
[2018-12-03] MEDS ORDERED: MoRPHine SULFATE 2 MG/ML CARP IV STA (00:18)
[2018-12-03] MEDS: OXYCODONE HCL IR 5 MG TAB (IMMEDIATE RELEASE) PO PRN ×4 (03:44→23:48)
[2018-12-03] MEDS: HEPARIN SOD 5,000 UNIT/0.5 ML VIAL SQ SCH ×3 (05:58→21:56)
[2018-12-03] MEDS: AMIODARONE / D5W 360 MG/200 ML BAG IV SCH ×2 (05:59→18:07)
[2018-12-03 06:06] LABS: Basophils # (auto) 0.08 K/uL (0-0.2); Basophils % (auto) 0.5 %; Eosinophils # (auto) 0.49 K/uL (0-0.5); Hematocrit (blood only) 31.5 % (42-52); Hemoglobin 10.4 g/dL (14.0-18.0); Immature Granulocytes # (auto) 0.37 K/uL (0.00-0.02); Immature Granulocytes % (auto) 2.2 %; Lymphocytes # (auto) 2.27 K/uL (1.2-3.4); Lymphocytes % (auto) 13.7 %; Mean Corpuscular Hemoglobin 27.6 pg (25-34); Mean Corpuscular Volume 83.6 fL (80-100); Mean Platelet Volume 9.7 fL (7.4-10.4); Monocytes # (auto) 1.33 K/uL (0.11-0.59); Neutrophils # (auto) 12.04 K/uL (1.4-6.5); Neutrophils % (auto) 72.6 %; Platelet Count 386 K/uL (130-400); RDW Standard Deviation 45.8 fL (36.4-46.3); Red Blood Count 3.77 M/uL (4.7-6.1); White Blood Count 16.58 K/uL (4.8-10.8)
[2018-12-03 06:22] LABS: BUN Creatinine Ratio 31.4 (10-20); Calcium 8.4 mg/dl (8.5-10.1); Creatinine Clr Calc Pharmacy 75.2 ml/min; Est GFR (African American) 105.7; Est GFR (Non-African American) 91.2; Magnesium 2.2 mg/dl (1.8-2.4); Potassium 3.1 mmol/L (3.5-5.1)
--- NOTE | 2018-12-03 07:12 | XRay Report ---
XR chest 1V portable HISTORY: 67 years-old Male hypoxia acute shortness of breath COMPARISON: Chest radiograph 12/02/2018 TECHNIQUE: Portable AP view of the chest FINDINGS: Postoperative changes from prior left pneumonectomy with air and fluid again seen within the left hem ithorax cavity, unchanged. Cardiac silhouette is stable. Mixed interstitial and alveolar opacities of the right lung appear unchanged. No right-sided pneumothorax or large pleural effusion. Degenerative changes of the shoulders and spine. IMPRESSION: 1. Postoperative changes of prior left pneumonectomy with air and fluid within the left hemithorax. 2. Mixed interstitial and alveolar opacities about the right lung appear unchanged suggestive of pneu monitis versus pulmonary edema. The above report was generated using voice recognition software. It may contain grammatical, syntax o r spelling errors. Electronically signed by: Francois Marsh M.D. 12/03/2018 7:10 AM
--- NOTE | 2018-12-03 07:41 | Surgery Progress Note ---
Date of Service December 03, 2018 Assessment & Plan (1) Acute respiratory failure with hypoxia: -pt. developed acute lung injury post-op -he has received support with combination of high flow oxygen and CPAP -respiratory status has remained stable last several days -CXR today shows right sided infiltrative pattern persists with some worsening -blood cultures from 11/26/18 are (-) -sputum from 11/26/18 grew H. influenza: -was receiving broad spectrum antibiotics in the form of vancomycin and cefepime but has be de-escalated to rocephin as organism is sensitive to this -pt. tolerating oral intake -pt. noted to have runs of PAT: -discussed with cardiology and they have initiated IV amiodarone which seems to be helping this arrhythmia -potassium is being repleated -will continue IV diuresis with lasix: -will give additional dose this evening in order to achieve a net (-) fluid balance -will continue supportive measures and continue to monitor closely -sub-q heparin is in place for DVT prevention -discussed again with at bedside as well as RN (2) Squamous cell lung cancer: -pt. is s/p left pneumonectomy -see above for plan Subjective Pt. notes a restful night. He only notes SOB with activity. Tolerating oral intake. No CP. No fevers, shakes, chills. Discussed with RN--other than noted desaturation with activity no other concerns noted. Review of Systems Constitutional: + fatigue; no fever and no chills Respiratory: + dyspnea; no cough Cardiovascular: no chest pain Physical Exam Constitutional: no acute distress Neck: trachea midline Respiratory: normal respiratory effort and + labored breathing (noted with prolonged talking and movement); no respiratory distress and does not use accessory muscles Cardiovascular: Rate/Rhythm: regular rate and regular rhythm Gastrointestinal (Abdomen): Inspection/Auscultation: abdomen not distended Percussion/Palpation: abdomen soft; abdomen nontender Neurologic: moves all extremities Psychiatric: Orientation: alert and oriented x 3 Results & Data Vital Signs (Past 12 Hours) Vital Signs Temp Pulse Pulse Pulse Resp BP BP 12/03/18 07:32 36.6 C 69 21 105/57 L 12/03/18 07:12 86 26 H 12/03/18 04:40 75 29 H 12/03/18 04:00 36.8 C 30 L 70 30 H 95/60 L 12/03/18 01:31 69 30 H 12/03/18 00:04 36.9 C 76 28 H 95/54 L 12/03/18 00:00 74 12/02/18 22:06 77 26 H 12/02/18 19:43 37.0 C 79 36 H 109/61 Pulse Ox 12/03/18 07:32 91 12/03/18 07:12 92 12/03/18 04:40 86 L 12/03/18 04:00 94 12/03/18 01:31 88 L 12/03/18 00:04 84 L 12/03/18 00:00 12/02/18 22:06 90 12/02/18 19:43 86 L (1) Squamous cell lung cancer Laterality: left Qualified Code(s): C34.92 - Malignant neoplasm of unspecified part of left bronchus or lung
[2018-12-03] MEDS: cefTRIAXone SODIUM 2,000 MG in DEXTROSE 5% 50 ML IV SCH (08:56)
[2018-12-03] MEDS: POTASSIUM CHLORIDE 10 MEQ TABCR PO SCH (08:58)
[2018-12-03] MEDS: INSULIN ASPART 100 UNITS/ML 3 ML PEN SC SCH ×4 (08:59→21:56)
[2018-12-03] MEDS: SENNA 8.6 MG TAB PO SCH (08:59)
[2018-12-03] MEDS: dilTIAZem HCL 180 MG CAPCR PO SCH ×2 (08:59→21:49)
[2018-12-03] MEDS: FUROSEMIDE 40 MG in SYRINGE 0 ML IV SCH (08:59)
[2018-12-03] MEDS: INSULIN GLARGINE SOLOSTAR 100 UNITS/ML 3 ML PEN SC SCH (09:00)
[2018-12-03] MEDS: METOPROLOL SUCC 50MG EXT REL TAB PO SCH (09:00)
[2018-12-03] MEDS: guaiFENesin 600 MG TABCR PO SCH ×2 (09:00→21:49)
[2018-12-03] MEDS: DOCUSATE SODIUM 100 MG CAP PO SCH ×2 (09:06→21:50)
[2018-12-03] MEDS: POLYETHYLENE (MIRALAX) 17 GM PACK PO SCH ×2 (09:06→21:49)
--- NOTE | 2018-12-03 09:28 | Pharmacy Report ---
Glycemic Control Progress Note - Date of Service December 03, 2018 - Scope Glycemic Pharmacist consulted for glycemic control to write orders per [facility] inpatient glycemic control protocol. - Objective Accuchecks BSG(last 24 hours):: 12/02/18 12/02/18 12/02/18 11:35 16:39 20:59 Glucose POC Glucose 142 H 136 H 132 H 12/03/18 12/03/18 05:54 07:10 Glucose 134 H POC Glucose 135 H - Recent Pertinent Medications The patient is currently receiving: * Basal insulin: Lantus 10 units every 24 hours * Correctional Insulin: Novolog Correction per scale ACHS Goal Range: Low 110 mg/dL - High 140 mg/dL Correction Factor: 25 mg/dL/unit * Prandial insulin: Per carb ratio of 1 unit per 10 grams CHO consumed - Outpatient Anti-Diabetic Meds metformin 500 mg HS - Assessment & Plan ASSESSMENT: * See progress note from 11/22/18 for more background info, in short: * Pt receiving SQ basal bolus insulin regimen for hyperglycemia secondary to baseline DM (outpatient regimen on hold),stress/infection (on Rocephin). * Patient is currently receiving an average of 26 units of insulin per day * 10 units of basal insulin * 16 units of prandial/correctional insulin * BSGs ranging 132 - 143 mg/dl over the past 24hrs * Changes needed to insulin regimen: * AM Fasting BSG = 135 mg/dl. This is in goal range for patient based on inpatient targets and co-morbidities. Therefore Basal insulin will be continued at 10 units daily. * Post-prandial BSGs are in range therefore no changes needed to CF/CR. * Total daily dose = ~20-30 units. PLAN FOR INPATIENT GLYCEMIC CONTROL: * Continuing Lantus 10 units SQ daily * Continuing correction factor of 25 mg/dl/unit * Continuing carb ratio of 1 unit per 10 grams CHO consumed * Continuing goal range of Low 110 mg/dL - High 140 mg/dL RECOMMENDATIONS FOR DISCHARGE: * Patient's HbA1C is reasonable for his age and co-morbidities. If possible, titrate metformin to maximally tolerated dose, typically goal is 1 gm PO BID. * Please note that the plan above was derived based on current level of insulin resistance and hospital stress. These recommendations are appropriate for inpatient admission only. Plan of care upon discharge will need to be reassessed to avoid potential outpatient hypo/hyperglycemia. Thank you.
--- NOTE | 2018-12-03 10:20 | Cardiology Progress Note ---
Date of Service December 03, 2018 Assessment & Plan (1) PAT (paroxysmal atrial tachycardia): He has maintained sinus rhythm on amiodarone drip. No further sustained atrial arrhythmia while on amiodarone. Would continue amiodarone drip today. Can consider oral amiodarone, possibly tomorrow. He will be re-evaluated tomorrow by electrophysiology, Dr. Ruiz to help coordinate his antiarrhythmic therapy. ECG ordered. Replete potassium, which is being managed by primary service. Can continue diltiazem and metoprolol. (2) Acute respiratory failure with hypoxia: He appears euvolemic. Receiving diuretics as per thoracic team. Dyspnea consistent with pulmonary etiology. Will defer to primary service, pulmonary, and surgery. He is status post left pneumonectomy. Disposition: Dr. Ruiz will resume his cardiology care tomorrow. Please call with any questions or concerns. Subjective His breathing is stable. He still has shortness of breath with any type of exertion and even conversation but denies any worsening, or significant improvement . He denies chest pain, palpitations, syncope, near-syncope, edema, or bleeding. He has tolerated IV amiodarone. Review of systems: As above. Physical Exam Physical Exam: Gen.: Tachypneic. Alert. HEENT: Anicteric sclera. Neck: No appreciable JVD. Cardiac: Regular. Normal S1-S2. No murmurs, rubs, or gallops. Pulmonary: No lung sounds on the left, right lung sounds clear. Abdomen: Soft, nontender, nondistended, with normoactive bowel sounds. No bruits noted. Extremities: No edema or cyanosis. Psychiatric: Affect appears appropriate. Results & Data Vital Signs (Past 12 Hours) Vital Signs Temp Pulse Pulse Pulse Resp BP Pulse Ox 12/03/18 07:32 36.6 C 69 21 105/57 L 91 12/03/18 07:12 86 26 H 92 12/03/18 04:40 75 29 H 86 L 12/03/18 04:00 36.8 C 30 L 70 30 H 95/60 L 94 12/03/18 01:31 69 30 H 88 L 12/03/18 00:04 36.9 C 76 28 H 95/54 L 84 L 12/03/18 00:00 74 Intake & Output 08/2312/02/18 12/03/18 12/04/18 06:59 06:59 06:59 06:59 Intake Total 530 / 530 900 / 900 1926.205 / 1926.205 Output Total 1640 / 1640 525 / 525 1104 / 1104 Balance -1110 / -1110 375 / 375 822.205 / 822.205 Weight 71.5 kg Laboratory Results Laboratory Results - last 24 hr 12/02/18 12/02/18 12/02/18 11:35 16:39 20:59 WBC RBC Hgb Hct MCV MCH MCHC RDW Std Deviation RDW Coeff of Sonia Plt Count MPV Immature Gran % (Auto) Neut % (Auto) Lymph % (Auto) [place] % (Auto) Eos % (Auto) Baso % (Auto) Immature Gran # (Auto) Neut # (Auto) Lymph # (Auto) [place] # (Auto) Eos # (Auto) Baso # (Auto) Sodium Potassium Chloride Carbon Dioxide Anion Gap BUN Creatinine Est Cr Clr Drug Dosing Est GFR ( Amer) Est GFR (Non-Af Amer) BUN/Creatinine Ratio Glucose POC Glucose 142 H 136 H 132 H Calcium Magnesium 12/03/18 12/03/18 12/03/18 05:54 05:54 07:10 WBC 16.58 H RBC 3.77 L Hgb 10.4 L Hct 31.5 L MCV 83.6 MCH 27.6 MCHC 33.0 RDW Std Deviation 45.8 RDW Coeff of Sonia 15.0 H Plt Count 386 MPV 9.7 Immature Gran % (Auto) 2.2 Neut % (Auto) 72.6 Lymph % (Auto) 13.7 [place] % (Auto) 8.0 Eos % (Auto) 3.0 Baso % (Auto) 0.5 Immature Gran # (Auto) 0.37 H Neut # (Auto) 12.04 H Lymph # (Auto) 2.27 [place] # (Auto) 1.33 H Eos # (Auto) 0.49 Baso # (Auto) 0.08 Sodium 137 Potassium 3.1 L Chloride 99 Carbon Dioxide 31 Anion Gap 7.0 BUN 26 H Creatinine 0.84 Est Cr Clr Drug Dosing 75.2 Est GFR ( Amer) 105.7 Est GFR (Non-Af Amer) 91.2 BUN/Creatinine Ratio 31.4 H Glucose 134 H POC Glucose 135 H Calcium 8.4 L Magnesium 2.2 Diagnostic Findings Telemetry personally reviewed: While on amiodarone drip, there has not been any further sustained atrial arrhythmia. Sinus rhythm. Medications Administered Current Inpatient Medications Albuterol (Duoneb) 3 ml INH Q6H PRN PRN Reason: sob Stop: 12/29/18 08:50 Atorvastatin Calcium (Lipitor) 40 mg PO HS CARLO Stop: 12/22/18 20:59 Last Admin: 12/02/18 20:59 Dose: 40 mg Documented by: Dextrose (Dextrose 50%) 25 - 50 ml IV UD PRN; Protocol PRN Reason: Hypoglycemia Protocol Stop: 12/27/18 21:44 Diltiazem HCl (Cardizem Cd) 180 mg PO BID CARLO Stop: 12/23/18 08:59 Last Admin: 12/03/18 08:59 Dose: 180 mg Documented by: Docusate Sodium (Colace) 100 mg PO BID [facility]LO Stop: 12/22/18 20:59 Last Admin: 12/03/18 09:06 Dose: 100 mg Documented by: Glucagon (Glucagen) 1 mg SQ UD PRN; Protocol PRN Reason: Hypoglycemia Protocol Stop: 12/27/18 21:44 Glucose (Glucose 40%) 15 - 30 gm PO UD PRN; Protocol PRN Reason: Hypoglycemia Protocol Stop: 12/27/18 21:44 Glucose (Dex4 Glucose) 4 - 8 tabs PO UD PRN; Protocol PRN Reason: Hypoglycemia Protocol Stop: 12/27/18 21:44 Guaifenesin (Mucinex) 1,200 mg PO Q12 CARLO Stop: 12/24/18 20:59 Last Admin: 12/03/18 09:00 Dose: 1,200 mg Documented by: Heparin Sodium (Porcine) (Heparin Sodium (Porcine)) 5,000 units SQ Q8 CARLO Stop: 12/23/18 13:59 Last Admin: 12/03/18 05:58 Dose: 5,000 units Documented by: Ceftriaxone Sodium 2,000 mg/ (Dextrose) 70 mls @ 100 mls/hr IV Q24H [facility]; Protocol Stop: 12/07/18 08:59 Last Admin: 12/03/18 08:56 Dose: 100 mls/hr Documented by: Furosemide 40 mg/ Syringe 4 mls @ 4 mls/min IV DAILY [facility] Stop: 01/01/19 08:59 Last Admin: 12/03/18 08:59 Dose: 4 mls/min Documented by: Amiodarone HCl/Dextrose (Nexterone / D5w) 360 mg in 200 mls @ 16.667 mls/hr IV .Q12H CARLO Stop: 01/01/19 18:44 Last Admin: 12/03/18 05:59 Dose: 0.5 mg/min, 16.7 mls/hr Documented by: Furosemide 40 mg/ Syringe 4 mls @ 4 mls/min IV ONE ONE Stop: 12/03/18 19:01 Insulin Aspart (Novolog Flexpen) 0 units SC ACHS [facility]; Protocol Stop: 12/05/18 21:01 Last Admin: 12/03/18 08:59 Dose: 6 units Documented by: Insulin Glargine (Lantus Solostar Pen) 10 units SC DAILY [facility]; Protocol Stop: 01/03/19 08:59 Magnesium Hydroxide (Milk Of Magnesia) 30 ml PO Q6H PRN PRN Reason: Constipation Stop: 12/25/18 14:34 Last Admin: 11/25/18 22:14 Dose: 30 ml Documented by: Metoprolol Succinate (Toprol Xl) 50 mg PO DAILY [facility] Stop: 12/23/18 08:59 Last Admin: 12/03/18 09:00 Dose: 50 mg Documented by: Miscellaneous (Carbohydrates For Hypoglycemia) 15 - 30 gm PO UD PRN PRN Reason: Hypoglycemia Treatment Stop: 12/27/18 21:44 Miscellaneous Information (Consult Glycemic Management Pharmacy) 1 ea N/A UD PRN PRN Reason: Consult Stop: 12/23/18 14:29 Oxycodone HCl (Roxicodone Immediate Rel) 5 mg PO Q6H PRN PRN Reason: Pain Stop: 12/15/18 08:59 Last Admin: 12/03/18 03:44 Dose: 5 mg Documented by: Polyethylene Glycol (Miralax Powder Packet) 17 gm PO BID [facility]LO Stop: 12/24/18 20:59 Last Admin: 12/03/18 09:06 Dose: Not Given Documented by: Potassium Chloride (Klor-Con M10) 40 meq PO DAILY [facility] Stop: 01/02/19 08:59 Last Admin: 12/03/18 08:58 Dose: 40 meq Documented by: Sennosides (Senokot) 17.2 mg PO QAM [facility] Stop: 12/25/18 08:59 Last Admin: 12/03/18 08:59 Dose: 17.2 mg Documented by: Tamsulosin HCl (Flomax) 0.4 mg PO DAILY@1700 [facility] Stop: 12/23/18 17:59 Last Admin: 12/02/18 16:24 Dose: 0.4 mg Documented by: PG Care Time/CCT Total # of Minutes Spent Total Time Spent with Patient: Total time spent is greater than 50% in coordination of care (as documented) at patient's floor/unit and/or counseling patient:
--- NOTE | 2018-12-03 14:10 | Family Medicine Progress Note ---
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 influenza. Had several recurrent runs of HR into the 160s that persisted despite receiving Toprol and Cardizem; heart rate reduced by carotid massage. Pulmonary Infection: -likely 2/2 hospital admission and L pneumonectomy -Culture from L lung grew Corynebacterium species on 11/25 -sputum cx positive for H. influenza on 11/27; sensitive to cephalosporins -Nasal MRSA swab negative; stopped vancomycin & cefepime in favor of ceftriaxone -continue ceftriaxone -gave additional 20mg IV lasix to address continued pulmonary edema -Trend WBC and temperature to ensure pt does not become septic. Hypoxic Event(11/27): -secondary infection vs ?ARDS -started on broad spectrum coverage for hospital acquired bacteria -continue IV lasix 40mg daily -continue to monitor pt saturation and work of breathing, as he continues to tolerate weaning S/P pneumonectomy: -Deferring to surgical team for primary management of post-op care. Wheeze: -no hx of lung disease prior to mass formation -symbicort and levalbuterol inhalers available Paroxysmal Atrial Tachycardia: -Continue Metoprolol succinate 50 PO daily and Diltiazem 180 PO BID -Started Amiodarone drip as he had responded to this regimen best from the Constipation: -Received milk of magnesia 11/25 which appears to have helped release constipation. -PRN sennosides, docusate, and miralax available Hypercholesterolemia: -Continue atorvastatin 40 mg daily T2DM: -controlled on SSI. -Hold home Metformin Code: Full DVT ppx: SCDs Dispo: observe in PCU Supervising Physician Co-Signing Physician Notes I personally examined the patient and verified all hudson points of history and exam, discussed case, and agree with decision making with Dr Pizarro. Big picture is that he is continuing to do better slowly overall. He did have some panic attacks today, but they were mostly able to be called with reassurance. No other new issues. Vitals noted, sitting in the chair, able to speak in somewhat longer sentences generally without much dyspnea. Breathing appears overall similar to yesterday. Skin shows no rashes no pallor or icterus. Neuro shows no focal deficits. Acute hypoxic respiratory failure related to healthcare associated pneumonia and ARDS. Pattern is of slow but overall improvement. Continued reassurance to the panic attacks, given that the tachypnea does cause him to drop his oxygen saturations. Tachyarrhythmiasprobably physiologic stress/hypoxia induced. Continue current measures. Seems to be better controlled. Otherwise as above Subjective Pt was feeling really good early in the morning, and feels like his mood is continuing to increase and spirits are getting better, definitely feels better when family support is close by; able to really increase his eating over the last couple days as he has been feeling better. Last night had some anxiety but felt okay after talking with . Late this morning had some increased anxiety about when/if he would be able to go home, and then his O2 fell into the 60s, and required more support to maintain sats. Quickly calmed and then had good return to saturation. After being consistently calm for an hour was able to be slowly weaned town on O2 support. Review of Systems Respiratory: + cough and + dyspnea; no snoring and no wheezing desaturates after prolonged episodes of exertion Gastrointestinal: had some bowel movements today, and has tolerated meals well Physical Exam 2 Constitutional: well developed and cooperative Respiratory: + labored breathing (reduced belly breathing as compared to yesterday), able to speak in complete sentences and + tachypneic; + abnormal respiratory effort Auscultation: + breath sounds absent (s/p L pneumonectomy) and + diminished lung sounds (improving on R); no crackles and no wheezes Cardiovascular: Rate/Rhythm: regular rate and regular rhythm Heart Sounds: normal S1 and normal S2; no gallop, no murmur and no cardiac rub Extremities: no pedal edema Gastrointestinal (Abdomen): Percussion/Palpation: abdomen soft; abdomen nontender, no guarding and no hepatosplenomegaly Lymphatic: no lymphadenopathy Results & Data Vital Signs (Past 12 Hours) Vital Signs Temp Pulse Pulse Resp BP BP Pulse Ox 12/03/18 12:01 36.5 C 75 36 H 98/56 L 89 L 12/03/18 11:03 30 H 91 12/03/18 07:32 36.6 C 69 21 105/57 L 91 12/03/18 07:12 86 26 H 92 12/03/18 04:40 75 29 H 86 L 12/03/18 04:00 36.8 C 30 L 70 30 H 95/60 L 94 Laboratory Results 12/03/18 12/03/18 12/03/18 Range/Units 11:05 07:10 05:54 WBC (4.8-10.8) K/uL RBC (4.7-6.1) M/uL Hgb (14.0-18.0) g/dL Hct (42-52) % MCV (80-100) fL MCH (25-34) pg MCHC (32-36) g/dL RDW Std Deviation (36.4-46.3) fL RDW Coeff of Sonia (11.5-14.5) % Plt Count (130-400) K/uL MPV (7.4-10.4) fL Immature Gran % (Auto) % Neut % (Auto) % Lymph % (Auto) % [place] % (Auto) % Eos % (Auto) % Baso % (Auto) % Immature Gran # (Auto) (0.00-0.02) K/uL Neut # (Auto) (1.4-6.5) K/uL Lymph # (Auto) (1.2-3.4) K/uL [place] # (Auto) (0.11-0.59) K/uL Eos # (Auto) (0-0.5) K/uL Baso # (Auto) (0-0.2) K/uL Sodium 137 (136-145) mmol/L Potassium 3.1 L (3.5-5.1) mmol/L Chloride 99 (98-107) mmol/L Carbon Dioxide 31 (21-32) mmol/L Anion Gap 7.0 (3-11) BUN 26 H (7-18) mg/dl Creatinine 0.84 (0.6-1.4) mg/dl Est Cr Clr Drug Dosing 75.2 ml/min Est GFR ( Amer) 105.7 Est GFR (Non-Af Amer) 91.2 BUN/Creatinine Ratio 31.4 H (10-20) Glucose 134 H (70-99) mg/dl POC Glucose 195 H 135 H (70-99) Calcium 8.4 L (8.5-10.1) mg/dl Magnesium 2.2 (1.8-2.4) mg/dl 12/03/18 12/02/18 12/02/18 Range/Units 05:54 20:59 16:39 WBC 16.58 H (4.8-10.8) K/uL RBC 3.77 L (4.7-6.1) M/uL Hgb 10.4 L (14.0-18.0) g/dL Hct 31.5 L (42-52) % MCV 83.6 (80-100) fL MCH 27.6 (25-34) pg MCHC 33.0 (32-36) g/dL RDW Std Deviation 45.8 (36.4-46.3) fL RDW Coeff of Sonia 15.0 H (11.5-14.5) % Plt Count 386 (130-400) K/uL MPV 9.7 (7.4-10.4) fL Immature Gran % (Auto) 2.2 % Neut % (Auto) 72.6 % Lymph % (Auto) 13.7 % [place] % (Auto) 8.0 % Eos % (Auto) 3.0 % Baso % (Auto) 0.5 % Immature Gran # (Auto) 0.37 H (0.00-0.02) K/uL Neut # (Auto) 12.04 H (1.4-6.5) K/uL Lymph # (Auto) 2.27 (1.2-3.4) K/uL [place] # (Auto) 1.33 H (0.11-0.59) K/uL Eos # (Auto) 0.49 (0-0.5) K/uL Baso # (Auto) 0.08 (0-0.2) K/uL Sodium (136-145) mmol/L Potassium (3.5-5.1) mmol/L Chloride (98-107) mmol/L Carbon Dioxide (21-32) mmol/L Anion Gap (3-11) BUN (7-18) mg/dl Creatinine (0.6-1.4) mg/dl Est Cr Clr Drug Dosing ml/min Est GFR ( Amer) Est GFR (Non-Af Amer) BUN/Creatinine Ratio (10-20) Glucose (70-99) mg/dl POC Glucose 132 H 136 H (70-99) Calcium (8.5-10.1) mg/dl Magnesium (1.8-2.4) mg/dl Medications Administered Current Inpatient Medications Albuterol (Duoneb) 3 ml INH Q6H PRN PRN Reason: sob Stop: 12/29/18 08:50 Atorvastatin Calcium (Lipitor) 40 mg PO HS CARLO Stop: 12/22/18 20:59 Last Admin: 12/02/18 20:59 Dose: 40 mg Documented by: Dextrose (Dextrose 50%) 25 - 50 ml IV UD PRN; Protocol PRN Reason: Hypoglycemia Protocol Stop: 12/27/18 21:44 Diltiazem HCl (Cardizem Cd) 180 mg PO BID CARLO Stop: 12/23/18 08:59 Last Admin: 12/03/18 08:59 Dose: 180 mg Documented by: Docusate Sodium (Colace) 100 mg PO BID CARLO Stop: 12/22/18 20:59 Last Admin: 12/03/18 09:06 Dose: 100 mg Documented by: Glucagon (Glucagen) 1 mg SQ UD PRN; Protocol PRN Reason: Hypoglycemia Protocol Stop: 12/27/18 21:44 Glucose (Glucose 40%) 15 - 30 gm PO UD PRN; Protocol PRN Reason: Hypoglycemia Protocol Stop: 12/27/18 21:44 Glucose (Dex4 Glucose) 4 - 8 tabs PO UD PRN; Protocol PRN Reason: Hypoglycemia Protocol Stop: 12/27/18 21:44 Guaifenesin (Mucinex) 1,200 mg PO Q12 CARLO Stop: 12/24/18 20:59 Last Admin: 12/03/18 09:00 Dose: 1,200 mg Documented by: Heparin Sodium (Porcine) (Heparin Sodium (Porcine)) 5,000 units SQ Q8 CARLO Stop: 12/23/18 13:59 Last Admin: 12/03/18 05:58 Dose: 5,000 units Documented by: Ceftriaxone Sodium 2,000 mg/ (Dextrose) 70 mls @ 100 mls/hr IV Q24H CARLO; Protocol Stop: 12/07/18 08:59 Last Infusion: 12/03/18 09:38 Dose: Infused Documented by: Furosemide 40 mg/ Syringe 4 mls @ 4 mls/min IV DAILY CARLO Stop: 01/01/19 08:59 Last Admin: 12/03/18 08:59 Dose: 4 mls/min Documented by: Amiodarone HCl/Dextrose (Nexterone / D5w) 360 mg in 200 mls @ 16.667 mls/hr IV .Q12H CARLO Stop: 01/01/19 18:44 Last Admin: 12/03/18 05:59 Dose: 0.5 mg/min, 16.7 mls/hr Documented by: Furosemide 40 mg/ Syringe 4 mls @ 4 mls/min IV ONE ONE Stop: 12/03/18 19:01 Insulin Aspart (Novolog Flexpen) 0 units SC ACHS CARLO; Protocol Stop: 12/05/18 21:01 Last Admin: 12/03/18 12:12 Dose: 6 units Documented by: Insulin Glargine (Lantus Solostar Pen) 10 units SC DAILY [facility]; Protocol Stop: 01/03/19 08:59 Magnesium Hydroxide (Milk Of Magnesia) 30 ml PO Q6H PRN PRN Reason: Constipation Stop: 12/25/18 14:34 Last Admin: 11/25/18 22:14 Dose: 30 ml Documented by: Metoprolol Succinate (Toprol Xl) 50 mg PO DAILY CARLO Stop: 12/23/18 08:59 Last Admin: 12/03/18 09:00 Dose: 50 mg Documented by: Miscellaneous (Carbohydrates For Hypoglycemia) 15 - 30 gm PO UD PRN PRN Reason: Hypoglycemia Treatment Stop: 12/27/18 21:44 Miscellaneous Information (Consult Glycemic Management Pharmacy) 1 ea N/A UD PRN PRN Reason: Consult Stop: 12/23/18 14:29 Oxycodone HCl (Roxicodone Immediate Rel) 5 mg PO Q6H PRN PRN Reason: Pain Stop: 12/15/18 08:59 Last Admin: 12/03/18 12:18 Dose: 5 mg Documented by: Polyethylene Glycol (Miralax Powder Packet) 17 gm PO BID CARLO Stop: 12/24/18 20:59 Last Admin: 12/03/18 09:06 Dose: Not Given Documented by: Potassium Chloride (Klor-Con M10) 40 meq PO DAILY CARLO Stop: 01/02/19 08:59 Last Admin: 12/03/18 08:58 Dose: 40 meq Documented by: Sennosides (Senokot) 17.2 mg PO QAM [facility] Stop: 12/25/18 08:59 Last Admin: 12/03/18 08:59 Dose: 17.2 mg Documented by: Tamsulosin HCl (Flomax) 0.4 mg PO DAILY@1700 CARLO Stop: 12/23/18 17:59 Last Admin: 12/02/18 16:24 Dose: 0.4 mg Documented by: PG Care Time/CCT Total # of Minutes Spent Total Time Spent with Patient: Total time spent is greater than 50% in coordination of care (as documented) at patient's floor/unit and/or counseling patient: Resident Activity Tracking Resident Involvement: Resident Care Provided Care Provided: Adult Hospital Medicine
[2018-12-03] MEDS: ACETAMINOPHEN 500 MG TAB PO SCH ×2 (17:18→21:57)
[2018-12-03] MEDS: KETOROLAC TROMETHAMINE 10 MG TABLET PO PRN ×2 (17:25→23:51)
[2018-12-03] MEDS: TAMSULOSIN HCL 0.4 MG CAP PO SCH (17:30)
[2018-12-03] MEDS ORDERED: FUROSEMIDE 40 MG in SYRINGE 0 ML IV ONE (19:00)
[2018-12-03] MEDS: ALBUT/IPRATROP 3MG/0.5MG NEB 3 ML VIAL INH PRN (21:35)
[2018-12-03] MEDS: ATORVASTATIN 40 MG TAB PO SCH (21:49)
[2018-12-04] MEDS: ALBUT/IPRATROP 3MG/0.5MG NEB 3 ML VIAL INH PRN ×2 (01:14→05:17)
[2018-12-04] MEDS ORDERED: MoRPHine SULFATE 2 MG/ML CARP IV STA ×4 (01:23→11:15)
[2018-12-04] MEDS ORDERED: MoRPHine SULFATE 2 MG/ML CARP ONE (03:53)
[2018-12-04] MEDS: ACETAMINOPHEN 500 MG TAB PO SCH ×4 (03:59→21:56)
[2018-12-04] MEDS ORDERED: FUROSEMIDE 20 MG in SYRINGE 0 ML IV ONE (04:10)
[2018-12-04] MEDS ORDERED: FUROSEMIDE 40 MG/4 ML VIAL IV ONE ×2 (05:02→05:19)
[2018-12-04] MEDS ORDERED: FUROSEMIDE 40 MG/4 ML VIAL IV STA (05:13)
[2018-12-04] MEDS: HEPARIN SOD 5,000 UNIT/0.5 ML VIAL SQ SCH ×3 (05:25→21:32)
[2018-12-04 05:42] LABS: Basophils # (auto) 0.05 K/uL (0-0.2); Basophils % (auto) 0.3 %; Eosinophils # (auto) 0.36 K/uL (0-0.5); Eosinophils % (auto) 1.9 %; Hematocrit (blood only) 35.3 % (42-52); Hemoglobin 11.7 g/dL (14.0-18.0); Immature Granulocytes # (auto) 0.34 K/uL (0.00-0.02); Immature Granulocytes % (auto) 1.8 %; Lymphocytes # (auto) 1.52 K/uL (1.2-3.4); Lymphocytes % (auto) 8.2 %; Mean Corpuscular Hemoglobin 28.1 pg (25-34); Mean Corpuscular Hgb Conc 33.1 g/dL (32-36); Mean Corpuscular Volume 84.7 fL (80-100); Mean Platelet Volume 10.3 fL (7.4-10.4); Monocytes # (auto) 1.34 K/uL (0.11-0.59); Monocytes % (auto) 7.2 %; Neutrophils # (auto) 14.88 K/uL (1.4-6.5); Neutrophils % (auto) 80.6 %; Platelet Count 464 K/uL (130-400); RDW Coefficient of Variation 15.2 % (11.5-14.5); RDW Standard Deviation 47.1 fL (36.4-46.3); Red Blood Count 4.17 M/uL (4.7-6.1); White Blood Count 18.49 K/uL (4.8-10.8)
[2018-12-04 06:07] LABS: Albumin Level 2.3 gm/dl (3.4-5.0); BUN Creatinine Ratio 25.3 (10-20); Calcium 8.8 mg/dl (8.5-10.1); Est GFR (Non-African American) 78.5; Potassium 3.7 mmol/L (3.5-5.1)
[2018-12-04 06:11] LABS: Albumin Globulin Ratio 0.5 (0.9-2); Bilirubin,Total 0.5 mg/dl (0.2-1); Globulin 4.7 gm/dl (2.5-4.0)
[2018-12-04] MEDS ORDERED: LORazepam 1 MG TAB SL STA (06:20)
[2018-12-04] MEDS ORDERED: Nursing to Pharmacy Communication ONE (06:22)
[2018-12-04] MEDS ORDERED: LORazepam 0.5 MG TAB PO PRN (06:27)
[2018-12-04] MEDS ORDERED: LORazepam 0.5 MG TAB SL PRN (06:30)
[2018-12-04] MEDS: AMIODARONE / D5W 360 MG/200 ML BAG IV SCH (06:30)
[2018-12-04] MEDS ORDERED: VANCOMYCIN CONSULT ACTIVE PRN (07:16)
--- NOTE | 2018-12-04 07:21 | XRay Report ---
XR chest 1V portable HISTORY: pulmonary edema COMPARISON: Chest 12/03/2018. FINDINGS: Large air-fluid level within the left lung consistent with postoperative change related to a pneumonectomy. This remains unchanged. The heart remains mildly enlarged. Mixed interstitial alveol ar airspace opacities within the right lung persist and may represent pulmonary edema versus a pneumo nitis. IMPRESSION: Overall, no change compared to the prior study with a large air-fluid level within the left hemithora x status post left pneumonectomy. Right-sided airspace opacities may represent pulmonary edema or a p neumonitis. Electronically signed by: Gordon Pabon M.D. 12/04/2018 7:19 AM
--- NOTE | 2018-12-04 07:22 | Family Medicine Progress Note ---
Date of Service December 04, 2018 Assessment & Plan (1) Acute respiratory failure with hypoxia: 68 yo M s/p left pneumonectomy due to squamous cell carcinoma with course complicated by diffuse right-sided infiltrates due to pulmonary edema vs. hyperperfusion injury vs. pneumonia, now overnight with worsening respiratory status. - Transferred to ICU due to increased oxygen requirement, satting to 92% on CPAP - Morphine 2mg IV Q2H PRN and Toradol 10mg PO Q6H, Precedex drip per ICU - On cefepime 2g q8h, doxycycline 100mg BID, vancomycin per pharmacy - Sildenafil 20mg PO TID for pulmonary HTN 2/2 pneumonectomy - Lasix 40 mg IV BID, Acetazolamide 500mg given once - Care per ICU at this time Present on Admission?: No (2) Hypertension: - On metoprolol succinate 50mg daily, diltiazem 180mg BID. - BP well controlled. (3) Atrial tachycardia: - Pt is in sinus rhythm on amiodarone drip however given pneumonectomy have to be aware of possibility of interstitial lung disease Dispo: ICU DVT PPx: Heparin SQ FEN: Liquid diet, fluids Dextrose 50% 25-50 mL IV UD PRN Code Status: FULL CODE (4) Squamous cell lung cancer: Present on Admission?: Yes (5) S/P pneumonectomy: Supervising Physician Co-Signing Physician Notes Resident Physician Supervision Note: I independently interviewed and examined the patient and verified the hudson history and physical, reviewed labs and image studies, discussed the case with the resident Dr. Castaneda and agree with the findings and care plan. Subjective Overnight developed hypoxia with increased FiO2 requirement from 50-100%, persistently tachypneic and anxious causing him not to be able to sleep. Was given extra 60 IV of Lasix overnight for diuresis. Standing orders placed for morphine 2mg q2 and lorazepam 0.5mg q6 PRN which made him much more comfortable. No fevers or chills, but endorses severe SOB even at rest and worse with even minimal exertion. No cough, no chest pain, endorses some panic overnight with sensation of racing heart. at bedside during interview reports gratitude for the morphine and lorazepam as they helped him to be more comfortable in the room. Review of Systems Constitutional: as per Subjective / HPI and + insomnia (due to anxiety and shortness of breath); no fever and no chills Respiratory: + dyspnea (at rest and with exertion); no cough, no chest con gestion and no wheezing Cardiovascular: no chest pain, no palpitations and no edema Gastrointestinal: no nausea, no vomiting, no constipation and no diarrhea/loose stools Psychiatric: + anxiety (due to trouble breathing) Physical Exam Constitutional: WD/WN, vitals as above Respiratory: pt is tachypneic with increased work of breathing and use of accessory muscles for breathing. Able to speak in short sentences with effort. Absent breath sounds on the left. RLL crackles on exam. Cardiovascular: RRR, no murmur, no edema Gastrointestinal (Abdomen): normal bowel sounds, soft, nontender, no hepatosplenomegaly Skin: no rashes, warm and dry Psychiatric: Orientation: alert and oriented x 3 Affect: + anxious affect Results & Data Vital Signs (Past 12 Hours) Vital Signs Temp Pulse Resp BP Pulse Ox 12/04/18 05:20 124/72 12/04/18 05:17 66 33 H 93 12/04/18 04:51 86 L 12/04/18 04:39 64 30 H 82 L 12/04/18 03:00 36.4 C L 65 32 H 115/62 84 L 12/04/18 01:14 89 34 H 83 L 12/03/18 23:12 36.4 C L 71 36 H 108/62 85 L 12/03/18 21:35 69 32 H 89 L 12/03/18 19:41 36.9 C 67 36 H 107/58 L 85 L PG Care Time/CCT Total # of Minutes Spent Total Time Spent with Patient: Total time spent is greater than 50% in coordination of care (as documented) at patient's floor/unit and/or counseling patient: Resident Activity Tracking Resident Involvement: Resident Care Provided Care Provided: Adult Hospital Medicine (1) Squamous cell lung cancer Laterality: left Qualified Code(s): C34.92 - Malignant neoplasm of unspecified part of left bronchus or lung (2) Hypertension Hypertension type: essential hypertension Qualified Code(s): I10 - Essential (primary) hypertension
[2018-12-04] MEDS: MoRPHine SULFATE 2 MG/ML CARP IV PRN ×5 (08:00→22:42)
[2018-12-04] MEDS ORDERED: CEFEPIME 2,000 MG in SYRINGE 0 ML IV SCH (08:00)
[2018-12-04] MEDS ORDERED: VANCOMYCIN HCL 1,750 MG in SODIUM CHLORIDE 0.9% 500 ML IV SCH (08:00)
[2018-12-04] MEDS: FUROSEMIDE 40 MG in SYRINGE 0 ML IV SCH (08:11)
--- NOTE | 2018-12-04 09:09 | Critical Care Progress Note ---
Date of Service December 04, 2018 Assessment & Plan (1) Acute respiratory failure with hypoxia: Reason Critically Ill: 68-year-old male here with a PMHx significant for T2DM w/ nephropathy, HLD, Atrial arrythmia ?MAT, bladder cancer s/p TURBT, HTN, and SCC s/p L pneumonectomy who presented for L lobecteomy and who is readmitted to the ICU for acute hypoxemic respiratory failure. Neuro - [facility] ICU: NEGATIVE Anxiety - Hold Lorazepam 0.5mg SL Q6H PRN. Caution use in setting of AHRF + narcotics, and tx air hunger as below - Morphine 2mg IV Q2H PRN for air hunger/anxiety Cardiac - Paroxysmal Atrial Tachycardia - Sinus rhythm on amiodarone drip - Antiarrythmic therapy per cardiology. He is well controlled on amio, but is at risk of increased morbidity if he develops ILD in the setting of pneumonectomy - BB/CaB as below QTp - QTc 586 on 12/03 - Limit QT prolonging medications HTN - Contine diltiazem 180mg BID PO - Continue metoprolol Succinate 50mg PO daily HLD - Atorvastatin 40mg PO qHS Respiratory - Acute Hypoxemic Respiratory Failure 2/2 Haemophilus pneumonia and s/p L pn eumonectomy - Respiratory cultures + for B. lactamase H. flu, initially improved on cefepime + vanco narrowed to rocephin and subsequentially worsening. - Clinically worsened with increase O2 requirement, hypoxemia, and uptrending leukocytosis - Given B. lactamase positive H. flu would ideally convert to a fluoroquinoline, but this is limited by QTp. Tx with cefepime/vanco/doxy as below - Pain control with morphine 2mg IV Q2H, toradol 10mg PO Q6H - CPAP with dive mask, low positive pressure support, minimize airway pressure given pulmonary stump - Lasix 40mg IV daily, lasix 40mg once this afternoon, diamox 500mg x1 now - Sildenafil 20mg PO BID for pulmonary HTN 2/2 pneumonectomy GI - - T2 diabetic, full liquid diet - RENAL/LYTES - - Na, K, Cl within normal limits. K normalized overnight. 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 Will monitor for any drops in the setting of Heparin gtt ID - Post-operative pneumonia with hypoxemia - Doxy 200mg IV x1 followed by 100mg BID for 14 day course - Continue cefepime 2g Q8H - Continue vancomycin - Levaquin limited by QTp - Monitor fever curve. INTEGUMENTARY - No acute concerns LINES/IV ACCESS - 2x L hand/arm PIVs intact. R radial artial line in place DVT PROPHYLAXIS - Heparin 5000u q8H SQ Thank you for allowing us to be part of this patient's care. Please refer to Dr. Palacios's documentation for any further recommendations. (2) Edema of all four extremities: (3) Interstitial lung disease: (4) Postoperative pneumonia: (5) Pulmonary infection: (6) Constipation: (7) Unable to pass flatus: (8) DVT prophylaxis: (9) Dysphagia: (10) Wheezing: (11) Squamous cell lung cancer: (12) S/P pneumonectomy: (13) Admitted to intensive care unit: (14) PAT (paroxysmal atrial tachycardia): (15) Controlled type 2 diabetes mellitus with diabetic nephropathy: (16) Hypercholesterolemia: Supervising Physician Co-Signing Physician Notes Dr. Zayas was resident physician during care of patient. I separately evaluated patient for hudson portions of the history and the exam. I was present during the critical portion of medical decision making, and I discussed the case with the resident. I generally agree with the findings and plan. Patient has decompensated, this has hypoxic and hypercarbic respiratory failure, concern for arts. Extensive discussion with thoracic surgery concern of stump breakdown with positive pressure ventilation via endotracheal tube. Patient requiring BiPAP and significant supplemental oxygen. We have expanded his antibiotic coverage to include doxycycline, ideally I would like to add a macrolide for the Haemophilus influenza but his QTC is significantly prolonged. 200 mg load then 100 mg twice daily. Serial ABGs show no significant change again with significant discussion with thoracic surgery we will continue current treatment. I started the patient on Precedex for significant anxiety, I also recommended the patient's spouse leave the bedside, she has not left the hospital in greater than 72 hours and I feel that there is an anxiety component that is contributed by the constant ralph. I have personally spent 50 minutes of critical care time in the direct management of this patient. This is a life/limb threatening event. This includes time spent evaluating patient, direct bedside care, chart review, placing orders, interpretation of diagnostic studies, discussion with consultants, patient, and/or family members regarding treatment decisions, as well as other required patient management activities. This time is exclusive of all separately billable procedures, and teaching time and separate from and in addition to any other critical care service time. Subjective Mr. Ruiz is a68yo M who returns to the ICU for increased oxygen requirements and ventilatory support. He has been tachycardic and hypoxemic on HFNC. He is s/p L pneumonectomy 11/22 05/13 [facility]. On arrival he is not in pain but is dyspnic/air hungry and appears to be in mild respiratory distress. He is awake, alert, and responds appropriately to quesitons. Review of Systems Review of Systems: Constitutional: Denies fever, chills, malaise, weight change Eyes: Denies vision change ENT: Denies cough, congestion Cardiovascular: denies chest pain, chest pressure Respiratory: Endorses shortness of breath, difficulty breathing Gastrointestinal: Denies abdominal pain, nausea Genitourinary: Wei in place. No dysuria. Musculoskeletal: Endorses global fatigue, denies focal muscle/joint pain Integumentary: No new rash. post op incisions. Neurological: Denies headache, focal weakness Physical Exam Physical Exam: General: A&Ox3. In mild respiratory distress. Cooperative, follows commands. Skin warm, dry. HEENT: Atraumatic, normocephalic. Dive CPAP mask present. PERLAA. Pulm: RLL with rales and crackles. No wheezes. Absent/echoic lung sounds on L. - wheezes. Using accessory muscles of breathing, tachypnic. Able to speak in short sentences with effort. Cardiac: RRR, -mrg. Radial pulses intact and symmetrical. R radial A-line placed. Abdominal: Nontender, nondistended, soft. BS present. Extremities: No distal extremity edema. Moving all extremities equally. Results & Data Vital Signs (Past 12 Hours) Vital Signs Temp Pulse Resp BP Pulse Ox 12/04/18 07:53 77 35 H 143/80 H 82 L 12/04/18 07:49 36.8 C 79 20 163/78 H 87 L 12/04/18 05:20 124/72 12/04/18 05:17 66 33 H 93 12/04/18 04:51 86 L 12/04/18 04:39 64 30 H 82 L 12/04/18 03:00 36.4 C L 65 32 H 115/62 84 L 12/04/18 01:14 89 34 H 83 L 12/03/18 23:12 36.4 C L 71 36 H 108/62 85 L 12/03/18 21:35 69 32 H 89 L PG Care Time/CCT Total # of Minutes Spent Total Time Spent with Patient: Total time spent is greater than 50% in coordination of care (as documented) at patient's floor/unit and/or counseling patient: Critical Care Time: Yes Total Critical Care Time: 50 Resident Activity Tracking Resident Involvement: Resident Care Provided Care Provided: Adult Hospital Medicine (1) Dysphagia Dysphagia type: unspecified Qualified Code(s): R13.10 - Dysphagia, unspecified (2) Controlled type 2 diabetes mellitus with diabetic nephropathy 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
--- NOTE | 2018-12-04 09:27 | Pulmonology Progress Note ---
Date of Service December 04, 2018 Assessment & Plan (1) Acute respiratory failure with hypoxia: Impression: 68-year-old male status post left pneumonectomy 11/22 for squamous cell carcinoma the lung. His postoperative course has been complicated by diffuse right-sided infiltrates suspicious for hyperperfusion injury/pulmonary edema versus pneumonia. He was transferred out of the ICU but has had clinical worsening with increasing oxygen requirement over the last 24 hours. Recommendations: 1. Discussed with patient, spouse, and Dr. Zhao. I recommended the patient return to the intensive care unit. Would recommend noninvasive positive pressure ventilation with CPAP at lowest setting. Given the excoriations over the bridge of the nose, use of a full facemask may be appropriate. 2. Haemophilus pneumonia: The patient's white blood cell count is increasing since transition to Rocephin. Would recommend fluoroquinolone beta-lactam with beta-lactamase inhibitor. Will defer to intensive care unit service. Procalcitonin may be beneficial 3. Ideally would like to avoid amiodarone. Incidence of acute lung toxicity is not common but cannot be excluded. 4. Agree with continued diuresis. He does have a mild contraction alkalosis and use of Diamox would be beneficial. 5. Suspect the patient has some degree of secondary pulmonary hypertension given that his cardiac output is running through one lung. Doubt echocardiogram would add much at this point in time. Could consider infusion of epoprostenol or potentially low-dose sildenafil depending on clinical course. Empiric diuresis recommended. I discussed the case with the ICU service. They will assist in management of this patient. We will continue to follow for pulmonary issues. (2) S/P pneumonectomy: Subjective Patient reports increasing work of breathing and has had an increasing oxygen requirement over the last 12 to 24 hours. He is coughing but not expectorating any phlegm. He remains on Rocephin and amiodarone for his paroxysmal atrial tachycardia. He has not noted any lower extremity edema. He does have increased work of breathing and feels quite anxious. Review of Systems Review of Systems: Unchanged from prior Physical Exam Constitutional: Moderate distress. Diaphoretic and tachypneic Neck: trachea midline, no thyromegaly Respiratory: Absent breath sounds on the left. Crackles and wheezes on the right Gastrointestinal (Abdomen): normal bowel sounds, soft, nontender, no hepatosplenomegaly Musculoskeletal: Extremities: extremities normal to inspection Skin: no rashes, warm and dry Neurologic: Nonfocal exam Lymphatic: no cervical lymphadenopathy Results & Data Vital Signs (Past 12 Hours) Vital Signs Temp Pulse Resp BP Pulse Ox 12/04/18 07:53 77 35 H 143/80 H 82 L 12/04/18 07:49 36.8 C 79 20 163/78 H 87 L 12/04/18 05:20 124/72 12/04/18 05:17 66 33 H 93 12/04/18 04:51 86 L 12/04/18 04:39 64 30 H 82 L 12/04/18 03:00 36.4 C L 65 32 H 115/62 84 L 12/04/18 01:14 89 34 H 83 L 12/03/18 23:12 36.4 C L 71 36 H 108/62 85 L 12/03/18 21:35 69 32 H 89 L Laboratory Results 12/04/18 05:21 12/04/18 05:21 Diagnostic Findings Chest x-ray independently reviewed. XR chest 1V portable HISTORY: pulmonary edema COMPARISON: Chest 12/03/2018. FINDINGS: Large air-fluid level within the left lung consistent with postoperative change related to a pneumonectomy. This remains unchanged. The heart remains mildly enlarged. Mixed interstitial alveolar airspace opacities within the right lung persist and may represent pulmonary edema versus a pneumonitis. IMPRESSION: Overall, no change compared to the prior study with a large air-fluid level within the left hemithorax status post left pneumonectomy. Right-sided airspace opacities may represent pulmonary edema or a pneumonitis. PG Care Time/CCT Total # of Minutes Spent Total Time Spent with Patient: Total time spent is greater than 50% in coordination of care (as documented) at patient's floor/unit and/or counseling patient:
[2018-12-04] MEDS: INSULIN ASPART 100 UNITS/ML 3 ML PEN SC SCH ×4 (09:33→21:31)
[2018-12-04] MEDS: INSULIN GLARGINE SOLOSTAR 100 UNITS/ML 3 ML PEN SC SCH (09:34)
[2018-12-04] MEDS ORDERED: SILDENAFIL CITRATE 20 MG TABLET PO SCH (09:45)
[2018-12-04] MEDS ORDERED: LEVOFLOXACIN/D5W 750 MG/150 ML BAG IV SCH (10:00)
[2018-12-04] MEDS ORDERED: DOXYCYCLINE HYCLATE 200 MG in DEXTROSE 5% 100 ML IV STA (10:14)
[2018-12-04] MEDS ORDERED: FUROSEMIDE 40 MG in SYRINGE 0 ML IV ONE ×2 (10:15→11:30)
[2018-12-04] MEDS ORDERED: acetaZOLAMIDE 500 MG in SYRINGE 0 ML IV ONE (10:18)
--- NOTE | 2018-12-04 10:20 | Pharmacy Report ---
Pharmacy Abx Dose Short Note - Date of Service December 04, 2018 - Assessment & Plan A/P Mr. Ruiz' antibx will be broadened to vanco/LVQ. He decompensated overnight: Sats as low as 82% on High flow NC. Renal fxn slightly below baseline. pt's population p'kinetics: t1/2=12, ke=[id number]. Being transferred to ICU for closer monitoring. I did order a repeat MRSA nares to aide in de-escalation if clinically appropriate. Will now treat HAP given this is presenting >48hrs after admission. Reasonable to be concerned with staph and pseudomonas at this juncture. Vanco: 1750mg IV x1 (24mg/kg) to quickly achieve a peak then vanco 1g (14mg/kg) q12 starting at 2000 tonight goal trough for HAP: 15-20 trough ordered for 12/06 @0730, reflective of [facility] will continue to follow and will adjust dose/frequency as necessary. Thank you.
[2018-12-04] MEDS: POTASSIUM CHLORIDE 10 MEQ TABCR PO SCH (10:25)
[2018-12-04] MEDS: DOCUSATE SODIUM 100 MG CAP PO SCH ×2 (10:25→20:54)
[2018-12-04] MEDS: POLYETHYLENE (MIRALAX) 17 GM PACK PO SCH ×2 (10:25→20:55)
[2018-12-04] MEDS: dilTIAZem HCL 180 MG CAPCR PO SCH ×2 (10:25→20:54)
[2018-12-04] MEDS: guaiFENesin 600 MG TABCR PO SCH ×2 (10:26→20:55)
[2018-12-04] MEDS: SENNA 8.6 MG TAB PO SCH (10:26)
[2018-12-04] MEDS: METOPROLOL SUCC 50MG EXT REL TAB PO SCH (10:26)
[2018-12-04] MEDS: POTASSIUM CHLORIDE / WTR 10 MEQ/100 ML PLCT IV SCH ×4 (11:05→15:19)
--- NOTE | 2018-12-04 11:22 | Procedure Note ---
Procedure Note Date of Service December 04, 2018 Note ARTERIAL LINE PROCEDURE NOTE: Procedure: Arterial Line Placement Attending: Dr. Arsalan Palacios Provider: JOHN Carlos Indication: Frequent blood draws/continuous blood pressure monitoring/frequent ABGs Anesthesia: Lidocaine 1% Consent was signed and placed on the chart prior to procedure. Indication, risks, and benefits were explained at length. A time-out was completed verifying correct patient, procedure, site, position ing, and implant(s) or special equipment if applicable. Allens test was performed to ensure adequate perfusion. Patients right wrist was prepped and draped in the usual sterile fashion. Ultrasound guidance was used to aid needle placement. A 20g Arrow arterial line was introduced into the right radial artery. Catheter was threaded, and the needle was removed with appropriate blood return. Good waveform was observed. The patient tolerated the procedure well. Blood Loss: Minimal Complications: None Procedural Ultrasound Guidance: Procedure Date: 12/04/2018 Indication: Arterial line insertion Attending: Dr. Arsalan Palacios Provider: JOHN Carlos Artery Identified: YES Line confirmed in Artery with ultrasound: Yes Complications: NONE Patient tolerated procedure: WELL Supervising Physician Co-Signing Physician Notes I was present during the procedure. Coding CPT Codes Tubes, Drains, and Vasc Access - Tubes, Drains, and Vasc Access: Insertion Catheter, Artery ([id number]) Tubes, Drains, and Vasc Access - Tubes, Drains, and Vasc Access: Ultrasonic Guide For Needle Placement ([id number])
[2018-12-04 11:39] LABS: iSTAT Arterial Blood Gas HCO3 30 meg/L (19-24); iSTAT Arterial Blood Gas pCO2 63 mmHg (35-46); iSTAT Arterial Blood Gas pH 7.29 (7.35-7.45); iSTAT Arterial Blood Gas pO2 75 mmHg (80-95); iSTAT Carbon Dioxide 32 mEq/l (24-31); iSTAT FiO2 100 %; iSTAT Site Art Line
[2018-12-04] MEDS: DEXMEDETOMIDINE HCL 200 MCG in SODIUM CHLORIDE 0.9% 48 ML IV SCH ×2 (11:47→20:53)
--- NOTE | 2018-12-04 12:41 | Palliative Care Consultation ---
Date of Consultation December 04, 2018 Assessment & Plan (1) Goals of care, counseling/discussion: -68 year old male patient with PMH paroxysmal atrial tachycardia, hypercholesterolemia, type 2 diabetes, bladder cancer s/p TURBT, and recent diagnosis of LEFT lung mass, presented to the hospital for a VATS procedure with left pneumonectomy and mediastinal lymphadenectomy. Pathology following procedure showed squamous cell carcinoma. Patient lost about 2L during surgery, was sent to the ICU and transfused with several units PRBCs. Patient did well initially during post-op but then began expectorating green sputum on 11/26. He unfortunately developed pulmonary congestion and a pneumonia of the right lung. He responded to IV Lasix and treatment of the pneumonia. He did require bipap but did not require intubation. Sputum culture grew out H.flu. He was transferred out of the ICU over the weekend, seemingly doing better from a respiratory standpoint. Patient has struggled terribly with anxiety and sleeplessness during hospitalization, has been having panic attacks. This morning, he began to decompensate with increased SOB, hypoxia, and severe anxiety. Oxygen saturations dipped into 60s while on high-flow nasal cannula at 40LPM and 100% FiO2. CXR this morning shows worsening right sided opacities representing pneumonitis vs. pulmonary edema. Patient was transferred back to the ICU, was placed on bipap. Precedex gtt was started by art manager. ABGs after a few hours on bipap ph 7.31, pCO2 62, PO2 81, HCO3 31, which is no significant change from this morning. Code status was addressed by art manager this morning with at bedside and two children on the phone. Family has re quested a palliative care consult for support in medical decision making. -Met with the patient, his Priya, and family member Anupam Gracia. Patient is distress and severely dyspneic. He is on bipap and unable to participate in much conversation at this time. -Spoke with Priya and Anupam Gracia outside of room 108. Priya is appropriately tearful given the situation. She states that the conversation had earlier with the art manager about code status and prognosis hit her hard. Currently, they have decided to keep the patient a full code. They would be amenable to intubation as part of treatment if needed. Patient's two children are deciding whether or not to fly in at this time. -Prior to hospitalization, patient was independent in all care including driving. Plan is for patient to return home after hospitalization, but of course will depend on hospital course. He remains unstable and critically ill at this time. -Support given to patient, his , and family member. Palliative care team harrison l be happy to follow this ramesh patient and family during hospitalization to assist with any medical decision making as needed. (2) Acute respiratory failure with hypoxia: (3) Squamous cell lung cancer: Laterality: left Qualified Code(s): C34.92 - Malignant neoplasm of unspecified part of left bronchus or lung (4) S/P pneumonectomy: (5) Pulmonary infection: Supervising Physician Co-Signing Physician Notes Chart reviewed, pt seen, met with outside of room. Pt now on Precedex and able to rest. he is on BiPAP with increased WOB. ABG's are unchanged tearful, has friend and family support. PE: pt asleep - has not slept for 3 days per Resp: increased WOB, use of accessory muscles, on BiPAP CV: RR ABD: not distended Agree with above note,assessment and plan as per JOHN Kiran - will cont to follow and assist with medical decision making History of Present Illness Reason for Consultation: Family request-- supportive care. Requesting Physician: Dr. Haile Attending Physician: Riya Reynoso MD History of Present Illness This 68 year old male patient with PMH paroxysmal atrial tachycardia, hypercholesterolemia, type 2 diabetes, bladder cancer s/p TURBT, and recent diagnosis of LEFT lung mass, presented to the hospital for a VATS procedure with left pneumonectomy and mediastinal lymphadenectomy. Pathology following procedure showed squamous cell carcinoma. Patient lost about 2L during surgery, was sent to the ICU and transfused with several units PRBCs. Patient did well initially during post-op but then began expectorating green sputum on 11/26. He unfortunately developed pulmonary congestion and a pneumonia of the right lung. He responded to IV Lasix and treatment of the pneumonia. He did require bipap but did not require intubation. Sputum culture grew out H.flu. He was transferred out of the ICU over the weekend, seemingly doing better from a respiratory standpoint. Patient has struggled terribly with anxiety and sleeplessness during hospitalization, has been having panic attacks. This morning, he began to decompensate with increased SOB, hypoxia, and severe anxiety. Oxygen saturations dipped into 60s while on high-flow nasal cannula at 40LPM and 100% FiO2. CXR this morning shows worsening right sided opacities representing pneumonitis vs. pulmonary edema. Patient was transferred back to the ICU, was placed on bipap. Precedex gtt was started by art manager. ABGs after a few hours on bipap ph 7.31, pCO2 62, PO2 81, HCO3 31, which is no significant change from this morning. Code status was addressed by art manager this morning with at bedside and two children on the phone. Family has requested a palliative care consult for support in medical decision making. Thank you kindly for this consult. Palliative care team will follow as needed. Allergies Allergy/AdvReac Type Severity Reaction Status Date / Time aspirin AdvReac Mild HALLUCINATIONS Verified 11/22/18 08:46 A CHILD Home Medications Home Medications Medication Instructions Recorded Confirmed Type atorvastatin 40 mg PO HS #0 tab 11/21/17 11/22/18 History metformin 500 mg PO HS #0 11/21/17 11/22/18 History multivitamin 1 tab PO HS #0 tab 11/21/17 11/22/18 History Symbicort 2 puff INHALATION BID PRN 10/10/18 11/22/18 History lisinopril 20 mg tablet 20 mg PO HS #90 tab 11/09/18 11/22/18 Rx diltiazem CD 180 mg 180 mg PO DAILY cap 11/10/18 11/22/18 History capsule,extended release 24 hr levalbuterol HFA 45 mcg/actuation 2 puffs INH Q4H PRN gm 11/10/18 11/22/18 History aerosol inhaler metoprolol succinate ER 50 mg 50 mg PO DAILY 11/10/18 11/22/18 History tablet,extended release 24 hr Patient History Medical History Controlled type 2 diabetes mellitus with diabetic nephropathy Hypercholesterolemia Lung cancer Ventricular tachycardia Proteinuria Mass of left lung Wide-complex tachycardia Squamous cell lung cancer left hilum, s/p robotically assisted pneumonectomy - 11/2018. Atrial arrhythmia Pt recently completed Holter, per Dr. Ruiz suspect MAT. Bladder cancer s/p TURBT Hypertension Nephrolithiasis Pneumonia 09/2018; workup for this led to findings of lung mass (reason for upcoming procedure) Surgical History S/P pneumonectomy (11/22/18) PROCEDURES: 1. Robot-assisted left thoracoscopy with wedge resection. 2. Robot-assisted thoracoscopic control of hemorrhage, continuation of pulmonary artery to left lower lobe. 3. Robot-assisted thoracoscopic left intrapericardial pneumonectomy. 4. Robot-assisted thoracoscopic left mediastinal lymphadenectomy. Dr. Zhao 11-22-18 H/O transurethral destruction of bladder lesion Hand trauma s/p surgical repair History of cystoscopy + stent History of inguinal hernia repair s/p repair (as child) History of tonsillectomy and adenoidectomy S/P colonoscopy Status post robot-assisted surgical procedure Thoracoscopy/VATS 10/26/18, aborted due to wide-complex tachycardia and hypotension. 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 Feels Safe at Home: Yes Safety Concerns: Feels Safe At This Time Smoking Status: Former smoker ([id number], USED CIGARS/PIPE) Tobacco Type: cigarettes ; Do You Dip or Chew Tobacco: No ; Second Hand Exposure: No ; Tobacco Cessation Education Requested by Patient: No Hx Alcohol Use: Yes Alcohol type: beer Hx Substance Use: No Review of Systems Review of Systems: unable to obtain full ROS due to severe SOB/respiratory distress Physical Exam Constitutional: + acute distress and + ill appearing Respiratory: + respiratory distress and + labored breathing Auscultation: + diminished lung sounds Cardiovascular: Rate/Rhythm: regular rate and regular rhythm Gastrointestinal (Abdomen): Inspection/Auscultation: abdomen normal to inspection Neurologic: moves all extremities and awake Psychiatric: Orientation: oriented x 3 Affect: + anxious affect Results & Data Vital Signs (Past 12 Hours) Vital Signs Temp Pulse Pulse Resp BP BP Pulse Ox 12/04/18 12:00 98 H 35 H 135/74 91 12/04/18 11:00 89 37 H 145/84 H 91 12/04/18 10:08 85 38 H 86 L 12/04/18 10:05 36.1 C L 86 30 H 146/83 H 81 L 12/04/18 07:53 77 35 H 143/80 H 82 L 12/04/18 07:49 36.8 C 79 20 163/78 H 87 L 12/04/18 05:20 124/72 12/04/18 05:17 66 33 H 93 12/04/18 04:51 86 L 12/04/18 04:39 64 30 H 82 L 12/04/18 03:00 36.4 C L 65 32 H 115/62 84 L 12/04/18 01:14 89 34 H 83 L Time Spent Midlevel 70 minutes with >50% of the time spent at bedside with patient and family discussing condition and GOC.
[2018-12-04 13:36] LABS: iSTAT Arterial Blood Gas HCO3 31 meg/L (19-24); iSTAT Arterial Blood Gas pCO2 62 mmHg (35-46); iSTAT Arterial Blood Gas pO2 84 mmHg (80-95); iSTAT Carbon Dioxide 32 mEq/l (24-31); iSTAT FiO2 100 %; iSTAT Site Art Line
[2018-12-04] MEDS: SILDENAFIL CITRATE 20 MG TABLET PO SCH ×2 (13:48→20:56)
[2018-12-04 14:32] LABS: iSTAT Art Bld Gas pCO2 Correct 61 mmHg (35-46); iSTAT Art Bld Gas pH Corrected 7.313 (7.35-7.45); iSTAT Arterial Blood Gas HCO3 31 meg/L (19-24); iSTAT Arterial Blood Gas pCO2 62 mmHg (35-46); iSTAT Arterial Blood Gas pH 7.31 (7.35-7.45); iSTAT Arterial Blood Gas pO2 81 mmHg (80-95); iSTAT Arterial Blood Gas pO2 C 78; iSTAT Carbon Dioxide 33 mEq/l (24-31); iSTAT FiO2 100 %; iSTAT Site Art Line
[2018-12-04] MEDS: CEFEPIME 2,000 MG in SYRINGE 7.5 ML IV SCH ×2 (15:22→23:24)
--- NOTE | 2018-12-04 15:42 | Cardiology Progress Note ---
Date of Service December 04, 2018 Assessment & Plan (1) PAT (paroxysmal atrial tachycardia): He has maintained sinus rhythm once the was restarted amiodarone drip. No further sustained atrial arrhythmia while on amiodarone. We could consider discontinuation of IV amiodarone, it is possible he will have recurrence of his arrhythmia and if he does I would try diltiazem intravenously. We can always restart amiodarone. He has not had a dangerous arrhythmia and he is asymptomatic with it. (2) Acute respiratory failure with hypoxia: He continues to have severe respiratory difficulties. I doubt amiodarone has contributed much to this, but it has been reported. Since it is not essential to keep him on amiodarone I think would be reasonable to discontinue it now. Subjective He has been very short of breath today, I saw him upstairs just before he went down to the ICU and reviewed his situation with his . I saw him again this afternoon in the ICU, he looks more comfortable on the mask but is still clearly short of breath. A friend is at his bedside now. He has no cardiovascular complaints and reiterates that he does not have symptoms during his arrhythmia. He had trouble with his arrhythmia on Tuesday resulting in restarting the amiodarone on which he remains. With that he seems to have good control of his arrhythmia. Physical Exam Physical Exam: Constitutional: Alert, cooperative and in Moderate to severe respiratory distress. Pulmonary: Crackles to auscultation bilaterally, decreased breath sounds on the left. He is on a BiPAP mask. Cardiac: Regular rhythm with no murmur, gallop or rub. Abdomen: Soft, nontender with normal bowel sounds. Extremities: No edema. Skin: No rash, ecchymoses or petechiae. Results & Data Vital Signs (Past 12 Hours) Vital Signs Temp Pulse Pulse Resp BP BP Pulse Ox 12/04/18 15:00 87 36 H 136/75 92 12/04/18 14:00 36.4 C L 86 31 H 139/71 93 12/04/18 13:00 79 26 H 116/64 97 12/04/18 12:00 98 H 35 H 135/74 91 12/04/18 11:00 89 37 H 145/84 H 91 12/04/18 10:08 85 38 H 86 L 12/04/18 10:05 36.1 C L 86 30 H 146/83 H 81 L 12/04/18 07:53 77 35 H 143/80 H 82 L 12/04/18 07:49 36.8 C 79 20 163/78 H 87 L 12/04/18 05:20 124/72 12/04/18 05:17 66 33 H 93 12/04/18 04:51 86 L 12/04/18 04:39 64 30 H 82 L Laboratory Results Abnormal lab results 12/03/18 12/03/18 12/04/18 Range/Units 16:20 20:33 05:21 WBC 18.49 H (4.8-10.8) K/uL RBC 4.17 L (4.7-6.1) M/uL Hgb 11.7 L (14.0-18.0) g/dL Hct 35.3 L (42-52) % RDW Std Deviation 47.1 H (36.4-46.3) fL RDW Coeff of Sonia 15.2 H (11.5-14.5) % Plt Count 464 H (130-400) K/uL Immature Gran # (Auto) 0.34 H (0.00-0.02) K/uL Neut # (Auto) 14.88 H (1.4-6.5) K/uL Freestone # (Auto) 1.34 H (0.11-0.59) K/uL POC pH (7.35-7.45) POC pCO2 (35-46) mmHg POC pO2 (80-95) mmHg POC HCO3 (19-24) jake/L POC Total CO2 (24-31) mEq/l POC Base Excess (-9-1.8) jake/L ABG pH (Temp Correct) (7.35-7.45) ABG pCO2 (Temp Corrct (35-46) mmHg Carbon Dioxide (21-32) mmol/L BUN (7-18) mg/dl BUN/Creatinine Ratio (10-20) Glucose (70-99) mg/dl POC Glucose 102 H 101 H (70-99) Alkaline Phosphatase (45-117) U/L Albumin (3.4-5.0) gm/dl Globulin (2.5-4.0) gm/dl Albumin/Globulin Ratio (0.9-2) 0812/04/18 12/04/18 Range/Units 05:21 07:06 11:11 WBC (4.8-10.8) K/uL RBC (4.7-6.1) M/uL Hgb (14.0-18.0) g/dL Hct (42-52) % RDW Std Deviation (36.4-46.3) fL RDW Coeff of Sonia (11.5-14.5) % Plt Count (130-400) K/uL Immature Gran # (Auto) (0.00-0.02) K/uL Neut # (Auto) (1.4-6.5) K/uL Freestone # (Auto) (0.11-0.59) K/uL POC pH (7.35-7.45) POC pCO2 (35-46) mmHg POC pO2 (80-95) mmHg POC HCO3 (19-24) jake/L POC Total CO2 (24-31) mEq/l POC Base Excess (-9-1.8) jake/L ABG pH (Temp Correct) (7.35-7.45) ABG pCO2 (Temp Corrct (35-46) mmHg Carbon Dioxide 33 H (21-32) mmol/L BUN 25 H (7-18) mg/dl BUN/Creatinine Ratio 25.3 H (10-20) Glucose 151 H (70-99) mg/dl POC Glucose 158 H 188 H (70-99) Alkaline Phosphatase 139 H (45-117) U/L Albumin 2.3 L (3.4-5.0) gm/dl Globulin 4.7 H (2.5-4.0) gm/dl Albumin/Globulin Ratio 0.5 L (0.9-2) 12/04/18 12/04/18 12/04/18 Range/Units 11:24 13:23 14:18 WBC (4.8-10.8) K/uL RBC (4.7-6.1) M/uL Hgb (14.0-18.0) g/dL Hct (42-52) % RDW Std Deviation (36.4-46.3) fL RDW Coeff of Sonia (11.5-14.5) % Plt Count (130-400) K/uL Immature Gran # (Auto) (0.00-0.02) K/uL Neut # (Auto) (1.4-6.5) K/uL Freestone # (Auto) (0.11-0.59) K/uL POC pH 7.29 L 7.30 L 7.31 L (7.35-7.45) POC pCO2 63 H 62 H 62 H (35-46) mmHg POC pO2 75 L (80-95) mmHg POC HCO3 30 H 31 H 31 H (19-24) jake/L POC Total CO2 32 H 32 H 33 H (24-31) mEq/l POC Base Excess 4.0 H 4.0 H 5.0 H (-9-1.8) jake/L ABG pH (Temp Correct) 7.313 L (7.35-7.45) ABG pCO2 (Temp Corrct 61 H (35-46) mmHg Carbon Dioxide (21-32) mmol/L BUN (7-18) mg/dl BUN/Creatinine Ratio (10-20) Glucose (70-99) mg/dl POC Glucose (70-99) Alkaline Phosphatase (45-117) U/L Albumin (3.4-5.0) gm/dl Globulin (2.5-4.0) gm/dl Albumin/Globulin Ratio (0.9-2) // Range/Units 15:25 WBC (4.8-10.8) K/uL RBC (4.7-6.1) M/uL Hgb (14.0-18.0) g/dL Hct (42-52) % RDW Std Deviation (36.4-46.3) fL RDW Coeff of Sonia (11.5-14.5) % Plt Count (130-400) K/uL Immature Gran # (Auto) (0.00-0.02) K/uL Neut # (Auto) (1.4-6.5) K/uL Freestone # (Auto) (0.11-0.59) K/uL POC pH (7.35-7.45) POC pCO2 (35-46) mmHg POC pO2 (80-95) mmHg POC HCO3 (19-24) jake/L POC Total CO2 (24-31) mEq/l POC Base Excess (-9-1.8) jake/L ABG pH (Temp Correct) (7.35-7.45) ABG pCO2 (Temp Corrct (35-46) mmHg Carbon Dioxide (21-32) mmol/L BUN (7-18) mg/dl BUN/Creatinine Ratio (10-20) Glucose (70-99) mg/dl POC Glucose 145 H (70-99) Alkaline Phosphatase (45-117) U/L Albumin (3.4-5.0) gm/dl Globulin (2.5-4.0) gm/dl Albumin/Globulin Ratio (0.9-2) Diagnostic Findings Telemetry: Predominantly sinus rhythm, often with premature atrial beats, at times frequent such as ventricular trigeminy today. No sustained arrhythmias over the last 48 hours. PG Care Time/CCT Total # of Minutes Spent Total Time Spent with Patient: Total time spent is greater than 50% in coordination of care (as documented) at patient's floor/unit and/or counseling patient:
[2018-12-04] MEDS: TAMSULOSIN HCL 0.4 MG CAP PO SCH (15:56)
--- NOTE | 2018-12-04 17:51 | Progress Note ---
DATE: 12/04/2018 HISTORY OF PRESENT ILLNESS: It is now postoperative day #12 after a robot-assisted thoracoscopic intrapericardial left pneumonectomy. He has a squamous cell carcinoma which was quite close to his mainstem bronchus. His nodes were negative. He did well for few days, but then developed signs and symptoms radiographically and clinically that he certainly had an acute lung injury. We were quite concerned about this, covered him with antibiotics and supported him and he improved. I was quite pleased with him; however, in the last 24 hours, the patient has deteriorated. He is requiring more oxygen. He is really struggling to work. I agree with Dr. Lora and I have discussed this case with Dr. Lora as well as Dr. Palacios who is the chemical handler. I had a long discussion with the patient's and the patient. This could be progression of his acute lung injury, but bit unusual for such a process to wax and wane like this. I am more concerned about a hospital-acquired pneumonia or a drug reaction. He is on amiodarone. The patient had multifocal atrial tachycardia and atrial flutter. He has not really received very much and it would not be likely we would see it this early; however. I agree with Dr. Lora that this should be considered. We also will diurese him. This patient has a nonproductive cough. We are going to broaden his antibiotic coverage. The right-sided infiltrates are concerning to me. We are going to put his Gonzalez catheter back and I am hopeful that he responds to the antibiotics. His x-ray certainly looks worrisome on the right. It has gotten worse over the last 48 hours. His left side looks as I would expect. I had a long talk with the patient's family. I would like to avoid intubation if possible; however, he may come to that as he tires. In addition, I am very concerned about him breaking down his left stump. Often after pneumonectomy patients who have a difficult course after surgery have an increased risk of stump breakdown. That would likely prove fatal for him. At any rate, we will continue our current discussions. I am quite concerned about him. RASHIDA
[2018-12-04] MEDS: VANCOMYCIN HCL 1,000 MG in SODIUM CHLORIDE 0.9% 250 ML IV SCH (19:34)
[2018-12-04 20:21] LABS: BUN Creatinine Ratio 24.7 (10-20); Calcium 9.3 mg/dl (8.5-10.1); Creatinine Clr Calc Pharmacy 59.4 ml/min; Est GFR (African American) 84.7; Est GFR (Non-African American) 73.1; Potassium 4.5 mmol/L (3.5-5.1)
[2018-12-04] MEDS: ATORVASTATIN 40 MG TAB PO SCH (20:54)
[2018-12-04] MEDS: DOXYCYCLINE HYCLATE 100 MG in DEXTROSE 5% 100 ML IV SCH (21:55)
[2018-12-05] MEDS: MoRPHine SULFATE 2 MG/ML CARP IV PRN ×2 (02:20→09:01)
[2018-12-05] MEDS: DEXMEDETOMIDINE HCL 200 MCG in SODIUM CHLORIDE 0.9% 48 ML IV SCH ×2 (03:13→08:51)
[2018-12-05] MEDS: ACETAMINOPHEN 500 MG TAB PO SCH ×4 (04:00→21:52)
[2018-12-05 04:51] LABS: Hematocrit (blood only) 35.5 % (42-52); Hemoglobin 11.7 g/dL (14.0-18.0); Mean Corpuscular Hemoglobin 28.6 pg (25-34); Mean Corpuscular Volume 86.8 fL (80-100); Mean Platelet Volume 10.1 fL (7.4-10.4); Platelet Count 488 K/uL (130-400); RDW Coefficient of Variation 14.9 % (11.5-14.5); RDW Standard Deviation 47.8 fL (36.4-46.3); Red Blood Count 4.09 M/uL (4.7-6.1); White Blood Count 24.63 K/uL (4.8-10.8)
[2018-12-05 05:08] LABS: Albumin Level 2.2 gm/dl (3.4-5.0); BUN Creatinine Ratio 30.7 (10-20); Creatinine Clr Calc Pharmacy 63.6 ml/min; Est GFR (African American) 92.1; Est GFR (Non-African American) 79.5; Magnesium 2.7 mg/dl (1.8-2.4); Potassium 4.2 mmol/L (3.5-5.1)
[2018-12-05 05:11] LABS: Albumin Globulin Ratio 0.4 (0.9-2); Bilirubin,Total 0.4 mg/dl (0.2-1); Globulin 4.9 gm/dl (2.5-4.0); Phosphorus 4.8 mg/dl (2.5-4.9); Total Protein 7.1 gm/dl (6.4-8.2)
[2018-12-05 05:13] LABS: Basophils # (auto) 0.04 K/uL (0-0.2); Basophils % (auto) 0.2 %; Immature Granulocytes # (auto) 0.29 K/uL (0.00-0.02); Immature Granulocytes % (auto) 1.2 %; Lymphocytes # (auto) 0.88 K/uL (1.2-3.4); Lymphocytes % (auto) 3.6 %; Monocytes # (auto) 1.39 K/uL (0.11-0.59); Monocytes % (auto) 5.6 %; Neutrophils # (auto) 22.03 K/uL (1.4-6.5); Neutrophils % (auto) 89.4 %; Polychromasia 1+
[2018-12-05 05:26] LABS: iSTAT Art Bld Gas pCO2 Correct 64 mmHg (35-46); iSTAT Art Bld Gas pH Corrected 7.277 (7.35-7.45); iSTAT Arterial Blood Gas HCO3 30 meg/L (19-24); iSTAT Arterial Blood Gas pCO2 66 mmHg (35-46); iSTAT Arterial Blood Gas pH 7.27 (7.35-7.45); iSTAT Arterial Blood Gas pO2 88 mmHg (80-95); iSTAT Arterial Blood Gas pO2 C 85; iSTAT Carbon Dioxide 32 mEq/l (24-31); iSTAT FiO2 100 %; iSTAT Site Art Line
[2018-12-05] MEDS ORDERED: MoRPHine SULFATE 4 MG/ML 1 ML CARP\\VIAL ONE ×2 (05:58→08:59)
[2018-12-05] MEDS: HEPARIN SOD 5,000 UNIT/0.5 ML VIAL SQ SCH ×3 (05:59→21:50)
--- NOTE | 2018-12-05 07:35 | XRay Report ---
XR chest 1V portable HISTORY: Postop. Follow-up. COMPARISON: Chest 12/04/2018. FINDINGS: Status post left pneumonectomy with near complete filling of the left resection cavity with fluid. This has slightly progressed. Right lung airspace opacities remain unchanged. The heart is no t well visualized and is partially obscured by the left pleural fluid. IMPRESSION: 1. No significant change in the right lung airspace opacities. This could represent a pneumonitis or pulmonary edema. 2. Progressive filling of the left pneumonectomy cavity. Electronically signed by: Gordon Pabon M.D. 12/05/2018 7:34 AM
--- NOTE | 2018-12-05 07:41 | Family Medicine Progress Note ---
Date of Service December 05, 2018 Assessment & Plan (1) Acute respiratory failure with hypoxia: 68 yo M s/p left pneumonectomy due to squamous cell carcinoma with course complicated by diffuse right-sided infiltrates due to pulmonary edema vs. hyperperfusion injury vs. pneumonia, now overnight with worsening respiratory status. Acute Hypoxic/ Hypercapnic Respiratory failure - Transferred to ICU due to increased oxygen requirement 12/04 now with hypoxic and hypercapnic respiratory failure despite CPAP, on ABG found to be profoundly acidemic to pH 7.07 - AM CXR showed near complete filling of left lung cavity with fluid - AM labs showed increase in white count from 18.49 to 24.63 - 12/05 intubated in ICU for optimization of ventilatory status and has Versed and Cisatracurium drips, ABG improved following intubation and bicarb with pH now 7.34 - Fentanyl 100mg IV q2 PRN - Care per ICU at this time, Thoracic Surgery, Pulmonary, Palliative Care, Cardiology Pneumonia - Currently on broad spectrum coverage with cefepime, vancomycin, doxycycline for H. flu pneumonia - Today during intubation and bronchoscopy mucous plug was removed - Pt has been afebrile s/p Left penumonectomy -per thoracic surgery Atrial Tachycardia - Amiodarone stopped per cardiology rec's that it could be contributing to his pulmonary issues and was not acutely necessary HTN - Originally diltiazem 125mg IV daily started for better control of atrial tachycardia - Pt became transiently hypotensive and dilt was held, 1L fluids given, phenylephrine gtt started DMII - metformin held - insulin aspart SSI - BMP daily Dispo: ICU DVT PPx: Heparin 5000u SQ FEN: NPO Code Status: FULL CODE (2) Atrial tachycardia: (3) Hypertension: (4) Goals of care, counseling/discussion: (5) Pulmonary infection: (6) Controlled type 2 diabetes mellitus with diabetic nephropathy: Supervising Physician Co-Signing Physician Notes Resident Physician Supervision Note: I independently interviewed and examined the patient and verified the hudson history and physical, reviewed labs and image studies, discussed the case with the resident Dr. Castaneda and agree with the findings and care plan. Subjective Overnight no acute events, amiodarone drip d/c'ed and diltiazem drip started by Cardiology. On interview patient reports tiredness and shortness of breath but able to follow commands and answer questions by nodding his head. Reports no change in his shortness of breath or difficulty breathing. Denies chest pain, palpitations, sensation of syncope, headache. Anxiety has been well controlled on morphine 2mg IV q2. Review of Systems Constitutional: + fatigue and + weakness; no fever and no chills Respiratory: + dyspnea; no cough and no chest congestion Cardiovascular: no chest pain, no palpitations, no syncope and no edema Gastrointestinal: no abdominal pain Neurologic: no headache(s) Physical Exam Constitutional: WD/WN, vitals as above + ill appearing Wearing full mask CPAP in room on interview. Eyes: + anicteric sclerae and PERRL Respiratory: + respiratory distress, + labored breathing, + retractions and + tachypneic breath sounds absent on left, crackles on the right Cardiovascular: RRR, no murmur, no edema Gastrointestinal (Abdomen): normal bowel sounds, soft, nontender, no hepatosplenomegaly Skin: no rashes, warm and dry Lines: Two peripheral IVs in left hand/arm One radial A line right arm Psychiatric: Orientation: alert Eye Contact: good eye contact Results & Data Vital Signs (Past 12 Hours) Vital Signs Temp Pulse Pulse Resp BP BP Pulse Ox 12/05/18 06:00 88 30 H 114/66 94 12/05/18 04:00 36.5 C 82 30 H 106/67 95 12/05/18 03:23 29 H 93 12/05/18 02:00 86 28 H 112/71 93 12/05/18 00:00 36.6 C 87 30 H 100/59 L 93 12/04/18 23:29 96 H 30 H 96 12/04/18 22:00 89 30 H 126/75 91 12/04/18 20:09 34 H 91 12/04/18 20:00 36.5 C 93 H 33 H 152/73 H 91 PG Care Time/CCT Total # of Minutes Spent Total Time Spent with Patient: Total time spent is greater than 50% in coordination of care (as documented) at patient's floor/unit and/or counseling patient: Resident Activity Tracking Resident Involvement: Resident Care Provided Care Provided: Adult Hospital Medicine (1) Controlled type 2 diabetes mellitus with diabetic nephropathy Diabetes mellitus skilled nursing insulin use: without long wall mining machine helper use Qualified Code(s): E11.21 - Type 2 diabetes mellitus with diabetic nephropathy (2) Hypertension Hypertension type: essential hypertension Qualified Code(s): I10 - Essential (primary) hypertension
[2018-12-05] MEDS: INSULIN ASPART 100 UNITS/ML 3 ML PEN SC SCH ×4 (07:55→19:57)
[2018-12-05] MEDS: CEFEPIME 2,000 MG in SYRINGE 7.5 ML IV SCH ×2 (07:57→15:58)
[2018-12-05] MEDS: VANCOMYCIN HCL 1,000 MG in SODIUM CHLORIDE 0.9% 250 ML IV SCH ×2 (07:58→19:41)
[2018-12-05] MEDS: INSULIN GLARGINE SOLOSTAR 100 UNITS/ML 3 ML PEN SC SCH (07:59)
[2018-12-05] MEDS: FUROSEMIDE 40 MG in SYRINGE 0 ML IV SCH (08:00)
[2018-12-05] MEDS: DOXYCYCLINE HYCLATE 100 MG in DEXTROSE 5% 100 ML IV SCH ×2 (08:01→19:56)
[2018-12-05] MEDS: dilTIAZem HCL 180 MG CAPCR PO SCH (08:37)
[2018-12-05] MEDS: POTASSIUM CHLORIDE 10 MEQ TABCR PO SCH (08:38)
--- NOTE | 2018-12-05 08:39 | Critical Care Progress Note ---
Date of Service December 05, 2018 Assessment & Plan (1) Acute respiratory failure with hypoxia: Reason Critically Ill: 68-year-old male here with a PMHx significant for T2DM w/ nephropathy, HLD, Atrial arrythmia ?MAT, bladder cancer s/p TURBT, HTN, and SCC s/p L pneumonectomy who presented for L lobecteomy and who is readmitted to the ICU for acute hypoxemic respiratory failure. Neuro - [facility] ICU: POSITIVE Anxiety - Previsouly on pressodex 0.5mg, held following intubation - Fentanyl 100mcg IV Q2H PRN - Versed drip 1mg/hr for sedation Cardiac - Paroxysmal Atrial Tachycardia - Sinus rhythm on amiodarone drip - Anti-arrythmic therapy per cardiology. He was controlled on amio, but is at risk of increased morbidity if he develops ILD in the setting of pneumonectomy. Converted to diltiazem drip, held in 2/2 hypotension and intubation - Cardiology following QTp - QTc 586 on 12/03 - Limit QT prolonging medications - Repeat EKG pending HTN - Hypotensive following entotracheal intubation - Phenylephrine gtt initiated - Hold diltiazem gtt HLD - held Atorvastatin 40mg PO qHS Respiratory - Acute Hypoxemic Hypercapnic Respiratory Failure 2/2 Haemophilus pneumonia and s/p L pneumonectomy - Currently intubated, s/p bronchoscopy - Respiratory cultures + for B. lactamase H. flu, initially improved on cefepime + vanco narrowed to rocephin and subsequentially worsening. - Clinically worsened with increase O2 requirement, hypoxemia, and uptrending leukocytosis - Given B. lactamase positive H. flu would ideally convert to a fluoroquinoline, but this is limited by QTp. Tx with cefepime/vanco/doxy as below - Pt clinically worsened on BiPap dive mask and developed acidemia to 7.1, underwent bronchoscopy with mucous plug removal and endotracheal intubation. 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 INTEGUMENTARY - No acute concerns LINES/IV ACCESS - 2x L hand/arm PIVs intact. R radial A-line in place DVT PROPHYLAXIS - Heparin 5000u q8H SQ (2) Atrial tachycardia: (3) Hypertension: (4) Goals of care, counseling/discussion: Supervising Physician Co-Signing Physician Notes Dr. Zayas was resident physician during care of patient. I separately evaluated patient for hudson portions of the history and the exam. I was present during the critical portion of medical decision making, and I discussed the case with the resident. I generally agree with the findings and plan. Patient had slept overnight, feels mildly better than yesterday. Blood gas remains largely unchanged, mild improvement in aeration on chest x-ray. Cardiology has started diltiazem for better rate control of narrow complex atrial tachyarrhythmia. We are humidifying his circuit. He is n.p.o. for the second day. If there is not significant improvement I think we may need to strongly consider intubation and mechanical ventilation and a lung protective strategies, this is certainly going to be very complicated and complex as the patient now has one long and matching his ventilatory requirements while yet optimizing low tidal volume will certainly be difficult. He is still having hypoxic and hypercapnic respiratory failure. We are continuing with the broad- spectrum antibiotics at this time. No steroids secondary to concern for wound healing. Sending procalcitonin to essentially establish baseline. I have personally spent 45 minutes of critical care time in the direct management of this patient. This is a life/limb threatening event. This includes time spent evaluating patient, direct bedside care, chart review, placing orders, interpretation of diagnostic studies, discussion with consultants, patient, and/or family members regarding treatment decisions, as well as other required patient management activities. This time is exclusive of all separately billable procedures, and teaching time and separate from and in addition to any other critical care service time. Clinical update: 1300 patient decompensated became very acidotic 7.07 with PCO2 greater than 115. He required emergent intubation and mechanical ventilation. Please refer to those procedure notes for additional details. Currently we are optimizing patient's ventilatory status he is being ventilated at a rate of 28 with a tidal volume of 280 that is producing a minute ventilation of approximately 9.1 L/min his blood gas has improved, currently 7.335 PCO2 73.9 O2 of 87 satting 95%. He will undergo neuromuscular blockade empirically for the next 24 hours. Goal oxygen saturation will be 80 to 92% decreasing the FiO2 correspondingly. The significant improvement in the pH is likely related to the 3 Amp of bicarb he was given in the bicarb infusion. Patient did experience transient hypotension during the procedures. After initial intubation and mechanical ventilation patient was ventilated on the ventilator and was doing well. Shortly he acutely occluded and was auto peeping. There was no evidence of tension pneumothorax nor air in the left chest, emergent bronchoscopy was undertaken for possible obstruction and significant, tenacious mucoid impaction was noted in the endotracheal tube. This was rather difficult to suction into the working channel. The patient was able to be bag-valve ventilated and the decision was made since the mucoid impaction appeared to be significantly in the endotracheal tube to change out the endotracheal tube. Using the video laryngoscope the 8.5 endotracheal tube was easily removed, approximately a 2 cm mucoid impaction was noted in the lumen of the endotracheal tube and an 8.0 endotracheal tube was inserted and the patient was able to be bag valve ventilated. Subsequent bronchoscopy demonstrated near total acute occlusion of the right mainstem bronchus. The mucoid impaction was suctioned into the working channel with some difficulty. Finally the mucoid impaction was removed and the patient's was able to be bag valve ventilated much easier and he was placed on the ventilator. Peak pressures were much lower during this time. Patient was started on phenylephrine during this period for vasoactive support. He was also given a bolus of IV fluid. We will continue proceed with [employer] ventilation to the best of our ability given he has a single lung for ventilation. We will continue to hold steroids given wound healing and the neuromuscular blockade at this time. I have personally spent 65 minutes of critical care time in the direct management of this patient. This is a life/limb threatening event. This includes time spent evaluating patient, direct bedside care, chart review, placing orders, interpretation of diagnostic studies, discussion with consultants, patient, and/or family members regarding treatment decisions, as well as other required patient management activities. This time is exclusive of all separately billable procedures, and teaching time and separate from and in addition to any other critical care service time. Subjective Mr. Ruiz was seen at bedside, appears fatigued but arouses to voice and follows 2 steps commands. Denied pain, chest pain, headache, lightheadedness, dizziness, presyncope. Endorsed fatigue, shortness of breath, difficulty breathing. Reports he feels about the same as last night. Amiodarone drip was d/aj and diltiazem drip was started by Cardiology, pt has atrial arrythmia overnight but denies palpitations/syncope. Addendum: Pt with increased somnolence in late morning, repeat ABG showed profound acidosis and he underwent bronchoscopy and endotracheal intubation. Review of Systems Review of Systems: Unobtainable due to endotracheal tube Physical Exam Physical Exam: General: Somnolent, arouses to voice and follows commands appropriately. Increased work of breathing. HEENT: Atraumatic, normocephalic. Dive BiPAP mask in place. EoM intact, PERLAA. Pulm: R lung with crackles at the base, otherwise clear. Absent/echoic breath sounds on L. Increased work of breathing present. Cardiac: tachycardic. RR, -mrg. Radial pulses intact and symmetrical. Abdominal: Nontender, nondistended, soft. BS present. Skin: Warm, dry. Addendum 1333: Sedated, 8.[address] to 24cm Results & Data Vital Signs (Past 12 Hours) Vital Signs Temp Pulse Pulse Resp BP BP Pulse Ox 12/05/18 04:00 36.5 C 82 30 H 106/67 95 12/05/18 03:23 29 H 93 12/05/18 02:00 86 28 H 112/71 93 12/05/18 00:00 36.6 C 87 30 H 100/59 L 93 12/04/18 23:29 96 H 30 H 96 12/04/18 22:00 89 30 H 126/75 91 12/04/18 20:09 34 H 91 12/04/18 20:00 36.5 C 93 H 33 H 152/73 H 91 PG Care Time/CCT Total # of Minutes Spent Total Time Spent with Patient: Total time spent is greater than 50% in coordination of care (as documented) at patient's floor/unit and/or counseling patient: Critical Care Time: Yes Total Critical Care Time: 110 Resident Activity Tracking Resident Involvement: Resident Care Provided Care Provided: Adult Hospital Medicine (1) Hypertension Hypertension type: essential hypertension Qualified Code(s): I10 - Essential (primary) hypertension
[2018-12-05] MEDS: guaiFENesin 600 MG TABCR PO SCH (08:40)
[2018-12-05] MEDS: SILDENAFIL CITRATE 20 MG TABLET PO SCH ×3 (08:41→19:55)
[2018-12-05] MEDS: METOPROLOL SUCC 50MG EXT REL TAB PO SCH (08:42)
[2018-12-05] MEDS: SENNA 8.6 MG TAB PO SCH (08:42)
[2018-12-05] MEDS: DOCUSATE SODIUM 100 MG CAP PO SCH (09:10)
[2018-12-05] MEDS: POLYETHYLENE (MIRALAX) 17 GM PACK PO SCH (09:11)
[2018-12-05] MEDS ORDERED: dilTIAZem HCl 5 MG/ML 5 ML VIAL IV STA (09:38)
[2018-12-05] MEDS ORDERED: dilTIAZem HCL 125 MG in DEXTROSE 5% 100 ML IV SCH (09:45)
--- NOTE | 2018-12-05 10:13 | Cardiology Progress Note ---
Date of Service December 05, 2018 Assessment & Plan (1) PAT (paroxysmal atrial tachycardia): He does maintained sinus rhythm while on an amiodarone drip. This morning following discontinuation of the amiodarone yesterday afternoon he has had return of his arrhythmia. I am going to try to treat it with diltiazem. His blood pressure is somewhat low during the arrhythmia but when he pauses briefly in sinus rhythm his heart rate and blood pressure are good. If we can slow his heart rate down with diltiazem his blood pressure should rebound. I am going to start at 5 mg/h after a 5 mg bolus. He did receive his diltiazem orally and his metoprolol early this morning. I am going to discontinue those and convert to IV. (2) Acute respiratory failure with hypoxia: He continues to have severe respiratory difficulties. I doubt amiodarone has contributed much to this, but it has been reported. Since it may not be essential to keep him on amiodarone I think would be reasonable to keep him off of it and try other agents for the time being. Subjective Amiodarone was discontinued yesterday early afternoon. He is still short of breath and tired, no chest discomfort, no symptoms of palpitations. Physical Exam Physical Exam: Constitutional: Alert, cooperative and in Moderate to severe respiratory distress. Pulmonary: Crackles to auscultation bilaterally, decreased breath sounds on the left. He is on a BiPAP mask. Cardiac: Irregular rapid rhythm with no murmur, gallop or rub. Abdomen: Soft, nontender with normal bowel sounds. Extremities: No edema. Skin: No rash, ecchymoses or petechiae. Results & Data Vital Signs (Past 12 Hours) Vital Signs Temp Pulse Pulse Pulse Resp BP Pulse Ox 12/05/18 07:51 102 H 33 H 93 12/05/18 06:00 88 30 H 114/66 94 12/05/18 04:00 36.5 C 82 30 H 106/67 95 12/05/18 03:23 29 H 93 12/05/18 02:00 86 28 H 112/71 93 12/05/18 00:00 36.6 C 87 30 H 100/59 L 93 12/04/18 23:29 96 H 30 H 96 Diagnostic Findings Telemetry: He was in sinus rhythm until about 830 this morning when he went into his atrial arrhythmia With frequent episodes of a heart rate of about 140 bpm. PG Care Time/CCT Total # of Minutes Spent Total Time Spent with Patient: Total time spent is greater than 50% in coordination of care (as documented) at patient's floor/unit and/or counseling patient:
--- NOTE | 2018-12-05 10:34 | Palliative Care Progress Note ---
Date of Service December 05, 2018 Assessment & Plan (1) Goals of care, counseling/discussion: -Patient remains dyspneic on the bipap mask today. ABGs not improved. -Amiodarone was stopped yesterday afternoon, patient is now going into atrial tachycardia in 150s. Pressure drops into 80-90s at times when heart rate is elevated. Cardiology following and will start IV Cardizem. -CXR today concerning for pneumonia per ICU team. Oxygen saturation low 90s even with 100% FiO2. -Prognosis remains guarded. not at bedside this morning, she went home to sleep last night. She did call in this morning for an update from nurse. -Patient remains full code at this time. Palliative will continue to follow for supportive care. (2) Acute respiratory failure with hypoxia: (3) Squamous cell lung cancer: (4) S/P pneumonectomy: (5) Pulmonary infection: Subjective Patient remains in ICU. On bipap, remains dyspneic. Review of Systems Review of Systems: unable to obtain full ROS due to severe SOB/respiratory distress Physical Exam Constitutional: + acute distress and + ill appearing Respiratory: + respiratory distress and + labored breathing Auscultation: + breath sounds absent (on left side) and + crackles (right side) Cardiovascular: Rate/Rhythm: + tachycardic; + abnormal rhythm Extremities: no edema Gastrointestinal (Abdomen): Inspection/Auscultation: abdomen normal to inspection Neurologic: moves all extremities and awake Psychiatric: Orientation: oriented x 3 Affect: + anxious affect Results & Data Vital Signs (Past 12 Hours) Vital Signs Temp Pulse Pulse Pulse Resp BP BP 12/05/18 10:00 116 H 37 H 134/54 L 12/05/18 09:00 146 H 37 H 118/88 12/05/18 08:00 106 H 34 H 120/60 12/05/18 07:51 102 H 33 H 12/05/18 07:00 93 H 31 H 126/70 12/05/18 06:00 88 30 H 114/66 12/05/18 04:00 36.5 C 82 30 H 106/67 12/05/18 03:23 29 H 12/05/18 02:00 86 28 H 112/71 12/05/18 00:00 36.6 C 87 30 H 100/59 L 12/04/18 23:29 96 H 30 H Pulse Ox 12/05/18 10:00 90 12/05/18 09:00 90 12/05/18 08:00 93 12/05/18 07:51 93 12/05/18 07:00 93 12/05/18 06:00 94 12/05/18 04:00 95 12/05/18 03:23 93 12/05/18 02:00 93 12/05/18 00:00 93 12/04/18 23:29 96 Supervising Physician Co-Signing Physician Notes Patient seen and examined this afternoon-patient had just been intubated. No family at bedside Collaborated with JOHN Kiran as well as attending physician Dr. Palacios PE: Patient sedated and intubated Respirations: Patient not breathing over the vent, appears comfortable CV: Regular rate Abdomen: Not distended Neuro: Sedated Agree with above note, assessment and plan. Will continue to follow and assist family with medical decision making as well as providing support to patient's and family. Time Spent Midlevel 35 minutes with >50% of the time spent at bedside with patient, ICU team, and IDT discussing condition and GOC. (1) Squamous cell lung cancer Laterality: left Qualified Code(s): C34.92 - Malignant neoplasm of unspecified part of left bronchus or lung
[2018-12-05] MEDS ORDERED: RAPID SEQUENCE INDUCTION BAG ONE (12:05)
[2018-12-05 12:08] LABS: iSTAT Art Bld Gas pCO2 Correct 117 mmHg (35-46); iSTAT Art Bld Gas pH Corrected 7.076 (7.35-7.45); iSTAT Arterial Blood Gas HCO3 34 meg/L (19-24); iSTAT Arterial Blood Gas pCO2 > 115 mmHg (35-46); iSTAT Arterial Blood Gas pH 7.07 (7.35-7.45); iSTAT Arterial Blood Gas pO2 100 mmHg (80-95); iSTAT Arterial Blood Gas pO2 C 98; iSTAT Carbon Dioxide 38 mEq/l (24-31); iSTAT FiO2 100 %; iSTAT Site Art Line
[2018-12-05] MEDS ORDERED: SODIUM BICARB 8.4% INJ 50 MEQ/50 ML SYR ONE ×2 (12:13→12:44)
[2018-12-05] MEDS ORDERED: MIDAZOLAM HCL 1 MG/ML 2ML VIAL ONE (12:37)
[2018-12-05] MEDS ORDERED: fentaNYL citrate 100 MCG/2 ML VIAL ONE (12:39)
[2018-12-05] MEDS: PHENYLEPHRINE HCL 20 MG in DEXTROSE 5% 500 ML IV SCH (12:44)
[2018-12-05] MEDS ORDERED: SODIUM BICARBONATE 8.4% 150 MEQ in DEXTROSE 5% 1,000 ML IV SCH (12:45)
[2018-12-05] MEDS ORDERED: fentaNYL citrate 100 MCG/2 ML VIAL IV PRN (12:57)
[2018-12-05 13:20] LABS: iSTAT Arterial Blood Gas HCO3 39 meg/L (19-24); iSTAT Arterial Blood Gas pCO2 74 mmHg (35-46); iSTAT Arterial Blood Gas pH 7.34 (7.35-7.45); iSTAT Arterial Blood Gas pO2 87 mmHg (80-95); iSTAT Carbon Dioxide > 40 mEq/l (24-31); iSTAT Site Art Line
[2018-12-05] MEDS: ALBUT/IPRATROP 3MG/0.5MG NEB 3 ML VIAL INH PRN (13:22)
--- NOTE | 2018-12-05 13:24 | Procedure Note ---
Procedure Note Date of Service December 05, 2018 Procedure Date: Noted above Procedure: Endotracheal intubation Pre-procedure Diagnosis: Acute hypoxic hypercapnic respiratory failure Post-procedure Diagnosis: same as above Prior to Procedure: Informed Consent: emergent Attending Staff: Carmen Palacios DO The identity of the patient was confirmed and a bedside time out was performed. Description of Procedure: Patient was evaluated and required intubation for impending respiratory failure. The patient was prepared in the usual fashion. A video laryngoscope was used. A 8.5 mm inner diameter endotrachial tube was placed endotracheally to 26 cm at the teeth. A grade 1 view was obtained. The endotracheal tube was noted to pass through the vocal cords. Chest rise was asymmetric, known pneumonectomy history, right sided breath sounds were heard without air sounds in the abdomen. Mist was noted in the endotracheal tube. End-tidal CO2 measurement was positive. Complications: Refer to the daily progress note for additional details however the patient ultimately had acute mucoid impaction of the inner lumen of the endotracheal tube Findings: Not applicable Specimens: Not applicable Estimated blood loss: Zero Coding CPT Codes Resuscitation - Resuscitation: Endotracheal Intubation, emergency ([id number])
--- NOTE | 2018-12-05 13:26 | Procedure Note ---
Procedure Note Date of Service December 05, 2018 Procedure Date: December 05, 2018 Procedure: Endotracheal intubation Pre-procedure Diagnosis: Occlusion of endotracheal tube, hypoxic hypercapnic respiratory failure Post-procedure Diagnosis: same as above Prior to Procedure: Informed Consent: emergent Attending Staff: Carmen Palacios DO The identity of the patient was confirmed and a bedside time out was performed. Description of Procedure: Patient was evaluated and required intubation for impending respiratory failure. The patient was prepared in the usual fashion. A video laryngoscope was used. A 8.0 mm inner diameter endotrachial tube was placed endotracheally to 24 cm at the teeth. A grade 1 view was obtained. The endotracheal tube was noted to pass through the vocal cords. Chest rise was asymmetric, known pneumonectomy, right- sided breath sounds were heard without air sounds in the abdomen. Mist was noted in the endotracheal tube. End-tidal CO2 measurement was positive. Tube positioning was confirmed with a bronchoscope Complications: None Findings: Not applicable Specimens: Not applicable Estimated blood loss: Zero Coding CPT Codes Resuscitation - Resuscitation: Endotracheal Intubation, emergency ([id number])
--- NOTE | 2018-12-05 13:29 | Procedure Note ---
Procedure Note: Bronchoscopy Procedure Procedure date: December 05, 2018 Procedure: fiberoptic bronchoscopy Pre-procedure indication: Acute hypoxic hypercapnic respiratory failure with loss of exhalation volume Post-procedure Diagnosis: same as above Prior to Procedure: Informed Consent: Emergent Attending Staff: Carmen Palacios DO Resident/APC: Not applicable Skin Prep: Not applicable Anesthesia: Versed, fentanyl The identity of the patient was confirmed and a bedside time out was not performed. Description of Procedure: Fiberoptic bronchoscopy was performed via endotracheal tube. Near total occlusion of the lumen of the endotracheal tube was noted. After exchange of the endotracheal tube and subsequent intubation, the right mainstem was near total occlusion with significant mucoid impaction with significant difficulty in suctioning the concretions into the working channel of the bronchoscope. The left mainstem bronchus appeared to be intact. A protected brush specimen was obtained from the right lower lobe. There did not appear to be significant mucus plugging of the distal bronchi. Complications: None Specimens: Bronchial brush sent for culture and Gram stain, cytology, fungal elements. Estimated blood loss: Zero
[2018-12-05] MEDS: CISATRACURIUM BESYLATE 40 MG in 0.9 % SODIUM CHLORIDE 80 ML IV SCH ×3 (13:48→21:49)
[2018-12-05] MEDS: MIDAZOLAM HCL 125 MG/250 ML BAG IV SCH (13:52)
[2018-12-05] MEDS ORDERED: CISATRACURIUM BESYLATE IV SOLN 2 MG/ML 10 ML VIAL IV STA (14:10)
[2018-12-05] MEDS ORDERED: CISATRACURIUM BOLUS FROM BAG IV ONE (14:15)
--- NOTE | 2018-12-05 14:40 | Pharmacy Report ---
Pharmacy Glycemic Short Note 2 - Date of Service December 05, 2018 - Glycemic Short BSG Results (Last 24 hours): 12/04/18 12/04/18 12/05/18 15:25 19:41 04:19 Glucose 164 H 138 H POC Glucose 145 H 12/05/18 12/05/18 07:53 11:46 Glucose POC Glucose 134 H 159 H OUTPATIENT ANTIDIABETIC REGIMEN: * Metformin 500 mg PO HS * A1c = 6.7% 07/24/18 ASSESSMENT: 12/05: * Patient's BSGs have been mostly within goal range for past 24 hours, 158-188 requiring 17 units (10 basal) * Patient has acutely worsened, antibiotics broadened to vanco/cefepime/doxy * Patient intubated this afternoon, currently on Nimbex, phenylephrine and Bicarb infusion (in dextrose) * Given changing status will adjust BSG checks to q4H, have also added a pending order for insulin infusion in the event BSGs begin to worsen 12/01: * Lantus was held per MD for the past 48hrs due to NPO status. However, as diet resumed today and fasting BSGs beginning to trend up, a conservative dose of lantus was ordered. Will continue with current novolog scale. 11/28 * 67 yo M with adequate outpatient control of T2DM per HbA1c on low dose metformin alone * Pt is maintained on oral antidiabetic agents as an outpatient * Oral agents are not recommended for inpatient use d/t drug interactions, changing PO intake, and difficulty titrating for acute hyper/hypoglycemia. ADA recommends re-initiating outpatient oral agents 1-2 days prior to disc harge if/when appropriate if they were held on admission. * Metformin held on admission and patient has been receiving weight based SQ basal bolus insulin regimen * BSG's have been well controlled on current regimen with no changes in last 48 hours and BSG's ranging 128-152 mg/dL yesterday * Patient did not consume much CHO yesterday (40, 12, 8 g at breakfast, lunch, dinner respectively), but per VISCERA WASHER, does not anticipate hardly any po intake today. Patient has significant SOB, decompensates with any movement, accessory muscle use noted, and patient is reportedly "tiring out". Will therefore slightly decrease Lantus and adjust ongoing dose to depend on BSG trend PLAN FOR INPATIENT GLYCEMIC CONTROL: * Continue to hold outpatient oral diabetes medications (metformin) * Basal insulin: * 10 units lantus QAM * Bolus insulin (no change) * NovoLog per scale ACHS or Q6hrs while NPO * Goal Range: Low 110 mg/dL - High 140 mg/dL * Correction Factor: 25 mg/dL/unit * Nutritional / Prandial insulin per carb ratio of 1 unit per 10 grams CHO consumed PLAN FOR DISCHARGE: * May resume home metformin regimen if no contraindications present at time of discharge, could potentially titrate dose if able to tolerate.
[2018-12-05 15:14] LABS: iSTAT Art Bld Gas pCO2 Correct 52 mmHg (35-46); iSTAT Arterial Blood Gas HCO3 34 meg/L (19-24); iSTAT Arterial Blood Gas pCO2 52 mmHg (35-46); iSTAT Arterial Blood Gas pH 7.42 (7.35-7.45); iSTAT Arterial Blood Gas pO2 62 mmHg (80-95); iSTAT Arterial Blood Gas pO2 C 62; iSTAT Carbon Dioxide 35 mEq/l (24-31); iSTAT Site Art Line
--- NOTE | 2018-12-05 16:30 | XRay Report ---
XR chest 1V portable HISTORY: 68 years-old Male coresafe tube placement acute respiratory failure COMPARISON: Chest radiograph 12/05/2018 TECHNIQUE: Portable AP view of the chest FINDINGS: Cardiac silhouette is enlarged, unchanged. Endotracheal tube terminates 2.7 cm superior to the bladimir . Status post placement of a feeding tube, distal tip noted below the diaphragm the expected location of the mid gastric body. Postoperative changes from prior left-sided pneumonectomy with air-fluid ag ain seen about the left hemithorax. Mixed interstitial and alveolar opacities of the right lung are u nchanged. No pneumothorax. Bones appear grossly intact. IMPRESSION: 1. Endotracheal tube terminates 2.7 cm superior to the bladimir. 2. Feeding tube distal tip located within the expected location of the mid gastric lumen. 3. Persistent mixed interstitial and alveolar opacities of the right lung. The above report was generated using voice recognition software. It may contain grammatical, syntax o r spelling errors. Electronically signed by: Francois Marsh M.D. 12/05/2018 4:29 PM
[2018-12-05] MEDS: IMPACT LIQD 1.0 CAL 1,000 ML BAG NG SCH (17:16)
[2018-12-05 18:15] LABS: iSTAT Allen Test Pass; iSTAT Art Bld Gas pCO2 Correct 56 mmHg (35-46); iSTAT Art Bld Gas pH Corrected 7.375 (7.35-7.45); iSTAT Arterial Blood Gas HCO3 33 meg/L (19-24); iSTAT Arterial Blood Gas pCO2 54 mmHg (35-46); iSTAT Arterial Blood Gas pH 7.39 (7.35-7.45); iSTAT Arterial Blood Gas pO2 61 mmHg (80-95); iSTAT Arterial Blood Gas pO2 C 65; iSTAT Carbon Dioxide 34 mEq/l (24-31); iSTAT Site Art Line
--- NOTE | 2018-12-05 19:22 | Progress Note ---
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 The patient has developed an acute lung injury. He tired overnight and became markedly hypercapnic and so we had to intubate him. This was done smoothly by Dr. Palacios. He then performed a bronchoscopy and removed a large mucous plug from the right mainstem bronchus. The patient currently is on 60% O2 with low airway pressures and low tidal volumes. He appears much more comfortable. Despite the x-ray reading, I believe that this patient was better after he was intubated. Feeding tube was placed and in proper position he is getting tube feedings. He has exhausted and my hope is that the mucus plug played more role than initially anticipated. We will continue to follow very closely. I have had multiple discussions with the patient's and friends and family today.
[2018-12-05] MEDS: ALBUTEROL 0.083% NEBU SOLN 3 ML VIAL NEB SCH ×2 (19:30→22:22)
[2018-12-05] MEDS: ATORVASTATIN 40 MG TAB PO SCH (19:55)
[2018-12-05] MEDS ORDERED: SUCCINYLCHOLINE CHLORIDE 20 MG/ML 10 ML VIAL IV ONE (20:34)
[2018-12-05] MEDS ORDERED: fentaNYL citrate 100 MCG/2 ML CARP IV ONE (20:34)
[2018-12-05] MEDS ORDERED: ETOMIDATE 2 MG/ML 20 ML VIAL IV ONE (20:34)
[2018-12-05] MEDS ORDERED: VECURONIUM BROMIDE 10 MG VIAL IV ONE (20:34)
[2018-12-06] MEDS: CEFEPIME 2,000 MG in SYRINGE 7.5 ML IV SCH ×4 (00:25→23:33)
[2018-12-06] MEDS: INSULIN ASPART 100 UNITS/ML 3 ML PEN SC SCH ×7 (00:25→23:34)
[2018-12-06] MEDS: CISATRACURIUM BESYLATE 40 MG in 0.9 % SODIUM CHLORIDE 80 ML IV SCH ×6 (01:21→21:10)
[2018-12-06] MEDS: PHENYLEPHRINE HCL 20 MG in DEXTROSE 5% 500 ML IV SCH ×2 (01:22→10:41)
[2018-12-06] MEDS: ALBUTEROL 0.083% NEBU SOLN 3 ML VIAL NEB SCH ×6 (02:12→22:28)
[2018-12-06 03:28] LABS: Basophils # (auto) 0.04 K/uL (0-0.2); Basophils % (auto) 0.2 %; Eosinophils # (auto) 0.07 K/uL (0-0.5); Eosinophils % (auto) 0.4 %; Hematocrit (blood only) 35.4 % (42-52); Immature Granulocytes # (auto) 0.11 K/uL (0.00-0.02); Immature Granulocytes % (auto) 0.6 %; Lymphocytes # (auto) 1.17 K/uL (1.2-3.4); Lymphocytes % (auto) 6.1 %; Mean Corpuscular Hemoglobin 27.2 pg (25-34); Mean Corpuscular Hgb Conc 31.1 g/dL (32-36); Mean Corpuscular Volume 87.4 fL (80-100); Mean Platelet Volume 10.4 fL (7.4-10.4); Monocytes % (auto) 6.8 %; Neutrophils # (auto) 16.42 K/uL (1.4-6.5); Neutrophils % (auto) 85.9 %; Platelet Count 462 K/uL (130-400); RDW Coefficient of Variation 15.4 % (11.5-14.5); RDW Standard Deviation 49.3 fL (36.4-46.3); Red Blood Count 4.05 M/uL (4.7-6.1); White Blood Count 19.11 K/uL (4.8-10.8)
[2018-12-06 03:48] LABS: Albumin Level 1.9 gm/dl (3.4-5.0); BUN Creatinine Ratio 38.1 (10-20); Calcium 8.5 mg/dl (8.5-10.1); Est GFR (African American) 98.1; Est GFR (Non-African American) 84.6; Magnesium 2.2 mg/dl (1.8-2.4); Potassium 3.9 mmol/L (3.5-5.1)
[2018-12-06 03:55] LABS: Albumin Globulin Ratio 0.4 (0.9-2); Bilirubin,Total 0.3 mg/dl (0.2-1); Globulin 4.6 gm/dl (2.5-4.0); Phosphorus 2.5 mg/dl (2.5-4.9); Total Protein 6.5 gm/dl (6.4-8.2); Troponin I 0.097 ng/ml (0-0.045)
[2018-12-06] MEDS ORDERED: ACETAMINOPHEN 65 ML IV PRN (04:00)
[2018-12-06 05:20] LABS: iSTAT Art Bld Gas pCO2 Correct 55 mmHg (35-46); iSTAT Art Bld Gas pH Corrected 7.404 (7.35-7.45); iSTAT Arterial Blood Gas HCO3 34 meg/L (19-24); iSTAT Arterial Blood Gas pCO2 54 mmHg (35-46); iSTAT Arterial Blood Gas pH 7.41 (7.35-7.45); iSTAT Arterial Blood Gas pO2 62 mmHg (80-95); iSTAT Arterial Blood Gas pO2 C 64; iSTAT Carbon Dioxide 36 mEq/l (24-31); iSTAT Hematocrit 32 % (42-52); iSTAT Hemoglobin 10.9 g/dl (14.0-18.0); iSTAT Site Art Line; iSTAT Sodium 144 mEq/L (135-144)
--- NOTE | 2018-12-06 05:46 | Critical Care Progress Note ---
Date of Service December 06, 2018 Assessment & Plan (1) Acute respiratory failure with hypoxia: Reason Critically Ill: 68-year-old male here with a PMHx significant for T2DM w/ nephropathy, HLD, Atrial arrythmia ?MAT, bladder cancer s/p TURBT, HTN, and SCC s/p L pneumonectomy who presented for L lobecteomy and who is readmitted to the ICU for acute hypoxemic respiratory failure. His course and complicated by acute respiratory distress syndrome. Neuro - [facility] ICU: POSITIVE Anxiety - Previously on pressodex 0.5mg, held following intubation - Fentanyl 50mcg IV Q2H CARLO - Versed drip for sedation Cardiac - Paroxysmal Atrial Tachycardia - Sinus rhythm on amiodarone drip, following discontinuation of amiodarone he was started on diltiazem which was held for hypotension. Metoprolol 5 mg IV every 6 hours per cardiology. Appreciate recommendations. QTp - QTc 490 on repeat ECG this morning. - Limit QT prolonging medications HTN - Hypotensive following entotracheal intubation - Phenylephrine gtt stopped, MAP>65 today Metoprolol as above HLD - held Atorvastatin 40mg PO qHS Respiratory - Severe ARDS Intubated Tidal volume decreased from 230 to 220, PEEP increased from 5 to 9, FiO2 decreased from 0.6to 0.45. pH down trended to 7.262, PCO2 74.5, PO2 73, HCO3 33.6. Ventilatory adjustments with a goal of minimizing atelectalar trauma with an acceptable acidemia from 7.27.3. Hold cisatracurium at 2 PM (after 24 hours). If tolerating vent well will hold neuromuscular blockade with goal of minimizing risk of myopathy. If any ventilatory asynchrony is noted will restart cisatracurium for another 24 hours. Acute Hypoxemic Hypercapnic Respiratory Failure 2/2 Haemophilus pneumonia and s/p L pneumonectomy - Currently intubated, s/p bronchoscopy - Respiratory cultures + for B. lactamase H. flu, initially improved on cefepime + vanco narrowed to rocephin and subsequentially worsened -Fluoroquinolone use is limited by QTp. Tx with cefepime/vanco/doxy as below - Pt clinically worsened on BiPap dive mask and developed acidemia to 7.1, underwent bronchoscopy with mucous plug removal and endotracheal intubation. Vent management as above. GI - - T2 diabetic - NPO 2/2 intubation RENAL/LYTES - - BMP Q8H - Correct electrolytes as needed - Bicarb drip discontinued - - Gonzalez in place - UOP 2150 cc ENDO - T2DM - Hold HOUSE DIRECTOR metformin - Insulin aspart SSI - BMP daily as above HEME - Stable H&H Will monitor for any drops in the setting of Heparin gtt ID - Post-operative pneumonia with hypoxemia - Doxy 200mg IV x1 followed by 100mg BID for 14 day course - Continue cefepime 2g Q8H - Continue vancomycin - Levaquin limited by QTp - Monitor fever curve. INTEGUMENTARY - No acute concerns LINES/IV ACCESS - R radial A-line in place PIC/midline ordered due to loss of 3X peripheral IVs over 24 hours. Patient sedated, procedure discussed and consent was obtained from . DVT PROPHYLAXIS - Heparin 5000u q8H SQ Thank you for allowing me to contribute resident care to the care of this patient. For further documentation, please see attending Dr. Palacios's note. (2) Hypertension: (3) Atrial tachycardia: (4) Postoperative pneumonia: (5) Squamous cell lung cancer: (6) Admitted to intensive care unit: (7) Controlled type 2 diabetes mellitus with diabetic nephropathy: (8) S/P pneumonectomy: (9) Interstitial lung disease: Supervising Physician Co-Signing Physician Notes Dr. Zayas was resident physician during care of patient. I separately evaluated patient for hudson portions of the history and the exam. I was present during the critical portion of medical decision making, and I discussed the case with the resident. I generally agree with the findings and plan. Blood gas pH continues to improve at this point we will decrease tidal volume and monitor plateau pressures. Oxygenation has not significantly changed he is on 60% FiO2. We will very slowly increase the PEEP to hopefully optimize minimum distending pressure. We will scale back neuromuscular blockade at 24 hours however if there is significant ventilator dyssynchrony I would continue neuromuscular blockade for additional 24 hours because he still meets criteria of severe acute respiratory distress syndrome. I have personally spent 55 minutes of critical care time in the direct management of this patient. This is a life/limb threatening event. This includes time spent evaluating patient, direct bedside care, chart review, placing orders, interpretation of diagnostic studies, discussion with consultants, patient, and/or family members regarding treatment decisions, as well as other required patient management activities. This time is exclusive of all separately billable procedures, and teaching time and separate from and in addition to any other critical care service time. Clinical update: Patient was somewhat dyssynchronous with the ventilator given his improvement we will continue the neuromuscular blockade for additional 24 hours to allow for continued improvement. Subjective Jose seen at bedside this morning, history is limited by endotracheal tube and sedation. Per signout he had a brief run of atrial tachycardia overnight, otherwise stable. Did not require pressors overnight. Review of Systems Review of Systems: Unobtainable due to endotracheal tube Physical Exam Physical Exam: General: Sedated, ETT in place. Skin is warm and dry. HEENT: Atraumatic, normocephalic. Does not spontaneously open eyes. Pulm: R lung with crackles at the base, moderate air movement of right upper lung. Absent/echoic breath sounds on L. Breathing on vent. Cardiac: tachycardic. RR, -mrg. Radial pulses intact and symmetrical. Abdominal: Nontender, nondistended, soft. BS present. Skin: Warm, dry. Results & Data Vital Signs (Past 12 Hours) Vital Signs Temp Pulse Resp BP Pulse Ox 12/06/18 04:00 37.4 C 12/06/18 02:24 85 29 H 94 12/06/18 02:00 91 H 113/58 L 92 12/06/18 01:00 76 125/67 88 L 12/06/18 00:20 85 28 H 92 12/06/18 00:01 91 H 90/46 L 94 12/06/18 00:00 37.0 C 89 86/50 L 93 12/05/18 23:00 93 H 111/55 L 92 12/05/18 22:30 89 28 H 92 12/05/18 22:00 96 H 98/54 L 93 12/05/18 21:30 97 H 94 12/05/18 21:00 95 H 101/55 L 97 12/05/18 20:30 98 H 96 12/05/18 20:00 37.5 C 98 H 103/57 L 96 12/05/18 19:34 101 H 28 H 91 12/05/18 19:00 104 H 108/59 L 91 12/05/18 18:38 105 H 28 H 90 12/05/18 18:00 37.2 C 105 H 126/60 91 PG Care Time/CCT Total # of Minutes Spent Total Time Spent with Patient: Total time spent is greater than 50% in coordination of care (as documented) at patient's floor/unit and/or counseling patient: Critical Care Time: Yes Total Critical Care Time: 55 Resident Activity Tracking Resident Involvement: Resident Care Provided Care Provided: Adult Hospital Medicine (1) Controlled type 2 diabetes mellitus with diabetic nephropathy Diabetes mellitus termite control representative insulin use: without halfway use Qualified Code(s): E11.21 - Type 2 diabetes mellitus with diabetic nephropathy (2) Squamous cell lung cancer Laterality: left Qualified Code(s): C34.92 - Malignant neoplasm of unspecified part of left bronchus or lung (3) Hypertension Hypertension type: essential hypertension Qualified Code(s): I10 - Essential (primary) hypertension
[2018-12-06] MEDS: HEPARIN SOD 5,000 UNIT/0.5 ML VIAL SQ SCH ×3 (05:52→21:33)
--- NOTE | 2018-12-06 07:00 | XRay Report ---
XR chest 1V portable CLINICAL HISTORY: intubation tube position COMPARISON STUDY: 12/05/2018 FINDINGS: Operative changes again consistent with prior left pneumonectomy. Mild increase in fluid ac cumulation left hemithorax. Diffuse parenchymal infiltrate right mid and lower lung unchanged. Endotracheal Tube position 3 cm fr om the bladimir. IMPRESSION: 1. Unchanged right hemithoracic infiltrates. 2. Stable postoperative changes post pneumonectomy left hemithorax. 3. Feeding tube within the proximal to mid stomach 4. Endotracheal tube 3 cm above the bladimir. The above report was generated using voice recognition software. It may contain grammatical, syntax or spelling errors. Electronically signed by: Yogesh Gill M.D. 12/06/2018 6:59 AM
[2018-12-06] MEDS ORDERED: VANCOMYCIN TROUGH ONE (07:30)
[2018-12-06] MEDS: SILDENAFIL CITRATE 20 MG TABLET PO SCH ×3 (08:01→21:31)
[2018-12-06] MEDS: DOXYCYCLINE HYCLATE 100 MG in DEXTROSE 5% 100 ML IV SCH ×2 (08:02→21:21)
--- NOTE | 2018-12-06 08:58 | Cardiology Progress Note ---
Date of Service December 06, 2018 Assessment & Plan (1) PAT (paroxysmal atrial tachycardia): He does maintained sinus rhythm while on an amiodarone drip. Before intubation following discontinuation of the amiodarone he has had return of his arrhythmia. His blood pressure did not tolerate the addition of intravenous diltiazem however that was preintubation. Currently his blood pressure is elevated, he is no longer on beta or calcium blockers which she was on orally before intubation and therefore I am going to start intravenous Lopressor to help control his heart rate and blood pressure, I am sure he is undergoing beta- messi withdrawal. (2) Acute respiratory failure with hypoxia: He remains intubated and off of amiodarone. Subjective He remains intubated and sedated, therefore cannot provide a history. He is comfortable. Physical Exam Physical Exam: Constitutional: Intubated and sedated Pulmonary: Crackles on right, decreased breath sounds on left. Cardiac: Regular rhythm with no murmur, gallop or rub. Abdomen: Soft, nontender with normal bowel sounds. Extremities: No edema. Skin: No rash, ecchymoses or petechiae. Results & Data Vital Signs (Past 12 Hours) Vital Signs Temp Pulse Resp BP Pulse Ox 12/06/18 08:38 28 H 12/06/18 07:35 101 H 27 H 93 12/06/18 06:00 98 H 149/72 H 93 12/06/18 05:05 93 H 28 H 93 12/06/18 05:00 94 H 131/66 93 12/06/18 04:00 37.4 C 89 126/64 92 12/06/18 03:00 92 H 132/72 93 12/06/18 02:24 85 29 H 94 12/06/18 02:00 91 H 113/58 L 92 12/06/18 01:00 76 125/67 88 L 12/06/18 00:20 85 28 H 92 12/06/18 00:01 91 H 90/46 L 94 12/06/18 00:00 37.0 C 89 86/50 L 93 12/05/18 23:00 93 H 111/55 L 92 12/05/18 22:30 89 28 H 92 12/05/18 22:00 96 H 98/54 L 93 12/05/18 21:30 97 H 94 12/05/18 21:00 95 H 101/55 L 97 Diagnostic Findings Telemetry: Heart rate has been gradually increasing since yesterday when he was bradycardic, now running around 100 with frequent premature ventricular beats. Atrial ectopy appears to be under good control. PG Care Time/CCT Total # of Minutes Spent Total Time Spent with Patient: Total time spent is greater than 50% in coordination of care (as documented) at patient's floor/unit and/or counseling patient:
[2018-12-06] MEDS ORDERED: fentaNYL citrate 100 MCG/2 ML VIAL IV SCH (09:00)
[2018-12-06] MEDS ORDERED: INSULIN GLARGINE SOLOSTAR 100 UNITS/ML 3 ML PEN SC SCH (09:00)
[2018-12-06] MEDS: VANCOMYCIN HCL 1,000 MG in SODIUM CHLORIDE 0.9% 250 ML IV SCH ×2 (09:01→20:21)
--- NOTE | 2018-12-06 09:21 | Family Medicine Progress Note ---
Date of Service December 06, 2018 Assessment & Plan (1) Acute respiratory failure with hypoxia: 68 yo M s/p left pneumonectomy due to squamous cell carcinoma with course complicated by diffuse right-sided infiltrates due to pulmonary edema vs. hyperperfusion injury vs. pneumonia with severe ARDS now intubated with FiO2 60%. Acute Hypoxic/ Hypercapnic Respiratory failure Severe ARDS - intubated 12/05, blood gas continues to improve, still on 60% FiO2 - Plan is to very slowly increase the PEEP to maximize distending pressure. - Will scale back sedation and neuromuscular blockade today at 2PM today and reassess; if ventilator dyssynchrony will continue for 24 more hours. - AM labs showed decrease in white count from 24.63 to 19.11. - Fentanyl 50 mcg IV q2 - Duonebs q4 - Care per ICU at this time, followed by FM team as well as Thoracic Surgery, Pulmonary, Palliative Care, Cardiology. Pneumonia - Currently on broad spectrum coverage with cefepime, vancomycin, doxycycline for H. flu pneumonia - Pt's right lung much more clear today, expect that some of the crackles were due to the large mucous plug that was removed in ICU. - Pt has been afebrile s/p Left pneumonectomy - Per thoracic surgery Atrial Tachycardia - Amiodarone stopped per cardiology rec's that it could be contributing to his pulmonary issues and was not acutely necessary HTN - Originally diltiazem 125mg IV daily started for better control of atrial tachycardia. - Yesterday pt became transiently hypotensive and dilt was held, 1L fluids given, phenylephrine gtt started. - Lopressor 5 IV q6 started today by Cardiology, Toprol held. DMII - metformin held. - insulin glargine 12u daily - BMP daily. Dispo: ICU DVT PPx: Heparin 5000u SQ FEN: NG Tube feeds Code Status: FULL CODE (2) Atrial tachycardia: (3) Hypertension: (4) Goals of care, counseling/discussion: (5) Pulmonary infection: (6) Controlled type 2 diabetes mellitus with diabetic nephropathy: Supervising Physician Co-Signing Physician Notes Resident Physician Supervision Note: I independently interviewed and examined the patient and verified the hudson history and physical, reviewed labs and image studies, discussed the case with the resident Dr. Castaneda and agree with the findings and care plan. Subjective He remains intubated and sedated, therefore cannot provide a history. He is comfortable. Review of Systems Review of Systems: Unobtainable due to endotracheal tube Physical Exam Constitutional: + ill appearing Eyes: + anicteric sclerae and PERRL ENMT: pt is intubated and has an NG tube in place. Respiratory: mechanically ventilating at 28 breaths per minute. Satting 93% on 60% FiO2. Right lung clear to auscultation. No breath sounds left side. Cardiovascular: RRR, no murmur, no edema Gastrointestinal (Abdomen): Inspection/Auscultation: normal bowel sounds; abdomen not distended Percussion/Palpation: abdomen soft Skin: no rashes, warm and dry Results & Data Vital Signs (Past 12 Hours) Vital Signs Temp Pulse Resp BP Pulse Ox 12/06/18 08:38 28 H 12/06/18 07:35 101 H 27 H 93 12/06/18 06:00 98 H 149/72 H 93 12/06/18 05:05 93 H 28 H 93 12/06/18 05:00 94 H 131/66 93 12/06/18 04:00 37.4 C 89 126/64 92 12/06/18 03:00 92 H 132/72 93 12/06/18 02:24 85 29 H 94 12/06/18 02:00 91 H 113/58 L 92 12/06/18 01:00 76 125/67 88 L 12/06/18 00:20 85 28 H 92 12/06/18 00:01 91 H 90/46 L 94 12/06/18 00:00 37.0 C 89 86/50 L 93 12/05/18 23:00 93 H 111/55 L 92 12/05/18 22:30 89 28 H 92 12/05/18 22:00 96 H 98/54 L 93 12/05/18 21:30 97 H 94 PG Care Time/CCT Total # of Minutes Spent Total Time Spent with Patient: Total time spent is greater than 50% in coordination of care (as documented) at patient's floor/unit and/or counseling patient: (1) Controlled type 2 diabetes mellitus with diabetic nephropathy Diabetes mellitus usp insulin use: without usp use Qualified Code(s): E11.21 - Type 2 diabetes mellitus with diabetic nephropathy (2) Hypertension Hypertension type: essential hypertension Qualified Code(s): I10 - Essential (primary) hypertension
[2018-12-06] MEDS: FAMOTIDINE 20 MG in SYRINGE 3 ML IV SCH ×2 (10:01→21:32)
[2018-12-06] MEDS: METOPROLOL TARTRATE 1 MG/ML VIAL IV SCH ×4 (10:12→23:32)
[2018-12-06 10:19] LABS: iSTAT Arterial Blood Gas HCO3 32 meg/L (19-24); iSTAT Arterial Blood Gas pCO2 63 mmHg (35-46); iSTAT Arterial Blood Gas pH 7.31 (7.35-7.45); iSTAT Arterial Blood Gas pO2 94 mmHg (80-95); iSTAT Carbon Dioxide 34 mEq/l (24-31); iSTAT Site Art Line
--- NOTE | 2018-12-06 10:29 | Palliative Care Progress Note ---
Date of Service December 06, 2018 Assessment & Plan (1) Goals of care, counseling/discussion: -Visited patient in his room. Patient was intubated yesterday afternoon due to worsening hypoxia and ABG. -Patient is on Nimbex and Versed so not able to participate in conversation. No family at bedside. was advised to go home for some time to get a shower, etc. -Patient on PRVC A/C 0.60%, breathing with vent at 28 bmp. PEEP 7, SpO2 95-96% -Plan for stopping paralytic this afternoon and re-assessing. Depending on how patient progresses, readdressing goals of care with family is indicated. -Nursing to advise when family at bedside, will discuss. Depending how patient progresses, either today or tomorrow. -Palliative Care will follow. (2) Acute respiratory failure with hypoxia: (3) Interstitial lung disease: (4) Squamous cell lung cancer: Subjective pt intubated yesterday afternoon. unable to participate in ROS. Appears comfortable Review of Systems Review of Systems: Unobtainable due to cognitive status (on paralyitics and sedatives) and Unobtainable due to endotracheal tube Physical Exam Constitutional: + ill appearing and + mechanically ventilated Respiratory: symmetric chest movement Auscultation: + diminished lung sounds Pt intubated 8cm ETT 25 cm @ lip PRVC A/C FiO2 0.60% RR setting 28 breathing with the ventilator PEEP 7 SpO2 96% Cardiovascular: RRR, no murmur, no edema Gastrointestinal (Abdomen): normal bowel sounds, soft, nontender, no hepatosplenomegaly Skin: no rashes, warm and dry Genitourinary: Gonzalez catheter Results & Data Vital Signs (Past 12 Hours) Vital Signs Temp Pulse Resp BP Pulse Ox 12/06/18 10:12 108 H 140/56 L 12/06/18 08:38 28 H 12/06/18 07:35 101 H 27 H 93 12/06/18 06:00 98 H 149/72 H 93 12/06/18 05:05 93 H 28 H 93 12/06/18 05:00 94 H 131/66 93 12/06/18 04:00 37.4 C 89 126/64 92 12/06/18 03:00 92 H 132/72 93 12/06/18 02:24 85 29 H 94 12/06/18 02:00 91 H 113/58 L 92 12/06/18 01:00 76 125/67 88 L 12/06/18 00:20 85 28 H 92 12/06/18 00:01 91 H 90/46 L 94 12/06/18 00:00 37.0 C 89 86/50 L 93 12/05/18 23:00 93 H 111/55 L 92 12/05/18 22:30 89 28 H 92 PG Care Time/CCT Total # of Minutes Spent Total Time Spent with Patient: Total time spent is greater than 50% in coordination of care (as documented) at patient's floor/unit and/or counseling patient: 25 Time Spent Midlevel Total time spent 25 minutes with >50% of that time spent assessing the patient, and discussing with IDT. (1) Squamous cell lung cancer Laterality: left Qualified Code(s): C34.92 - Malignant neoplasm of unspecified part of left bronchus or lung
--- NOTE | 2018-12-06 10:54 | Pharmacy Report ---
Pharmacy Abx Dose Short Note - Date of Service December 06, 2018 - Assessment & Plan Assessment 68 year old M receiving vancomycin/cefepime/doxycycline for treatment of pneumonia Day # 3 of antimicrobial therapy. Plan Vancomycin * Trough level of 17.6 is therapeutic * Continue dose of 1000 mg every 12 hours * Goal trough level 15-20 mcg/mL * Will order trough in 2-3 days or with changing renal function/status Pharmacy will continue to follow and will adjust dose/frequency as necessary. Thank you.
--- NOTE | 2018-12-06 10:57 | Pharmacy Report ---
Pharmacy Glycemic Short Note 2 - Date of Service December 06, 2018 - Glycemic Short BSG Results (Last 24 hours): 12/05/18 12/05/18 12/05/18 11:46 16:53 19:51 Glucose POC Glucose 159 H POC Glucose (other) 228 H 118 H 12/05/18 12/06/18 12/06/18 23:50 03:19 03:56 Glucose 163 H POC Glucose 126 H 151 H POC Glucose (other) 12/06/18 08:06 Glucose POC Glucose 178 H POC Glucose (other) OUTPATIENT ANTIDIABETIC REGIMEN: * Metformin 500 mg PO HS * A1c = 6.7% 07/24/18 ASSESSMENT: 12/06: * Patient remains intubated on nimbex, bicarb and phenylephrine discontinued, diltiazem also held * Patient did have BSG of 228 but corrected to 118 with novolog. * Tube feeds at trickle 10 ml/hr, BSG 178 this morning, increasing lantus slightly, will tighten novolog to stress of 3 correction factor 12/05: * Patient's BSGs have been mostly within goal range for past 24 hours, 158-188 requiring 17 units (10 basal) * Patient has acutely worsened, antibiotics broadened to vanco/cefepime/doxy * Patient intubated this afternoon, currently on Nimbex, phenylephrine and Bicarb infusion (in dextrose) * Given changing status will adjust BSG checks to q4H, have also added a pending order for insulin infusion in the event BSGs begin to worsen 12/01: * Lantus was held per MD for the past 48hrs due to NPO status. However, as diet resumed today and fasting BSGs beginning to trend up, a conservative dose of lantus was ordered. Will continue with current novolog scale. 11/28 * 67 yo M with adequate outpatient control of T2DM per HbA1c on low dose metformin alone * Pt is maintained on oral antidiabetic agents as an outpatient * Oral agents are not recommended for inpatient use d/t drug interactions, changing PO intake, and difficulty titrating for acute hyper/hypoglycemia. ADA recommends re-initiating outpatient oral agents 1-2 days prior to discharge if/when appropriate if they were held on admission. * Metformin held on admission and patient has been receiving weight based SQ basal bolus insulin regimen * BSG's have been well controlled on current regimen with no changes in last 48 hours and BSG's ranging 128-152 mg/dL yesterday * Patient did not consume much CHO yesterday (40, 12, 8 g at breakfast, lunch, dinner respectively), but per PRODUCTION GRAPHIC DESIGNER, does not anticipate hardly any po intake today. Patient has significant SOB, decompensates with any movement, accessory muscle use noted, and patient is reportedly "tiring out". Will therefore slightly decrease Lantus and adjust ongoing dose to depend on BSG trend PLAN FOR INPATIENT GLYCEMIC CONTROL: * Continue to hold outpatient oral diabetes medications (metformin) * Basal insulin: * 12 units lantus QAM * Bolus insulin (no change) * NovoLog per scale ACHS or Q6hrs while NPO * Goal Range: Low 110 mg/dL - High 140 mg/dL * Correction Factor: 20 mg/dL/unit * Nutritional / Prandial insulin per carb ratio of 1 unit per 10 grams CHO consumed PLAN FOR DISCHARGE: * May resume home metformin regimen if no contraindications present at time of discharge, could potentially titrate dose if able to tolerate.
[2018-12-06] MEDS: fentaNYL citrate 100 MCG/2 ML VIAL IV SCH ×7 (11:39→23:32)
[2018-12-06 12:01] LABS: iSTAT Arterial Blood Gas HCO3 33 meg/L (19-24); iSTAT Arterial Blood Gas pCO2 67 mmHg (35-46); iSTAT Arterial Blood Gas pH 7.29 (7.35-7.45); iSTAT Arterial Blood Gas pO2 77 mmHg (80-95); iSTAT Carbon Dioxide 35 mEq/l (24-31); iSTAT Site Art Line
[2018-12-06 13:15] LABS: BUN Creatinine Ratio 41.1 (10-20); Calcium 8.7 mg/dl (8.5-10.1); Creatinine Clr Calc Pharmacy 72.5 ml/min; Est GFR (Non-African American) 89.7; Potassium 4.2 mmol/L (3.5-5.1)
[2018-12-06 14:21] LABS: iSTAT Arterial Blood Gas HCO3 34 meg/L (19-24); iSTAT Arterial Blood Gas pCO2 75 mmHg (35-46); iSTAT Arterial Blood Gas pH 7.26 (7.35-7.45); iSTAT Arterial Blood Gas pO2 73 mmHg (80-95); iSTAT Carbon Dioxide 36 mEq/l (24-31); iSTAT Site Art Line
[2018-12-06] MEDS: MIDAZOLAM HCL 125 MG/250 ML BAG IV SCH (20:25)
[2018-12-06] MEDS: IMPACT LIQD 1.0 CAL 1,000 ML BAG NG SCH (20:34)
[2018-12-06] MEDS ORDERED: INSULIN GLARGINE SOLOSTAR 100 UNITS/ML 3 ML PEN SC ONE (21:00)
--- NOTE | 2018-12-06 21:11 | Progress Note ---
DATE: 12/06/2018 Mr. Ruiz is seen today. He now has been given a neuromuscular blockade and he seems better this morning. He is down to 60% FIO2 this morning from 80% and now is down to 45% this afternoon. I am quite pleased with that. He is still quite ill. His x-ray does not look much better. I am concerned about his bronchial stump breaking down, but there is not much I can do about that. He is getting tube feedings. He is hemodynamically stable. His tidal volumes are quite low. His airway pressures are high, but I am quite pleased that his oxygenation has improved. I have discussed this case with the patient's . We all remain concerned on postop day 14. EDDD
[2018-12-06 21:25] LABS: BUN Creatinine Ratio 42.1 (10-20); Calcium 9.2 mg/dl (8.5-10.1); Creatinine Clr Calc Pharmacy 70.9 ml/min; Est GFR (Non-African American) 88.9; Potassium 4.5 mmol/L (3.5-5.1)
[2018-12-06] MEDS: ATORVASTATIN 40 MG TAB PO SCH (21:43)
[2018-12-07] MEDS: CISATRACURIUM BESYLATE 40 MG in 0.9 % SODIUM CHLORIDE 80 ML IV SCH ×5 (00:36→21:32)
[2018-12-07] MEDS: fentaNYL citrate 100 MCG/2 ML VIAL IV SCH ×12 (01:34→23:32)
[2018-12-07 02:07] LABS: iSTAT Allen Test Pass; iSTAT Art Bld Gas pCO2 Correct 77 mmHg (35-46); iSTAT Art Bld Gas pH Corrected 7.244 (7.35-7.45); iSTAT Arterial Blood Gas HCO3 33 meg/L (19-24); iSTAT Arterial Blood Gas pCO2 78 mmHg (35-46); iSTAT Arterial Blood Gas pH 7.24 (7.35-7.45); iSTAT Arterial Blood Gas pO2 60 mmHg (80-95); iSTAT Arterial Blood Gas pO2 C 58; iSTAT Carbon Dioxide 36 mEq/l (24-31); iSTAT Site L Radial
[2018-12-07] MEDS: ALBUTEROL 0.083% NEBU SOLN 3 ML VIAL NEB SCH ×6 (02:07→22:06)
--- NOTE | 2018-12-07 02:43 | Procedure Note ---
Procedure Note Date of Service December 07, 2018 Procedure: Arterial Line Placement Attending: Dr. Palacios APC: Vu Newell PA-C Indication: Monitoring on Pressors Anesthesia: Lidocaine 1% Consent was signed and placed on the chart prior to procedure. Indication, risks, and benefits were explained at length. A time-out was completed verifying correct patient, procedure, site, positioning, and implant(s) or special equipment if applicable. Allens test was performed to ensure adequate perfusion. Patients RIGHT wrist was prepped and draped in the usual sterile fashion. Ultrasound guidance was used to aid needle placement. A 20g Arrow arterial line was introduced into the RIGHT Radial artery. Catheter was threaded, and the needle was removed with appropriate blood return. Good waveform was observed. The patient tolerated the procedure well. Confirmation of placement with ultrasound. Blood Loss: Minimal Complications: None Procedural Ultrasound Guidance: Procedure Date: 12/07/2018 Indication: Frequent ABGs, ARDS, Frequent Lab Draws Attending: Dr. Palacios APC: Vu Newell PA-C Artery Identified: YES Line confirmed in Artery with ultrasound: YES Complications: NONE Patient tolerated procedure: WELL Coding CPT Codes Tubes, Drains, and Vasc Access - Tubes, Drains, and Vasc Access: Place Catheter In Artery ([id number])
[2018-12-07] MEDS: INSULIN ASPART 100 UNITS/ML 3 ML PEN SC SCH ×5 (04:05→20:33)
[2018-12-07 04:51] LABS: Basophils # (auto) 0.05 K/uL (0-0.2); Basophils % (auto) 0.3 %; Eosinophils # (auto) 0.03 K/uL (0-0.5); Eosinophils % (auto) 0.2 %; Hematocrit (blood only) 37.1 % (42-52); Hemoglobin 11.2 g/dL (14.0-18.0); Immature Granulocytes # (auto) 0.15 K/uL (0.00-0.02); Immature Granulocytes % (auto) 0.8 %; Lymphocytes # (auto) 0.93 K/uL (1.2-3.4); Lymphocytes % (auto) 5.1 %; Mean Corpuscular Hemoglobin 27.7 pg (25-34); Mean Corpuscular Hgb Conc 30.2 g/dL (32-36); Mean Corpuscular Volume 91.6 fL (80-100); Mean Platelet Volume 10.7 fL (7.4-10.4); Monocytes # (auto) 1.59 K/uL (0.11-0.59); Monocytes % (auto) 8.7 %; Neutrophils # (auto) 15.46 K/uL (1.4-6.5); Neutrophils % (auto) 84.9 %; Platelet Count 433 K/uL (130-400); RDW Coefficient of Variation 15.4 % (11.5-14.5); RDW Standard Deviation 51.8 fL (36.4-46.3); Red Blood Count 4.05 M/uL (4.7-6.1); White Blood Count 18.21 K/uL (4.8-10.8)
[2018-12-07 05:13] LABS: Albumin Level 1.9 gm/dl (3.4-5.0); BUN Creatinine Ratio 42.2 (10-20); Calcium 8.7 mg/dl (8.5-10.1); Creatinine Clr Calc Pharmacy 72.5 ml/min; Est GFR (Non-African American) 89.7; Magnesium 2.6 mg/dl (1.8-2.4); Potassium 4.5 mmol/L (3.5-5.1)
--- NOTE | 2018-12-07 05:17 | Critical Care Progress Note ---
Date of Service December 07, 2018 Assessment & Plan (1) Acute respiratory failure with hypoxia: Reason Critically Ill: 68-year-old male here with a PMHx significant for T2DM w/ nephropathy, HLD, Atrial arrythmia ?MAT, bladder cancer s/p TURBT, HTN, and SCC s/p L pneumonectomy who presented for L lobecteomy and who is readmitted to the ICU for acute hypoxemic respiratory failure. His course and complicated by acute respiratory distress syndrome. Neuro - [facility] ICU: POSITIVE Anxiety/Analgesia - Previously on pressodex 0.5mg, held following intubation - Fentanyl 50mcg IV Q2H CARLO - Versed drip for sedation Cardiac - Paroxysmal Atrial Tachycardia - Sinus rhythm on amiodarone drip, following discontinuation of amiodarone he was started on diltiazem which was held for hypotension. Metoprolol 5 mg IV every 6 hours per cardiology. Appreciate recommendations. QTp - QTc 490 on repeat ECG 09/05 - Limit QT prolonging medications HTN - Hypotensive following entotracheal intubation - Phenylephrine gtt stopped, MAP>65 Metoprolol as above HLD - held Atorvastatin 40mg PO qHS Respiratory - Severe ARDS Intubated Tidal volume at 200, RR 28, PEEP 9, Ppeak 26. ABG 7.23/81/88/34. Increased RR to 30bpm Cisatracurium restarted yesterday after 2 hours due to vent desyncronicity. Dwayne l repeat hold at 2pm today. Acute Hypoxemic Hypercapnic Respiratory Failure 2/2 Haemophilus pneumonia and s/p L pneumonectomy - Currently intubated, s/p bronchoscopy - Respiratory cultures + for B. lactamase H. flu, initially improved on cefepime + vanco narrowed to rocephin and subsequentially worsened -Fluoroquinolone use is limited by QTp. Tx with cefepime/vanco/doxy as below - Pt clinically worsened on BiPap dive mask and developed acidemia to 7.1, underwent bronchoscopy with mucous plug removal and endotracheal intubation. Vent management as above. GI - - T2DM - NPO 2/2 intubation, Impact nutrition as below RENAL/LYTES - Hypernatremia, hyperchloremia. - Na increased to 149, Cl to 112 - Adequate UOP, cut BUN increased with ratio of 42 - Increase free water NGT flush to 60cc Q4H with 10cc/hr Impact feed - BMP Q8H - Correct electrolytes as needed - - Gonzalez in place - UOP 1210cc/24hr ENDO - T2DM - Hold STAGE DIRECTOR metformin - Insulin aspart SSI - BMP daily as above HEME - Stable H&H Will monitor for any drops in the setting of Heparin gtt ID - Post-operative pneumonia with hypoxemia - Doxy 200mg IV x1 followed by 100mg BID for 14 day course - Continue cefepime 2g Q8H - Continue vancomycin - Levaquin limited by QTp - Monitor fever curve. INTEGUMENTARY - No acute concerns LINES/IV ACCESS - R radial A-line in place PIC/midline ordered due to loss of 3X peripheral IVs over 24 hours, vasculature not amenable to placement Pt's consented for central line, will place if further PIV loss DVT PROPHYLAXIS - Heparin 5000u q8H SQ Thank you for allowing me to contribute resident care to the care of this patient. For further documentation, please see attending Dr. Palacios's note. Supervising Physician Co-Signing Physician Notes Dr. Zayas was resident physician during care of patient. I separately evaluated patient for hudson portions of the history and the exam. I was present during the critical portion of medical decision making, and I discussed the case with the resident. I generally agree with the findings and plan. Patient continues to improve today we have discontinued his neuromuscular blockade. I am hoping we can move towards extubation tomorrow. Subjective Subjective limited by endotracheal intubation with neuromuscular blockade Review of Systems Review of Systems: Unobtainable due to endotracheal tube Physical Exam Physical Exam: General: Sedated, ETT in place. Skin is warm and dry. Neuromuscular blockage active. HEENT: Atraumatic, normocephalic. Does not spontaneously open eyes. Pulm: RLL with crackles, soft rales at the base, RUL with mod-poor air movement but grossly clear. Absent/echoic breath sounds on L. Breathing on vent with tida l 200, RR 28, peak 26, PEEP 9. Cardiac: tachycardic. RR, -mrg. Radial pulses intact and symmetrical. Abdominal: Nontender, nondistended, soft. BS present. Skin: Warm, dry. Results & Data Vital Signs (Past 12 Hours) Vital Signs Temp Pulse Pulse Resp BP BP BP 12/07/18 04:00 37.2 C 104 H 28 H 126/73 12/07/18 03:00 103 H 28 H 138/81 12/07/18 02:00 98 H 28 H 109/69 12/07/18 01:58 99 H 28 H 12/07/18 01:00 100 H 28 H 115/65 12/07/18 00:00 37.1 C 99 H 99 H 28 H 114/66 12/06/18 23:32 99 H 104/90 12/06/18 23:06 92 H 28 H 12/06/18 22:30 90 119/67 12/06/18 22:16 90 28 H 12/06/18 22:15 88 117/68 12/06/18 22:00 86 114/66 12/06/18 21:45 94 H 120/70 12/06/18 21:37 95 H 106/63 12/06/18 21:30 108 H 135/68 12/06/18 21:28 114 H 170/76 H 12/06/18 21:15 112 H 146/79 H 12/06/18 21:00 112 H 146/77 H 12/06/18 20:45 110 H 143/74 H 12/06/18 20:30 103 H 141/81 H 12/06/18 20:20 103 H 28 H 12/06/18 20:15 107 H 140/88 12/06/18 20:00 37.1 C 98 H 124/69 12/06/18 19:45 97 H 129/70 12/06/18 19:30 97 H 121/69 12/06/18 19:15 97 H 130/66 12/06/18 19:00 97 H 118/67 12/06/18 18:45 96 H 117/67 12/06/18 18:30 96 H 112/66 12/06/18 18:15 98 H 150/81 H 12/06/18 18:00 99 H 156/82 H 12/06/18 17:45 95 H 106/65 12/06/18 17:38 93 H 131/81 12/06/18 17:30 96 H 131/81 BP Pulse Ox 12/07/18 04:00 106/55 L 93 12/07/18 03:00 149/65 H 94 12/07/18 02:00 86 L 12/07/18 01:58 86 L 12/07/18 01:00 148/72 H 89 L 12/07/18 00:00 89 L 12/06/18 23:32 12/06/18 23:06 93 12/06/18 22:30 93 12/06/18 22:16 92 12/06/18 22:15 92 12/06/18 22:00 93 12/06/18 21:45 92 12/06/18 21:37 92 12/06/18 21:30 90 12/06/18 21:28 12/06/18 21:15 91 12/06/18 21:00 92 12/06/18 20:45 92 12/06/18 20:30 92 12/06/18 20:20 91 12/06/18 20:15 91 12/06/18 20:00 92 12/06/18 19:45 92 12/06/18 19:30 92 12/06/18 19:15 92 12/06/18 19:00 95 12/06/18 18:45 95 12/06/18 18:30 95 12/06/18 18:15 96 12/06/18 18:00 96 12/06/18 17:45 93 12/06/18 17:38 92 12/06/18 17:30 90 PG Care Time/CCT Total # of Minutes Spent Total Time Spent with Patient: Total time spent is greater than 50% in coordination of care (as documented) at patient's floor/unit and/or counseling patient: Resident Activity Tracking Resident Involvement: Resident Care Provided Care Provided: Adult Hospital Medicine
[2018-12-07 05:25] LABS: Albumin Globulin Ratio 0.4 (0.9-2); Bilirubin,Total 0.2 mg/dl (0.2-1); Globulin 4.7 gm/dl (2.5-4.0); Phosphorus 3.5 mg/dl (2.5-4.9); Total Protein 6.6 gm/dl (6.4-8.2)
[2018-12-07] MEDS: METOPROLOL TARTRATE 1 MG/ML VIAL IV SCH ×4 (05:42→23:32)
[2018-12-07] MEDS: HEPARIN SOD 5,000 UNIT/0.5 ML VIAL SQ SCH ×3 (05:42→21:41)
[2018-12-07 05:43] LABS: iSTAT Art Bld Gas pCO2 Correct 79 mmHg (35-46); iSTAT Art Bld Gas pH Corrected 7.239 (7.35-7.45); iSTAT Arterial Blood Gas HCO3 34 meg/L (19-24); iSTAT Arterial Blood Gas pCO2 81 mmHg (35-46); iSTAT Arterial Blood Gas pH 7.23 (7.35-7.45); iSTAT Arterial Blood Gas pO2 88 mmHg (80-95); iSTAT Arterial Blood Gas pO2 C 86; iSTAT Carbon Dioxide 37 mEq/l (24-31); iSTAT Site Art Line
--- NOTE | 2018-12-07 07:02 | XRay Report ---
XR chest 1V portable HISTORY: 68 years-old Male intubation acute respiratory failure COMPARISON: Chest radiograph 12/06/2018 TECHNIQUE: Portable AP view of the chest FINDINGS: Laminectomy changes on the left with air and fluid about the left hemithorax redemonstrated. Endotrac heal tube terminates 2.5 cm superior to the bladimir. Enteric tube distal tip is noted within the regio n of the mid gastric lumen. Persistent extensive mixed interstitial and alveolar opacities of the rig ht lung have slightly improved from comparison. No right-sided pneumothorax or large pleural effusion . Degenerative changes of the shoulders and spine. IMPRESSION: 1. Satisfactory positioning of the endotracheal tube. 2. Persistent extensive mixed interstitial and alveolar opacities of the right hemithorax, mildly imp roved from comparison. 3. Chronic findings of the left hemithorax. The above report was generated using voice recognition software. It may contain grammatical, syntax o r spelling errors. Electronically signed by: Francois Marsh M.D. 12/07/2018 7:01 AM
[2018-12-07] MEDS: CEFEPIME 2,000 MG in SYRINGE 7.5 ML IV SCH ×3 (09:01→23:32)
[2018-12-07] MEDS: VANCOMYCIN HCL 1,000 MG in SODIUM CHLORIDE 0.9% 250 ML IV SCH ×2 (09:02→20:34)
[2018-12-07] MEDS: SILDENAFIL CITRATE 20 MG TABLET PO SCH ×3 (09:02→21:39)
[2018-12-07] MEDS: DOXYCYCLINE HYCLATE 100 MG in DEXTROSE 5% 100 ML IV SCH ×2 (09:02→21:38)
[2018-12-07] MEDS: FAMOTIDINE 20 MG in SYRINGE 3 ML IV SCH ×2 (09:02→21:40)
[2018-12-07] MEDS: INSULIN GLARGINE SOLOSTAR 100 UNITS/ML 3 ML PEN SC SCH (09:03)
--- NOTE | 2018-12-07 09:10 | Family Medicine Progress Note ---
Date of Service December 07, 2018 Assessment & Plan (1) Acute respiratory failure with hypoxia: 68 yo M s/p left pneumonectomy due to squamous cell carcinoma with course complicated by diffuse right-sided infiltrates due to pulmonary edema vs. hyperperfusion injury vs. pneumonia with severe ARDS, intubated and sedated developing acidosis overnight requiring increased FiO2 and respiratory rate. Acute Hypoxic/ Hypercapnic Respiratory failure - Staying on Vent - Plan is to very slowly increase the PEEP to maximize distending pressure. - AM labs showed decrease in white count from 19.11 to 18.21. - Fentanyl 50 mcg IV q2 - Duonebs q4 - Care per ICU at this time, followed by FM team as well as Thoracic Surgery, Pulmonary, Palliative Care, Cardiology. Pneumonia - Currently on broad spectrum coverage with cefepime, vancomycin, doxycycline for H. flu pneumonia - Pt's right lung still clear today, expect that some of the crackles were due to the large mucous plug that was removed in ICU. - Pt has been afebrile s/p Left pneumonectomy - Per thoracic surgery. Atrial Tachycardia - Amiodarone stopped per cardiology rec's that it could be contributing to his pulmonary issues and was not acutely necessary. - Metoprolol tartrate 5mg IV q6 currently. - HR 80s-100s. Hypernatremia/Hyperchloremia - Na increased to 149, Cl to 112 - BUN/Cr ratio of 42 with adequate urine output, ICU increased free water NGT flushes from 30 to 60cc q4 with 10cc/hr impact feeds - BMP q8 and correct electrolytes as necessary HTN - Originally diltiazem 125mg IV daily started for better control of atrial tachycardia. - Lopressor 5 IV q6 by Cardiology. DMII - metformin held. - insulin aspart SSI. - Daily BMP. Dispo: ICU DVT PPx: Heparin 5000u SQ FEN: NG Tube feeds Code Status: FULL CODE (2) Atrial tachycardia: (3) Hypertension: (4) Goals of care, counseling/discussion: (5) Pulmonary infection: (6) Controlled type 2 diabetes mellitus with diabetic nephropathy: (7) Hypernatremia: (8) Hyperchloremia: Supervising Physician Co-Signing Physician Notes Resident Physician Supervision Note: I independently interviewed and examined the patient and verified the hudson history and physical, reviewed labs and image studies, discussed the case with the resident Dr. Leonel and agree with the findings and care plan. Subjective Pt became mildly acidemic overnight and FiO2 increased. Dyssynchronous when taken off of neuromuscular blockade yesterday afternoon, so trying wean again today at 2PM. Subjective limited to chart review and discussion with ICU team as pt is intubated and sedated. Review of Systems Review of Systems: Unobtainable due to endotracheal tube and Unobtainable due to reduced consciousness Physical Exam Constitutional: WD/WN, vitals as above + ill appearing Eyes: + anicteric sclerae and PERRL Respiratory: + cough on mechanical ventilation, TV 200, PEEP 9, FiO2 60%, RR 30. No breath sounds left side. Right lung CTA. Cardiovascular: RRR, no murmur, no edema Gastrointestinal (Abdomen): Inspection/Auscultation: normal bowel sounds; abdomen not distended Percussion/Palpation: abdomen soft Skin: no rashes, warm and dry Results & Data Vital Signs (Past 12 Hours) Vital Signs Temp Pulse Pulse Resp BP BP BP 12/07/18 07:47 95 H 28 H 12/07/18 06:00 85 28 H 92/62 L 12/07/18 05:42 103 H 128/63 12/07/18 05:34 99 H 28 H 12/07/18 05:00 100 H 28 H 117/67 12/07/18 04:00 37.2 C 104 H 28 H 126/73 12/07/18 03:00 103 H 28 H 138/81 12/07/18 02:00 98 H 28 H 109/69 12/07/18 01:58 99 H 28 H 12/07/18 01:00 100 H 28 H 115/65 12/07/18 00:00 37.1 C 99 H 99 H 28 H 114/66 12/06/18 23:32 99 H 104/90 12/06/18 23:06 92 H 28 H 12/06/18 22:30 90 119/67 12/06/18 22:16 90 28 H 12/06/18 22:15 88 117/68 12/06/18 22:00 86 114/66 12/06/18 21:45 94 H 120/70 12/06/18 21:37 95 H 106/63 12/06/18 21:30 108 H 135/68 12/06/18 21:28 114 H 170/76 H 12/06/18 21:15 112 H 146/79 H BP Pulse Ox 12/07/18 07:47 93 12/07/18 06:00 109/59 L 91 12/07/18 05:42 12/07/18 05:34 93 12/07/18 05:00 129/59 L 94 12/07/18 04:00 106/55 L 93 12/07/18 03:00 149/65 H 94 12/07/18 02:00 86 L 12/07/18 01:58 86 L 12/07/18 01:00 148/72 H 89 L 12/07/18 00:00 89 L 12/06/18 23:32 12/06/18 23:06 93 12/06/18 22:30 93 12/06/18 22:16 92 12/06/18 22:15 92 12/06/18 22:00 93 12/06/18 21:45 92 12/06/18 21:37 92 12/06/18 21:30 90 12/06/18 21:28 12/06/18 21:15 91 PG Care Time/CCT Total # of Minutes Spent Total Time Spent with Patient: Total time spent is greater than 50% in coordination of care (as documented) at patient's floor/unit and/or counseling patient: Resident Activity Tracking Resident Involvement: Resident Care Provided Care Provided: Adult Hospital Medicine (1) Controlled type 2 diabetes mellitus with diabetic nephropathy Diabetes mellitus jail insulin use: without digital marketing strategist use Qualified Code(s): E11.21 - Type 2 diabetes mellitus with diabetic nephropathy (2) Hypertension Hypertension type: essential hypertension Qualified Code(s): I10 - Essential (primary) hypertension
[2018-12-07] MEDS: MIDAZOLAM HCL 125 MG/250 ML BAG IV SCH (14:30)
--- NOTE | 2018-12-07 16:00 | Palliative Care Progress Note ---
Date of Service December 07, 2018 Assessment & Plan (1) Goals of care, counseling/discussion: -Patient remains intubated on mechanical ventilator. Paralyzed on Nimbex gtt. Planning to lighten sedation/paralytic this afternoon to assess patient's respiratory status. - was in and out briefly this morning to check on patient. Spoke with family/friend Anupam Gracia outside patient's room as well. -Continuing with full treatment for now. Prognosis is guarded. ICU team managing. (2) Acute respiratory failure with hypoxia: (3) Interstitial lung disease: (4) Squamous cell lung cancer: Subjective patient intubated on Tuesday. Remains intubated, sedated and medically-paralyzed today. Review of Systems Review of Systems: Unobtainable due to endotracheal tube Physical Exam Constitutional: + ill appearing; no acute distress Respiratory: normal respiratory effort (on mechanical ventilator) Cardiovascular: Rate/Rhythm: regular rate; + abnormal rhythm Extremities: no edema Gastrointestinal (Abdomen): Inspection/Auscultation: abdomen normal to inspection Neurologic: + not awake (sedated) Results & Data Vital Signs (Past 12 Hours) Vital Signs Temp Pulse Pulse Resp BP BP BP 12/07/18 13:00 88 30 H 91/54 L 99/47 L 12/07/18 12:16 101 H 110/61 12/07/18 12:00 36.7 C 101 H 101 H 30 H 110/61 110/61 113/51 L 12/07/18 11:47 100 H 30 H 12/07/18 11:00 101 H 30 H 107/61 103/50 L 12/07/18 10:00 104 H 105 H 30 H 107/62 107/62 111/54 L 12/07/18 09:00 107 H 30 H 140/83 102/78 12/07/18 08:00 36.8 C 101 H 28 H 139/85 128/77 12/07/18 07:47 95 H 28 H 12/07/18 07:00 91 H 28 H 126/74 122/66 12/07/18 06:00 85 28 H 92/62 L 109/59 L 12/07/18 05:42 103 H 128/63 12/07/18 05:34 99 H 28 H 12/07/18 05:00 100 H 28 H 117/67 129/59 L 12/07/18 04:00 37.2 C 104 H 28 H 126/73 106/55 L Pulse Ox 12/07/18 13:00 91 12/07/18 12:16 12/07/18 12:00 91 12/07/18 11:47 91 12/07/18 11:00 90 12/07/18 10:00 87 L 12/07/18 09:00 93 12/07/18 08:00 93 12/07/18 07:47 93 12/07/18 07:00 93 12/07/18 06:00 91 12/07/18 05:42 12/07/18 05:34 93 12/07/18 05:00 94 12/07/18 04:00 93 Supervising Physician Co-Signing Physician Notes Patient seen and examined on 2 separate visits in the ICU today. No family present at bedside at either visit. PE: Patient intubated and sedated Respirations: Increased respiratory rate when paralytics decreased CV: Regular rate Abdomen: Not distended Neuro: Sedated Patient sedation and paralytics were weaned to assess respiratory status-patient required sedatives and paralytics to be increased. Plan is to retry again tomorrow. Agree with above note, assessment and plan as per JOHN Kiran. Will continue to follow and assist family with medical decision making as well as pr oviding support. Time Spent Midlevel 35 minutes with >50% of the time spent at bedside with patient, family and ICU team discussing plan of care. (1) Squamous cell lung cancer Laterality: left Qualified Code(s): C34.92 - Malignant neoplasm of unspecified part of left bronchus or lung
[2018-12-07 18:00] LABS: iSTAT Arterial Blood Gas HCO3 33 meg/L (19-24); iSTAT Arterial Blood Gas pCO2 65 mmHg (35-46); iSTAT Arterial Blood Gas pH 7.32 (7.35-7.45); iSTAT Arterial Blood Gas pO2 57 mmHg (80-95); iSTAT Carbon Dioxide 35 mEq/l (24-31); iSTAT Site Art Line
--- NOTE | 2018-12-07 18:24 | Progress Note ---
DATE: 12/07/2018 The patient is seen today on postop day 15 status post a robotic radical left pneumonectomy for squamous cell carcinoma. He developed an acute lung injury and the patient is requiring ventilatory support. He is under neuromuscular blockade and I have discussed this case with Dr. Arsalan Palacios several times a day. The patient appears to be getting a little bit on the dry side. We discussed this on bedside grounds. Hemoglobin stable. His last blood gas showed a pH of 7.24, pCO2 of 79, his O2 is 86. I am quite concerned about him as he does not appear to be making headway with this. He is tolerating his tube feeds. We will continue with our current support.
[2018-12-07] MEDS: ATORVASTATIN 40 MG TAB PO SCH (21:39)
[2018-12-08] MEDS: INSULIN ASPART 100 UNITS/ML 3 ML PEN SC SCH ×6 (00:35→20:40)
[2018-12-08] MEDS: fentaNYL citrate 100 MCG/2 ML VIAL IV SCH ×11 (02:09→21:38)
[2018-12-08] MEDS: CISATRACURIUM BESYLATE 40 MG in 0.9 % SODIUM CHLORIDE 80 ML IV SCH ×3 (02:37→09:17)
[2018-12-08] MEDS: ALBUTEROL 0.083% NEBU SOLN 3 ML VIAL NEB SCH ×6 (03:11→23:22)
[2018-12-08 04:54] LABS: Hemoglobin 9.5 g/dL (14.0-18.0); Mean Corpuscular Hemoglobin 27.5 pg (25-34); Mean Corpuscular Hgb Conc 30.6 g/dL (32-36); Mean Corpuscular Volume 89.6 fL (80-100); Mean Platelet Volume 10.4 fL (7.4-10.4); Platelet Count 258 K/uL (130-400); RDW Coefficient of Variation 15.3 % (11.5-14.5); RDW Standard Deviation 49.7 fL (36.4-46.3); Red Blood Count 3.46 M/uL (4.7-6.1); White Blood Count 13.29 K/uL (4.8-10.8)
[2018-12-08 05:32] LABS: Albumin Globulin Ratio 0.4 (0.9-2); Albumin Level 1.7 gm/dl (3.4-5.0); BUN Creatinine Ratio 42.5 (10-20); Bilirubin,Total 0.4 mg/dl (0.2-1); Calcium 8.1 mg/dl (8.5-10.1); Creatinine Clr Calc Pharmacy 74.2 ml/min; Est GFR (Non-African American) 90.6; Magnesium 2.6 mg/dl (1.8-2.4); Phosphorus 1.5 mg/dl (2.5-4.9); Potassium 3.8 mmol/L (3.5-5.1); Total Protein 5.7 gm/dl (6.4-8.2)
[2018-12-08] MEDS: METOPROLOL TARTRATE 1 MG/ML VIAL IV SCH ×3 (05:36→17:59)
[2018-12-08] MEDS: MIDAZOLAM HCL 125 MG/250 ML BAG IV SCH ×2 (05:37→13:38)
[2018-12-08] MEDS ORDERED: SODIUM CHLORIDE 0.9% 500 ML IV ONE (05:43)
[2018-12-08] MEDS ORDERED: POTASSIUM PHOS 3 MMOL/1 ML INFUSION IV STA (06:06)
[2018-12-08] MEDS: HEPARIN SOD 5,000 UNIT/0.5 ML VIAL SQ SCH ×3 (06:17→21:38)
[2018-12-08] MEDS ORDERED: POTASSIUM PHOSPHATE 15 MMOL in SODIUM CHLORIDE 0.9% 250 ML IV ONE (06:30)
[2018-12-08 06:32] LABS: Estimated Average Glucose 137 mg/dl; Hemoglobin A1C 6.4 % (4.5-5.6)
[2018-12-08 06:37] LABS: iSTAT Art Bld Gas pCO2 Correct 53 mmHg (35-46); iSTAT Art Bld Gas pH Corrected 7.388 (7.35-7.45); iSTAT Arterial Blood Gas HCO3 32 meg/L (19-24); iSTAT Arterial Blood Gas pCO2 53 mmHg (35-46); iSTAT Arterial Blood Gas pH 7.39 (7.35-7.45); iSTAT Arterial Blood Gas pO2 62 mmHg (80-95); iSTAT Arterial Blood Gas pO2 C 62; iSTAT Carbon Dioxide 34 mEq/l (24-31); iSTAT Site Art Line
[2018-12-08] MEDS ORDERED: SODIUM PHOSPHATE 3 MMOL/1 ML INFUSION IV STA (06:43)
--- NOTE | 2018-12-08 07:05 | XRay Report ---
XR chest 1V portable HISTORY: 68 years-old Male intubation acute respiratory failure COMPARISON: Chest radiograph 12/07/2018 TECHNIQUE: Portable AP view of the chest FINDINGS: Endotracheal tube terminates 3.1 cm superior to the bladimir. Enteric tube appears unchanged with dista l tip terminating within the region of the gastric lumen. Post laminectomy changes of the left hemith orax with air and fluid of the left hemithorax redemonstrated. Persistent mixed interstitial and alve olar opacities of the right lung appear unchanged. Bones appear grossly intact. IMPRESSION: 1. Satisfactory positioning of endotracheal and enteric tubes. 2. Chronic findings of the left hemithorax. 3. Unchanged mixed interstitial and alveolar opacities of the right hemithorax. The above report was generated using voice recognition software. It may contain grammatical, syntax o r spelling errors. Electronically signed by: Francois Marsh M.D. 12/08/2018 7:04 AM
[2018-12-08] MEDS ORDERED: VANCOMYCIN TROUGH ONE (07:30)
[2018-12-08] MEDS: INSULIN GLARGINE SOLOSTAR 100 UNITS/ML 3 ML PEN SC SCH (07:45)
[2018-12-08] MEDS: SILDENAFIL CITRATE 20 MG TABLET PO SCH ×3 (07:46→20:39)
[2018-12-08] MEDS: CEFEPIME 2,000 MG in SYRINGE 7.5 ML IV SCH ×2 (07:50→16:21)
[2018-12-08] MEDS: FAMOTIDINE 20 MG in SYRINGE 3 ML IV SCH ×2 (07:51→20:39)
[2018-12-08] MEDS: DOXYCYCLINE HYCLATE 100 MG in DEXTROSE 5% 100 ML IV SCH ×2 (07:52→20:39)
--- NOTE | 2018-12-08 08:08 | Critical Care Progress Note ---
Date of Service December 08, 2018 Assessment & Plan (1) Acute respiratory failure with hypoxia: Reason Critically Ill: 68-year-old male here with a PMHx significant for T2DM w/ nephropathy, HLD, Atrial arrythmia ?MAT, bladder cancer s/p TURBT, HTN, and SCC s/p L pneumonectomy who presented for L lobecteomy and who is readmitted to the ICU for acute hypoxemic respiratory failure. His course and complicated by acute respiratory distress syndrome. Neuro - [facility] ICU: POSITIVE Anxiety/Analgesia - Previously on pressodex 0.5mg, held following intubation - Fentanyl 50mcg IV Q2H CARLO - Versed drip for sedation Cardiac - Paroxysmal Atrial Tachycardia - Sinus rhythm on amiodarone drip, following discontinuation of amiodarone he was started on diltiazem which was held for hypotension. Metoprolol 5 mg IV every 6 hours per cardiology. CUrrently held for hypotension Appreciate recommendations. QTp - QTc 490 on repeat ECG 09/05 - Limit QT prolonging medications HTN - Hypotensive following entotracheal intubation - Phenylephrine gtt stopped, MAP>65 Metoprolol held HLD - held Atorvastatin 40mg PO qHS Respiratory - Severe ARDS Intubated Vent converted transiently to CPAP overnight. PRVC with tidal to 40, peak 26, PEEP 8, rate 3037 this morning CXR shows ETT in place, right unchanged interstitial and alveolar opacities Acute Hypoxemic Hypercapnic Respiratory Failure 2/2 Haemophilus pneumonia and s/p L pneumonectomy - Currently intubated, s/p bronchoscopy - Respiratory cultures + for B. lactamase H. flu, initially improved on cefepime + vanco narrowed to rocephin and subsequentially worsened - Repeat bronch with normal laura -Fluoroquinolone use is limited by QTp. Discontinue vancomycin given MRSA negative, cefepime and doxy to be continued for a total course of 7 days Chlorothiazide IV twice daily Continue sildenafil 20 mg 3 times daily GI - - T2DM - NPO 2/2 intubation, tube nutrition as below RENAL/LYTES - Hypernatremia, hyperchloremia. -Sodium 148, potassium 3.8 -Phosphorus 1.5 this morning, 15 mmol potassium phosphate IV running Potassium chloride 20 M EQ IV - Correct electrolytes as needed - - Gonzalez in place - UOP 1385 cc per 24-hour ENDO - T2DM - Hold FUNERAL SERVICE PRACTITIONER/EMBALMER metformin - Insulin aspart SSI - BMP daily as above HEME - Hemoglobin 9.5 from 11.2, Will monitor for any drops in the setting of Heparin gtt ID - Post-operative pneumonia with hypoxemia -Vancomycin discontinued as above Continue doxycycline 100 mg twice daily, cefepime 2 g IV every 8 for 7-day total course - Levaquin limited by QTp - Monitor fever curve. INTEGUMENTARY - No acute concerns LINES/IV ACCESS - Right radial A-line not drawing, removed. - On bedside US bilateral radial thrombi are appreciated and L radial A line to be placed Ultrasound-guided peripheral IV placed, if this fails we will place central line. Consent previously obtained from patient's . DVT PROPHYLAXIS - Heparin 5000u q8H SQ Thank you for allowing me to contribute resident care to the care of this patient. For further documentation, please see attending Dr. Palacios's note. Supervising Physician Co-Signing Physician Notes Dr. Zayas was resident physician during care of patient. I separately ev aluated patient for hudson portions of the history and the exam. I was present during the critical portion of medical decision making, and I discussed the case with the resident. I generally agree with the findings and plan. Patient was discussed in multidisciplinary rounds. Turned off neuromuscular blockade yesterday, weaning ventilator today moving towards extubation hopefully. Reinstituting diuretic as lungs sound more coarse today, this will be diarrheal given the hypernatremia. Adding additional potassium supplementation. We will repeat a procalcitonin the repeat brushing of the right lung demonstrated light normal laura, I believe we can discontinue the vancomycin for MRSA at this time I will continue the cefepime and doxycycline for a total of 7 days. Increasing tube feeds today. Subjective Subjective limited by endotracheal tube and sedation. Review of Systems Review of Systems: Unobtainable due to endotracheal tube Physical Exam Physical Exam: General: Sedated, ETT in place. Skin is warm and dry. Arouses transiently to painful stimuli. HEENT: Atraumatic, normocephalic. Does not spontaneously open eyes. Pupils 2 mm, equal, react to light equally. Pulm: RLL with crackles, soft rales at the base, RUL clear with moderate air movement. Absent/echoic breath sounds on L. Vent at PRVC with tidal to 40, peak 26, PEEP 8. Cardiac: tachycardic. RR, -mrg. Radial pulses intact and symmetrical. Abdominal: Nontender, nondistended, soft. BS present. Skin: Warm, dry. Edema of the hands bilaterally. Results & Data Vital Signs (Past 12 Hours) Vital Signs Temp Pulse Resp BP Pulse Ox 12/08/18 05:36 159 H 80/60 L 12/08/18 04:00 36.8 C 89 100/42 L 96 12/08/18 03:11 85 30 H 96 12/08/18 03:00 85 96/47 L 95 12/08/18 02:00 86 105/44 L 96 12/08/18 01:00 85 101/52 L 94 12/08/18 00:41 83 30 H 95 12/08/18 00:00 36.6 C 80 94/46 L 95 12/07/18 23:32 103 H 171/69 H 12/07/18 23:00 94 H 111/49 L 97 12/07/18 22:10 91 H 30 H 95 12/07/18 22:00 94 H 106/49 L 96 12/07/18 21:00 94 H 97/52 L 95 12/07/18 20:00 36.7 C 95 H 91/55 L 94 12/07/18 19:46 92 H 30 H 96 12/07/18 19:00 88 95/48 L 94 12/07/18 18:45 90 94 PG Care Time/CCT Total # of Minutes Spent Total Time Spent with Patient: Total time spent is greater than 50% in coordination of care (as documented) at patient's floor/unit and/or counseling patient: Resident Activity Tracking Resident Involvement: Resident Care Provided Care Provided: Adult Hospital Medicine
[2018-12-08 08:29] LABS: iSTAT Arterial Blood Gas HCO3 31 meg/L (19-24); iSTAT Arterial Blood Gas pCO2 53 mmHg (35-46); iSTAT Arterial Blood Gas pH 7.37 (7.35-7.45); iSTAT Arterial Blood Gas pO2 67 mmHg (80-95); iSTAT Carbon Dioxide 32 mEq/l (24-31); iSTAT Site R Brachial
[2018-12-08] MEDS: VANCOMYCIN HCL 1,000 MG in SODIUM CHLORIDE 0.9% 250 ML IV SCH (08:39)
[2018-12-08] MEDS: POTASSIUM CHLORIDE / WTR 10 MEQ/100 ML PLCT IV SCH ×2 (08:55→10:21)
[2018-12-08] MEDS: CHLOROTHIAZIDE SODIUM 500 MG in DEXTROSE 5% 50 ML IV SCH ×2 (09:44→20:38)
--- NOTE | 2018-12-08 09:47 | Family Medicine Progress Note ---
Date of Service December 08, 2018 Assessment & Plan (1) Acute respiratory failure with hypoxia: 68 yo M s/p left pneumonectomy due to squamous cell carcinoma with course complicated by diffuse right-sided infiltrates due to pulmonary edema vs. hyperperfusion injury vs. pneumonia with severe ARDS, CPAP trialed but back on mechanical vent no longer on neuromuscular blockade but on Versed drip. Acute Hypoxic/ Hypercapnic Respiratory failure - Care per ICU at this time, followed by the FM team as well as Cardiology, Thoracic Surgery, Pulmonary, Palliative. - Pt was briefly on CPAP but trial failed and now back on mechanical ventilation. Prognosis guarded and concern from thoracic surgery regarding damage to the left lung stump. - AM labs showed decrease in white count from 18.21 to 13.29. - Fentanyl 50 mcg IV q2 - Chlorothiazide IV twice daily - Duonebs q4 - Continue sildenafil 20 mg 3 times daily Pneumonia - Currently on broad spectrum coverage with cefepime, doxycycline. Vancomycin discontinued. - Pt's right lung more congested today, diuretic restarted. - Pt has been afebrile. s/p Left pneumonectomy - Thoracic surgery following Atrial Tachycardia - Amiodarone stopped per cardiology rec's that it could be contributing to his pulmonary issues and was not acutely necessary. - Metoprolol tartrate 5mg IV q6 currently. Hypernatremia, Hypophosphatemia - Sodium 148, Potassium 3.8 - Phosphorus 1.5 this morning, 15 mmol potassium phosphate IV given and Potassium chloride 20 M EQ IV - ICU correcting electrolytes as needed HTN - Originally diltiazem 125mg IV daily started for better control of atrial tachycardia. - Lopressor 5 IV q6 by Cardiology. - Pt has episodes of hypotension that are followed closely by ICU. DMII - metformin held. - insulin aspart SSI. - Daily BMP. Dispo: ICU DVT PPx: Heparin 5000u SQ FEN: NG Tube feeds Code Status: FULL CODE (2) Atrial tachycardia: (3) Hypertension: (4) Goals of care, counseling/discussion: (5) Pulmonary infection: (6) Controlled type 2 diabetes mellitus with diabetic nephropathy: (7) Hypernatremia: (8) Hyperchloremia: Supervising Physician Co-Signing Physician Notes Resident Physician Supervision Note: I independently interviewed and examined the patient and verified the hudson history and physical, reviewed labs and image studies, discussed the case with the resident Dr. Castaneda and agree with the findings and care plan. Subjective Subjective limited by endotracheal tube and sedation. Review of Systems Review of Systems: Unobtainable due to endotracheal tube and Unobtainable due to reduced consciousness Physical Exam Constitutional: well developed, + ill appearing, + thin and + malnourished Eyes: PERRL Respiratory: Left lung field absent breath sounds. R lower lobe crackles to au scultation. Intubated with TV 40, peak 26, PEEP 8. Cardiovascular: Rate/Rhythm: regular rhythm and + tachycardic Heart Sounds: no murmur trace bilateral lower extremity edema Gastrointestinal (Abdomen): Inspection/Auscultation: normal bowel sounds Percussion/Palpation: abdomen soft Skin: no rashes, warm and dry bilateral hands are edematous. Results & Data Vital Signs (Past 12 Hours) Vital Signs Temp Pulse Resp BP Pulse Ox 12/08/18 08:00 101 H 12/08/18 07:50 101 H 36 H 93 12/08/18 05:36 159 H 80/60 L 12/08/18 04:00 36.8 C 89 100/42 L 96 12/08/18 03:11 85 30 H 96 12/08/18 03:00 85 96/47 L 95 12/08/18 02:00 86 105/44 L 96 12/08/18 01:00 85 101/52 L 94 12/08/18 00:41 83 30 H 95 12/08/18 00:00 36.6 C 80 94/46 L 95 12/07/18 23:32 103 H 171/69 H 12/07/18 23:00 94 H 111/49 L 97 12/07/18 22:10 91 H 30 H 95 12/07/18 22:00 94 H 106/49 L 96 PG Care Time/CCT Total # of Minutes Spent Total Time Spent with Patient: Total time spent is greater than 50% in coordination of care (as documented) at patient's floor/unit and/or counseling patient: (1) Controlled type 2 diabetes mellitus with diabetic nephropathy Diabetes mellitus computer terminal operator insulin use: without computer terminal operator use Qualified Code(s): E11.21 - Type 2 diabetes mellitus with diabetic nephropathy (2) Hypertension Hypertension type: essential hypertension Qualified Code(s): I10 - Essential (primary) hypertension
--- NOTE | 2018-12-08 11:06 | Pharmacy Report ---
Pharmacy Glycemic Short Note 2 - Date of Service December 08, 2018 - Glycemic Short BSG Results (Last 24 hours): 12/07/18 12/07/18 12/07/18 12:06 16:18 20:31 Glucose POC Glucose 156 H 127 H 126 H 12/07/18 12/08/18 12/08/18 23:41 04:37 04:40 Glucose 141 H POC Glucose 153 H 136 H 12/08/18 07:20 Glucose POC Glucose 132 H OUTPATIENT ANTIDIABETIC REGIMEN: * Metformin 500 mg PO HS * A1c = 6.7% 07/24/18 ASSESSMENT: 12/08: * Patient currently intubated, sedated with versed infusion and fentanyl push, to complete 7 days of cefepime/doxy, vancomycin discontinued today * Beginning to wean sedation, begin process of coming off of vent, tube feeds are being advanced by 10ml every 8 hours to goal of 70 ml/hr * BSGs adequately controlled over last 24 hours, with 15 units of lantus and 4 additional units of novolog * Will continue current lantus and novolog parameters, monitor for needed changes with advancement of tube feeds * Pending order for insulin infusion still on profile for BSG >250 or 2 consecutive BSGs >200 12/06: * Patient remains intubated on nimbex, bicarb and phenylephrine discontinued, diltiazem also held * Patient did have BSG of 228 but corrected to 118 with novolog. * Tube feeds at trickle 10 ml/hr, BSG 178 this morning, increasing lantus slightly, will tighten novolog to stress of 3 correction factor 12/05: * Patient's BSGs have been mostly within goal range for past 24 hours, 158-188 requiring 17 units (10 basal) * Patient has acutely worsened, antibiotics broadened to vanco/cefepime/doxy * Patient intubated this afternoon, currently on Nimbex, phenylephrine and Bicarb infusion (in dextrose) * Given changing status will adjust BSG checks to q4H, have also added a pending order for insulin infusion in the event BSGs begin to worsen 12/01: * Lantus was held per MD for the past 48hrs due to NPO status. However, as diet resumed today and fasting BSGs beginning to trend up, a conservative dose of lantus was ordered. Will continue with current novolog scale. 11/28 * 67 yo M with adequate outpatient control of T2DM per HbA1c on low dose metformin alone * Pt is maintained on oral antidiabetic agents as an outpatient * Oral agents are not recommended for inpatient use d/t drug interactions, changing PO intake, and difficulty titrating for acute hyper/hypoglycemia. ADA recommends re-initiating outpatient oral agents 1-2 days prior to discharge if/when appropriate if they were held on admission. * Metformin held on admission and patient has been receiving weight based SQ basal bolus insulin regimen * BSG's have been well controlled on current regimen with no changes in last 48 hours and BSG's ranging 128-152 mg/dL yesterday * Patient did not consume much CHO yesterday (40, 12, 8 g at breakfast, lunch, dinner respectively), but per SECOND CUTTER, does not anticipate hardly any po intake today. Patient has significant SOB, decompensates with any movement, accessory muscle use noted, and patient is reportedly "tiring out". Will therefore slightly decrease Lantus and adjust ongoing dose to depend on BSG trend PLAN FOR INPATIENT GLYCEMIC CONTROL: * Continue to hold outpatient oral diabetes medications (metformin) * Basal insulin: * 15 units lantus QAM * Bolus insulin (no change) * NovoLog per scale ACHS or Q6hrs while NPO * Goal Range: Low 110 mg/dL - High 140 mg/dL * Correction Factor: 20 mg/dL/unit * Nutritional / Prandial insulin per carb ratio of 1 unit per 10 grams CHO consumed PLAN FOR DISCHARGE: * May resume home metformin regimen if no contraindications present at time of discharge, could potentially titrate dose if able to tolerate.
--- NOTE | 2018-12-08 12:32 | Progress Note ---
DATE: 12/08/2018 Mr. Ruiz remains on the ventilator, but he has been allowed to wake up more and an attempt is being made to wean him from the ventilator by Dr. Palacios. He had a fairly quiet night. He has been on CPAP for a few hours, but he is breathing in the 30s-40s. He continues to have interstitial opacification in the right lung. He does not seem much different than yesterday. He is on his tube feeds. There has been very little change in this patient. His white count is down to 13,000, but his hemoglobin has also dropped to 9.5. There may be a component of hemodilution, although his sodium is 148. His BUN and creatinine are 36 and 0.84. His blood sugars have been fairly well controlled. Phosphorus was a bit low and this has been supplemented. At this point, he is postop day #16. Very concerned, he may dehisce his left bronchial stump which would be a fatal occurrence. We discussed this on rounds with the nurses and staff. At this point, I have had daily discussions with Priya Ruiz, Mr. Ruiz' , and she is well aware of how concerned I remain about him, but at this point, we have very little more to offer. We need to just continue supporting him. RASHIDA
--- NOTE | 2018-12-08 16:36 | Ultrasound Report ---
BILATERAL LOWER EXTREMITY VENOUS DOPPLER HISTORY: increased risk 2/2 cancer and observed rad thrombi COMPARISON STUDY: None. FINDINGS: There is normal compressibility, flow, and augmentation within the bilateral lower extremit y deep venous systems. Thrombosed superficial vein at the right popliteal fossa likely representing t he lesser saphenous. There is also a thrombosed superficial vein within the left calf measuring 10 cm in length. IMPRESSION: No DVT within the right or left lower extremity. Thrombosed superficial veins within the bilateral lo wer legs. Electronically signed by: Gordon Pabon M.D. 12/08/2018 4:35 PM
[2018-12-08 18:18] LABS: Fungitell (1-3)-B-D-Glucan <31 pg/mL
--- NOTE | 2018-12-08 19:03 | Procedure Note ---
Procedure Note Date of Service December 08, 2018 Note ARTERIAL LINE PROCEDURE NOTE: Procedure: Arterial Line Placement Attending: Dr. Arsalan Palacios Provider: JOHN Carlos Indication: Continuous monitoring with hypotension, frequent ABGs Anesthesia: Lidocaine 1% Consent was signed and placed on the chart prior to procedure. Indication, risks, and benefits were explained at length. A time-out was completed verifying correct patient, procedure, site, positioning, and implant(s) or special equipment if applicable. Allens test was performed to ensure adequate perfusion. Patients left arm was prepped and draped in the usual sterile fashion. Ultrasound guidance was used to aid needle placement. A 18-gauge introducer needle was introduced into the left brachial artery. A guidewire was inserted and the introducer needle was removed. Catheter was threaded over the guidewire and the wire was removed completely intact. Catheter was attached to the transducer and good waveform was observed. The catheter was sutured securely in place and sterile dressing was applied. T he patient tolerated the procedure well. Blood Loss: Minimal Complications: None Procedural Ultrasound Guidance: Procedure Date: 12/08/2018 Indication: Arterial line insertion Attending: Dr. Arsalan Palacios Provider: JOHN Carlos Artery Identified: YES Line confirmed in Artery with ultrasound: Yes Complications: NONE Patient tolerated procedure: WELL Supervising Physician Co-Signing Physician Notes I was present and assisted with the entire procedure Coding CPT Codes Tubes, Drains, and Vasc Access - Tubes, Drains, and Vasc Access: Place Catheter In Artery ([id number]) Tubes, Drains, and Vasc Access - Tubes, Drains, and Vasc Access: Ultrasound Guidance For Vascular ([id number])
[2018-12-08] MEDS: ATORVASTATIN 40 MG TAB PO SCH (20:39)
[2018-12-09] MEDS: CEFEPIME 2,000 MG in SYRINGE 7.5 ML IV SCH ×3 (00:22→15:25)
[2018-12-09] MEDS: METOPROLOL TARTRATE 1 MG/ML VIAL IV SCH ×5 (00:22→17:39)
[2018-12-09] MEDS: fentaNYL citrate 100 MCG/2 ML VIAL IV SCH ×12 (00:22→21:19)
[2018-12-09] MEDS: INSULIN ASPART 100 UNITS/ML 3 ML PEN SC SCH ×6 (00:26→20:40)
[2018-12-09] MEDS: ALBUTEROL 0.083% NEBU SOLN 3 ML VIAL NEB SCH ×6 (02:49→23:03)
[2018-12-09] MEDS: MIDAZOLAM HCL 125 MG/250 ML BAG IV SCH ×2 (04:19→13:15)
[2018-12-09 05:37] LABS: Albumin Level 1.8 gm/dl (3.4-5.0); BUN Creatinine Ratio 37.3 (10-20); Calcium 8.3 mg/dl (8.5-10.1); Creatinine Clr Calc Pharmacy 68.5 ml/min; Est GFR (African American) 100.7; Est GFR (Non-African American) 86.9; Potassium 3.9 mmol/L (3.5-5.1)
[2018-12-09 05:39] LABS: Albumin Globulin Ratio 0.4 (0.9-2); Bilirubin,Total 0.3 mg/dl (0.2-1); Globulin 4.3 gm/dl (2.5-4.0); Total Protein 6.1 gm/dl (6.4-8.2)
[2018-12-09] MEDS: HEPARIN SOD 5,000 UNIT/0.5 ML VIAL SQ SCH (06:17)
--- NOTE | 2018-12-09 06:30 | Critical Care Progress Note ---
Date of Service December 09, 2018 Assessment & Plan (1) Acute respiratory failure with hypoxia: Reason Critically Ill: 68-year-old male here with a PMHx significant for T2DM w/ nephropathy, HLD, Atrial arrythmia ?MAT, bladder cancer s/p TURBT, HTN, and SCC s/p L pneumonectomy who presented for L lobecteomy and who is readmitted to the ICU for acute hypoxemic respiratory failure. His course and complicated by acute respiratory distress syndrome. Neuro - [facility] ICU: POSITIVE Increased somnolence CThead shows no acute intracranial abnormality He is increasingly somnolent, and does not follow commands or arouse to painful stimuli today. He has been on extended Versed drip and neuromuscular blockade and likely has metabolite accumulation. Will attempt to hold sedation, attempt to wean and evaluation for tracheostomy as noted below. Anxiety/Analgesia - Previously on pressodex 0.5mg, held following intubation - Fentanyl 50mcg IV Q2H CARLO - Versed drip for sedation Cardiac/Vascular - Paroxysmal Atrial Tachycardia He became tachycardic to the 160s today with 2 waveforms appreciated on ECG. Given tachycardia with increasing hypotension adenosine 6 mg followed by 12 mg was administered. Underlying atrial flutter rhythm was observed during AV casandra block. He received 1 electrical shock before returning to a tachycardic rhythm. His tachycardia is likely due to atrial irritability rather than a reentrant tachycardia. Blood gas at this time was not severely acidemic. We will continue beta-blockade, he may benefit from calcium channel blockers. We will continue to defer amiodarone at this time. - Sinus rhythm on amiodarone drip, following discontinuation of amiodarone he was started on diltiazem which was held for hypotension. Metoprolol increased to 10 mg IV every 6 hours Vascular - Radial arteries with thrombosis bilaterally in the settign of A-line placement and regular blood gasses - LE Doppler: No DVT within the right or left lower extremity. Thrombosed superficial veins within the bilateral lower legs. -While his arterial thromboses are potentially explained as provoked in the setting of radial art line placement and blood gases his superficial bilateral lower leg thrombosis to suggest a hypercoagulable state and increased risk of PE as he has been on anticoagulation during his admission. Will initiate heparin standard dose no bolus. +PT/PTT, CBC QTp - QTc has decreased to 435 on 12/08 ECG - Limit QT prolonging medications HTN/hypotension -Past medical history of hypertension controlled with metoprolol, diltiazem and lisinopril Hypotensive following entotracheal intubation Phenylephrine drip restarted 12/09 for pressure support HLD - held Atorvastatin 40mg PO qHS Respiratory - Severe ARDS Intubated Vent converted transiently to CPAP overnight. PRVC with tidal to 40, peak 26, PEEP 8, rate 3037 this morning CXR shows ETT in place, increased right lower infiltrates Acute Hypoxemic Hypercapnic Respiratory Failure 2/2 Haemophilus pneumonia and s/p L pneumonectomy - Currently intubated, s/p bronchoscopy - Respiratory cultures + for B. lactamase H. flu, initially improved on cefepime + vanco narrowed to rocephin and subsequentially worsened - Repeat bronch with normal laura -Fluoroquinolone use is limited by QTp. Discontinue vancomycin given MRSA negative, cefepime and doxy to be continued for a total course of 7 days Discontinued chlorothiazide in setting of hypotension Continue sildenafil 20 mg 3 times daily Case has been discussed with Dr. Krishnamurthy. Patient would benefit from a tracheostomy which would allow weaning of sedation while maintaining ventilatory support. Tentatively plan for this on Tuesday. GI - - T2DM - NPO 2/2 intubation, tube nutrition as below RENAL/LYTES - Hypernatremia, hyperchloremia. 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 INTEGUMENTARY - No acute concerns LINES/IV ACCESS - Right radial A-line not drawing, removed. - On bedside US bilateral radial thrombi were appreciated. Left brachial A-line placed DVT PROPHYLAXIS - Heparin GTT Thank you for allowing me to contribute resident care to the care of this patient. For further documentation, please see attending Dr. Palacios's note. Supervising Physician Co-Signing Physician Notes Dr. Zayas was resident physician during care of patient. I separately evaluated patient for hudson portions of the history and the exam. I was present during the critical portion of medical decision making, and I discussed the case with the resident. I generally agree with the findings and plan. Patient was found to have superficial venous thrombi, in discussion with thoracic surgery we will place the patient on systemic anticoagulation as risk of bleeding is outweighed by risk of thromboemboli should he have a pulmonary embolism. Continuing to attempt to wean, marginal improvement in oxygenation, discussed with thoracic surgery patient may benefit from tracheostomy we will tentatively plan for Tuesday if we are unable to liberate patient from the ventilator and that time.Patient almost to goal on tube feeding tolerating well will give mineral oil for constipation today. Holding sedation for sedation vacation, will obtain noncontrasted head as heHas more somnolence which I believe is likely secondary to accumulation of metabolites. Episode of tachycardia arrhythmia,I would continue to avoid amiodarone at this time we were having adequate rate control with beta blockade Will increase beta- blockade to 7.5 mg Clinical update 1500: Patient returned from CT scan and became exceedingly tachypneic and experienced a atrial tachycardia into the 160s which his blood pressure did not tolerate. He was initially given 6 mg of adenosine and I was unable to clearly see the underlying arrhythmia, when he was given 12 mg adenosine it became clear that the AV node was blocked he was having a atrial loop as the narrow complex atrial arrhythmia continued and eventually the rapid conduction returned. Because of this the patient was emergently cardioverted with 200 J. Given the multiple comorbidities and seemingly plateau improvement in his oxygenation status I believe the patient may benefit from tracheostomy to facilitate weaning from the ventilator. I discussed the case with Dr. Zhao of thoracic surgery as well as updated the patient's and his son. I have personally spent 100 minutes of critical care time in the direct management of this patient. This is a life/limb threatening event. This includes time spent evaluating patient, direct bedside care, chart review, placing orders, interpretation of diagnostic studies, discussion with consultants, patient, and/or family members regarding treatment decisions, as well as other required patient management activities. This time is exclusive of all separately billable procedures, and teaching time and separate from and in addition to any other critical care service time. Subjective Subjective limited by endotracheal tube Per nursing overnight he had an episode of mild hypertension with tachycardia to the 160s following metoprolol administration his heart rate decreased to the 130s with systolic pressures in the 80s90s. No other overnight events per Review of Systems Review of Systems: Unobtainable due to cognitive status and Unobtainable due to endotracheal tube Physical Exam Physical Exam: General: Sedated, ETT in place. Skin is warm and dry. Does not arouse to painful stimuli today. HEENT: Atraumatic, normocephalic. Does not spontaneously open eyes. Pupils 2 mm, equal, react to light equally. Pulm: Tachypneic peer RLL with crackles, soft rales at the base, RUL clear with moderate air movement. Absent/echoic breath sounds on L. On mechanical vent Cardiac: tachycardic. RR, -mrg. Radial pulses intact and symmetrical. Abdominal: Nontender, nondistended, soft. BS present. Skin: Warm, dry. Edema of the hands bilaterally. 1+ edema of the ankles. Results & Data Vital Signs (Past 12 Hours) Vital Signs Pulse Resp BP Pulse Ox 12/09/18 06:16 160 H 112/68 12/09/18 05:18 28 H 12/09/18 05:09 99 H 28 H 98 12/09/18 05:08 31 H 12/09/18 05:07 31 H 12/09/18 04:00 99 H 12/09/18 02:49 96 H 31 H 98 12/09/18 00:22 104 H 106/48 L 12/08/18 23:25 104 H 34 H 93 12/08/18 20:49 104 H 33 H 96 12/08/18 18:51 116/54 L PG Care Time/CCT Total # of Minutes Spent Total Time Spent with Patient: Total time spent is greater than 50% in coordination of care (as documented) at patient's floor/unit and/or counseling patient: Critical Care Time: Yes Total Critical Care Time: 100 Resident Activity Tracking Resident Involvement: Resident Care Provided Care Provided: Adult Hospital Medicine
[2018-12-09 07:51] LABS: iSTAT Art Bld Gas pCO2 Correct 70 mmHg (35-46); iSTAT Art Bld Gas pH Corrected 7.301 (7.35-7.45); iSTAT Arterial Blood Gas HCO3 34 meg/L (19-24); iSTAT Arterial Blood Gas pCO2 68 mmHg (35-46); iSTAT Arterial Blood Gas pH 7.31 (7.35-7.45); iSTAT Arterial Blood Gas pO2 103 mmHg (80-95); iSTAT Arterial Blood Gas pO2 C 108; iSTAT Carbon Dioxide 36 mEq/l (24-31); iSTAT Site Art Line
[2018-12-09] MEDS: DOXYCYCLINE HYCLATE 100 MG in DEXTROSE 5% 100 ML IV SCH ×2 (07:54→20:43)
[2018-12-09] MEDS: FAMOTIDINE 20 MG in SYRINGE 3 ML IV SCH ×2 (07:55→20:43)
[2018-12-09] MEDS: INSULIN GLARGINE SOLOSTAR 100 UNITS/ML 3 ML PEN SC SCH (07:56)
[2018-12-09] MEDS: SILDENAFIL CITRATE 20 MG TABLET PO SCH ×3 (07:57→20:42)
[2018-12-09] MEDS: IMPACT LIQD 1.0 CAL 1,000 ML BAG NG SCH (07:58)
--- NOTE | 2018-12-09 07:59 | Progress Note ---
DATE: 12/09/2018 Mr. Ruiz is seen today. He does not really look much different. He has had a quiet night. He occasionally will go into tachycardia; however, we have been a bit limited in what we can use. We have stopped his amiodarone, although I doubt this is the etiology of his acute lung injury. In addition, he has a marginal blood pressure and is extremely sensitive to beta messi administration. His lungs sound clear. He has produced good sputum. He is tolerating his tube feeds. On postop day #17. I am quite concerned about his bronchial stump, but at this point, we are going to continue on. On a positive note, it appears to me that his peak airway pressures are a bit lower. My hope is that we can support him and allow him to recover from this acute lung injury. RASHIDA
[2018-12-09 08:33] LABS: Basophils # (auto) 0.03 K/uL (0-0.2); Basophils % (auto) 0.2 %; Eosinophils % (auto) 1.9 %; Hematocrit (blood only) 30.5 % (42-52); Hemoglobin 9.3 g/dL (14.0-18.0); Immature Granulocytes # (auto) 0.11 K/uL (0.00-0.02); Immature Granulocytes % (auto) 0.7 %; Lymphocytes # (auto) 0.74 K/uL (1.2-3.4); Lymphocytes % (auto) 4.8 %; Mean Corpuscular Hemoglobin 27.5 pg (25-34); Mean Corpuscular Volume 90.2 fL (80-100); Monocytes # (auto) 1.26 K/uL (0.11-0.59); Monocytes % (auto) 8.2 %; Neutrophils # (auto) 12.95 K/uL (1.4-6.5); Neutrophils % (auto) 84.2 %; Platelet Count 138 K/uL (130-400); RDW Coefficient of Variation 15.7 % (11.5-14.5); RDW Standard Deviation 51.4 fL (36.4-46.3); Red Blood Count 3.38 M/uL (4.7-6.1); White Blood Count 15.39 K/uL (4.8-10.8)
[2018-12-09 08:56] LABS: Mean Corpuscular Hgb Conc 30.5 g/dL (32-36)
[2018-12-09 08:57] LABS: INR 1.3 (0.9-1.1); Partial Thromboplastin Ratio 1.4; Partial Thromboplastin Time 38.8 Seconds (21.0-31.0); Prothrombin Time 12.7 Seconds (9.0-12.0)
[2018-12-09] MEDS: Heparin IV Standard *NO* Bolus IV SCH ×2 (09:08→09:09)
[2018-12-09] MEDS: HEPARIN SODIUM/DEXTROSE 25,000 UNITS/500 ML BAG IV SCH (09:21)
--- NOTE | 2018-12-09 09:24 | XRay Report ---
XR chest 1V portable CLINICAL HISTORY: 68 years-old Male presenting with pneumonectomy, on vent. TECHNIQUE: Portable upright AP view of the chest was obtained. COMPARISON: 12/08/2018. FINDINGS: Endotracheal tube terminates in the midthoracic trachea approximately 3.6 cm from the bladimir. Weighte d feeding catheter terminates in the stomach. Multiple external leads overlie the thorax to grating i mage quality. The left heart border is completely obscured. Near complete opacification of the left h emithorax consistent with the history of pneumonectomy. Significant left lung opacity and interlobula r septal prominence. No large effusion on the right. No pneumothorax. Degenerative changes of the tho racic spine. Upper abdomen normal. IMPRESSION: 1. Weighted feeding catheter terminates in the stomach; consider advancement to a postpyloric positi on. 2. Endotracheal tube appropriately positioned. 3. Increasing right lung infiltrates, which may in part represent congestive change and edema. An un derlying infectious infiltrate/pneumonia cannot be excluded. 4. Postsurgical changes of left pneumonectomy. Electronically signed by: Kali Arce M.D. 12/09/2018 9:23 AM
[2018-12-09 09:42] LABS: iSTAT Art Bld Gas pCO2 Correct 55 mmHg (35-46); iSTAT Art Bld Gas pH Corrected 7.375 (7.35-7.45); iSTAT Arterial Blood Gas HCO3 32 meg/L (19-24); iSTAT Arterial Blood Gas pCO2 53 mmHg (35-46); iSTAT Arterial Blood Gas pH 7.39 (7.35-7.45); iSTAT Arterial Blood Gas pO2 62 mmHg (80-95); iSTAT Arterial Blood Gas pO2 C 65; iSTAT Carbon Dioxide 34 mEq/l (24-31); iSTAT FiO2 45 %; iSTAT Site Art Line
--- NOTE | 2018-12-09 10:04 | Family Medicine Progress Note ---
Date of Service December 09, 2018 Assessment & Plan (1) Acute respiratory failure with hypoxia: 68-year-old male here with a PMHx significant for T2DM w/ nephropathy, HLD, Atrial arrhythmia bladder cancer s/p TURBT, HTN, and SCC s/p L pneumonectomy who presented for L lobectomy and who was readmitted to the ICU for acute hypoxemic respiratory failure. His course and complicated by acute respiratory distress syndrome. Acute Hypoxemic Hypercapnic Respiratory Failure 2/2 Haemophilus pneumonia and s/p L pneumonectomy - Currently intubated, s/p bronchoscopy - Blood gas: pH 7.31 CO2 68 O2 103 Bicarb 34 - Respiratory cultures + for B. lactamase H. flu, initially improved on cefepime + vanco narrowed to rocephin and subsequentially worsened - Repeat bronch with normal laura -Fluoroquinolone use is limited by QTp. Discontinue vancomycin given MRSA negative, cefepime and doxy to be continued for a total course of 7 days Chlorothiazide IV twice daily Continue sildenafil 20 mg 3 times daily Anxiety/Analgesia - Previously on Precedex 0.5mg, held following intubation - Fentanyl 50mcg IV Q2H CARLO - Versed drip for sedation Cardiac/Vascular - Paroxysmal Atrial Tachycardia - Sinus rhythm on amiodarone drip, following discontinuation of amiodarone he was started on diltiazem which was held for hypotension. initially Metoprolol 5 mg IV every 6 hours per cardiology. Appreciate recommendations. - Metoprolol held today due to low pressure Vascular - Radial arteries with thrombosis bilaterally in the setting of A-line placement and regular blood gasses - BL LE Doppler: No DVT within the right or left lower extremity. Thrombosed superficial veins within the bilateral lower legs. - Initiate heparin standard dose no bolus. +PT/PTT, CBC QTc - QTc 490 on repeat ECG 09/05 - Limit QT prolonging medications HTN - Hypotensive following endotracheal intubation Metoprolol held HLD - held Atorvastatin 40mg PO qHS - T2DM - NPO 2/2 intubation, tube nutrition as below RENAL/LYTES - Hypernatremia, hyperchloremia. 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 INTEGUMENTARY - No acute concerns LINES/IV ACCESS - Right radial A-line not drawing, removed. - On bedside US bilateral radial thrombi are appreciated and L radial A line to be placed Ultrasound-guided peripheral IV placed, if this fails we will place central line. Consent previously obtained from patient's . DVT PROPHYLAXIS - Heparin 5000u q8H SQ Gonzalez in place Dispo: ICU FEN: tube feeds @ 50cc currently Code: full code Supervising Physician Co-Signing Physician Notes I personally examined the patient and verified all hudson points of history and exam, discussed case, and agree with decision making with Dr Fisher. No HPI or review of systems obtainable. Patient intubated and sedated. No new issues noted. Vitals noted, in general he is sedated on the ventilator in no distress. Skin shows no rashes no pallor or icterus. He shows no focal neuro deficits. Acute respiratory failurecontinue ventilator support, supportive care, and treatment as above. Otherwise as above, and otherwise as per ICU. Subjective Per nursing: pressure was low and held metoprolol. On CPAP. Blood sugar 138 this morning. Unable to obtain history per patient due to intubation and sedation Review of Systems Review of Systems: Unobtainable due to endotracheal tube Physical Exam Constitutional: + mechanically ventilated and + underweight Eyes: PERRL Respiratory: Coarse breath sounds bilaterally with good air movement in all lobes Cardiovascular: Rate/Rhythm: + tachycardic Gastrointestinal (Abdomen): Inspection/Auscultation: abdomen normal to inspection Percussion/Palpation: abdomen soft Skin: No rashes, no pressure ulcers observed Neurologic: Patient did not localize or react to painful stimuli this AM Results & Data Vital Signs (Past 12 Hours) Vital Signs Temp Pulse Resp BP Pulse Ox 12/09/18 09:10 100 H 38 H 89 L 12/09/18 08:10 100 H 26 H 92 12/09/18 07:35 98 H 31 H 100 12/09/18 07:30 37.7 C H 97 H 31 H 119/48 L 100 12/09/18 06:16 160 H 112/68 12/09/18 06:00 160 H 96 12/09/18 05:18 28 H 12/09/18 05:09 99 H 28 H 98 12/09/18 05:08 31 H 12/09/18 05:07 31 H 12/09/18 05:00 98 H 97 12/09/18 04:00 36.6 C 101 H 99 12/09/18 03:00 99 H 97 12/09/18 02:49 96 H 31 H 98 12/09/18 02:00 98 H 96 12/09/18 01:00 91 H 96 12/09/18 00:22 104 H 106/48 L 12/09/18 00:00 36.8 C 109 H 94 12/08/18 23:25 104 H 34 H 93 12/08/18 23:00 102 H 95 12/08/18 22:00 103 H 96 PG Care Time/CCT Total # of Minutes Spent Total Time Spent with Patient: Total time spent is greater than 50% in coordination of care (as documented) at patient's floor/unit and/or counseling patient:
[2018-12-09] MEDS ORDERED: MINERAL OIL 30 ML UDC PO ONE (11:15)
[2018-12-09] MEDS ORDERED: VECURONIUM BROMIDE 10 MG VIAL IV STA ×2 (11:18→12:22)
[2018-12-09] MEDS ORDERED: VECURONIUM BROMIDE 10 MG VIAL ONE (11:19)
[2018-12-09] MEDS ORDERED: METOPROLOL TARTRATE 1 MG/ML VIAL IV ONE (11:24)
--- NOTE | 2018-12-09 11:47 | Pharmacy Report ---
Pharmacy Glycemic Short Note 2 - Date of Service December 09, 2018 - Glycemic Short BSG Results (Last 24 hours): 12/08/18 12/08/18 12/09/18 16:26 20:20 00:25 Glucose POC Glucose 137 H 176 H 149 H 12/09/18 12/09/18 12/09/18 04:37 04:44 07:09 Glucose 144 H POC Glucose 146 H 138 H OUTPATIENT ANTIDIABETIC REGIMEN: * Metformin 500 mg PO HS * A1c = 6.7% 07/24/18 ASSESSMENT: 12/09: * Jose received 23 units of insulin on 12/08 with decent glycemic control. * Impact tube feeds have been advanced to 50 ml/hr. * Fasting BSG remains at goal, therefore no changes will be made to basal insulin. He has received 15 units of Lantus the past three days. * I will slightly tighten Novolog carb ratio for coverage of tube feeds. 12/08: * Patient currently intubated, sedated with versed infusion and fentanyl push, to complete 7 days of cefepime/doxy, vancomycin discontinued today * Beginning to wean sedation, begin process of coming off of vent, tube feeds are being advanced by 10ml every 8 hours to goal of 70 ml/hr * BSGs adequately controlled over last 24 hours, with 15 units of lantus and 4 additional units of novolog * Will continue current lantus and novolog parameters, monitor for needed raymond nges with advancement of tube feeds * Pending order for insulin infusion still on profile for BSG >250 or 2 consecutive BSGs >200 12/06: * Patient remains intubated on nimbex, bicarb and phenylephrine discontinued, diltiazem also held * Patient did have BSG of 228 but corrected to 118 with novolog. * Tube feeds at trickle 10 ml/hr, BSG 178 this morning, increasing lantus slightly, will tighten novolog to stress of 3 correction factor 12/05: * Patient's BSGs have been mostly within goal range for past 24 hours, 158-188 requiring 17 units (10 basal) * Patient has acutely worsened, antibiotics broadened to vanco/cefepime/doxy * Patient intubated this afternoon, currently on Nimbex, phenylephrine and Bicarb infusion (in dextrose) * Given changing status will adjust BSG checks to q4H, have also added a pending order for insulin infusion in the event BSGs begin to worsen 12/01: * Lantus was held per MD for the past 48hrs due to NPO status. However, as diet resumed today and fasting BSGs beginning to trend up, a conservative dose of lantus was ordered. Will continue with current novolog scale. 11/28 * 67 yo M with adequate outpatient control of T2DM per HbA1c on low dose metformin alone * Pt is maintained on oral antidiabetic agents as an outpatient * Oral agents are not recommended for inpatient use d/t drug interactions, changing PO intake, and difficulty titrating for acute hyper/hypoglycemia. ADA recommends re-initiating outpatient oral agents 1-2 days prior to discharge if/when appropriate if they were held on admission. * Metformin held on admission and patient has been receiving weight based SQ basal bolus insulin regimen * BSG's have been well controlled on current regimen with no changes in last 48 hours and BSG's ranging 128-152 mg/dL yesterday * Patient did not consume much CHO yesterday (40, 12, 8 g at breakfast, lunch, dinner respectively), but per CAR RUNNER, does not anticipate hardly any po intake today. Patient has significant SOB, decompensates with any movement, accesso ry muscle use noted, and patient is reportedly "tiring out". Will therefore slightly decrease Lantus and adjust ongoing dose to depend on BSG trend PLAN FOR INPATIENT GLYCEMIC CONTROL: * Continue to hold outpatient oral diabetes medications (metformin) * Basal insulin: * 15 units lantus QAM * Bolus insulin - tighten carb ratio * NovoLog per scale ACHS or Q6hrs while NPO * Goal Range: Low 110 mg/dL - High 140 mg/dL * Correction Factor: 20 mg/dL/unit * Nutritional / Prandial insulin per carb ratio of 1 unit per 8 grams CHO consumed PLAN FOR DISCHARGE: * May resume home metformin regimen if no contraindications present at time of discharge, could potentially titrate dose if able to tolerate.
--- NOTE | 2018-12-09 11:49 | CT Scan Report ---
CT head/brain wo con CLINICAL HISTORY: 68 years-old Male presenting with increased somnolence. TECHNIQUE: Multidetector CT imaging of the head was performed without the use of intravenous contrast . IV contrast: None. One or more dose lowering techniques were used consistent with the principles of ALARA (as low as reasonably achievable), including automatic exposure control, mA or kV adjustment t o individual patient size, and/or use of iterative reconstruction. COMPARISON: None. CT DOSE (mGy.cm): The estimated cumulative dose is 729.78 mGycm. FINDINGS: Estate Attorney topogram: Unremarkable. Ventricles and sulci normal in size. No hemorrhage. Brain parenchyma normal in appearance with preser joseph sommers-white differentiation. No acute territorial infarct. No mass effect or midline shift. No ext ra-axial fluid collection. Fluid in the bilateral mastoid air cells. An air-fluid level with a crenul ated margin noted in the right maxillary sinus, where there is also sclerotic granado. Calvarium intact . IMPRESSION: 1. No acute intracranial abnormality. 2. Acute on chronic right maxillary sinusitis. 3. Bilateral mastoid air cell and middle ear fluid, nonspecific. Correlate clinically for otomastoid itis. Electronically signed by: Kali Arce M.D. 12/09/2018 11:48 AM
[2018-12-09] MEDS ORDERED: METOPROLOL TARTRATE 1 MG/ML VIAL IV SCH (12:00)
[2018-12-09] MEDS ORDERED: ADENOSINE IV SOLN 3 MG/ML 2 ML VIAL IV ONE ×2 (12:08→12:18)
[2018-12-09] MEDS ORDERED: fentaNYL citrate 100 MCG/2 ML VIAL IV STA (12:20)
[2018-12-09] MEDS ORDERED: ADENOSINE IV SOLN 3 MG/ML 2 ML VIAL IV STA ×2 (12:20)
[2018-12-09] MEDS ORDERED: PHENYLEPHRINE HCL 20 MG in DEXTROSE 5% 500 ML IV STA (12:28)
[2018-12-09] MEDS ORDERED: POTASSIUM CHLORIDE / WTR 10 MEQ/100 ML PLCT IV SCH (12:30)
[2018-12-09] MEDS: PHENYLEPHRINE HCL 20 MG in DEXTROSE 5% 500 ML IV SCH (12:41)
[2018-12-09 12:46] LABS: BUN Creatinine Ratio 40.2 (10-20); Calcium 8.4 mg/dl (8.5-10.1); Creatinine Clr Calc Pharmacy 74.2 ml/min; Est GFR (Non-African American) 90.6
[2018-12-09 12:51] LABS: iSTAT Art Bld Gas pCO2 Correct 66 mmHg (35-46); iSTAT Art Bld Gas pH Corrected 7.318 (7.35-7.45); iSTAT Arterial Blood Gas HCO3 33 meg/L (19-24); iSTAT Arterial Blood Gas pCO2 64 mmHg (35-46); iSTAT Arterial Blood Gas pH 7.33 (7.35-7.45); iSTAT Arterial Blood Gas pO2 121 mmHg (80-95); iSTAT Arterial Blood Gas pO2 C 125; iSTAT Carbon Dioxide 35 mEq/l (24-31); iSTAT Site Art Line
[2018-12-09] MEDS: POTASSIUM CHLORIDE / WTR 10 MEQ/100 ML PLCT IV SCH ×2 (12:58→13:41)
[2018-12-09] MEDS ORDERED: POTASSIUM CHLORIDE 20 MEQ/15 ML UDC PO ONE (13:15)
[2018-12-09 15:56] LABS: Partial Thromboplastin Ratio 3.3
[2018-12-09 16:09] LABS: Partial Thromboplastin Time 88.8 Seconds (21.0-31.0)
--- NOTE | 2018-12-09 16:29 | Procedure Note ---
Procedure Note Date of Service December 09, 2018 Procedure date: Noted above Procedure: Emergent cardioversion Pre-procedure Diagnosis: Narrow complex reentrant tachycardia with associated hypotension Post-procedure Diagnosis: same as above Prior to Procedure: Informed Consent: Emergent Attending Staff: Carmen Palacios DO Anesthesia: 100 mcg fentanyl The identity of the patient was confirmed and a bedside time out was performed. Description of Procedure: The patient was already with secure airway and end- tidal CO2 monitoring. The paddles were placed in the anterior, left lateral positioning. A single synchronized cardioversion of 200 J was performed. Patient converted to a sinus bradycardia. Complications: Hypotension requiring 100 mcg phenylephrine IV push Patient tolerated the procedure well. Coding
[2018-12-09] MEDS: ATORVASTATIN 40 MG TAB PO SCH (20:42)
[2018-12-09 23:24] LABS: Partial Thromboplastin Ratio 2.7
[2018-12-09 23:32] LABS: Partial Thromboplastin Time 72.6 Seconds (21.0-31.0)
[2018-12-10] MEDS: CEFEPIME 2,000 MG in SYRINGE 7.5 ML IV SCH ×3 (00:11→15:24)
[2018-12-10] MEDS: fentaNYL citrate 100 MCG/2 ML VIAL IV SCH ×13 (00:11→23:30)
[2018-12-10] MEDS: INSULIN ASPART 100 UNITS/ML 3 ML PEN SC SCH ×6 (00:12→19:54)
[2018-12-10] MEDS: METOPROLOL TARTRATE 1 MG/ML VIAL IV SCH ×2 (00:12→06:20)
[2018-12-10] MEDS: ALBUTEROL 0.083% NEBU SOLN 3 ML VIAL NEB SCH ×6 (02:45→22:52)
[2018-12-10 06:00] LABS: Nucleated RBC # (auto) 0.02 K/uL (0-0); Nucleated RBC % (auto) 0.1 %
[2018-12-10 06:23] LABS: Partial Thromboplastin Ratio 2.3
[2018-12-10 06:31] LABS: Hematocrit (blood only) 31.7 % (42-52); Hemoglobin 9.5 g/dL (14.0-18.0); Mean Corpuscular Hemoglobin 27.5 pg (25-34); Mean Corpuscular Volume 91.6 fL (80-100); Mean Platelet Volume 11.8 fL (7.4-10.4); Platelet Count 64 K/uL (130-400); RDW Coefficient of Variation 15.7 % (11.5-14.5); RDW Standard Deviation 52.3 fL (36.4-46.3); Red Blood Count 3.46 M/uL (4.7-6.1); White Blood Count 17.77 K/uL (4.8-10.8)
[2018-12-10 06:32] LABS: Basophils # (auto) 0.05 K/uL (0-0.2); Basophils % (auto) 0.3 %; Eosinophils # (auto) 0.23 K/uL (0-0.5); Eosinophils % (auto) 1.3 %; Immature Granulocytes # (auto) 0.12 K/uL (0.00-0.02); Immature Granulocytes % (auto) 0.7 %; Lymphocytes # (auto) 1.06 K/uL (1.2-3.4); Monocytes # (auto) 1.63 K/uL (0.11-0.59); Monocytes % (auto) 9.2 %; Neutrophils # (auto) 14.68 K/uL (1.4-6.5); Neutrophils % (auto) 82.5 %; Partial Thromboplastin Time 62.1 Seconds (21.0-31.0); Platelet Estimate Decreased (Normal); RBC Morphology Unremarkable
[2018-12-10 06:39] LABS: BUN Creatinine Ratio 46.1 (10-20); Calcium 8.5 mg/dl (8.5-10.1); Est GFR (African American) 106.1; Est GFR (Non-African American) 91.5; Potassium 4.4 mmol/L (3.5-5.1)
--- NOTE | 2018-12-10 07:01 | Critical Care Progress Note ---
Date of Service December 10, 2018 Assessment & Plan (1) Admitted to intensive care unit: Reason Critically Ill: 68-year-old male here with a PMHx significant for T2DM w/ nephropathy, HLD, Atrial arrythmia ?MAT, bladder cancer s/p TURBT, HTN, and SCC s/p L pneumonectomy who presented for L lobecteomy and who is readmitted to the ICU for acute hypoxemic respiratory failure. His course and complicated by acute respiratory distress syndrome. Neuro - [facility] ICU: POSITIVE Increased somnolence CThead shows no acute intracranial abnormality. MRI-B pending, MRA pending Tachypnic over vent to 40bpm, versed sedation reinitiated currently at 3/hr Anxiety/Analgesia - Previously on pressodex 0.5mg, held following intubation - Fentanyl 50mcg IV Q2H CARLO - Versed drip for sedation Cardiac/Vascular - Paroxysmal Atrial Tachycardia Regular rate overnight Metoprolol 10 mg IV every 6 hours Vascular - Radial arteries with thrombosis bilaterally in the settign of A-line placement and regular blood gasses - BL LE Doppler: No DVT within the right or left lower extremity. Thrombosed superficial veins within the bilateral lower legs. -While his arterial thromboses are potentially explained as provoked in the setting of radial art line placement and blood gases his superficial bilateral l ower leg thrombosis to suggest a hypercoagulable state and increased risk of PE as he has been on anticoagulation during his admission. - Continue heparin gtt QTp - QTc has decreased to 435 on 12/08 ECG - Limit QT prolonging medications HTN/hypotension -Past medical history of hypertension controlled with metoprolol, diltiazem and lisinopril Hypotensive following entotracheal intubation Phenylephrine drip restarted 12/09 for pressure support, currently at 0 since yesterday afternoon with MAP>65 HLD - held Atorvastatin 40mg PO qHS Respiratory - Severe ARDS Intubated - ETT, PRVC Acute Hypoxemic Hypercapnic Respiratory Failure 2/2 Haemophilus pneumonia and s/p L pneumonectomy - Currently intubated, s/p bronchoscopy - Respiratory cultures + for B. lactamase H. flu, initially improved on cefepime + vanco narrowed to rocephin and subsequentially worsened - Repeat bronch with normal laura -Fluoroquinolone use is limited by QTp. Discontinue vancomycin given MRSA negative, cefepime and doxy to be continued for a total course of 7 days Discontinued chlorothiazide in setting of hypotension Continue sildenafil 20 mg 3 times daily Case has been discussed with Dr. Zhao. Patient would benefit from a tracheostomy which would allow weaning of sedation while maintaining ventilatory support. Tentatively plan for this on Tuesday. - ABG 7.27/76/84/35. Acidemia, hypercarbia increased from prior. 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 INTEGUMENTARY - No acute concerns LINES/IV ACCESS - L brachial A line in place Nutrition: Impact 70cc/hr + 30cc flush Q4H DVT PROPHYLAXIS - Heparin GTT Thank you for allowing me to contribute resident care to the care of this patient. For further documentation, please see attending Dr. Palacios's note. (2) Acute respiratory failure with hypoxia: (3) Interstitial lung disease: (4) Controlled type 2 diabetes mellitus with diabetic nephropathy: (5) Hypercholesterolemia: (6) Lung cancer: (7) Ventricular tachycardia: (8) Squamous cell lung cancer: (9) Wheezing: Supervising Physician Co-Signing Physician Notes Dr. Zayas was resident physician during care of patient. I separately evaluated patient for hudson portions of the history and the exam. I was present during the critical portion of medical decision making, and I discussed the case with the resident. I generally agree with the findings and plan. Mildly increasing oxygen requirements. I believe the patient is on a trajectory for chronic ventilator weaning. He may be best served with a tracheostomy, I have discussed this with Dr. Zhao. I have placed the heparin order to go on hold at 1 AM tomorrow morning in preparation for tracheostomy. I have personally spent 40 minutes of critical care time in the direct management of this patient. This is a life/limb threatening event. This includes time spent evaluating patient, direct bedside care, chart review, placing orders, interpretation of diagnostic studies, discussion with consultants, patient, and/or family members regarding treatment decisions, as well as other required patient management activities. This time is exclusive of all separately billable procedures, and teaching time and separate from and in addition to any other critical care service time. Subjective Unobtainable due to ETT Tachypnic over vent last night, breathing over at RR38-40. Sediation restarted. Review of Systems Review of Systems: Unobtainable due to cognitive status and Unobtainable due to endotracheal tube Physical Exam Physical Exam: General: Sedated, ETT in place. Skin is warm and dry. Does not arouse to painful stimuli today. HEENT: Atraumatic, normocephalic. Does not spontaneously open eyes. Pupils 2 mm, equal, react to light equally. Pulm: Tachypneic, RLL with crackles, soft rales at the base, RUL clear with moderate air movement. Absent/echoic breath sounds on L. On mechanical vent Cardiac:RRR, -mrg. Radial pulses intact and symmetrical. Abdominal: Nontender, nondistended, soft. BS present. Skin: Warm, dry. Edema of the hands bilaterally. 1+ edema of the ankles. Results & Data Vital Signs (Past 12 Hours) Vital Signs Temp Pulse Pulse Resp BP Pulse Ox 12/10/18 00:12 103 H 124/48 L 12/09/18 23:03 35 H 12/09/18 21:45 99 H 33 H 12/09/18 19:35 89 28 H 12/09/18 18:10 80 32 H 12/09/18 18:00 79 33 H 127/39 L 94 12/09/18 17:39 115 H 157/66 H 12/09/18 17:30 107 H 33 H 157/66 H 94 12/09/18 17:00 107 H 29 H 156/67 H 93 12/09/18 16:30 104 H 29 H 162/60 H 94 12/09/18 16:16 113 H 28 H 95 12/09/18 16:00 36.7 C 99 H 28 H 171/44 H 95 12/09/18 15:40 103 H 28 H 95 12/09/18 15:30 95 H 28 H 144/57 H 94 12/09/18 15:00 96 H 28 H 145/52 H 94 12/09/18 14:30 98 H 28 H 164/59 H 94 12/09/18 14:00 96 H 28 H 163/55 H 95 12/09/18 13:50 98 H 28 H 94 12/09/18 13:30 97 H 28 H 175/55 H 94 12/09/18 13:15 98 H 28 H 94 12/09/18 13:01 84 28 H 164/61 H 94 12/09/18 13:00 95 H 28 H 93 12/09/18 12:45 89 28 H 93 PG Care Time/CCT Total # of Minutes Spent Total Time Spent with Patient: Total time spent is greater than 50% in coordination of care (as documented) at patient's floor/unit and/or counseling patient: Critical Care Time: Yes Total Critical Care Time: 40 Resident Activity Tracking Resident Involvement: Resident Care Provided Care Provided: Adult Hospital Medicine (1) Controlled type 2 diabetes mellitus with diabetic nephropathy Diabetes mellitus group home insulin use: without truck terminal manager use Qualified Code(s): E11.21 - Type 2 diabetes mellitus with diabetic nephropathy (2) Squamous cell lung cancer Laterality: left Qualified Code(s): C34.92 - Malignant neoplasm of unspecified part of left bronchus or lung
[2018-12-10 07:43] LABS: iSTAT Art Bld Gas pCO2 Correct 75 mmHg (35-46); iSTAT Art Bld Gas pH Corrected 7.272 (7.35-7.45); iSTAT Arterial Blood Gas HCO3 35 meg/L (19-24); iSTAT Arterial Blood Gas pCO2 76 mmHg (35-46); iSTAT Arterial Blood Gas pH 7.27 (7.35-7.45); iSTAT Arterial Blood Gas pO2 84 mmHg (80-95); iSTAT Arterial Blood Gas pO2 C 83; iSTAT Carbon Dioxide 37 mEq/l (24-31); iSTAT Site Art Line
[2018-12-10] MEDS: HEPARIN SODIUM/DEXTROSE 25,000 UNITS/500 ML BAG IV SCH (07:59)
[2018-12-10] MEDS: FAMOTIDINE 20 MG in SYRINGE 3 ML IV SCH ×2 (08:00→21:05)
[2018-12-10] MEDS: SILDENAFIL CITRATE 20 MG TABLET PO SCH ×3 (08:00→21:03)
[2018-12-10] MEDS: DOXYCYCLINE HYCLATE 100 MG in DEXTROSE 5% 100 ML IV SCH ×2 (08:00→21:07)
[2018-12-10] MEDS: INSULIN GLARGINE SOLOSTAR 100 UNITS/ML 3 ML PEN SC SCH (08:00)
--- NOTE | 2018-12-10 08:36 | XRay Report ---
XR chest 1V portable HISTORY: ARDS/respiratory failure COMPARISON: Chest 12/09/2018. FINDINGS: Feeding tube terminates below the diaphragm. The tip is not included on this study. An endo tracheal tube terminates approximately 2 cm from the bladimir. Large left hydropneumothorax persists an d is consistent with a prior left-sided pneumonectomy. Right lung interstitial and vascular thickenin g has progressed suggestive of pulmonary edema. IMPRESSION: 1. Interval progression of the right lung interstitial and vascular thickening suggestive of progress janis pulmonary edema. 2. Satisfactory support line placement. 3. Large left hydropneumothorax persists consistent with recent pneumonectomy. Electronically signed by: Gordon Pabon M.D. 12/10/2018 8:35 AM
[2018-12-10] MEDS ORDERED: MINERAL OIL 30 ML UDC PO ONE (09:38)
[2018-12-10] MEDS ORDERED: VECURONIUM BROMIDE 10 MG VIAL IV SCH (09:46)
[2018-12-10] MEDS: METOPROLOL TARTRATE 25 MG TAB PO SCH ×2 (10:35→21:06)
--- NOTE | 2018-12-10 11:38 | Progress Note ---
DATE: 12/10/2018 Mr. Ruiz is seen today. There has not been a lot of change. His saturations are better after going up on his tidal volume of 240. He is still on 60% O2, but has saturations in the mid 90s. The patient developed a probable reentrant tachycardia yesterday which responded to adenosine and a cardioversion. The patient's x-rays about the same. He is tolerating his tube feeds, although he has not moved his bowels. Physical exam is the same. I have had a long conversation with the patient's and had been in communication with the patient's 2 children. I have also discussed this case in detail with Dr. Palacios. We are going to offer Mr. Ruiz is a bedside percutaneous tracheostomy with Blue Rhino tomorrow morning early. We discussed risk and benefits as well as expected ease in weaning him from the ventilator. I remain quite concerned about Mr. Ruiz as he has no reserve left whatsoever. Pulmonary embolism would probably result in his demise as he has no reserve left whatsoever. I discussed this in detail with the patient and his family. They understand. We will proceed with tracheostomy tomorrow. We are going to hold the heparin drip starting at midnight.
--- NOTE | 2018-12-10 13:21 | Pharmacy Report ---
Pharmacy Glycemic Short Note 2 - Date of Service December 10, 2018 - Glycemic Short BSG Results (Last 24 hours): 12/09/18 12/09/18 12/10/18 15:21 20:37 00:08 Glucose POC Glucose 174 H 161 H 161 H 12/10/18 12/10/18 12/10/18 03:32 05:16 07:26 Glucose 167 H POC Glucose 199 H 190 H 12/10/18 11:54 Glucose POC Glucose 172 H OUTPATIENT ANTIDIABETIC REGIMEN: * Metformin 500 mg PO HS * A1c = 6.7% 07/24/18 ASSESSMENT: 12/10 * Jose received 41 units of insulin on 12/09 (this is almost a 50% increase compared to the previous day) * 15 units of basal insulin * 26 units of bolus insulin * Impact tube feeds have been advanced to goal rate of 70 ml/hr. * Fasting BSG was elevated at 190 mg/dL. Of note, this is not a true fasting value since pt is receiving continuous tube feeds. Basal insulin has been increased by 20%. * Post prandial BSGs are slightly higher than desired. I will further tighten Novolog carb ratio for coverage of tube feeds. 12/09: * Jose received 23 units of insulin on 12/08 with decent glycemic control. * Impact tube feeds have been advanced to 50 ml/hr. * Fasting BSG remains at goal, therefore no changes will be made to basal insulin. He has received 15 units of Lantus the past three days. * I will slightly tighten Novolog carb ratio for coverage of tube feeds. 12/08: * Patient currently intubated, sedated with versed infusion and fentanyl push, to complete 7 days of cefepime/doxy, vancomycin discontinued today * Beginning to wean sedation, begin process of coming off of vent, tube feeds are being advanced by 10ml every 8 hours to goal of 70 ml/hr * BSGs adequately controlled over last 24 hours, with 15 units of lantus and 4 additional units of novolog * Will continue current lantus and novolog parameters, monitor for needed changes with advancement of tube feeds * Pending order for insulin infusion still on profile for BSG >250 or 2 consecutive BSGs >200 12/06: * Patient remains intubated on nimbex, bicarb and phenylephrine discontinued, diltiazem also held * Patient did have BSG of 228 but corrected to 118 with novolog. * Tube feeds at trickle 10 ml/hr, BSG 178 this morning, increasing lantus slightly, will tighten novolog to stress of 3 correction factor 12/05: * Patient's BSGs have been mostly within goal range for past 24 hours, 158-188 requiring 17 units (10 basal) * Patient has acutely worsened, antibiotics broadened to vanco/cefepime/doxy * Patient intubated this afternoon, currently on Nimbex, phenylephrine and Bicarb infusion (in dextrose) * Given changing status will adjust BSG checks to q4H, have also added a pending order for insulin infusion in the event BSGs begin to worsen 12/01: * Lantus was held per MD for the past 48hrs due to NPO status. However, as diet resumed today and fasting BSGs beginning to trend up, a conservative dose of lantus was ordered. Will continue with current novolog scale. PLAN FOR INPATIENT GLYCEMIC CONTROL: * Continue to hold outpatient oral diabetes medications (metformin) * Basal insulin: * Lantus 18 units QAM * Bolus insulin - tighten carb ratio * NovoLog per scale ACHS or Q6hrs while NPO * Goal Range: Low 110 mg/dL - High 140 mg/dL * Correction Factor: 20 mg/dL/unit * Nutritional / Prandial insulin per carb ratio of 1 unit per 6 grams CHO consumed (if pt has BSG > 180 x 2, will tighten carb ratio to 5) PLAN FOR DISCHARGE: * May resume home metformin regimen if no contraindications present at time of discharge, could potentially titrate dose if able to tolerate.
[2018-12-10] MEDS: MIDAZOLAM HCL 125 MG/250 ML BAG IV SCH (14:17)
--- NOTE | 2018-12-10 14:18 | Family Medicine Progress Note ---
Date of Service December 10, 2018 Assessment & Plan (1) Acute respiratory failure with hypoxia: 68-year-old male here with a PMHx significant for T2DM w/ nephropathy, HLD, Atrial arrhythmia bladder cancer s/p TURBT, HTN, and SCC s/p L pneumonectomy who presented for L lobectomy and who was readmitted to the ICU for acute hypoxemic respiratory failure. His course and complicated by acute respiratory distress syndrome currently vent dependent. Acute Hypoxemic Hypercapnic Respiratory Failure 2/2 Haemophilus pneumonia and s/p L pneumonectomy - Currently intubated, s/p bronchoscopy - Blood gas: pH 7.27 CO2 76 O2 84 - Respiratory cultures + for B. lactamase H. flu, initially improved on cefepime + vanco narrowed to rocephin and subsequentially worsened - Repeat bronch with normal laura -Fluoroquinolone use is limited by QTp. Discontinue vancomycin given MRSA negative, cefepime and doxy to be continued for a total course of 7 days Chlorothiazide IV twice daily Continue sildenafil 20 mg 3 times daily - WBC increased to 17.7 today - trach planned for Tuesday Anxiety/Analgesia - Previously on Precedex 0.5mg, held following intubation - Fentanyl 50mcg IV Q2H CARLO - Versed drip for sedation Cardiac/Vascular - Paroxysmal Atrial Tachycardia - Sinus rhythm on amiodarone drip, following discontinuation of amiodarone he was started on diltiazem which was held for hypotension. initially Metoprolol 5 mg IV every 6 hours per cardiology. Vascular - Radial arteries with thrombosis bilaterally in the setting of A-line placement and regular blood gasses - BL LE Doppler: No DVT within the right or left lower extremity. Thrombosed superficial veins within the bilateral lower legs. - Initiate heparin standard dose no bolus. +PT/PTT, CBC QTc - QTc 490 on repeat ECG 09/05 - Limit QT prolonging medications HTN - Hypotensive following endotracheal intubation Metoprolol held HLD - held Atorvastatin 40mg PO qHS - T2DM - NPO 2/2 intubation, tube nutrition as below RENAL/LYTES - Previously with hypernatremia, hyperchloremia. 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 INTEGUMENTARY - No acute concerns LINES/IV ACCESS - Right radial A-line not drawing, removed. - On bedside US bilateral radial thrombi are appreciated and L radial A line to be placed Ultrasound-guided peripheral IV placed, if this fails we will place central line. Consent previously obtained from patient's . DVT PROPHYLAXIS - Heparin 5000u q8H SQ Gonzalez in place Dispo: ICU FEN: tube feeds via NG Code: full code Supervising Physician Co-Signing Physician Notes I personally examined the patient and verified all hudson points of history and exam, discussed case, and agree with decision making with Dr Fisher. No HPI or review of systems obtainable. Patient intubated and sedated. No new issues noted by nursing. Vitals noted, in general he is sedated on the ventilator in no distress. Skin shows no rashes no pallor or icterus. He shows no focal neuro deficits. Acute respiratory failurecontinue ventilator support, supportive care, and treatment as above. for trach tomorrow Otherwise as above, and otherwise as per ICU. Subjective Per nursing: no acute changes Patient: intubated, unable to obtain Review of Systems Review of Systems: Unobtainable due to endotracheal tube Physical Exam Constitutional: + thin Eyes: PERRL Respiratory: absent breath sounds on the left, Cardiovascular: RRR, no murmur, no edema Gastrointestinal (Abdomen): soft, bowel sounds present Neurologic: patient not able to localize for me with painful stimuli Results & Data Vital Signs (Past 12 Hours) Vital Signs Temp Pulse Resp BP Pulse Ox 12/10/18 14:00 97 H 32 H 129/64 95 12/10/18 13:50 97 H 33 H 94 12/10/18 13:00 100 H 35 H 141/63 H 93 12/10/18 12:00 104 H 33 H 135/64 92 12/10/18 11:33 105 H 34 H 94 12/10/18 11:00 36.7 C 104 H 35 H 153/63 H 94 12/10/18 10:00 95 H 141/64 H 96 12/10/18 09:30 94 H 130/63 97 12/10/18 09:00 93 H 30 H 140/63 98 12/10/18 08:30 90 31 H 147/60 H 97 12/10/18 08:00 88 36 H 127/62 98 12/10/18 07:31 83 34 H 121/51 L 92 12/10/18 07:17 80 30 H 93 12/10/18 07:03 77 45 H 86/44 L 91 12/10/18 07:00 36.8 C 78 32 H 97/45 L 96 12/10/18 06:30 75 118/50 L 92 12/10/18 06:20 97 H 130/58 L 12/10/18 06:00 101 H 132/58 L 92 12/10/18 05:40 101 H 37 H 93 12/10/18 05:30 96 H 144/59 H 93 12/10/18 05:01 87 156/67 H 95 12/10/18 05:00 91 H 96 12/10/18 04:30 88 135/55 L 91 12/10/18 04:00 88 121/51 L 94 12/10/18 03:30 36.8 C 93 H 140/56 L 93 12/10/18 03:01 88 151/50 H 94 12/10/18 03:00 87 93 12/10/18 02:50 89 31 H 95 12/10/18 02:30 86 117/51 L 92 PG Care Time/CCT Total # of Minutes Spent Total Time Spent with Patient: Total time spent is greater than 50% in coordination of care (as documented) at patient's floor/unit and/or counseling patient:
--- NOTE | 2018-12-10 17:03 | Magnetic Resonance Report ---
Brain MRI WITHOUT CONTRAST HISTORY: Altered mental status. TECHNIQUE: Multiplanar multisequence MRI of the brain was performed without the use of contrast. COMPARISON STUDY: Head CT 12/09/2018. FINDINGS: There are no areas of restricted diffusion to suggest acute infarction. The midline structu res are intact. The ventricles and sulci are within normal limits for age. Small fluid level within t he right maxillary sinus. An endotracheal tube is partially visualized. Bilateral mastoid effusions a re noted. There is no mass, hematoma, midline shift. The major vascular flow-voids at the skull base are well maintained. IMPRESSION: 1. No acute intracranial abnormality. 2. Small fluid level within the right maxillary sinus and bilateral mastoid effusions are again noted . Electronically signed by: Gordon Pabon M.D. 12/10/2018 5:01 PM
--- NOTE | 2018-12-10 17:05 | Magnetic Resonance Report ---
Brain MRA HISTORY: reduced consciousness, bilateral thromboses. TECHNIQUE: 3-D [id number] MRA of the brain was performed without contrast. COMPARISON STUDY: None. FINDINGS: Visualized intracranial internal carotid arteries, distal vertebral arteries, and basilar a rtery are widely patent. There is no significant stenosis, occlusion, or aneurysm seen within the zackary ateral ACAs, MCAs, or rhinestone setter. IMPRESSION: No significant stenosis, occlusion, or aneurysm within the [place] of [place]. Electronically signed by: Gordon Pabon M.D. 12/10/2018 5:04 PM
[2018-12-10] MEDS: ATORVASTATIN 40 MG TAB PO SCH (21:02)
[2018-12-10] MEDS: POLYETHYLENE (MIRALAX) 17 GM PACK PO SCH (21:07)
[2018-12-11] MEDS: CEFEPIME 2,000 MG in SYRINGE 7.5 ML IV SCH ×2 (00:38→07:29)
[2018-12-11] MEDS: INSULIN ASPART 100 UNITS/ML 3 ML PEN SC SCH ×6 (00:40→20:32)
[2018-12-11] MEDS ORDERED: HOLD HEPARIN DRIP ONE (01:00)
[2018-12-11] MEDS: ALBUTEROL 0.083% NEBU SOLN 3 ML VIAL NEB SCH ×6 (02:02→22:26)
[2018-12-11] MEDS: fentaNYL citrate 100 MCG/2 ML VIAL IV SCH ×12 (02:12→20:20)
[2018-12-11 04:47] LABS: Hematocrit (blood only) 31.6 % (42-52); Hemoglobin 9.3 g/dL (14.0-18.0); Mean Corpuscular Hemoglobin 26.9 pg (25-34); Mean Corpuscular Hgb Conc 29.4 g/dL (32-36); Mean Corpuscular Volume 91.3 fL (80-100); RDW Coefficient of Variation 15.8 % (11.5-14.5); RDW Standard Deviation 52.7 fL (36.4-46.3); Red Blood Count 3.46 M/uL (4.7-6.1); White Blood Count 13.41 K/uL (4.8-10.8)
[2018-12-11 05:17] LABS: BUN Creatinine Ratio 45.5 (10-20); Calcium 8.5 mg/dl (8.5-10.1); Est GFR (Non-African American) 78.5; Potassium 5.2 mmol/L (3.5-5.1)
--- NOTE | 2018-12-11 05:34 | Critical Care Progress Note ---
Date of Service December 11, 2018 Assessment & Plan (1) Admitted to intensive care unit: Reason Critically Ill: 68-year-old male here with a PMHx significant for T2DM w/ nephropathy, HLD, Atrial arrythmia ?MAT, bladder cancer s/p TURBT, HTN, and SCC s/p L pneumonectomy who presented for L lobecteomy and who is readmitted to the ICU for acute hypoxemic respiratory failure. His course and complicated by acute respiratory distress syndrome. Neuro - [facility] ICU: POSITIVE Increased somnolence CThead shows no acute intracranial abnormality. 12/10: MRI- No acute intracranial abnormality, No significant stenosis, occlusion, or aneurysm within the [place]. Sedation d/aj at 2100hrs Anxiety/Analgesia - Previously on pressodex 0.5mg, held following intubation & versed gtt - Fentanyl 50mcg IV Q2H CARLO - Versed held since 2099 Cardiac/Vascular - Paroxysmal Atrial Tachycardia high 90s/low 100s overnight Metoprolol 25mg PO BID Vascular - Radial arteries with thrombosis bilaterally in the setting of A-line placement and regular blood gasses - BL LE Doppler: No DVT within the right or left lower extremity. Thrombosed superficial veins within the bilateral lower legs. -While his arterial thromboses are potentially explained as provoked in the setting of radial art line placement and blood gases his superficial bilateral lower leg thrombosis to suggest a hypercoagulable state and increased risk of PE as he has been on anticoagulation during his admission. - Heparin gtt held for tracheostomy QTp - QTc has decreased to 435 on 12/08 ECG - Limit QT prolonging medications HTN/hypotension -Past medical history of hypertension controlled with metoprolol, diltiazem and lisinopril Held BB for hypotension HLD - held Atorvastatin 40mg PO qHS Respiratory - Severe ARDS s/p tracheostomy - PRVC 31 240 06/12, not pulling over vent at 0800 but at ~1200cc is breathing at a rate 2-3 over vent and an extra 20-30cc of tidal. - CXR comparable to prior Acute Hypoxemic Hypercapnic Respiratory Failure 2/2 PNA, L pneumonectomy, & ARDS - Extubated, - Respiratory cultures + for B. lactamase H. flu, initially improved on cefepime + vanco narrowed to rocephin and subsequentially worsened - Repeat bronch with normal laura -Completed 7 days of cefepime + doxy Discontinued chlorothiazide in setting of hypotension Continue sildenafil 20 mg 3 times daily GI - - T2DM - NPO 2/2 intubation, tube nutrition as below - Glargine 18u daily + SSI RENAL/LYTES - BMP daily Lasix 40mg BID Replace electrolytes per protocol - - Gonzalez in place - UOP 1656cc per last 24 hours (.59cc/kg/hr) ENDO - T2DM - Hold [employer] metformin - Insulin aspart SSI - BMP daily as above HEME - Hemoglobin stable, 9.3 from 9.5 Heparin held for tracheostomy and restarted at 1200 ID - Post-operative pneumonia with hypoxemia -Vancomycin discontinued as above Completed 7 days doxy/cefepime - WBC 13.41 from 17.77 - Monitor fever curve. INTEGUMENTARY - Hand edema bilaterally L>R - Lasix as above - Continue pulse checks. Perfusion and ulnar pulse intact bilaterlaly today. LINES/IV ACCESS - L brachial A line removed Nutrition: Impact 70cc/hr + 30cc flush Q4H, held pending thoracostomy and restarted following DVT PROPHYLAXIS - Heparin GTT. SCDs. Thank you for allowing me to contribute resident care to the care of this patient. For further documentation, please see attending Dr. Lora's note. (2) Acute respiratory failure with hypoxia: Impression: 68-year-old male status post left pneumonectomy 11/22 for squamous cell carcinoma the lung. His postoperative course has been complicated by diffuse right-sided infiltrates suspicious for hyperperfusion injury/pulmonary edema versus pneumonia. He was transferred out of the ICU but has had clinical worsening with increasing oxygen requirement over the last 24 hours. Recommendations: 1. Discussed with patient, spouse, and Dr. Zhao. I recommended the patient return to the intensive care unit. Would recommend noninvasive positive pressure ventilation with CPAP at lowest setting. Given the excoriations over the bridge of the nose, use of a full facemask may be appropriate. 2. Haemophilus pneumonia: The patient's white blood cell count is increasing since transition to Rocephin. Would recommend fluoroquinolone beta-lactam with beta-lactamase inhibitor. Will defer to intensive care unit service. Procalcitonin may be beneficial 3. Ideally would like to avoid amiodarone. Incidence of acute lung toxicity is not common but cannot be excluded. 4. Agree with continued diuresis. He does have a mild contraction alkalosis and use of Diamox would be beneficial. 5. Suspect the patient has some degree of secondary pulmonary hypertension given that his cardiac output is running through one lung. Doubt echocardiogram would add much at this point in time. Could consider infusion of epoprostenol or potentially low-dose sildenafil depending on clinical course. Empiric diuresis recommended. I discussed the case with the ICU service. They will assist in management of this patient. We will continue to follow for pulmonary issues. (3) S/P pneumonectomy: Supervising Physician Co-Signing Physician Notes Patient seen and examined in conjunction with the family practice resident. Discussed with Dr. Zhao. EMR extensively reviewed and films independently reviewed. Agree with assessment and plan as noted. 68-year-old male status post left pneumonectomy for a left lower lobe squamous cell carcinoma now with acute lung injury/ARDS on the contralateral lung necessitating intubation and mechanical ventilation. He underwent percutaneous dilatation of tracheostomy today. His vent settings remain stable. He remains on amiodarone for a supraventricular tachycardia/atrial fibrillation. He is off pressors and hemodynamically stable. We will continue to try and run on the dry side and continue with efforts at diuresis. He is completed 7 days of antibiotics and they will be discontinued at this point time and will follow repeat bronchoscopic cultures as well as white blood cell count and fever curve. Thoracic surgery plans on consulting gastroenterology for consideration of PEG tube placement. Continue tube feeds per dietary. Will discontinue the brachial A-line as we should be able to manage the patient without an arterial line currently. We will continue the heparin drip given the superficial thromboses noted. We did discuss with thoracic surgery at the prospect of using low-dose steroids for prevention of late-phase ARDS. They would like to hold off for another week if at all possible to prevent any potential issues with the bronchial stump. Continue sildenafil for now for potential secondary pulmonary hypertension. Patient remains critically ill. We will continue to follow closely. Subjective Limited by ETT and AMS. s/p tracheostomy. His care was discussed with his at bedside this morning, nac. Review of Systems Review of Systems: Unobtainable due to cognitive status and Unobtainable due to endotracheal tube Physical Exam Physical Exam: General: S/p tracheostomy placement. Skin is warm and dry. Does not arouse to painful stimuli today. HEENT: Atraumatic, normocephalic. Does not spontaneously open eyes. Pupils 2 mm, equal, react to light equally. Pulm: Tachypneic, RLL with crackles, soft rales at the base, RUL clear with moderate air movement. Absent/echoic breath sounds on L. On mechanical vent. Initially not breathing over vent, on midday recheck is breathing ~3bpm over vent with an additional 20-40cc of tiday. Cardiac:RRR, -mrg. Radial pulses intact and symmetrical. R & L ulnar pulses intact. Abdominal: Nontender, nondistended, soft. BS present. Skin: Warm, dry. Edema of the hands bilaterally. 1+ edema of the ankles. 1+ hand edema bilaterally. Results & Data Vital Signs (Past 12 Hours) Vital Signs Temp Pulse Resp BP Pulse Ox 12/11/18 02:02 98 H 35 H 92 12/11/18 01:00 96 H 166/65 H 93 12/11/18 00:00 37.2 C 99 H 165/62 H 93 12/10/18 23:58 100 H 12/10/18 23:00 96 H 153/55 H 94 12/10/18 22:55 90 31 H 94 12/10/18 22:00 89 138/60 95 12/10/18 21:30 94 H 28 H 98 12/10/18 21:00 95 H 134/57 L 96 12/10/18 20:00 93 H 157/54 H 95 12/10/18 19:00 36.9 C 92 H 143/60 H 95 12/10/18 18:35 90 28 H 95 12/10/18 18:00 92 H 28 H 146/58 H 93 PG Care Time/CCT Total # of Minutes Spent Total Time Spent with Patient: Total time spent is greater than 50% in coordination of care (as documented) at patient's floor/unit and/or counseling patient: Critical Care Time: Yes Total Critical Care Time: 42 Resident Activity Tracking Resident Involvement: Resident Care Provided Care Provided: Adult Hospital Medicine
[2018-12-11 05:58] LABS: Mean Platelet Volume 11.6 fL (7.4-10.4); Platelet Count 35 K/uL (130-400)
[2018-12-11 06:19] LABS: Basophils # (auto) 0.03 K/uL (0-0.2); Basophils % (auto) 0.2 %; Eosinophils # (auto) 0.09 K/uL (0-0.5); Eosinophils % (auto) 0.7 %; Immature Granulocytes # (auto) 0.15 K/uL (0.00-0.02); Immature Granulocytes % (auto) 1.1 %; Lymphocytes # (auto) 0.98 K/uL (1.2-3.4); Lymphocytes % (auto) 7.3 %; Monocytes # (auto) 1.35 K/uL (0.11-0.59); Monocytes % (auto) 10.1 %; Neutrophils # (auto) 10.81 K/uL (1.4-6.5); Neutrophils % (auto) 80.6 %
--- NOTE | 2018-12-11 07:03 | XRay Report ---
XR chest 1V portable CLINICAL HISTORY: 68 years-old Male presenting with follow up. TECHNIQUE: Portable upright AP view of the chest was obtained. COMPARISON: 12/10/2018. FINDINGS: Endotracheal tube terminates within the mid thoracic trachea over 4 cm from the bladimir. Weighted feed ing catheter terminates in the body of the stomach. Numerous overlying external leads degrade image q uality. Complete opacification of the left hemithorax system with left pneumonectomy. The previously demonstr ated gas surrounding the mediastinum and/or within the left pleural space is minimally appreciated. P ersistent vascular prominence and diffuse opacity in the right lung greatest in the central and basil ar portions. This is overall stable from prior. Degenerative changes of the thoracic spine. Upper abd omen normal. IMPRESSION: 1. Endotracheal tube appropriately positioned. Weighted feeding catheter terminates in the stomach; correlate for desired position. 2. Severe congestive changes in the right lung with moderate pulmonary edema as on prior exam. 3. Postsurgical changes of left pneumonectomy. Electronically signed by: Kali Arce M.D. 12/11/2018 7:02 AM
--- NOTE | 2018-12-11 07:13 | Family Medicine Progress Note ---
Date of Service December 11, 2018 Assessment & Plan (1) Acute respiratory failure with hypoxia: 68 yo M s/p L pneumonectomy now with acute lung injury/ARDS on the R left causing need for intubation and sedation, how with trach as of this morning. Acute Hypoxic/ Hypercapnic Respiratory failure - Care per ICU at this time, followed by the FM team as well as Cardiology, Thoracic Surgery, Pulmonary, Palliative. - Pt currently on mechanical ventilation with tracheostomy. - AM labs showed decrease in white count from 17.77 to 13.41. - Fentanyl 50 mcg IV q2 - Duonebs q4 - Continue sildenafil 20 mg 3 times daily - Diuresing Pneumonia - Pt has been afebrile, has completed 7 days of Abx will stop at this time and follow up repeat bronch cultures, WBC, fever curve. s/p Left pneumonectomy - Thoracic surgery following Atrial Tachycardia - Amiodarone stopped per cardiology rec's that it could be contributing to his pulmonary issues and was not acutely necessary. - Metoprolol tartrate 25mg PO BID Hypernatremia, Hypophosphatemia - Sodium 143, Potassium 5.2 - ICU correcting electrolytes as needed HTN - Lopressor 25 PO BID by Cardiology. - Pt no longer with hypotensive episodes. DMII - metformin held. - insulin glargine 18u + SSI. - Daily BMP. Dispo: ICU DVT PPx: Heparin 5000u SQ FEN: NG Tube feeds Code Status: FULL CODE Supervising Physician Co-Signing Physician Notes I personally examined the patient and verified all hudson points of history and exam, discussed case, and agree with decision making with Dr Castaneda. No HPI or review of systems obtainable. Patient intubated and sedated. d/w thoracic surgery. input appreciated. Vitals noted, in general he is sedated on the ventilator in no distress. trach site appears intact. Skin shows no rashes no pallor or icterus. He shows no focal neuro deficits. Acute respiratory failurecontinue ventilator support, supportive care, and treatment as above. s/p trach. suspect likely his course will lead to LTAC if he remains in current status. Otherwise as above, and otherwise as per ICU Subjective Overnight effort was made to wean off of sedation and the pt made attempts to self-extubate. Trach was placed this AM. Pt is otherwise unchanged from yesterday, unable to gather history due to sedation at time of interview. Review of Systems Review of Systems: Unobtainable due to reduced consciousness Physical Exam Constitutional: + ill appearing, + mechanically ventilated and + underweight Eyes: PERRL PERRL Neck: tracheostomy in place Respiratory: Tachypneic. RLL crackles appreciated, RUL clear. Absent breath sounds left side. On mechanical ventilation at PEEP 8, TV 240, FiO2 90%, Rate 31 Cardiovascular: Rate/Rhythm: + tachycardic Heart Sounds: normal S1 and normal S2 Extremities: + edema (1+ bilateral upper and lower extremities) Gastrointestinal (Abdomen): Inspection/Auscultation: abdomen normal to inspection and normal bowel sounds Percussion/Palpation: abdomen soft Skin: no rashes, warm and dry Results & Data Vital Signs (Past 12 Hours) Vital Signs Temp Pulse Resp BP Pulse Ox 12/11/18 06:01 104 H 166/57 H 95 12/11/18 06:00 105 H 88 L 12/11/18 05:22 100 H 39 H 91 12/11/18 05:00 97 H 154/70 H 90 12/11/18 04:00 36.5 C 93 H 93 12/11/18 03:00 91 H 122/53 L 91 12/11/18 02:02 98 H 35 H 92 12/11/18 02:00 100 H 156/66 H 92 12/11/18 01:00 96 H 166/65 H 93 12/11/18 00:00 37.2 C 99 H 165/62 H 93 12/10/18 23:58 100 H 12/10/18 23:00 96 H 153/55 H 94 12/10/18 22:55 90 31 H 94 12/10/18 22:00 89 138/60 95 12/10/18 21:30 94 H 28 H 98 12/10/18 21:00 95 H 134/57 L 96 12/10/18 20:00 93 H 157/54 H 95 PG Care Time/CCT Total # of Minutes Spent Total Time Spent with Patient: Total time spent is greater than 50% in coordination of care (as documented) at patient's floor/unit and/or counseling patient: Resident Activity Tracking Resident Involvement: Resident Care Provided Care Provided: Adult Hospital Medicine
[2018-12-11 07:18] LABS: INR 1.2 (0.9-1.1); Partial Thromboplastin Ratio 1.3; Partial Thromboplastin Time 36.5 Seconds (21.0-31.0); Prothrombin Time 12.4 Seconds (9.0-12.0)
[2018-12-11] MEDS: SILDENAFIL CITRATE 20 MG TABLET PO SCH ×3 (07:27→20:38)
[2018-12-11] MEDS: INSULIN GLARGINE SOLOSTAR 100 UNITS/ML 3 ML PEN SC SCH (07:27)
[2018-12-11] MEDS: METOPROLOL TARTRATE 25 MG TAB PO SCH ×2 (07:27→20:37)
[2018-12-11] MEDS: POLYETHYLENE (MIRALAX) 17 GM PACK PO SCH ×2 (07:29→20:41)
[2018-12-11] MEDS ORDERED: VECURONIUM BROMIDE 10 MG VIAL ONE (07:55)
[2018-12-11] MEDS ORDERED: MIDAZOLAM HCL 1 MG/ML 2ML VIAL ONE (07:57)
[2018-12-11] MEDS ORDERED: MIDAZOLAM HCL 5 MG/ML 1 ML VIAL IV STA (08:52)
[2018-12-11] MEDS: FAMOTIDINE 20 MG in SYRINGE 3 ML IV SCH ×2 (08:52→20:41)
[2018-12-11] MEDS: DOXYCYCLINE HYCLATE 100 MG in DEXTROSE 5% 100 ML IV SCH (08:52)
--- NOTE | 2018-12-11 08:52 | Procedure Note ---
Procedure Note Date of Service December 11, 2018 Procedure: Fiberoptic bronchoscopy Endoscopic visualization for percutaneous dilatation with tracheostomy at the bedside Provider: Yasmani Lora MD Consent: Signed by patient and timeout verified prior to procedure. Procedure was performed in the intensive care unit. The patient was intubated and sedated in the ICU consent was verified. Appropriate radiographic studies had been reviewed prior to the procedure. Standard monitoring was applied. Oxygen was administered. The fiberoptic bronchoscope was advanced through the existing endotracheal tube. The tube was approximately 3 cm above the bladimir. The trachea was free of significant secretions. The left mainstem stump was visualized. Xena were seen but it appeared grossly intact. There were thin mucoid secretions emanating from the right lower lobe. These were aspirated free and collected for microbiologic analysis. After completion of the inspection bronchoscopy, the tube was withdrawn into the lumen of the endotracheal tube. The endotracheal tube and bronchoscope were withdrawn to the level of the glottis. Direct visualization was provided for to perform bedside dilatation of tracheostomy. Please see his separate procedure note. The needle was visualized entering the airway and the wire was observed passing into the distal airways. After the trach was placed, the scope was withdrawn from the endotracheal tube and advanced through the lumen of the newly placed tracheostomy tube and verified to be in the airway. Minimal bleeding was noted. Patient was attached to the ventilator with good return of tidal volumes. Impression: 1. Status post left pneumonectomy 2. Endoscopic visualization for bedside percutaneous dilatation tracheostomy 3. Minimal right-sided secretions, sent for microbiologic analysis Coding CPT Codes Pulmonary/Thoracic - Pulmonary and Thoracic: Dx bronchoscopy/wash ([id number])
[2018-12-11] MEDS ORDERED: VECURONIUM BROMIDE 10 MG VIAL IV STA (08:53)
[2018-12-11] MEDS: IMPACT LIQD 1.0 CAL 1,000 ML BAG NG SCH (09:30)
--- NOTE | 2018-12-11 09:57 | Operative Report ---
DATE OF OPERATION: 12/11/2018 PREOPERATIVE DIAGNOSES: 1. Prolonged intubation. 2. Status post left pneumonectomy. 3. Acute lung injury. POSTOPERATIVE DIAGNOSES: 1. Prolonged intubation. 2. Status post left pneumonectomy. 3. Acute lung injury. PROCEDURE: 1. Bedside tracheostomy with Blue Rhino. 2. Fiberoptic bronchoscopy by Dr. Melquiades Lora. ANESTHESIA: Local with sedation. SPECIFICS OF PROCEDURE AND FINDINGS: Mr. Ruiz is a 68-year-old male who underwent a radical intrapericardial left pneumonectomy for squamous cell carcinoma. He developed an acute lung injury a few days after surgery and has been ventilator dependent. It has been very tenuous situation, so we felt he would be better served with a tracheostomy. I discussed this in detail with the patient's and children. On 12/11/2018, the patient underwent an uncomplicated tracheostomy. We placed a 6.[address] Lora and I were bit concerned it was not quite in far enough even though he is not a big man, his trachea dies down a bit, so we switched this over at the time of tracheostomy to an extended cuff. This went down nicely and was above the bladimir. DESCRIPTION OF PROCEDURE: The patient received sedation intravenously and his neck was prepped and draped in usual sterile fashion. After appropriate time out had been called, a 25-gauge needle with 1% Xylocaine with epinephrine used to anesthetize skin and subcutaneous tissues and an approximately 1.5 cm incision was made above the sternal notch. I can palpate his trachea and I went down with a larger needle to anesthetize this and put a larger needle into the trachea under bronchoscopic guidance. A guidewire was inserted through this and the needle removed. A dilator was slid over this and then removed and then the standard 6.0 Shiley tracheostomy was placed. This was done without difficulty; however, the balloon was right at the tracheotomy site. After assessing this bronchoscopically, Dr. Lora and I both agreed that an extended cuff would be preferable. For this reason, extended cuff was obtained and readied and then we put the guidewire back in and removed the standard tracheostomy and put a extended cuff in. This worked much better. This was well below the tracheotomy and above the bladimir bronchoscopically. The balloon was inflated. Heavy Prolene was used to suture this x2 and then we put a Velcro strap around it. We really had no bleeding with this whatsoever. He tolerated it well. I attest to the content of the Intraoperative Record and any orders documented therein. Any exception s are noted below.
[2018-12-11] MEDS ORDERED: HEPARIN SODIUM/DEXTROSE 25,000 UNITS/500 ML BAG IV SCH (10:15)
[2018-12-11] MEDS: Heparin IV Standard *NO* Bolus IV SCH (10:22)
[2018-12-11] MEDS ORDERED: Nursing to Pharmacy Communication ONE (10:25)
[2018-12-11] MEDS: FUROSEMIDE 40 MG in SYRINGE 0 ML IV SCH ×2 (10:38→20:35)
[2018-12-11] MEDS: HEPARIN SODIUM/DEXTROSE 25,000 UNITS/500 ML BAG IV SCH ×2 (12:00→21:40)
[2018-12-11 19:56] LABS: Partial Thromboplastin Ratio 1.8
[2018-12-11 19:59] LABS: Partial Thromboplastin Time 47.5 Seconds (21.0-31.0)
[2018-12-11] MEDS: ATORVASTATIN 40 MG TAB PO SCH (20:37)
[2018-12-11] MEDS: MAGNESIUM HYDROXIDE SUSP 30 ML UDC PO PRN (20:41)
[2018-12-12] MEDS: INSULIN ASPART 100 UNITS/ML 3 ML PEN SC SCH ×4 (00:02→14:13)
[2018-12-12] MEDS: fentaNYL citrate 100 MCG/2 ML VIAL IV SCH ×8 (00:04→13:28)
[2018-12-12] MEDS: IMPACT LIQD 1.0 CAL 1,000 ML BAG NG SCH (01:38)
[2018-12-12] MEDS: ALBUTEROL 0.083% NEBU SOLN 3 ML VIAL NEB SCH ×3 (02:04→11:04)
--- NOTE | 2018-12-12 05:16 | Critical Care Progress Note ---
Date of Service December 12, 2018 Assessment & Plan (1) Admitted to intensive care unit: Reason Critically Ill: 68-year-old male here with a PMHx significant for T2DM w/ nephropathy, HLD, Atrial arrythmia ?MAT, bladder cancer s/p TURBT, HTN, and SCC s/p L pneumonectomy who presented for L lobecteomy and who is readmitted to the ICU for acute hypoxemic respiratory failure. His course was complicated by acute respiratory distress syndrome. Comfort care measures Patient had grossly audible fluid in right lung roper this morning. Chest x- ray showed air filling in left chest cavity consistent with pulmonary stump dehiscence. Thoracic surgery was immediately notified and evaluated patient at bedside. His case was discussed with his and family. His who is his medical decision-maker understands that some dehiscence and likely subsequent infection was a catastrophic finding, and agreed with deferring surgical re- intervention and moving to comfort care. He was moved to comfort care/DNR and he morphine drip was ordered in anticipation of ventilator discontinuation. F ollowing ventilator removal around 1:40 PM patient rapidly desaturated and became asystolic, Neuro - [facility] ICU: POSITIVE Lethargic Sedation discontinued for >36 hours Anxiety/Analgesia - Previously on pressodex 0.5mg, held following intubation & versed gtt - Fentanyl 50mcg IV Q2H CARLO - Versed held as above Cardiac/Vascular - Paroxysmal Atrial Tachycardia Hold metoprolol 10mg IV Vascular - Radial arteries with thrombosis bilaterally in the setting of A-line placement and regular blood gasses - BL LE Doppler: No DVT within the right or left lower extremity. Thrombosed superficial veins within the bilateral lower legs. -While his arterial thromboses are potentially explained as provoked in the setting of radial art line placement and blood gases his superficial bilateral lower leg thrombosis to suggest a hypercoagulable state and increased risk of PE as he has been on anticoagulation during his admission. -Discontinued heparin with comfort care QTp - QTc decreased to 435 on 12/08 ECG HTN/hypotension -Past medical history of hypertension controlled with metoprolol, diltiazem and lisinopril Held BB for hypotension HLD - held Atorvastatin 40mg PO qHS Respiratory - Severe ARDS s/p tracheostomy - CXR comparable to prior -Events at the [facility], not breathing over vent this morning Acute Hypoxemic Hypercapnic Respiratory Failure 2/2 PNA, L pneumonectomy, & ARDS - Extubated, tracheostomy in place. Pulmonary stump dehiscence, see below - Respiratory cultures + for B. lactamase H. flu, initially improved on cefepime + vanco narrowed to rocephin and subsequentially worsened - Repeat bronch with normal laura -Completed 7 days of cefepime + doxy Discontinued chlorothiazide in setting of hypotension discontinued sildenafil, comfort care Left pulmonary stump dehiscence Patient had grossly audible fluid in right lung roper this morning. Chest x- ray showed air filling in left chest cavity consistent with pulmonary stump dehiscence. Thoracic surgery was immediately notified and evaluated patient at bedside. His case was discussed with his and family. His who is his medical decision-maker understands that some dehiscence and likely subsequent infection was a catastrophic finding, and agreed with deferring surgical re- intervention and moving to comfort care. He was moved to comfort care/DNR and he morphine drip was ordered in anticipation of ventilator discontinuation. Following ventilator removal around 1:40 PM patient rapidly desaturated and became asystolic. GI - -Comfort care measures RENAL/LYTES - CATRACHITO Creatinine and BUN acutely worsened today. Comfort care measures at this time as above - - Gonzalez in place Comfort care as above ENDO - T2DM Medication held in setting of comfort care, see above HEME - Comfort care, see above ID - Post-operative pneumonia with hypoxemia -Vancomycin discontinued as above Completed 7 days doxy/cefepime Following some dehiscence patient was at high risk for severe pulmonary fluid infection. He was made comfort care and quickly passed as above. INTEGUMENTARY - nac LINES/IV ACCESS - L brachial A line removed DVT PROPHYLAXIS - Heparin GTT. SCDs. Thank you for allowing me to contribute resident care to the care of this patient. For further documentation, please see attending Dr. Lora's note. (2) Controlled type 2 diabetes mellitus with diabetic nephropathy: (3) Hypercholesterolemia: (4) Lung cancer: (5) Ventricular tachycardia: (6) Proteinuria: (7) Mass of left lung: (8) Wide-complex tachycardia: Supervising Physician Co-Signing Physician Notes Patient seen and examined independently. Multiple evaluations during the day. Discussed on multidisciplinary rounds and evaluated with the resident. Extensive discussions with thoracic surgery. The patient this morning had taken a clinical turn for the worse. He developed hypotension and was noted to be in acute renal failure and thrombocytopenic this morning. A chest x-ray revealed air within the left hemithorax which was new suggestive of stump breakdown. Thoracic surgery was immediately notified. Dr. Zhao presented immediately to bedside and performed tube thoracostomy on the left. We replaced an arterial line and initiated Mal-Synephrine. Fluid boluses were also administered. A central line was also placed. Dr. Zhao initially anticipated taking the patient back to the surgery for revision of his bronchial stump however after discussion with family members they requested transition to comfort care measures. The patient was maintained until family could arrive. Meetings were held with the patient's and family members. Case was discussed. They made it clear that the patient would not want to pursue aggressive additional interventions and we discussed what palliative care/transition to comfort care would look like in this patient. After discussions and questions were answered they agreed that proceeding with terminal extubation/appropriate. The patient was disconnected from the ventilator. Medications were used for control of pain, anxiety, and dyspnea. The patient subsequently . Please refer to additional notes from the patient's extensive ER MAR for details regarding his hospitalization. 95 minutes critical care time exclusive of procedures spent in evaluation management and caring for this critically ill patient including discussion with multiple consultants, family, and ICU staff Subjective Jose is seen at the bedside today. Breathing with audible copious secretions and rales standing at bedside. Does not respond to verbal or painful stimuli. Subjective was limited by mental status. Chest x-ray showed evidence of stump dehiscence, thoracic surgery was immediately notified and case was discussed between critical care team, thoracic surgery, palliative care, and the patient's family. After discussion with his she affirmed that he had been fighting hard, but would not want any further intervention agreed with deferring surgical re-intervention. She agreed with making him comfort care, DNR/DNI and discontinuing mechanical ventilation. Palliative care service was at bedside and morphine drip for pain management. Following discontinuation of mechanical ventilation patient quickly became agon al and asystolic, and passed. Review of Systems Review of Systems: Unobtainable due to cognitive status Physical Exam Physical Exam: General: S/p tracheostomy placement. Skin is cool and dry. Does not arouse to painful stimuli today. HEENT: Atraumatic, normocephalic. Does not spontaneously open eyes. Pupils 2 mm, equal, react to light equally. Corneal reflex negative. Pulm: Tachypneic, diffuse rales and rhonchi on right, coarse gurgling on left. Cardiac: Tachycardic, -mrg. Radial pulses intact and symmetrical. R & L ulnar pulses intact. Abdominal: Nontender, nondistended, soft. BS present. Skin: Cool, dry. Edema of the hands bilaterally. 1+ edema of the ankles. 1+ hand edema bilaterally. Results & Data Vital Signs (Past 12 Hours) Vital Signs Temp Pulse Resp BP Pulse Ox 12/12/18 02:04 96 H 36 H 88 L 12/12/18 02:01 97 H 92/56 L 91 12/12/18 01:29 100 H 12/12/18 01:00 36.8 C 99 H 92/63 L 89 L 12/12/18 00:00 36.8 C 105 H 96/69 L 98 12/11/18 23:11 100 H 92 12/11/18 23:09 89 111/32 L 90 12/11/18 22:26 92 H 35 H 96 12/11/18 22:01 96 H 105/34 L 97 12/11/18 22:00 95 H 96 12/11/18 21:00 86 93/60 L 95 12/11/18 20:00 106 H 132/66 95 12/11/18 19:09 109 H 32 H 92 12/11/18 19:00 36.8 C 104 H 102/54 L 93 12/11/18 18:00 113 H 127/62 92 PG Care Time/CCT Total # of Minutes Spent Total Time Spent with Patient: Total time spent is greater than 50% in coordination of care (as documented) at patient's floor/unit and/or counseling patient: Critical Care Time: Yes Total Critical Care Time: 95 Resident Activity Tracking Resident Involvement: Resident Care Provided Care Provided: Adult Hospital Medicine (1) Controlled type 2 diabetes mellitus with diabetic nephropathy Diabetes mellitus mcfp insulin use: without mcfp use Qualified Code(s): E11.21 - Type 2 diabetes mellitus with diabetic nephropathy
[2018-12-12 06:13] LABS: BUN Creatinine Ratio 40.1 (10-20); Calcium 9.2 mg/dl (8.5-10.1); Est GFR (African American) 46.3; Potassium 5.4 mmol/L (3.5-5.1)
[2018-12-12 06:16] LABS: Partial Thromboplastin Ratio 1.8
[2018-12-12 06:30] LABS: Partial Thromboplastin Time 47.5 Seconds (21.0-31.0)
--- NOTE | 2018-12-12 06:40 | Family Medicine Progress Note ---
Date of Service December 12, 2018 Assessment & Plan (1) Admitted to intensive care unit: Please see summary for course. Pt has this afternoon after care was withdrawn by family. (2) Atrial tachycardia: (3) Hypertension: (4) Edema of all four extremities: (5) Acute respiratory failure with hypoxia: (6) Pulmonary infection: (7) S/P pneumonectomy: (8) Squamous cell lung cancer: Supervising Physician Co-Signing Physician Notes case discussed with Dr Castaneda; pt prior to my seeing him. please reference thoracic surgery, ICU, pulmonary and palliative notes as well. Subjective No acute events overnight. Review of Systems Review of Systems: Unobtainable due to endotracheal tube and Unobtainable due to reduced consciousness Results & Data Vital Signs (Past 12 Hours) Vital Signs Temp Pulse Resp BP Pulse Ox 12/12/18 05:45 98 H 31 H 94 12/12/18 05:00 101 H 120/67 92 12/12/18 04:00 37.1 C 99 H 104/60 93 12/12/18 03:00 103 H 94/55 L 93 12/12/18 02:04 96 H 36 H 88 L 12/12/18 02:01 97 H 92/56 L 91 12/12/18 01:29 100 H 12/12/18 01:00 36.8 C 99 H 92/63 L 89 L 12/12/18 00:00 36.8 C 105 H 96/69 L 98 12/11/18 23:11 100 H 92 12/11/18 23:09 89 111/32 L 90 12/11/18 22:26 92 H 35 H 96 12/11/18 22:01 96 H 105/34 L 97 12/11/18 22:00 95 H 96 12/11/18 21:00 86 93/60 L 95 12/11/18 20:00 106 H 132/66 95 12/11/18 19:09 109 H 32 H 92 12/11/18 19:00 36.8 C 104 H 102/54 L 93 PG Care Time/CCT Total # of Minutes Spent Total Time Spent with Patient: Total time spent is greater than 50% in coordination of care (as documented) at patient's floor/unit and/or counseling patient: Resident Activity Tracking Resident Involvement: Resident Care Provided Care Provided: Adult Hospital Medicine (1) Hypertension Hypertension type: essential hypertension Qualified Code(s): I10 - Essential (primary) hypertension (2) Squamous cell lung cancer Laterality: left Qualified Code(s): C34.92 - Malignant neoplasm of unspecified part of left bronchus or lung
[2018-12-12 06:57] LABS: Hematocrit (blood only) 31.9 % (42-52); Hemoglobin 9.2 g/dL (14.0-18.0); Mean Corpuscular Hgb Conc 28.8 g/dL (32-36); Mean Corpuscular Volume 93.5 fL (80-100); Mean Platelet Volume 12.8 fL (7.4-10.4); Nucleated RBC # (auto) 0.23 K/uL (0-0); Nucleated RBC % (auto) 1.4 %; Platelet Count 40 K/uL (130-400); RDW Coefficient of Variation 16.2 % (11.5-14.5); RDW Standard Deviation 55.3 fL (36.4-46.3); Red Blood Count 3.41 M/uL (4.7-6.1); White Blood Count 16.27 K/uL (4.8-10.8)
[2018-12-12 07:40] LABS: Basophils # (auto) 0.13 K/uL (0-0.2); Basophils % (auto) 0.8 %; Eosinophils # (auto) 0.01 K/uL (0-0.5); Eosinophils % (auto) 0.1 %; Immature Granulocytes # (auto) 0.67 K/uL (0.00-0.02); Immature Granulocytes % (auto) 4.1 %; Lymphocytes # (auto) 0.96 K/uL (1.2-3.4); Lymphocytes % (auto) 5.9 %; Monocytes # (auto) 1.92 K/uL (0.11-0.59); Monocytes % (auto) 11.8 %; Neutrophils # (auto) 12.58 K/uL (1.4-6.5); Neutrophils % (auto) 77.3 %; Polychromasia 1+
[2018-12-12 07:56] LABS: Base Excess VBG 3.6 mEq/L; HCO3 VBG 37 mmol/L; Oxygen Saturation VBG < 60.0 %; PCO2 VBG 134 mmHg (38-50); PO2 VBG 26 mmHg; pH VBG 7.06 (7.36-7.41)
--- NOTE | 2018-12-12 08:20 | XRay Report ---
SINGLE VIEW CHEST CLINICAL HISTORY: ARDS. FINDINGS: An AP, portable, upright chest radiograph is compared to study dated 12/11/2018 and correlate d with chest CT dated 09/25/2018. The examination is degraded by portable technique and patient rotati on. A tracheostomy is new from yesterday. An enteric tube is unchanged in position. The left lung is surgically absent with gas filling the left hemithorax. Cardiac silhouette is not well evaluated. Dif fuse interstitial thickening and airspace consolidation is again seen throughout the right lung. A sm all volume of pleural fluid is seen in the left lung base. This has significantly decreased from yest erday. There is no large right-sided pleural effusion or pneumothorax. The skeletal structures are os teopenic. The bony thorax is grossly intact. IMPRESSION: 1. A tracheostomy is new from yesterday. 2. Postpneumonectomy change is again seen on the left with gas along the left pleural space. 3. There is a small volume of pleural fluid on the left. This has significantly decreased from yester day. 4. Airspace consolidation throughout the right lung appears modestly increased from yesterday. Electronically signed by: Jah Sebastian M.D. 12/12/2018 8:19 AM
[2018-12-12] MEDS ORDERED: SODIUM CHLORIDE 0.9% 250 ML IV PRN (08:42)
[2018-12-12] MEDS: PHENYLEPHRINE HCL 20 MG in DEXTROSE 5% 500 ML IV SCH (08:48)
[2018-12-12] MEDS ORDERED: fentaNYL citrate 100 MCG/2 ML VIAL ONE (08:48)
[2018-12-12] MEDS ORDERED: MIDAZOLAM HCL 1 MG/ML 2ML VIAL ONE (08:48)
--- NOTE | 2018-12-12 09:44 | XRay Report ---
SINGLE VIEW CHEST CLINICAL HISTORY: Central venous catheter placement. FINDINGS: An AP, portable, supine chest radiograph is compared to study performed earlier the same da y 12/12/2018 and correlated with chest CT dated 09/25/2018. The examination is degraded by portable tech nique and patient rotation. A left subclavian central venous catheter has been placed. The tip of the catheter projects over the cavoatrial junction. A chest tube is now seen at the left lung base. A tr acheostomy and enteric tube are unchanged in position. The left lung is surgically absent with gas fi lling the left hemithorax. Cardiac silhouette is not well evaluated. Diffuse interstitial thickening and airspace consolidation is again seen throughout the right lung. A small volume of pleural fluid i s seen in the left lung base. This has significantly decreased from yesterday. There is no large righ t-sided pleural effusion or pneumothorax. The skeletal structures are osteopenic. The bony thorax is grossly intact. IMPRESSION: 1. A left subclavian central venous catheter and chest tube at the left lung base are new from radha quiñones today. 2. Postpneumonectomy change is again seen on the left with gas filling the left pleural space. 3. There is a small volume of pleural fluid on the left, unchanged from earlier today. 4. Airspace consolidation throughout the right lung is unchanged from today's earlier examination. Electronically signed by: Jah Sebastian M.D. 12/12/2018 9:42 AM
[2018-12-12] MEDS: FAMOTIDINE 20 MG in SYRINGE 3 ML IV SCH (10:01)
[2018-12-12] MEDS: METOPROLOL TARTRATE 25 MG TAB PO SCH (10:01)
[2018-12-12] MEDS: SILDENAFIL CITRATE 20 MG TABLET PO SCH (10:17)
[2018-12-12] MEDS: INSULIN GLARGINE SOLOSTAR 100 UNITS/ML 3 ML PEN SC SCH ×2 (10:18→14:12)
[2018-12-12] MEDS: POLYETHYLENE (MIRALAX) 17 GM PACK PO SCH (10:20)
--- NOTE | 2018-12-12 10:35 | Procedure Note ---
Procedure Note Date of Service December 12, 2018 ARTERIAL LINE PROCEDURE NOTE: Procedure: Arterial Line Placement Provider: Yasmani Lora MD Indication: Monitoring on Pressors Anesthesia: None Procedure was emergent and consent was unable to be identified as no family was immediately available. The patient was unstable. A time-out was completed verifying correct patient, procedure, site, positioning, and implant(s) or special equipment if applicable. Allens test was performed to ensure adequate perfusion. Patients left dorsum of the foot was prepped and draped in the usual sterile fashion. Ultrasound guidance was used to aid needle placement. A 20g Arrow arterial line was introduced into the left dorsalis pedis artery. Catheter was threaded, and the needle was removed with appropriate blood return. Good waveform was observed. The patient tolerated the procedure well. Blood Loss: Minimal Complications: None Coding CPT Codes Tubes, Drains, and Vasc Access - Tubes, Drains, and Vasc Access: Insertion Catheter, Artery ([id number])
--- NOTE | 2018-12-12 10:39 | Palliative Care Progress Note ---
Date of Service December 12, 2018 Assessment & Plan (1) Goals of care, counseling/discussion: -Patient underwent tracheostomy this weekend. He remains on mechanical ventilator. -Unfortunately this morning, CXR reveals that patient has likely blown his left lung stump out. His blood pressure is dropping, requiring initiation of phenylephrine infusion. He had a left sided chest tube placed by Dr. Zhao. His creatinine is worsening. He is obtunded/unresponsive despite having no sedating medications on board. -In discussion with patient's , Priya, she does not want patient to return to the OR and would like to focus on comfort. -Met with patient's Priya several times today, had lengthy conversations. Support given. She confirms that the goal is for COMFORT MEASURES ONLY. She got her son and daughter on phone and put it up to patient's ear so they could say goodbye. -Priya was also able to speak with Dr. Zhao, Dr. Lora, and Dr. Haile as well. We discussed transitioning to [facility] and what that process would look like. -Will start morphine infusion at 2mg/hr, titrate by 1mg/hr Q10min PRN pain or SOB. Also order bolus doses of 2mg IV Q1h PRN pain or SOB. -Robinul 0.2mg IV Q4h PRN secretions. -Discontinue all medications unrelated to comfort. -Remove from ventilator and stop phenylephrine gtt once family is ready. Patient is expected to pass in minutes to hours. -Please contact me with any further palliative care needs. (2) Acute respiratory failure with hypoxia: (3) Interstitial lung disease: (4) Squamous cell lung cancer: Subjective Patient is unresponsive/obtunded. He has likely blown out his left stump, now has left chest tube. Has taken a turn for the worst Review of Systems Review of Systems: Unobtainable due to cognitive status and Unobtainable due to endotracheal tube Physical Exam Constitutional: + ill appearing ENMT: external ear and nose normal, oropharynx normal Neck: tracheostomy present Respiratory: + labored breathing (agonal breathing on ventilator) Cardiovascular: Rate/Rhythm: regular rate Extremities: + edema Gastrointestinal (Abdomen): Inspection/Auscultation: abdomen normal to inspection Neurologic: + obtunded Results & Data Vital Signs (Past 12 Hours) Vital Signs Temp Pulse Resp BP Pulse Ox 12/12/18 10:11 94 H 33 H 92 12/12/18 09:45 94 H 103/59 L 91 12/12/18 09:30 36.5 C 95 H 92/52 L 91 12/12/18 09:15 95 H 83/52 L 91 12/12/18 09:00 36.7 C 97 H 32 H 98/52 L 93 12/12/18 07:18 93 H 34 H 92 12/12/18 05:45 98 H 31 H 94 12/12/18 05:00 101 H 120/67 92 12/12/18 04:00 37.1 C 99 H 104/60 93 12/12/18 03:00 103 H 94/55 L 93 12/12/18 02:04 96 H 36 H 88 L 12/12/18 02:01 97 H 92/56 L 91 12/12/18 01:29 100 H 12/12/18 01:00 36.8 C 99 H 92/63 L 89 L 12/12/18 00:00 36.8 C 105 H 96/69 L 98 12/11/18 23:11 100 H 92 12/11/18 23:09 89 111/32 L 90 PG Care Time/CCT Prolonged Care Time Prolonged Care Time: Yes Total Prolonged Care Time: 110 Time Spent Midlevel 110 minutes with >50% of time spent at bedside with patient and family discu ssing EOL care. (1) Squamous cell lung cancer Laterality: left Qualified Code(s): C34.92 - Malignant neoplasm of unspecified part of left bronchus or lung
--- NOTE | 2018-12-12 10:41 | Procedure Note ---
Procedure Note Date of Service December 12, 2018 CENTRAL LINE PROCEDURE NOTE: Procedure: Central Line Placement Provider: Yasmani Lora MD Indication: Central Drug Administration, Poor Venous Access, Multiple Lab Draws Necessary, etc. Anesthesia: 5 mlLidocaine 1% Site: Left subclavian Consent was unable to be obtained as the procedure was emergent. The patient was intubated sedated on the ventilator. No family immediately available. A time-out was completed verifying correct patient, procedure, site, positioning, and implants(s) or special equipment if applicable. Patients left supraclavicular space was cleansed and draped in the typical sterile fashion using Chloraprep. The subclavian vein was cannulized with a finder needle on the third attempt. Good venous blood return was maintained prior to removal of syringe from introducer needle. Using Seldinger Technique, a guide wire was advanced through the introducer needle without resistance. A small incision was made in penetrating fashion at the guide wire insertion site utilizing an 11 blade scalpel. The dilator was advanced to the vessel without resistance. The dilator was exchanged for the triple lumen catheter which was advanced into the vessel without resistance. The guide wire was removed intact from the catheter without issue. Claves were placed on each catheter tip with confirmation of good blood flow from each lumen. Each port was easily flushed with sterile saline. The catheter was sutured in place. BioPatch was applied to the catheter and a sterile Tegaderm dressing was applied over the catheter with careful attention to sterility. Patient tolerated procedure well. No immediate complications were met. Post procedure x-ray was completed, placement was appropriate and no pneumothorax was noted. Coding CPT Codes Tubes, Drains, and Vasc Access - Tubes, Drains, and Vasc Access: Place catheter in vein superior or inferior vena cava ([id number])
--- NOTE | 2018-12-12 10:56 | Progress Note ---
DATE: 12/12/2018 Mr. Ruiz has worsened today acutely. Chest x-ray shows fluid is no longer in his left chest. The patient has blown his bronchial stump which has been a concern of mine. He is quite ill male with a blood pressure in the 60s. He may even be under some tension on the left chest where I placed a small 20-South African chest tube. We got a clear serous fluid out. He improved a bit after this. Mr. Ruiz is in probable septic shock. He is thrombocytopenic. He is requiring vasopressor to keep his pressure up. His white count is 16,270, but his platelet count dropping to so low, is quite worrisome. While it is possible this could be due to heparin-induced thrombocytopenia. His hypotension and his bronchial stump is extremely ominous. I discussed this in detail with the patient's . We are going to hold off going back to the operating room. I explained to her that the treatment for this would be to return to the operating room and do a thoracotomy and we closed the stump; however, it is my feeling he would not survive this in his current state. I have also discussed this case in detail with the patient, , 2 children and the staff including Dr. Melquiades Lora and the house staff. Again, I wish I had more to offer him, but we will support him. His is on her way to the hospital. We will discuss this in more detail. RASHIDA
--- NOTE | 2018-12-12 12:27 | Operative Report ---
DATE OF OPERATION: 12/12/2018 PREOPERATIVE DIAGNOSIS: Balloon bronchial stump with hydropneumothorax on the left. POSTOPERATIVE DIAGNOSIS: Balloon bronchial stump with hydropneumothorax on the left. PROCEDURE: Insertion of 20-Togolese chest tube. ANESTHESIA: Local. SPECIFICS OF PROCEDURE: Mr. Ruiz is a 68-year-old male who underwent a radical intrapericardial pneumonectomy for a squamous cell carcinoma 20 days ago. He did fine the first few days, but on postop day 4 and 5 began developing hypoxemia and has ended up in the ICU and on the ventilator. We performed a tracheostomy yesterday. The patient began struggling the last few hours and chest x-ray showed almost complete resolution of the fluid on the left side. He also had more infiltrates on the right. He had obvious dehiscence of his bronchial stump which I have been concerned about for the last week or so. I have actually discussed this with the patient's and family and voiced my concerns and felt that he would not survive this if that were to happen. I went ahead and put a chest tube in. The head is up the patient's bedside. We raised his left arm and prepped and draped in usual sterile fashion. After appropriate timeout had been called, a 25-gauge needle, 1% Xylocaine was used to anesthetize skin and subcutaneous tissues. A small incision was made. A needle was placed into the pleural cavity interspace above the incision. A guidewire was inserted and the needle removed. A dilator was slid over to enlarge it and then a 20-Togolese chest tube with inner obturator was placed over the guidewire and the guidewire removed. We drained some clear serous fluid. It was not attached to suction. We sutured in place with heavy silk suture. He was minimally better after this. I attest to the content of the Intraoperative Record and any orders documented therein. Any exception s are noted below.
[2018-12-12] MEDS ORDERED: MoRPHine SULF/NSS 250 MG/250 ML BTL IV PRN (13:25)
[2018-12-12] MEDS ORDERED: MoRPHine SULFATE 2 MG/ML CARP IV PRN (13:25)
[2018-12-12] MEDS ORDERED: GLYCOPYRROLATE 0.2 MG/ML VIAL IV PRN (13:26)
[2018-12-12] MEDS ORDERED: INSULIN ASPART 100 UNITS/ML 3 ML PEN SC SCH (13:29)
--- NOTE | 2018-12-12 18:27 | Discharge Summary ---
Date of Service December 12, 2018 Admission HPI Per Admitting Provider Patient is a 67-year-old male with a significant past medical history of paroxysmal atrial tachycardia, hypercholesterolemia, type 2 diabetes, and recent diagnosis of LEFT lung mass who is postop day 0 status post VATS procedure for lobectomy. Patient lost approximately 2 L of blood intraoperatively requiring transfusion of 3 units PRBCs. He was extubated status post intervention and has been maintaining well since. Upon arrival in the ICU, the patient is awake, alert, and oriented. He complains of some mild discomfort to the LEFT-sided chest, but otherwise reports feeling well. He denies any headaches, dizziness, lightheadedness, palpitations, nausea, vomiting, abdominal pain, or extremity pain. Admission Exam Per Admitting Provider General: A&Ox3. In mild respiratory distress. Cooperative, follows commands. Skin warm, dry. HEENT: Atraumatic, normocephalic. Dive CPAP mask present. PERLAA. Pulm: RLL with rales and crackles. No wheezes. Absent/echoic lung sounds on L. - wheezes. Using accessory muscles of breathing, tachypnic. Able to speak in short sentences with effort. Cardiac: RRR, -mrg. Radial pulses intact and symmetrical. R radial A-line placed. Abdominal: Nontender, nondistended, soft. BS present. Extremities: No distal extremity edema. Moving all extremities equally. Principal Diagnosis HAP s/p pneumonectomy Discharge Exam Pt has . Discharge Data Allergies Allergy/AdvReac Type Severity Reaction Status Date / Time aspirin AdvReac Mild HALLUCINATIONS Verified 11/22/18 08:46 A CHILD Consultations 11/21/18 13:30 Consult Cardiology Routine 11/22/18 09:12 Consult Cardiology Stat 11/22/18 20:27 Consult Bryologist Routine 11/22/18 20:59 Consult Case Management - Discharge Planning Routine 11/24/18 07:26 Consult Hospitalist Routine 11/26/18 15:52 Consult Pulmonology Routine 12/04/18 11:32 Consult Palliative Care Routine Procedures Performed Operation Date: 11/22/18 10:40 Actual Procedures p Robotic left intrapericardial pneumonectomy, mediastinal lymphadenectomy(Left) - Brock Zhao MD, FACS Operation Date: 12/12/18 08:20 <No data on this case meets the specified criteria> Ordered Studies 11/22/18 09:18 US guide vascular access Stat 12/08/18 14:30 US venous doppler LE BI Routine 12/09/18 11:18 CT head/brain wo con Stat 12/10/18 12:08 MR angio head wo con Routine MR brain wo con Routine Hospital Course (1) Admitted to intensive care unit: 68 yo M PMHx significant for T2DM w/ nephropathy, HLD, Atrial arrythmia ?MAT, bladder cancer s/p TURBT, HTN, and SCC s/p L pneumonectomy readmitted to the ICU for acute hypoxemic respiratory failure, with course complicated by acute respiratory distress syndrome. Has unfortunately this afternoon after withdrawal of care by family. Pt was originally admitted to our service following left pneumonectomy on 11/22. During his time in the hospital he was found to have H. flu pneumonia and treated with broad spectrum antibiotics. He then developed ARDS and was admitted to ICU, though at the time was on HFNC. Was able to be transferred out of ICU back to floor when he came under my care. Unfortunately he continued to desaturate on HFNC and was readmitted to ICU for CPAP/BiPAP. Continued to decline and was intubated. Tracheostomy was placed as the patient was brought off of sedation due to attempts to self-extubate. After over 36 hours off of sedation patient was not responsive to painful stimuli. CXR today unfortunately showed that the patient had blown out his left lung stump, and his BP continued to drop despite phenylephrine. Creatinine continued to rise. Discussion regarding next steps was had with patient's who opted to focus on comfort care rather than OR, pt was made comfortable, and after stopping all interventions not associated with comfort the patient . Patient disposition: . (2) Atrial tachycardia: (3) Hypertension: (4) Acute respiratory failure with hypoxia: (5) Edema of all four extremities: (6) Interstitial lung disease: (7) Postoperative pneumonia: (8) Goals of care, counseling/discussion: Total Time Total Time Spent Total Time Spent (In Minutes): 30 minutes Discharge Plan Discharge Items Patient Disposition: Reason For Visit: Left Lung Mass Follow-up/Referrals: Riya Reynoso MD [Primary Care Provider] - Admission Data Admit Date/Time: 11/22/18 19:25 Attending Provider: Marlon Dillard Admit Provider: Brock Zhao Primary Care Provider: Riya Reynoso Other Providers: Flavio Ruiz ; Arsalan Palacios ; Joel Thao ; Bianca Simons ; Brock Matos ; Lissa Tobin Other [place] Date/Time DO NOT enter until pt leaves facility: 12/12/18 16:08 Resident Activity Tracking Resident Involvement: Resident Care Provided Care Provided: Adult Hospital Medicine
--- NOTE | 2018-12-12 23:59 | Discharge Summary ---
DATE OF ADMISSION: 11/22/2018 DATE OF DEMISE: 12/12/2018 DISCHARGE DIAGNOSES: 1. Dehiscence of left bronchial stump with resultant cardiovascular collapse. 2. Acute lung injury. 3. Status post robot-assisted thoracoscopic radical left pneumonectomy with mediastinal lymphadenectomy. 4. Anemia of blood loss in the operating room. 5. Squamous cell carcinoma, left pulmonary hilum. 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 I performed endobronchial ultrasound as well as a navigational bronchoscopy. We did not get an evidence of malignancy. On October, I took the patient to the operating room to do a wedge resection with possible lobectomy. The patient developed multifocal atrial tachycardia and we had it quickly canceled the case right after we put robotic ports in. He recovered from this quite nicely and went home and I saw him back in the office on 10/31/2018. He had been evaluated by cardiology and it was felt to be an acceptable risk. On 11/22/2018, I took the patient to the operating room and performed dissection. I attempted to do a left lower lobectomy. The mass was such that I really could not do a good wedge resection. After we attempted to do a left lower lobectomy, I got around the artery and upon firing the stapler, there was a tear. Some of this had to do with tumor involvement. We lost blood, but controlled the bleeding and controlled the artery. At this point, I elected to proceed with a pneumonectomy despite the fact we did not have a diagnosis. As the mass was close to the bronchial margin, I did not see a good way of getting just the lower lobe out. His lung function showed he would tolerate it. Intrapericardial pneumonectomy was performed. He actually did quite well. He was extubated that night. He looked very good and was on room air the following day. We moved him out to a step down unit as he still had some atrial arrhythmias. Quite frankly, I thought he looked quite good and we were actually discussing a possible discharge. It was at this point that the patient began showing signs of hypoxia and unfortunately, he developed signs and symptoms of acute lung injury. He was moved back to the ICU. For the last 2 weeks, he has been quite tenuous. We tried to support him as long as possible without putting on a ventilator, but finally had to do that. We finally performed a tracheostomy yesterday. Quite concerned about the stump and I talked about this to the family. On the x-ray this morning on 12/12/2018, the patient was noted to have dehiscence of the stump. I placed a chest tube as he was hemodynamically unstable. The patient had maximal support and really I did not think he would survive going back to the operating room, but made plans to do this. I have been talking to his , Priya, and his children Keyur and Giselle regularly and explained that if he blew his stump, I do not think we would survive it. I discussed it with him on the morning of 12/12/2018 and I was asked to hold off as we were not going to be any more aggressive. I thought this was a good choice because I do not think the patient would survive. Anesthesia felt the same way. After a long talk with the patient with multiple other family members as well as the staff including Dr. Melquiades Lora and Martha Coello from palliative care, we elected to withdraw support. We elected at that time to withdraw support. We did this and he quickly lost his blood pressure. At 1348, he was pronounced. I was at the bedside with the patient's and we discussed this in detail. The patient did have a squamous cell carcinoma, which was quite close to the bronchial resection margin. I was quite disappointed, but I have explained to the patient and her family on a continuous basis the low threshold for surviving any type of problem after pneumonectomy initially. They understood. RASHIDA
== END 2018-12-12 16:08 | disposition expired | DRG 163 ==
LOC: ASU 08:15 → 1E 19:25 → SUATTDRO 19:25 → SUPCPDRO 19:25 → 2W 11-24 10:24 → 1E 11-27 21:07 → 2E 12-01 12:56 → 1E 12-04 10:01